=== PATIENT | male | born 1925 | race Caucasian/White ===

== ENCOUNTER 2016-12-05 06:45 | Day surgery (SDC) | payer MEDICARE, OTHER, MEDICAID ==
[~2016-12-05 06:45] MED LIST: Lactated Ringers 1,000 ML IV SCH; Sodium Chloride 0.9% 10 ML Syringe FLUSH PRN
[2016-12-05] MEDS ORDERED: Propofol 200 MG/20 ML SDV IV ONE (08:00)
[2016-12-05] MEDS ORDERED: Lidocaine 2% 100 MG/5 ML Syringe IVPUSH ONE (08:00)
--- NOTE | 2016-12-05 08:31 | PCM.SN ---
- Free Text/Narrative Note: prior to procedure pt was examined and chart reviewed. there were no changes noted.
--- NOTE | 2016-12-05 08:31 | PCM.OPNOTE ---
- General Post-Op/Procedure Note Date of Surgery/Procedure: 12/05/16 Operative Procedure(s): egd Findings: duodenal ulcer appears healed. ? narrowing in duodenum Pre Op Diagnosis: duodenal ulcer Post-Op Diagnosis: ? duodenal narrowing Anesthesia Technique: MAC Primary Surgeon: Wolf Gutierrez Anesthesia Provider: Kathie Lopez Pathology: none Complications: None Condition: Good Free Text/Narrative:: see dictation
[2016-12-05 09:06] VITALS: BP 153/97
--- NOTE | 2016-12-05 13:59 | OR ---
DATE OF OPERATION: 12/05/2016 SURGEON: Wolf Gutierrez MD PROCEDURE PERFORMED: Upper endoscopy. PREOPERATIVE DIAGNOSIS: History of duodenal ulcer. POSTOPERATIVE DIAGNOSIS: Questionable duodenal narrowing. INDICATIONS FOR PROCEDURE: This is an 89-year-old white male who presents now for a 3-month followup for a duodenal ulcer. He was offered and accepted the same. DESCRIPTION OF OPERATION: After an excellent IV sedation was administered, the bite block was inserted. The flexible endoscope was passed without difficulty down the patient's esophagus and into the stomach. The stomach was insufflated. The scope was passed through the pylorus to the second portion of the duodenum with some difficulty. There appeared to be a narrowing, but we were able to advance the scope between the first and second portion of the duodenum. The following findings were noted. Duodenal narrowing. There was no evidence of any ulceration that I could tell. Stomach unremarkable. Esophagus unremarkable. We will be following up with an upper GI to ensure that there is no significant pathology going on, but it does appear that the ulcer has been healed. /[id number] /MODL
== END 2016-12-05 09:35 | disposition home or self-care (01) ==
LOC: FB.SDS 06:45
PROVIDERS: ATTEND Surgery
DX: Z87.11 Personal history of peptic ulcer disease (principal); I25.10 Atherosclerotic heart disease of native coronary artery without angina pectoris; N40.1 Benign prostatic hyperplasia with lower urinary tract symptoms; Z79.899 Other long term (current) drug therapy; I10 Essential (primary) hypertension; K21.9 Gastro-esophageal reflux disease without esophagitis; E78.5 Hyperlipidemia, unspecified; Z87.891 Personal history of nicotine dependence
CPT/HCPCS: 00902; 43235; J7120; J2704

== ENCOUNTER 2017-02-10 07:45 | Day surgery (SDC) | payer MEDICARE, OTHER ==
[2017-02-10] MEDS ORDERED: Lactated Ringers 1,000 ML IV SCH (08:00)
[2017-02-10] MEDS ORDERED: Lidocaine 2% 100 MG/5 ML Syringe IVPUSH ONE (09:00)
[2017-02-10] MEDS ORDERED: Midazolam 1 MG/ML 2 ML SDV IV ONE (09:00)
[2017-02-10] MEDS ORDERED: fentaNYL 100 MCG/2 ML SDV IV ONE (09:00)
[2017-02-10] MEDS ORDERED: Propofol 200 MG/20 ML SDV IV ONE (09:00)
--- NOTE | 2017-02-10 09:30 | PCM.OPNOTE ---
- General Post-Op/Procedure Note Date of Surgery/Procedure: 02/10/17 Operative Procedure(s): egd with bx Findings: retained food open pylorus Pre Op Diagnosis: distended stomach. hx of duodenitis Post-Op Diagnosis: gatritis. open pylorus Anesthesia Technique: LUCIA Primary Surgeon: Wolf Gutierrez Anesthesia Provider: Kathie Lopez Pathology: stomach Complications: None Condition: Good Free Text/Narrative:: see dictation
[2017-02-10 10:05] VITALS: BP 133/76
--- NOTE | 2017-02-10 11:12 | OR ---
DATE OF OPERATION: 02/10/2017 SURGEON: Wolf Gutierrez MD PROCEDURE PERFORMED: Esophagogastroduodenoscopy with cold forceps biopsy. PREOPERATIVE DIAGNOSIS: Possible gastric outlet obstruction versus gastroparesis. POSTOPERATIVE DIAGNOSIS: Gastroparesis and gastritis. INDICATIONS FOR PROCEDURE: Mr. Lu is an 89-year-old white male, whom we have been following closely for the past year. He originally started out with duodenal ulcer disease. This was successfully treated. He has had some issues with epigastric abdominal pain and recently has noted an increase in reflux and abdominal pain. CT scan was obtained which general and an enlarged stomach with possible gastric outlet obstruction versus gastroparesis. He also has a known history of a duodenal diverticula and recent upper GI. DESCRIPTION OF OPERATION: After an excellent IV sedation was administered, the bite block was inserted. The flexible endoscope was passed without difficulty down the patient's esophagus into the stomach. The stomach was inflated. Scope was easily passed through the pylorus to the second portion of the duodenum and slowly withdrawn. The following findings were noted. Duodenum, previously known duodenum, diverticulum, and 1st portion of duodenum was unremarkable. Stomach, some diffuse gastritis and retained food. Of note, the pylorus was wide open and does not show any evidence of stricture. Esophagus was actually unremarkable, biopsy was taken of the stomach due to the gastritis. The stomach was deflated, scope was removed. The patient tolerated the procedure well, and was taken to recovery in good condition. /[id number] /MODL
== END 2017-02-10 10:36 | disposition home or self-care (01) ==
LOC: FB.SDS 07:45
PROVIDERS: ATTEND Surgery
DX: K29.50 Unspecified chronic gastritis without bleeding (principal); E78.5 Hyperlipidemia, unspecified; I10 Essential (primary) hypertension; K21.9 Gastro-esophageal reflux disease without esophagitis; I25.10 Atherosclerotic heart disease of native coronary artery without angina pectoris; Z79.899 Other long term (current) drug therapy
CPT/HCPCS: 00740; 43239; 88305; 88342; J2250; J2704; J3010; J7120

== ENCOUNTER 2017-02-13 16:52 | Inpatient (IN) | payer MEDICARE, OTHER ==
--- NOTE | 2017-02-13 17:26 | PCM.HP ---
H&P History of Present Illness - General Date of Service: 02/13/17 Admit Problem/Dx: gastroparesis Source of Information: Patient History Limitations: Reports: No Limitations - History of Present Illness Initial Comments - Free Text/Narative: 89 yo wm with a long standing hx of duodenal ulcer, gastritis and abd pain. Has been having some issue recently with abd distention, nausea and burping. GRAMAJO demonstrated what appeared to be a gastric outlet obstruction vx gastroparesis. EGD done [facility] this week demonstrated his outlet open, however it appeared that he had delayed gastric emptying. he was started on reglan and reported doing well the first day, but on the past two days had worsening pain and distention. He has forced himself to vomit twice. He continues to have wt loss, and is feeling weak. He is admitted for bowel rest and hydration. - Related Data Allergies/Adverse Reactions: Allergies Allergy/AdvReac Type Severity Reaction Status Date / Time No Known Allergies Allergy Verified 02/10/17 08:59 Home Medications: Home Meds Metoprolol Succinate [Toprol XL] 50 mg PO DAILY 08/06/14 [History] Richardson-3 Fatty Acids [Richardson-3] 1,000 mg PO BID 08/06/14 [History] Simvastatin [Zocor] 10 mg PO BEDTIME 08/06/14 [History] Sucralfate [Carafate] 1 gm PO QIDACANDBED #60 tablet 08/29/16 [Rx] Pantoprazole Sodium [Protonix] 40 mg PO DAILY 02/09/17 [History] Metoclopramide HCl [Reglan] 5 mg PO WITHMEALSANDBED #84 tablet 02/10/17 [Rx] Past Medical History HEENT History: Reports: Glaucoma, Impaired Vision, Other (See Below) Other HEENT History: ACOUSTIC NEUROMA Cardiovascular History: Reports: CAD, High Cholesterol, Hypertension Respiratory History: Reports: None Gastrointestinal History: Reports: Diverticulosis, GERD Other Gastrointestinal History: dx last week Genitourinary History: Reports: None [employer]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 Musculoskeletal History: Reports: None Neurological History: Reports: None Other Neuro History: 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 Psychiatric History: Reports: None Endocrine/Metabolic History: Reports: None Hematologic History: Reports: Transfusion Reaction Immunologic History: Reports: None Oncologic (Cancer) History: Reports: None Dermatologic History: Reports: None - Infectious Disease History Infectious Disease History: Reports: Chicken Pox, Measles, Mumps, Shingles - Past Surgical History Head Surgeries/Procedures: Reports: None HEENT Surgical History: Reports: Oral Surgery, Tonsillectomy Cardiovascular Surgical History: Reports: Carotid Stents, Coronary Artery Bypass , Valve Replacement Respiratory Surgical History: Reports: None GI Surgical History: Reports: Colonoscopy, EGD, Hernia, Inguinal Male Surgical History: Reports: None Endocrine Surgical History: Reports: None Neurological Surgical History: Reports: None Musculoskeletal Surgical History: Reports: None Oncologic Surgical History: Reports: None Social & Family History - Family History Family Medical History: Noncontributory Oncologic: Reports: Breast - Tobacco Use Smoking Status *Q: Former Smoker Years of Tobacco use: Month Tobacco Last Used: May Second Hand Smoke Exposure: No - Caffeine Use Caffeine Use: Reports: Coffee Caffeine Use Comment: 3-4 CUPS COFFEE - Alcohol Use Days Per Week of Alcohol Use: 1 Number of Drinks Per Day: 1 Total Drinks Per Week: 1 - Recreational Drug Use Recreational Drug Use: No Drug Use in Last 12 Months: No H&P Review of Systems - Review of Systems: Review Of Systems: See Below General: Reports: Weakness HEENT: Reports: No Symptoms Pulmonary: Reports: No Symptoms Cardiovascular: Reports: No Symptoms Gastrointestinal: Reports: Abdominal Pain, Diarrhea, Decreased Appetite, Distension Musculoskeletal: Reports: No Symptoms Skin: Reports: No Symptoms Neurological: Reports: No Symptoms Hematologic/Lymphatic: Reports: No Symptoms Immunologic: Reports: No Symptoms Exam - Exam Exam: See Below - Vital Signs Weight: 76.793 kg - Exam General: Alert, Oriented, Cooperative HEENT: PERRLA, Conjunctiva Clear, Mucosa Moist & West Brow, Nares Patent, Posterior Pharynx Clear, Pupils Equal, Pupils Reactive Neck: Supple, Trachea Midline Lungs: Clear to Auscultation, Normal Respiratory Effort Cardiovascular: Regular Rate, Regular Rhythm GI/Abdominal Exam: Normal Bowel Sounds, Soft, Non-Tender, No Organomegaly Rectal (Males) Exam: Deferred Back Exam: Normal Inspection Extremities: Normal Inspection Skin: Warm, Dry, Intact *Q Meaningful Use (ADM) - VTE *Q VTE Criteria *Q: - Stroke *Q Stroke Criteria *Q: - AMI *Q AMI Criteria *Q: - Problem List (1) Gastroparesis SNOMED Code(s): 281021143 ICD Code: K31.84 - GASTROPARESIS Status: Acute Current Visit: No Problem List Initiated/Reviewed/Updated: Yes Assessment/Plan Comment:: Admit for bowel rest iv hydration will hold off on NGT for now.
[2017-02-13] MEDS: Sodium Chloride 0.9% 1,000 ML IV SCH (18:03)
[2017-02-13] MEDS: Pantoprazole 40 MG Vial IVPUSH SCH (18:11)
[2017-02-13] MEDS: Ondansetron 4 MG/2 ML SDV IVPUSH PRN (18:11)
[2017-02-13] MEDS: Sucralfate 1 GM Tab PO SCH (20:51)
[2017-02-14] MEDS: Sodium Chloride 0.9% 1,000 ML IV SCH ×4 (02:00→20:06)
[2017-02-14] MEDS: Sucralfate 1 GM Tab PO SCH ×4 (09:10→21:13)
[2017-02-14] MEDS: Pantoprazole 40 MG Vial IVPUSH SCH (09:11)
[2017-02-14] MEDS: Metoprolol Succinate 50 MG Tab.ER PO SCH (09:11)
[2017-02-14] MEDS ORDERED: Potassium Chloride 20 MEQ in Premix Bag 1 BAG IV ONE (09:52)
--- NOTE | 2017-02-14 10:05 | PCM.SURGPN ---
- General Info Date of Service: 02/14/17 Functional Status: Reports: Ambulating, Urinating (decreased urine ) - Review of Systems General: Reports: No Symptoms Genitourinary: Reports: Other (distention is down and says he feels better. ) - Patient Data Vitals - most recent: Last Vital Signs Temp 36.4 C 02/14/17 07:36 Pulse 73 02/14/17 09:11 Resp 18 02/14/17 07:36 BP 139/79 02/14/17 09:11 Pulse Ox 96 02/14/17 07:36 Weight - most recent: 76.793 kg I&O - last 24 hours: Intake & Output 02/13/17 02/14/17 02/14/17 22:59 06:59 14:59 Intake Total 473 1025 Output Total 35 0 120 Balance 438 1025 -120 Lab Results last 24 hrs: Laboratory Results - last 24 hr 02/13/17 02/13/17 Range/Units 18:00 18:00 WBC 7.9 (4.5-12.0) X10-3/uL RBC 5.22 (4.30-5.75) x10(6)uL Hgb 15.7 H (11.5-15.5) g/dL Hct 48.1 D (30.0-51.3) % MCV 92.0 (80-96) fL MCH 30.1 (27.7-33.6) pg MCHC 32.7 (32.2-35.4) g/dL RDW 14.6 (11.5-15.5) % Plt Count 253 (125-369) X10(3)uL MPV 7.9 (7.4-10.4) fL Add Manual Diff Yes Neutrophils % (Manual) 64 (46-82) % Band Neutrophils % 9 H (0-6) % Lymphocytes % (Manual) 17 (13-37) % Monocytes % (Manual) 9 (4-12) % Eosinophils % (Manual) 1 (0-5) % Sodium 137 (135-145) mmol/L Potassium 3.0 L D (3.5-5.3) mmol/L Chloride 94 L D (100-110) mmol/L Carbon Dioxide 22 L (23-29) mmol/L BUN 13 (8-23) mg/dL Creatinine 1.6 H (0.6-1.3) mg/dL Est Cr Clr Drug Dosing 28.24 mL/min Estimated GFR (MDRD) 41 L (>60) BUN/Creatinine Ratio 8.1 L (9-20) Glucose 89 (80-116) mg/dL Calcium 9.9 (8.6-10.2) mg/dL Total Bilirubin 1.0 (0.1-1.3) mg/dL AST 39 H D (5-27) IU/L ALT 38 H D (14-26) IU/L Alkaline Phosphatase 80 (56-112) IU/L Total Protein 7.8 (6.0-8.0) g/dL Albumin 4.3 (2.9-4.5) g/dL Globulin 3.5 g/dL Albumin/Globulin Ratio 1.2 Med Orders - Current: Current Medications Potassium Chloride/Dextrose/Sod Cl (D5 1/2 Ns W/ 20 Meq/L Kcl) 1,000 mls @ 150 mls/hr IV ASDIRECTED [facility] Erythromycin Lactobionate 250 (mg/ Sodium Chloride) 100 mls @ 100 mls/hr IV Q6H [facility] Potassium Chloride 20 meq/ (Premix) 100 mls @ 50 mls/hr IV ONETIME ONE Stop: 02/14/17 11:51 Metoprolol Succinate (Toprol Xl) 50 mg PO DAILY [facility] Last Admin: 02/14/17 09:11 Dose: 50 mg Ondansetron HCl (Zofran) 4 mg IVPUSH Q6H PRN PRN Reason: Nausea/Vomiting Last Admin: 02/13/17 18:11 Dose: 4 mg Pantoprazole Sodium (Protonix Iv) 40 mg IVPUSH DAILY [facility] Last Admin: 02/14/17 09:11 Dose: 40 mg Sucralfate (Carafate) 1 gm PO QIDACANDBED [facility] Last Admin: 02/14/17 09:10 Dose: 1 gm Travoprost (Travatan Z 0.004% Oph Soln) 1 ml EYEBOTH BEDTIME [facility] Discontinued Medications Sodium Chloride (Normal Saline) 1,000 mls @ 125 mls/hr IV ASDIRECTED [facility] Last Admin: 02/14/17 09:14 Dose: 125 mls/hr - Exam General: alert, oriented, cooperative, no acute distress Lungs: Clear to Auscultation, Normal Respiratory Effort Cardiovascular: Regular Rate, Regular Rhythm GI/Abdominal Exam: Normal Bowel Sounds, No Distention. No: Guarding, Rigid, Rebound - Problem List & Annotations (1) Gastroparesis SNOMED Code(s): 780845272 Code(s): K31.84 - GASTROPARESIS Status: Acute Current Visit: No - Problem List Review Problem List Initiated/Reviewed/Updated: Yes - My Orders Last 24 Hours: Active Orders 24 hr Category Date Time Status Patient Status [ADT] Routine ADT 02/13/17 17:28 Active Intake and Output [RC] 06,14,22 Care 02/13/17 17:30 Active Notify Provider Vital Signs [RC] ASDIRECTED Care 02/13/17 17:29 Active Oxygen Therapy [RC] PRN Care 02/13/17 17:28 Active Up ad Deirdre [RC] ASDIRECTED Care 02/13/17 17:28 Active Vital Signs [RC] Q4H Care 02/13/17 17:28 Active Nothing per Oral Now Diet [DIET] Diet 02/13/17 Dinner Active Dextrose 5%-1/2 Normal Saline with KCl 20 mEq @ 150 mL/ Med 02/14/17 10:00 Ordered Hr (1000 mL) D5 1/2 NS w/ 20 mEq/L KCl 1,000 ml IV ASDIRECTED Erythromycin Lactobionate 250 mg Med 02/14/17 10:00 Ordered Sodium Chloride 0.9% [Normal Saline] 100 ml IV Q6H Metoprolol Succinate [Toprol XL] Med 02/14/17 09:00 Active 50 mg PO DAILY Ondansetron [Zofran] Med 02/13/17 17:40 Active 4 mg IVPUSH Q6H PRN Pantoprazole [ProTONIX IV] Med 02/13/17 17:45 Active 40 mg IVPUSH DAILY Potassium Chloride [KCL 20 MEQ in Water 100 ML] 20 meq Med 02/14/17 09:52 Ordered Premix Bag 1 bag IV ONETIME Sucralfate [Carafate] Med 02/13/17 21:00 Active 1 gm PO QIDACANDBED Travoprost [Travatan Z 0.004% Ophth Soln] Med 02/14/17 21:00 Active 1 ml EYEBOTH BEDTIME Sequential Compression Device [OM.PC] Per Unit Routine Oth 02/13/17 17:31 Ordered VTE Pharmacological Contraindications [AST] Per Unit Oth 02/13/17 17:28 Ordered Routine Resuscitation Status Routine Resus Stat 02/13/17 17:28 Ordered Medication Orders Potassium Chloride/Dextrose/Sod Cl (D5 1/2 Ns W/ 20 Meq/L Kcl) 1,000 mls @ 150 mls/hr IV ASDIRECTED [facility] Erythromycin Lactobionate 250 (mg/ Sodium Chloride) 100 mls @ 100 mls/hr IV Q6H [facility] Potassium Chloride 20 meq/ (Premix) 100 mls @ 50 mls/hr IV ONETIME ONE Stop: 02/14/17 11:51 Metoprolol Succinate (Toprol Xl) 50 mg PO DAILY [facility] Last Admin: 02/14/17 09:11 Dose: 50 mg Ondansetron HCl (Zofran) 4 mg IVPUSH Q6H PRN PRN Reason: Nausea/Vomiting Last Admin: 02/13/17 18:11 Dose: 4 mg Pantoprazole Sodium (Protonix Iv) 40 mg IVPUSH DAILY [facility] Last Admin: 02/14/17 09:11 Dose: 40 mg Admin: 02/13/17 18:11 Dose: 40 mg Sucralfate (Carafate) 1 gm PO QIDACANDBED [facility] Last Admin: 02/14/17 09:10 Dose: 1 gm Admin: 02/13/17 20:51 Dose: 1 gm Travoprost (Travatan Z 0.004% Ophth Soln) 1 ml EYEBOTH BEDTIME [facility] - Assessment Assessment (Free Text/Narrative):: clinically better this am. Low K which will be replaced. will advance IVF rate rather than bolus. will start E mycin as well.
[2017-02-14] MEDS: D5 1/2 NS w/ 20 mEq/L KCl 1,000 ML IV SCH ×2 (10:48→22:37)
[2017-02-14] MEDS ORDERED: Lidocaine 1% PF 2 ML SDV ONE (11:30)
[2017-02-14] MEDS ORDERED: Non-Formulary Medication 1 Each (Travoprost [Travatan Z 0.004% Ophth Soln] 1 DROP) EYEBOTH SCH (21:00)
[2017-02-14] MEDS ORDERED: hydrOXYzine HCl 25 MG Tab PO PRN (21:27)
[2017-02-15] MEDS: D5 1/2 NS w/ 20 mEq/L KCl 1,000 ML IV SCH ×2 (06:12→14:29)
[2017-02-15] MEDS: Pantoprazole 40 MG Vial IVPUSH SCH (08:26)
[2017-02-15] MEDS: Sucralfate 1 GM Tab PO SCH ×4 (08:26→20:26)
[2017-02-15] MEDS: Metoprolol Succinate 50 MG Tab.ER PO SCH (08:26)
--- NOTE | 2017-02-15 08:50 | PCM.SURGPN ---
- General Info Date of Service: 02/15/17 Functional Status: Reports: Ambulating, Urinating - Review of Systems Pulmonary: Reports: No Symptoms Cardiovascular: Reports: No Symptoms Gastrointestinal: Reports: Abdominal Pain, Flatus - Patient Data Vitals - most recent: Last Vital Signs Temp 36.7 C 02/15/17 07:08 Pulse 64 02/15/17 08:26 Resp 18 02/15/17 07:08 BP 129/68 02/15/17 08:26 Pulse Ox 97 02/15/17 07:08 Weight - most recent: 74.571 kg I&O - last 24 hours: Intake & Output 02/14/17 02/15/17 02/15/17 22:59 06:59 14:59 Intake Total 1745 1106 Output Total 325 1100 Balance 1420 6 Lab Results last 24 hrs: Laboratory Results - last 24 hr 02/15/17 Range/Units 06:50 Sodium 139 (135-145) mmol/L Potassium 3.3 L (3.5-5.3) mmol/L Chloride 107 D (100-110) mmol/L Carbon Dioxide 24 (23-29) mmol/L BUN 11 (8-23) mg/dL Creatinine 0.8 (0.6-1.3) mg/dL Est Cr Clr Drug Dosing 58.53 mL/min Estimated GFR (MDRD) > 60 (>60) BUN/Creatinine Ratio 13.8 (9-20) Glucose 103 (80-116) mg/dL Calcium 8.1 L (8.6-10.2) mg/dL Med Orders - Current: Current Medications Hydroxyzine HCl (Atarax) 25 mg PO BEDTIME PRN PRN Reason: Sleep Last Admin: 02/14/17 22:03 Dose: 25 mg Potassium Chloride/Dextrose/Sod Cl (D5 1/2 Ns W/ 20 Meq/L Kcl) 1,000 mls @ 150 mls/hr IV Q7H [facility] Last Admin: 02/15/17 06:12 Dose: 150 mls/hr Erythromycin Lactobionate 250 (mg/ Sodium Chloride) 100 mls @ 100 mls/hr IV Q6H [facility] Last Admin: 02/15/17 05:16 Dose: 100 mls/hr Metoprolol Succinate (Toprol Xl) 50 mg PO DAILY [facility] Last Admin: 02/15/17 08:26 Dose: 50 mg Ondansetron HCl (Zofran) 4 mg IVPUSH Q6H PRN PRN Reason: Nausea/Vomiting Last Admin: 02/13/17 18:11 Dose: 4 mg Pantoprazole Sodium (Protonix Iv) 40 mg IVPUSH DAILY [facility] Last Admin: 02/15/17 08:26 Dose: 40 mg Sucralfate (Carafate) 1 gm PO QIDACANDBED [facility] Last Admin: 02/15/17 08:26 Dose: 1 gm Travoprost (Travatan Z 0.004% Ophth Soln) 1 ml EYEBOTH BEDTIME [facility] Last Admin: 02/14/17 21:13 Dose: 1 drop Discontinued Medications Sodium Chloride (Normal Saline) 1,000 mls @ 125 mls/hr IV ASDIRECTED [facility] Last Admin: 02/14/17 09:14 Dose: 125 mls/hr Potassium Chloride 20 meq/ (Premix) 100 mls @ 50 mls/hr IV ONETIME ONE Stop: 02/14/17 11:51 Last Admin: 02/14/17 13:32 Dose: 50 mls/hr Sodium Chloride (Normal Saline) 1,000 mls @ 500 mls/hr IV ASDIRECTED [facility] Stop: 02/14/17 20:15 Last Admin: 02/14/17 20:06 Dose: 500 mls/hr Lidocaine HCl (Xylocaine-Mpf 1%) 2 ml .XX ONETIME ONE Stop: 02/14/17 11:31 Last Admin: 02/14/17 13:32 Dose: 2 ml - Exam General: alert, oriented, cooperative, no acute distress Lungs: Clear to Auscultation, Normal Respiratory Effort Cardiovascular: Regular Rate, Regular Rhythm GI/Abdominal Exam: Normal Bowel Sounds, Soft - Problem List & Annotations (1) Gastroparesis SNOMED Code(s): 449217651 Code(s): K31.84 - GASTROPARESIS Status: Acute Current Visit: No - Problem List Review Problem List Initiated/Reviewed/Updated: Yes - My Orders Last 24 Hours: Active Orders 24 hr Category Date Time Status Granado Catheter Insertion [Insert Urinary Catheter] [OM. Care 02/14/17 18:15 Ordered PC] Q24H Urinary Catheter Assessment [RC] QSHIFT Care 02/14/17 18:13 Active D5 1/2 NS w/ 20 mEq/L KCl 1,000 ml Med 02/14/17 10:00 Active IV Q7H Erythromycin Lactobionate 250 mg Med 02/14/17 10:30 Active Sodium Chloride 0.9% [Normal Saline] 100 ml IV Q6H Metoprolol Succinate [Toprol XL] Med 02/14/17 09:00 Active 50 mg PO DAILY Travoprost [Travatan Z 0.004% Ophth Soln] Med 02/14/17 21:00 Active 1 ml EYEBOTH BEDTIME hydrOXYzine HCl [Atarax] Med 02/14/17 21:27 Active 25 mg PO BEDTIME PRN Medication Orders Hydroxyzine HCl (Atarax) 25 mg PO BEDTIME PRN PRN Reason: Sleep Last Admin: 02/14/17 22:03 Dose: 25 mg Potassium Chloride/Dextrose/Sod Cl (D5 1/2 Ns W/ 20 Meq/L Kcl) 1,000 mls @ 150 mls/hr IV Q7H [facility] Last Admin: 02/15/17 06:12 Dose: 150 mls/hr Infusion: 02/15/17 05:18 Dose: 150 mls/hr Admin: 02/14/17 22:37 Dose: 150 mls/hr Infusion: 02/14/17 17:29 Dose: 150 mls/hr Admin: 02/14/17 10:48 Dose: 150 mls/hr Erythromycin Lactobionate 250 (mg/ Sodium Chloride) 100 mls @ 100 mls/hr IV Q6H [facility] Last Admin: 02/15/17 05:16 Dose: 100 mls/hr Admin: 02/14/17 22:37 Dose: 100 mls/hr Admin: 02/14/17 16:59 Dose: 100 mls/hr Admin: 02/14/17 10:48 Dose: 100 mls/hr Metoprolol Succinate (Toprol Xl) 50 mg PO DAILY [facility] Last Admin: 02/15/17 08:26 Dose: 50 mg Admin: 02/14/17 09:11 Dose: 50 mg Ondansetron HCl (Zofran) 4 mg IVPUSH Q6H PRN PRN Reason: Nausea/Vomiting Last Admin: 02/13/17 18:11 Dose: 4 mg Pantoprazole Sodium (Protonix Iv) 40 mg IVPUSH DAILY [facility] Last Admin: 02/15/17 08:26 Dose: 40 mg Admin: 02/14/17 09:11 Dose: 40 mg Admin: 02/13/17 18:11 Dose: 40 mg Sucralfate (Carafate) 1 gm PO QIDACANDBED [facility] Last Admin: 02/15/17 08:26 Dose: 1 gm Admin: 02/14/17 21:13 Dose: 1 gm Admin: 02/14/17 17:00 Dose: 1 gm Admin: 02/14/17 13:32 Dose: 1 gm Admin: 02/14/17 09:10 Dose: 1 gm Admin: 02/13/17 20:51 Dose: 1 gm Travoprost (Travatan Z 0.004% Ophth Soln) 1 ml EYEBOTH BEDTIME [facility] Last Admin: 02/14/17 21:13 Dose: 1 drop - Assessment Assessment (Free Text/Narrative):: slow improvement low K - Plan Plan (Free Text/Narrative):: d/c granado today Popsicles today decrease IVF rate. PO K
[2017-02-15] MEDS ORDERED: Potassium Chloride 20 MEQ Tab.ER PO ONE (08:53)
[2017-02-15] MEDS: Ondansetron 4 MG/2 ML SDV IVPUSH PRN (15:47)
[2017-02-16] MEDS: D5 1/2 NS w/ 20 mEq/L KCl 1,000 ML IV SCH (01:33)
[2017-02-16] MEDS: Sucralfate 1 GM Tab PO SCH ×4 (06:57→21:10)
[2017-02-16] MEDS: Pantoprazole 40 MG Vial IVPUSH SCH (08:16)
[2017-02-16] MEDS: Metoprolol Succinate 50 MG Tab.ER PO SCH (08:17)
--- NOTE | 2017-02-16 08:37 | PCM.SURGPN ---
- General Info Date of Service: 02/16/17 Functional Status: Reports: Pain Controlled, Ambulating, Urinating. Denies: New Symptoms - Review of Systems Gastrointestinal: Reports: Flatus. Denies: Abdominal Pain - Patient Data Vitals - most recent: Last Vital Signs Temp 36.6 C 02/16/17 04:43 Pulse 65 02/16/17 08:17 Resp 20 02/16/17 04:43 BP 112/71 02/16/17 08:17 Pulse Ox 95 02/16/17 04:43 Weight - most recent: 74.571 kg I&O - last 24 hours: Intake & Output 02/15/17 02/16/17 02/16/17 22:59 06:59 14:59 Intake Total 1040 985 Output Total 200 1325 Balance 840 -340 Lab Results last 24 hrs: Laboratory Results - last 24 hr 02/16/17 Range/Units 07:19 Sodium 141 (135-145) mmol/L Potassium 3.1 L (3.5-5.3) mmol/L Chloride 109 (100-110) mmol/L Carbon Dioxide 24 (23-29) mmol/L BUN 5 L (8-23) mg/dL Creatinine 0.8 (0.6-1.3) mg/dL Est Cr Clr Drug Dosing 58.53 mL/min Estimated GFR (MDRD) > 60 (>60) BUN/Creatinine Ratio 6.3 L (9-20) Glucose 112 (80-116) mg/dL Calcium 8.0 L (8.6-10.2) mg/dL Med Orders - Current: Current Medications Hydroxyzine HCl (Atarax) 25 mg PO BEDTIME PRN PRN Reason: Sleep Last Admin: 02/14/17 22:03 Dose: 25 mg Potassium Chloride/Dextrose/Sod Cl (D5 1/2 Ns W/ 20 Meq/L Kcl) 1,000 mls @ 50 mls/hr IV Q7H [facility] Last Admin: 02/16/17 01:33 Dose: 150 mls/hr Erythromycin Lactobionate 250 (mg/ Sodium Chloride) 100 mls @ 100 mls/hr IV Q6H [facility] Last Admin: 02/16/17 03:54 Dose: 100 mls/hr Metoprolol Succinate (Toprol Xl) 50 mg PO DAILY [facility] Last Admin: 02/16/17 08:17 Dose: 50 mg Ondansetron HCl (Zofran) 4 mg IVPUSH Q6H PRN PRN Reason: Nausea/Vomiting Last Admin: 02/15/17 15:47 Dose: 4 mg Pantoprazole Sodium (Protonix Iv) 40 mg IVPUSH DAILY [facility] Last Admin: 02/16/17 08:16 Dose: 40 mg Sucralfate (Carafate) 1 gm PO QIDACANDBED [facility] Last Admin: 02/16/17 06:57 Dose: 1 gm Travoprost (Travatan Z 0.004% Ophth Soln) 1 ml EYEBOTH BEDTIME [facility] Last Admin: 02/15/17 20:28 Dose: 1 drop Discontinued Medications Sodium Chloride (Normal Saline) 1,000 mls @ 125 mls/hr IV ASDIRECTED [facility] Last Admin: 02/14/17 09:14 Dose: 125 mls/hr Potassium Chloride 20 meq/ (Premix) 100 mls @ 50 mls/hr IV ONETIME ONE Stop: 02/14/17 11:51 Last Admin: 02/14/17 13:32 Dose: 50 mls/hr Sodium Chloride (Normal Saline) 1,000 mls @ 500 mls/hr IV ASDIRECTED [facility] Stop: 02/14/17 20:15 Last Admin: 02/14/17 20:06 Dose: 500 mls/hr Lidocaine HCl (Xylocaine-Mpf 1%) 2 ml .XX ONETIME ONE Stop: 02/14/17 11:31 Last Admin: 02/14/17 13:32 Dose: 2 ml Potassium Chloride (Klor-Con M20) 20 meq PO ONETIME ONE Stop: 02/15/17 08:54 Last Admin: 02/15/17 10:15 Dose: 20 meq - Exam General: alert, oriented Lungs: Clear to Auscultation, Normal Respiratory Effort Cardiovascular: Regular Rate, Regular Rhythm GI/Abdominal Exam: Normal Bowel Sounds, Soft, Non-Tender, No Distention - Problem List & Annotations (1) Gastroparesis SNOMED Code(s): 891851514 Code(s): K31.84 - GASTROPARESIS Status: Acute Current Visit: No - Problem List Review Problem List Initiated/Reviewed/Updated: Yes - My Orders Last 24 Hours: Active Orders 24 hr Category Date Time Status Communication Order [RC] ROUTINE Care 02/15/17 08:54 Active Clear Liquid Diet [DIET] Diet 02/16/17 Lunch Ordered BASIC METABOLIC PANEL,BMP [CHEM] AM Lab 02/17/17 05:11 Ordered Potassium Chloride [Klor-Con M20] Med 02/16/17 09:00 Ordered 20 meq PO BID Medication Orders Hydroxyzine HCl (Atarax) 25 mg PO BEDTIME PRN PRN Reason: Sleep Last Admin: 02/14/17 22:03 Dose: 25 mg Potassium Chloride/Dextrose/Sod Cl (D5 1/2 Ns W/ 20 Meq/L Kcl) 1,000 mls @ 50 mls/hr IV Q7H [facility] Last Admin: 02/16/17 01:33 Dose: 150 mls/hr Infusion: 02/15/17 21:10 Dose: 150 mls/hr Admin: 02/15/17 14:29 Dose: 150 mls/hr Infusion: 02/15/17 12:53 Dose: 150 mls/hr Admin: 02/15/17 06:12 Dose: 150 mls/hr Infusion: 02/15/17 05:18 Dose: 150 mls/hr Admin: 02/14/17 22:37 Dose: 150 mls/hr Infusion: 02/14/17 17:29 Dose: 150 mls/hr Admin: 02/14/17 10:48 Dose: 150 mls/hr Erythromycin Lactobionate 250 (mg/ Sodium Chloride) 100 mls @ 100 mls/hr IV Q6H [facility] Last Admin: 02/16/17 03:54 Dose: 100 mls/hr Admin: 02/15/17 22:28 Dose: 100 mls/hr Admin: 02/15/17 15:46 Dose: 100 mls/hr Admin: 02/15/17 10:15 Dose: 100 mls/hr Admin: 02/15/17 05:16 Dose: 100 mls/hr Admin: 02/14/17 22:37 Dose: 100 mls/hr Admin: 02/14/17 16:59 Dose: 100 mls/hr Admin: 02/14/17 10:48 Dose: 100 mls/hr Metoprolol Succinate (Toprol Xl) 50 mg PO DAILY [facility] Last Admin: 02/16/17 08:17 Dose: 50 mg Admin: 02/15/17 08:26 Dose: 50 mg Admin: 02/14/17 09:11 Dose: 50 mg Ondansetron HCl (Zofran) 4 mg IVPUSH Q6H PRN PRN Reason: Nausea/Vomiting Last Admin: 02/15/17 15:47 Dose: 4 mg Admin: 02/13/17 18:11 Dose: 4 mg Pantoprazole Sodium (Protonix Iv) 40 mg IVPUSH DAILY [facility] Last Admin: 02/16/17 08:16 Dose: 40 mg Admin: 02/15/17 08:26 Dose: 40 mg Admin: 02/14/17 09:11 Dose: 40 mg Admin: 02/13/17 18:11 Dose: 40 mg Sucralfate (Carafate) 1 gm PO QIDACANDBED [facility] Last Admin: 02/16/17 06:57 Dose: 1 gm Admin: 02/15/17 20:26 Dose: 1 gm Admin: 02/15/17 17:32 Dose: 1 gm Admin: 02/15/17 13:07 Dose: 1 gm Admin: 02/15/17 08:26 Dose: 1 gm Admin: 02/14/17 21:13 Dose: 1 gm Admin: 02/14/17 17:00 Dose: 1 gm Admin: 02/14/17 13:32 Dose: 1 gm Admin: 02/14/17 09:10 Dose: 1 gm Admin: 02/13/17 20:51 Dose: 1 gm Travoprost (Travatan Z 0.004% Ophth Soln) 1 ml EYEBOTH BEDTIME [facility] Last Admin: 02/15/17 20:28 Dose: 1 drop Admin: 02/14/17 21:13 Dose: 1 drop - Assessment Assessment (Free Text/Narrative):: will advance diet KCl bid
[2017-02-16] MEDS: Potassium Chloride 20 MEQ Tab.ER PO SCH ×2 (09:35→21:30)
[2017-02-16] MEDS ORDERED: D5 1/2 NS w/ 20 mEq/L KCl 1,000 ML IV SCH (13:30)
[2017-02-17] MEDS: Sucralfate 1 GM Tab PO SCH ×2 (07:45→11:23)
--- NOTE | 2017-02-17 08:59 | PCM.SURGPN ---
- General Info Date of Service: 02/17/17 Functional Status: Reports: Pain Controlled, Tolerating Diet, Ambulating, Urinating - Review of Systems Pulmonary: Reports: No Symptoms Cardiovascular: Reports: No Symptoms Gastrointestinal: Reports: No Symptoms - Patient Data Vitals - Most Recent: Last Vital Signs Temp 36.7 C 02/17/17 07:00 Pulse 82 02/17/17 07:00 Resp 16 02/17/17 07:00 BP 135/83 02/17/17 07:00 Pulse Ox 96 02/17/17 07:00 Weight - Most Recent: 72.802 kg I&O - Last 24 Hours: Intake & Output 02/16/17 02/17/17 02/17/17 22:59 06:59 14:59 Intake Total 750 30 Output Total 200 1125 Balance 550 -1095 Lab Results Last 24 Hrs: Laboratory Results - last 24 hr 02/17/17 Range/Units 06:30 Sodium 142 (135-145) mmol/L Potassium 3.2 L (3.5-5.3) mmol/L Chloride 109 (100-110) mmol/L Carbon Dioxide 26 (23-29) mmol/L BUN 5 L (8-23) mg/dL Creatinine 0.8 (0.6-1.3) mg/dL Est Cr Clr Drug Dosing 58.53 mL/min Estimated GFR (MDRD) > 60 (>60) BUN/Creatinine Ratio 6.3 L (9-20) Glucose 95 (80-116) mg/dL Calcium 8.3 L (8.6-10.2) mg/dL Med Orders - Current: Current Medications Erythromycin (Sharad-Tab) 250 mg PO QID [facility] Hydroxyzine HCl (Atarax) 25 mg PO BEDTIME PRN PRN Reason: Sleep Last Admin: 02/14/17 22:03 Dose: 25 mg Metoprolol Succinate (Toprol Xl) 50 mg PO DAILY [facility] Last Admin: 02/16/17 08:17 Dose: 50 mg Ondansetron HCl (Zofran) 4 mg IVPUSH Q6H PRN PRN Reason: Nausea/Vomiting Last Admin: 02/15/17 15:47 Dose: 4 mg Pantoprazole Sodium (Protonix) 40 mg PO 0600 [facility] Potassium Chloride (Klor-Con M20) 20 meq PO BID [facility] Last Admin: 02/16/17 21:30 Dose: 20 meq Sucralfate (Carafate) 1 gm PO QIDACANDBED [facility] Last Admin: 02/17/17 07:45 Dose: 1 gm Travoprost (Travatan Z 0.004% Ophth Soln) 1 ml EYEBOTH BEDTIME [facility] [place] Last Admin: 02/16/17 21:16 Dose: 1 drop Discontinued Medications Sodium Chloride (Normal Saline) 1,000 mls @ 125 mls/hr IV ASDIRECTED [facility] Last Admin: 02/14/17 09:14 Dose: 125 mls/hr Potassium Chloride/Dextrose/Sod Cl (D5 1/2 Ns W/ 20 Meq/L Kcl) 1,000 mls @ 50 mls/hr IV Q7H [facility] [place] Last Admin: 02/16/17 01:33 Dose: 150 mls/hr Erythromycin Lactobionate 250 (mg/ Sodium Chloride) 100 mls @ 100 mls/hr IV Q6H [facility] [place] Last Admin: 02/16/17 16:27 Dose: 100 mls/hr Potassium Chloride 20 meq/ (Premix) 100 mls @ 50 mls/hr IV ONETIME ONE Stop: 02/14/17 11:51 Last Admin: 02/14/17 13:32 Dose: 50 mls/hr Sodium Chloride (Normal Saline) 1,000 mls @ 500 mls/hr IV ASDIRECTED [facility] Stop: 02/14/17 20:15 Last Admin: 02/14/17 20:06 Dose: 500 mls/hr Potassium Chloride/Dextrose/Sod Cl (D5 1/2 Ns W/ 20 Meq/L Kcl) 1,000 mls @ 50 mls/hr IV Q20H [facility] [place] Last Admin: 02/16/17 13:32 Dose: 50 mls/hr Lidocaine HCl (Xylocaine-Mpf 1%) 2 ml .XX ONETIME ONE Stop: 02/14/17 11:31 Last Admin: 02/14/17 13:32 Dose: 2 ml Pantoprazole Sodium (Protonix Iv) 40 mg IVPUSH DAILY [facility] [place] Last Admin: 02/16/17 08:16 Dose: 40 mg Potassium Chloride (Klor-Con M20) 20 meq PO ONETIME ONE Stop: 02/15/17 08:54 Last Admin: 02/15/17 10:15 Dose: 20 meq - Exam General: Alert, Oriented, Cooperative, No Acute Distress Lungs: Clear to Auscultation, Normal Respiratory Effort Cardiovascular: Regular Rate, Regular Rhythm GI/Abdominal Exam: Normal Bowel Sounds, Soft, Non-Tender, No Organomegaly, No Distention - Problem List & Annotations (1) Gastroparesis SNOMED Code(s): 331455715 Code(s): K31.84 - GASTROPARESIS Status: Acute Current Visit: No - Problem List Review Problem List Initiated/Reviewed/Updated: Yes - My Orders Last 24 Hours: Active Orders 24 hr Category Date Time Status Full Liquid Diet [DIET] Diet 02/17/17 Lunch Ordered Erythromycin Base [Sharad-Tab] Med 02/17/17 09:00 Active 250 mg PO QID Pantoprazole [ProTONIX] Med 02/18/17 06:00 Ordered 40 mg PO 0600 Potassium Chloride [Klor-Con M20] Med 02/16/17 09:00 Active 20 meq PO BID Discontinue Saline Lock [Peripheral IV Discontinue] [OM Oth 02/16/17 19:33 Ordered .PC] Routine Medication Orders Erythromycin (Sharad-Tab) 250 mg PO QID [facility] Hydroxyzine HCl (Atarax) 25 mg PO BEDTIME PRN PRN Reason: Sleep Last Admin: 02/14/17 22:03 Dose: 25 mg Metoprolol Succinate (Toprol Xl) 50 mg PO DAILY [facility] Last Admin: 02/16/17 08:17 Dose: 50 mg Admin: 02/15/17 08:26 Dose: 50 mg Admin: 02/14/17 09:11 Dose: 50 mg Ondansetron HCl (Zofran) 4 mg IVPUSH Q6H PRN PRN Reason: Nausea/Vomiting Last Admin: 02/15/17 15:47 Dose: 4 mg Admin: 02/13/17 18:11 Dose: 4 mg Pantoprazole Sodium (Protonix) 40 mg PO 0600 [facility] Potassium Chloride (Klor-Con M20) 20 meq PO BID [facility] Last Admin: 02/16/17 21:30 Dose: 20 meq Admin: 02/16/17 09:35 Dose: 20 meq Sucralfate (Carafate) 1 gm PO QIDACANDBED [facility] Last Admin: 02/17/17 07:45 Dose: 1 gm Admin: 02/16/17 21:10 Dose: 1 gm Admin: 02/16/17 17:59 Dose: 1 gm Admin: 02/16/17 13:00 Dose: 1 gm Admin: 02/16/17 06:57 Dose: 1 gm Admin: 02/15/17 20:26 Dose: 1 gm Admin: 02/15/17 17:32 Dose: 1 gm Admin: 02/15/17 13:07 Dose: 1 gm Admin: 02/15/17 08:26 Dose: 1 gm Admin: 02/14/17 21:13 Dose: 1 gm Admin: 02/14/17 17:00 Dose: 1 gm Admin: 02/14/17 13:32 Dose: 1 gm Admin: 02/14/17 09:10 Dose: 1 gm Admin: 02/13/17 20:51 Dose: 1 gm Travoprost (Travatan Z 0.004% Ophth Soln) 1 ml EYEBOTH BEDTIME [facility] Last Admin: 02/16/17 21:16 Dose: 1 drop Admin: 02/15/17 20:28 Dose: 1 drop Admin: 02/14/17 21:13 Dose: 1 drop - Assessment Assessment (Free Text/Narrative):: clinically issues have appeared to resolve. - Plan Plan (Free Text/Narrative):: full liquid diet if tolerates will allow to go home.
[2017-02-17] MEDS ORDERED: Pantoprazole 40 MG Tab.CR PO SCH (09:00)
[2017-02-17] MEDS: Potassium Chloride 20 MEQ Tab.ER PO SCH (09:38)
[2017-02-17] MEDS: Metoprolol Succinate 50 MG Tab.ER PO SCH (09:38)
[2017-02-17 09:41] VITALS: BP 138/83
--- NOTE | 2017-02-17 18:06 | PCM.DCSUM1 ---
Discharge Summary - Hospital Course Free Text/Narrative:: pt admitted and placed on bowel rest. was started E mycin as well as K replacement as he was noted to have hypoK as well. He started passing a significant of flatus and noted an improvement in his abd pain and distention. He was also noted to have a decreased urine output and granado catheter was inserted on day 2 to aid with his hydration. This stopped the following morning. The day prior to discharge he was started on a clear liquid diet and was able to tolerate this so his diet was advanced. He was discharged on a full liquid diet. - Discharge Data Discharge Date: 02/17/17 Discharge Disposition: Home, Self-Care 01 Condition: Good - Discharge Diagnosis/Problem(s) (1) Gastroparesis SNOMED Code(s): 821260382 ICD Code: K31.84 - GASTROPARESIS Status: Acute (2) Hypokalemia SNOMED Code(s): 68734748 ICD Code: E87.6 - HYPOKALEMIA Status: Acute - Patient Instructions Diet: Full Liquid Diet Activity: No Strenuous Activities, Rest and Relax Today Driving: Do Not Drive Showering/Bathing: May Shower Notify Provider of: Fever, Increased Pain, Nausea and/or Vomiting - Discharge Plan Prescriptions/Med Rec: Erythromycin Base [Sharad-Tab] 250 mg PO QID #60 tablet Potassium Chloride [Klor-Con M20] 20 meq PO BID #60 tab.er Home Medications: Home Meds Metoprolol Succinate [Toprol XL] 50 mg PO DAILY 08/06/14 [History] Newton-3 Fatty Acids [Newton-3] 1,000 mg PO BID 08/06/14 [History] Simvastatin [Zocor] 10 mg PO BEDTIME 08/06/14 [History] Sucralfate [Carafate] 1 gm PO QIDACANDBED #60 tablet 08/29/16 [Rx] Pantoprazole Sodium [Protonix] 40 mg PO DAILY 02/09/17 [History] Travoprost [Travatan Z 0.004% Ophth Soln] 1 drop EYEBOTH BEDTIME 02/13/17 [ History] Erythromycin Base [Sharad-Tab] 250 mg PO QID #60 tablet 02/17/17 [Rx] Potassium Chloride [Klor-Con M20] 20 meq PO BID #60 tab.er 02/17/17 [Rx] Referrals: Wolf Gutierrez MD [Physician] - (next week thursday or thursday. ) - Discharge Summary/Plan Comment DC Time >30 min.: No Discharge Summary/Plan Comment: see above. - General Info Date of Service: 02/17/17 - Patient Data Vitals - Most Recent: Last Vital Signs Temp 36.7 C 02/17/17 07:00 Pulse 82 02/17/17 09:38 Resp 16 02/17/17 07:00 BP 138/83 02/17/17 09:38 Pulse Ox 96 02/17/17 07:00 Weight - Most Recent: 72.802 kg I&O - Last 24 hours: Intake & Output 02/17/17 02/17/17 02/17/17 06:59 14:59 22:59 Intake Total 30 Output Total 1125 Balance -1095 Lab Results - Last 24 hrs: Laboratory Results - last 24 hr 02/17/17 Range/Units 06:30 Sodium 142 (135-145) mmol/L Potassium 3.2 L (3.5-5.3) mmol/L Chloride 109 (100-110) mmol/L Carbon Dioxide 26 (23-29) mmol/L BUN 5 L (8-23) mg/dL Creatinine 0.8 (0.6-1.3) mg/dL Est Cr Clr Drug Dosing 58.53 mL/min Estimated GFR (MDRD) > 60 (>60) BUN/Creatinine Ratio 6.3 L (9-20) Glucose 95 (80-116) mg/dL Calcium 8.3 L (8.6-10.2) mg/dL Med Orders - Current: Current Medications Discontinued Medications Erythromycin (Sharad-Tab) 250 mg PO QID [facility] Last Admin: 02/17/17 14:20 Dose: 250 mg Hydroxyzine HCl (Atarax) 25 mg PO BEDTIME PRN PRN Reason: Sleep Last Admin: 02/14/17 22:03 Dose: 25 mg Sodium Chloride (Normal Saline) 1,000 mls @ 125 mls/hr IV ASDIRECTED [facility] Last Admin: 02/14/17 09:14 Dose: 125 mls/hr Potassium Chloride/Dextrose/Sod Cl (D5 1/2 Ns W/ 20 Meq/L Kcl) 1,000 mls @ 50 mls/hr IV Q7H [facility] Last Admin: 02/16/17 01:33 Dose: 150 mls/hr Erythromycin Lactobionate 250 (mg/ Sodium Chloride) 100 mls @ 100 mls/hr IV Q6H [facility] Last Admin: 02/16/17 16:27 Dose: 100 mls/hr Potassium Chloride 20 meq/ (Premix) 100 mls @ 50 mls/hr IV ONETIME ONE Stop: 02/14/17 11:51 Last Admin: 02/14/17 13:32 Dose: 50 mls/hr Sodium Chloride (Normal Saline) 1,000 mls @ 500 mls/hr IV ASDIRECTED [facility] Stop: 02/14/17 20:15 Last Admin: 02/14/17 20:06 Dose: 500 mls/hr Potassium Chloride/Dextrose/Sod Cl (D5 1/2 Ns W/ 20 Meq/L Kcl) 1,000 mls @ 50 mls/hr IV Q20H [facility] Last Admin: 02/16/17 13:32 Dose: 50 mls/hr Lidocaine HCl (Xylocaine-Mpf 1%) 2 ml .XX ONETIME ONE Stop: 02/14/17 11:31 Last Admin: 02/14/17 13:32 Dose: 2 ml Metoprolol Succinate (Toprol Xl) 50 mg PO DAILY [facility] Last Admin: 02/17/17 09:38 Dose: 50 mg Ondansetron HCl (Zofran) 4 mg IVPUSH Q6H PRN PRN Reason: Nausea/Vomiting Last Admin: 02/15/17 15:47 Dose: 4 mg Pantoprazole Sodium (Protonix Iv) 40 mg IVPUSH DAILY [facility] Last Admin: 02/16/17 08:16 Dose: 40 mg Pantoprazole Sodium (Protonix) 40 mg PO 0900 [facility] Last Admin: 02/17/17 09:40 Dose: 40 mg Potassium Chloride (Klor-Con M20) 20 meq PO ONETIME ONE Stop: 02/15/17 08:54 Last Admin: 02/15/17 10:15 Dose: 20 meq Potassium Chloride (Klor-Con M20) 20 meq PO BID [facility] Last Admin: 02/17/17 09:38 Dose: 20 meq Sucralfate (Carafate) 1 gm PO QIDACANDBED [facility] Last Admin: 02/17/17 11:23 Dose: 1 gm Travoprost (Travatan Z 0.004% Ophth Soln) 1 ml EYEBOTH BEDTIME [facility] Last Admin: 02/16/17 21:16 Dose: 1 drop *Q Meaningful Use (DIS) - VTE *Q VTE Criteria *Q: VTE Pharmacological Contraindications *Q: Risk of Bleeding - Stroke *Q Stroke Criteria *Q: - AMI *Q AMI Criteria *Q:
== END 2017-02-17 14:35 | disposition home or self-care (01) | DRG 392 ==
LOC: FB.MS 17:03
PROVIDERS: ADMIT Surgery; ATTEND Surgery
PROC: 0T2BX0Z Change Drainage Device in Bladder, External Approach (ICD-10-PCS; principal; 2017-02-15)
DX: K31.84 Gastroparesis (principal); E87.6 Hypokalemia; I25.10 Atherosclerotic heart disease of native coronary artery without angina pectoris; E78.00 Pure hypercholesterolemia, unspecified; I10 Essential (primary) hypertension; K21.9 Gastro-esophageal reflux disease without esophagitis; D33.3 Benign neoplasm of cranial nerves; Z87.891 Personal history of nicotine dependence; Z79.899 Other long term (current) drug therapy; Z95.5 Presence of coronary angioplasty implant and graft; Z95.1 Presence of aortocoronary bypass graft
CPT/HCPCS: 36415; 80048; 80053; 85025; A9270-GY; C9113; J1364; J2405; J3480; J7030; J7040

== ENCOUNTER 2017-03-03 13:30 | Emergency (ER) | payer MEDICARE, OTHER ==
[2017-03-03] MEDS ORDERED: Lactated Ringers 1,000 ML IV ONE (14:02)
[2017-03-03] MEDS ORDERED: Metoclopramide 10 MG/2 ML SDV IVPUSH ONE (14:03)
--- NOTE | 2017-03-03 14:11 | EDM.PDOC ---
ED HPI GENERAL MEDICAL PROBLEM - General Chief Complaint: Abdominal Pain Stated Complaint: STOMACH PAIN Time Seen by Provider: 03/03/17 14:00 Source of Information: Reports: Patient, Family, Old Records History Limitations: Reports: No Limitations - History of Present Illness INITIAL COMMENTS - FREE TEXT/NARRATIVE: 89 yo male with a pHx of duodenal ulcers and gastroparesis presents with nausea , and vomiting. No hematemesis or melena. No fever. Sx's since last Thursday. Did not contact his provider today. Also, has a hx of CSF rhinorrhea and now is experiencing watery drainage from his nose again and is concerned this has recurred. 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: Other (see below) (on liquid diet) Abdomen Pain Score (Numeric/FACES): 5 - Related Data Allergies Allergy/AdvReac Type Severity Reaction Status Date / Time No Known Allergies Allergy Verified 03/03/17 14:33 Home Meds: Home Meds Metoprolol Succinate [Toprol XL] 50 mg PO DAILY 08/06/14 [History] Osmond-3 Fatty Acids [Osmond-3] 1,000 mg PO BID 08/06/14 [History] Simvastatin [Zocor] 10 mg PO BEDTIME 08/06/14 [History] Pantoprazole Sodium [Protonix] 40 mg PO DAILY 02/09/17 [History] Travoprost [Travatan Z 0.004% Ophth Soln] 1 drop EYEBOTH BEDTIME 02/13/17 [ History] Erythromycin Base [Sharad-Tab] 500 mg PO BID 03/03/17 [History] Potassium Chloride [Klor-Con M20] 40 meq PO BID 03/03/17 [History] Past Medical History HEENT History: Reports: Glaucoma, Impaired Vision, Other (See Below) Other HEENT History: ACOUSTIC NEUROMA Cardiovascular History: Reports: CAD, High Cholesterol, Hypertension Respiratory History: Reports: None Gastrointestinal History: Reports: Diverticulosis, GERD Other Gastrointestinal History: dx last week Genitourinary History: Reports: None 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: None Musculoskeletal History: Reports: None Neurological History: Reports: None Other Neuro History: 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 Psychiatric History: Reports: None Endocrine/Metabolic History: Reports: None Hematologic History: Reports: Transfusion Reaction Immunologic History: Reports: None Oncologic (Cancer) History: Reports: None Dermatologic History: Reports: None - Infectious Disease History Infectious Disease History: Reports: Chicken Pox, Measles, Mumps, Shingles - Past Surgical History Head Surgeries/Procedures: Reports: None HEENT Surgical History: Reports: Oral Surgery, Tonsillectomy Cardiovascular Surgical History: Reports: Carotid Stents, Coronary Artery Bypass , Valve Replacement Respiratory Surgical History: Reports: None GI Surgical History: Reports: Colonoscopy, EGD, Hernia, Inguinal Male Surgical History: Reports: None Endocrine Surgical History: Reports: None Neurological Surgical History: Reports: None Musculoskeletal Surgical History: Reports: None Oncologic Surgical History: Reports: None Social & Family History - Family History Family Medical History: Noncontributory Oncologic: Reports: Breast - Tobacco Use Smoking Status *Q: Former Smoker Years of Tobacco use: Used Tobacco, but Quit: Yes Month Tobacco Last Used: 1994 Second Hand Smoke Exposure: No - Caffeine Use Caffeine Use: Reports: Coffee, Tea Caffeine Use Comment: 3-4 CUPS COFFEE - Alcohol Use Days Per Week of Alcohol Use: 1 Number of Drinks Per Day: 1 Total Drinks Per Week: 1 - Recreational Drug Use Recreational Drug Use: No Drug Use in Last 12 Months: No ED ROS GENERAL - Review of Systems Review Of Systems: See Below Constitutional: Reports: No Symptoms HEENT: Reports: Rhinitis Respiratory: Reports: No Symptoms Cardiovascular: Reports: No Symptoms Endocrine: Reports: No Symptoms GI/Abdominal: Reports: Abdominal Pain, Anorexia, Decreased Appetite, Distension , Nausea, Vomiting. Denies: Black Stool, Bloody Stool, Constipation, Diarrhea, Flatus, Hematemesis, Hematochezia, Melena, Stool Incontinence : Reports: No Symptoms Musculoskeletal: Reports: No Symptoms Skin: Reports: No Symptoms Neurological: Reports: No Symptoms ED EXAM, GI/ABD - Physical Exam Exam: See Below Exam Limited By: No Limitations General Appearance: Alert, WD/WN, No Apparent Distress Eyes: Bilateral: Normal Appearance Ears: Normal External Exam, Normal Canal, Hearing Grossly Normal Nose: Normal Inspection, Normal Mucosa, No Blood, Nasal Drainage (clear, has Kleenix up his nostrils) Throat/Mouth: Normal Inspection, Normal Lips, Normal Oropharynx, Normal Voice, No Airway Compromise Head: Atraumatic, Normocephalic Neck: Normal Inspection, Supple Respiratory/Chest: No Respiratory Distress, Lungs Clear, Normal Breath Sounds, No Accessory Muscle Use Cardiovascular: Regular Rate, Rhythm, No Edema GI/Abdominal Exam: Distended, Tender, Abnormal Bowel Sounds (decreased). No: Guarding, Rigid, Rebound Back Exam: Normal Inspection. No: CVA Tenderness (R), CVA Tenderness (L) Extremities: Normal Inspection, Normal Range of Motion, Non-Tender, No Pedal Edema Neurological: Alert, Oriented, CN II-XII Intact, Normal Cognition, No Motor/ Sensory Deficits Psychiatric: Normal Affect, Normal Mood Skin Exam: Warm, Dry, Intact, Normal Color, No Rash Lymphatic: No Adenopathy Course - Vital Signs Text/Narrative:: LR 1000 ml IV, Reglan 10 mg IV Flat/upright abdominal [id number], no obstruction Last Recorded V/S: Last Vital Signs Temp 36.4 C 03/03/17 13:45 Pulse 94 03/03/17 16:17 Resp 20 03/03/17 16:17 BP 123/63 03/03/17 16:17 Pulse Ox 99 03/03/17 16:17 - Orders/Labs/Meds Orders: Active Orders 24 hr Category Date Time Status Sodium Chloride 0.9% [Saline Flush] Med 03/03/17 15:00 Active 10 ml FLUSH ASDIRECTED PRN Medication Orders Sodium Chloride (Saline Flush) 10 ml FLUSH ASDIRECTED PRN PRN Reason: Keep Vein Open Last Admin: 03/03/17 15:03 Dose: 10 ml Labs: Laboratory Tests 03/03/17 03/03/17 Range/Units 14:35 14:35 WBC 7.6 (4.5-12.0) X10-3/uL RBC 5.44 (4.30-5.75) x10(6)uL Hgb 16.8 H (11.5-15.5) g/dL Hct 50.2 (30.0-51.3) % MCV 92.4 (80-96) fL MCH 30.9 (27.7-33.6) pg MCHC 33.4 (32.2-35.4) g/dL RDW 14.8 (11.5-15.5) % Plt Count 201 (125-369) X10(3)uL Sodium 142 (135-145) mmol/L Potassium 4.4 D (3.5-5.3) mmol/L Chloride 93 L D (100-110) mmol/L Carbon Dioxide 34 H (23-29) mmol/L BUN 19 D (8-23) mg/dL Creatinine 2.3 H* (0.6-1.3) mg/dL Est Cr Clr Drug Dosing 20.36 mL/min Estimated GFR (MDRD) 27 L (>60) BUN/Creatinine Ratio 8.3 L (9-20) Glucose 134 H (80-116) mg/dL Calcium 10.4 H D (8.6-10.2) mg/dL Total Bilirubin 2.0 H (0.1-1.3) mg/dL AST 36 H (5-27) IU/L ALT 30 H D (14-26) IU/L Alkaline Phosphatase 80 (56-112) IU/L Total Protein 8.4 H (6.0-8.0) g/dL Albumin 4.8 H (2.9-4.5) g/dL Globulin 3.6 g/dL Albumin/Globulin Ratio 1.3 Meds: Medications Generic Name Dose Route Start Last Admin Trade Name Freq PRN Reason Stop Dose Admin Sodium Chloride 10 ml 03/03/17 15:00 03/03/17 15:03 Saline Flush FLUSH 10 ml ASDIRECTED PRN Administration Keep Vein Open Discontinued Medications Generic Name Dose Route Start Last Admin Trade Name Freq PRN Reason Stop Dose Admin Lactated Ringer's 1,000 mls @ 1,000 mls/hr 03/03/17 14:02 03/03/17 14:45 Ringers, Lactated IV 03/03/17 15:01 100 mls/hr BOLUS ONE Administration Metoclopramide HCl 10 mg 03/03/17 14:03 03/03/17 14:50 Reglan IVPUSH 03/03/17 14:04 10 mg ONETIME ONE Administration Departure - Departure Time of Disposition: 17:00 Disposition: Home, Self-Care 01 Condition: Fair Clinical Impression: Gastroparesis Nausea & vomiting Qualifiers: Vomiting type: unspecified Vomiting Intractability: non-intractable Qualified Code(s): R11.2 - Nausea with vomiting, unspecified - Discharge Information Forms: ED Department Discharge - My Orders Last 24 Hours: My Active Orders 03/03/17 15:00 Sodium Chloride 0.9% [Saline Flush] 10 ml FLUSH ASDIRECTED PRN - Assessment/Plan Last 24 Hours: My Active Orders 03/03/17 15:00 Sodium Chloride 0.9% [Saline Flush] 10 ml FLUSH ASDIRECTED PRN
[2017-03-03] MEDS ORDERED: Sodium Chloride 0.9% 10 ML Syringe FLUSH PRN (15:00)
--- NOTE | 2017-03-03 16:08 | CR ---
INDICATION: Vomiting with distention. ABDOMEN: Four images of the abdomen were obtained in supine and upright projections and were compared with a CT from 02/05/2017. The pattern of gas and feces is nonspecific without evidence of free air or definite obstructive process. No significant bowel distention was identified. Evidence of herniorrhaphy at the left inguinal area is noted. A mild dextroconcave rotoscoliosis of the upper lumbar spine is noted. Degenerative changes are noted at the right sacroiliac joint and at the hip joints with slight loss of cranial lateral joint space at the right hip. Clips compatible with cholecystectomy are noted. What appears to be some retained barium and diverticula are seen in the left pelvis. Stool is noted with air in the colon, especially the rectosigmoid area and rectum. No definite organomegaly or mass lesions were seen. There appears to be some calcification in the abdominal aorta. IMPRESSION: Nonacute abdomen. MTDD
[2017-03-03 17:15] VITALS: BP 123/67
== END 2017-03-03 17:14 | disposition home or self-care (01) ==
LOC: FB.ED 13:30
DX: K31.84 Gastroparesis (principal); I25.10 Atherosclerotic heart disease of native coronary artery without angina pectoris; E78.00 Pure hypercholesterolemia, unspecified; I10 Essential (primary) hypertension; K21.9 Gastro-esophageal reflux disease without esophagitis; Z90.89 Acquired absence of other organs; Z95.1 Presence of aortocoronary bypass graft; Z79.899 Other long term (current) drug therapy; Z87.891 Personal history of nicotine dependence
CPT/HCPCS: 36415; 74020; 80053; 85027; 96361; 96374; 99284; J2765; J7050; J7120

== ENCOUNTER 2017-03-09 16:36 | Inpatient (IN) | payer MEDICARE, OTHER ==
[2017-03-09] MEDS ORDERED: Dextrose 5%-0.9% NaCl with KCl 1,000 ML IV SCH (17:30)
[2017-03-09] MEDS: Sodium Chloride 0.9% 10 ML Syringe FLUSH PRN ×2 (18:00→18:21)
[2017-03-09] MEDS: Ondansetron 4 MG/2 ML SDV IV PRN (18:19)
[2017-03-09] MEDS: Dextrose 5%-0.45% NaCl 1,000 ML IV SCH (19:14)
[2017-03-09] MEDS ORDERED: Potassium Chloride 20 MEQ Tab.ER PO SCH (21:00)
[2017-03-09] MEDS ORDERED: Zolpidem 5 MG Tab PO ONE (22:50)
[2017-03-10] MEDS: Ondansetron 4 MG/2 ML SDV IV PRN (03:16)
[2017-03-10] MEDS: Dextrose 5%-0.45% NaCl 1,000 ML IV SCH ×3 (03:19→20:18)
[2017-03-10] MEDS ORDERED: Metoprolol Succinate 50 MG Tab.ER PO SCH (09:00)
--- NOTE | 2017-03-10 10:27 | PCM.SURGPN ---
- General Info Date of Service: 03/10/17 Functional Status: Reports: Tolerating Diet (tolerating ice chips did vomit this am ), Urinating (decreased ) - Review of Systems Cardiovascular: Reports: No Symptoms Gastrointestinal: Reports: Abdominal Pain, Decreased Appetite, Vomiting - Patient Data Vitals - Most Recent: Last Vital Signs Temp 36.3 C 03/10/17 07:34 Pulse 89 03/10/17 08:48 Resp 18 03/10/17 07:34 BP 110/71 03/10/17 08:48 Pulse Ox 96 03/10/17 07:34 Weight - Most Recent: 66.86 kg I&O - Last 24 Hours: Intake & Output 03/09/17 03/10/17 03/10/17 22:59 06:59 14:59 Intake Total 435 956 Output Total 800 Balance 435 156 Lab Results Last 24 Hrs: Laboratory Results - last 24 hr 03/09/17 03/09/17 Range/Units 17:45 17:45 WBC 6.5 (4.5-12.0) X10-3/uL RBC 5.05 (4.30-5.75) x10(6)uL Hgb 15.5 (11.5-15.5) g/dL Hct 46.9 (30.0-51.3) % MCV 92.9 (80-96) fL MCH 30.6 (27.7-33.6) pg MCHC 33.0 (32.2-35.4) g/dL RDW 14.2 (11.5-15.5) % Plt Count 172 (125-369) X10(3)uL MPV 8.1 (7.4-10.4) fL Add Manual Diff Yes Neutrophils % (Manual) 65 (46-82) % Lymphocytes % (Manual) 29 (13-37) % Monocytes % (Manual) 6 (4-12) % Sodium 143 (135-145) mmol/L Potassium 5.3 (3.5-5.3) mmol/L Chloride 100 D (100-110) mmol/L Carbon Dioxide 28 (23-29) mmol/L BUN 24 H (8-23) mg/dL Creatinine 1.4 H (0.6-1.3) mg/dL Est Cr Clr Drug Dosing 33.44 mL/min Estimated GFR (MDRD) 48 L (>60) BUN/Creatinine Ratio 17.1 (9-20) Glucose 87 (80-116) mg/dL Calcium 9.9 (8.6-10.2) mg/dL Total Bilirubin 1.9 H (0.1-1.3) mg/dL AST 66 H D (5-27) IU/L ALT 71 H D (14-26) IU/L Alkaline Phosphatase 84 (56-112) IU/L Total Protein 8.1 H (6.0-8.0) g/dL Albumin 4.5 (2.9-4.5) g/dL Globulin 3.6 g/dL Albumin/Globulin Ratio 1.3 Med Orders - Current: Current Medications Dextrose/Sodium Chloride (Dextrose 5%-1/2 Ns) 1,000 mls @ 150 mls/hr IV ASDIRECTED [facility] Last Admin: 03/10/17 03:19 Dose: 125 mls/hr Latanoprost (Xalatan 0.005% Ophth Soln) 0 ml EYEBOTH BEDTIME [facility] Metoprolol Succinate (Toprol Xl) 50 mg PO DAILY [facility] Last Admin: 03/10/17 08:48 Dose: 50 mg Ondansetron HCl (Zofran) 4 mg IV Q6H PRN PRN Reason: Nausea/Vomiting Last Admin: 03/10/17 03:16 Dose: 4 mg Sodium Chloride (Saline Flush) 10 ml FLUSH ASDIRECTED PRN PRN Reason: Keep Vein Open Last Admin: 03/09/17 18:21 Dose: 10 ml Discontinued Medications Potassium Chloride/Dextrose/Sod Cl (D5 Ns With 20 Meq Kcl) 1,000 mls @ 125 mls/ hr IV ASDIRECTED [facility] Last Admin: 03/09/17 18:04 Dose: 125 mls/hr Potassium Chloride (Klor-Con M20) 40 meq PO BID [facility] Travoprost (Travatan Z 0.004% Ophth Soln) 0 ml EYEBOTH BEDTIME [facility] Last Admin: 03/09/17 20:52 Dose: 1 drop Zolpidem Tartrate (Ambien) 5 mg PO ONETIME ONE Stop: 03/09/17 22:51 Last Admin: 03/09/17 23:07 Dose: 5 mg - Exam General: Alert, Oriented Lungs: Clear to Auscultation, Normal Respiratory Effort Cardiovascular: Regular Rate, Regular Rhythm GI/Abdominal Exam: Normal Bowel Sounds, Soft, Non-Tender - Problem List & Annotations (1) Gastroparesis SNOMED Code(s): 635253186 Code(s): K31.84 - GASTROPARESIS Status: Acute Current Visit: No - Problem List Review Problem List Initiated/Reviewed/Updated: Yes - My Orders Last 24 Hours: Active Orders 24 hr Category Date Time Status Patient Status [ADT] Routine ADT 03/09/17 17:16 Active Ambulate [RC] ASDIRECTED Care 03/09/17 17:16 Active Height and Weight [RC] DAILY Care 03/09/17 17:16 Active Intake and Output [RC] 06,14,22 Care 03/09/17 17:18 Active Notify Provider Vital Signs [RC] ASDIRECTED Care 03/09/17 17:18 Active Oxygen Therapy [RC] PRN Care 03/09/17 17:16 Active VTE/DVT Education [RC] Per Unit Routine Care 03/09/17 17:16 Active Vital Signs [RC] 08,12,16,20,00,04 Care 03/09/17 17:16 Active Consult to PICC Team [CONS] Routine Cons 03/10/17 10:25 Ordered Nothing per Oral Now Diet [DIET] Diet 03/09/17 Dinner Active Abdomen 1V Flat [CR] AM Exams 03/10/17 05:11 Taken Chest 2V [CR] AM Exams 03/10/17 05:11 Taken KUB [Abdomen 1V Flat] [CR] Routine Exams 03/10/17 09:51 Ordered Dextrose 5%-0.45% NaCl [Dextrose 5%-1/2 NS] 1,000 ml Med 03/09/17 19:15 Active IV ASDIRECTED Latanoprost [Xalatan 0.005% Ophth Soln] Med 03/10/17 21:00 Active 0 ml EYEBOTH BEDTIME Metoprolol Succinate [Toprol XL] Med 03/10/17 09:00 Active 50 mg PO DAILY Ondansetron [Zofran] Med 03/09/17 17:16 Active 4 mg IV Q6H PRN Sodium Chloride 0.9% [Saline Flush] Med 03/09/17 17:16 Active 10 ml FLUSH ASDIRECTED PRN Antiembolic Hose [OM.PC] Per Unit Routine Oth 03/09/17 17:19 Ordered Peripheral IV Insertion Adult [OM.PC] Routine Oth 03/09/17 17:16 Ordered Resuscitation Status Routine Resus Stat 03/09/17 17:16 Ordered Medication Orders Dextrose/Sodium Chloride (Dextrose 5%-1/2 Ns) 1,000 mls @ 150 mls/hr IV ASDIRECTED [facility] Last Admin: 03/10/17 03:19 Dose: 125 mls/hr Infusion: 03/10/17 03:14 Dose: 125 mls/hr Admin: 03/09/17 19:14 Dose: 125 mls/hr Latanoprost (Xalatan 0.005% Ophth Soln) 0 ml EYEBOTH BEDTIME [facility] Metoprolol Succinate (Toprol Xl) 50 mg PO DAILY [facility] Last Admin: 03/10/17 08:48 Dose: 50 mg Ondansetron HCl (Zofran) 4 mg IV Q6H PRN PRN Reason: Nausea/Vomiting Last Admin: 03/10/17 03:16 Dose: 4 mg Admin: 03/09/17 18:19 Dose: 4 mg Sodium Chloride (Saline Flush) 10 ml FLUSH ASDIRECTED PRN PRN Reason: Keep Vein Open Last Admin: 03/09/17 18:21 Dose: 10 ml Admin: 03/09/17 18:00 Dose: 10 ml - Assessment Assessment (Free Text/Narrative):: decreased uo - Plan Plan (Free Text/Narrative):: kub this am with gastrograffin emptying increase ivf rate
--- NOTE | 2017-03-10 11:31 | CR ---
INDICATION: Gastroparesis. CHEST: PA and lateral views of the chest were obtained 03/10/2017. No comparisons were available. Evidence of aortic valve replacement is noted. The aorta is tortuous with calcification in the arch. Bridging hyperostotic changes are noted in the lower middle thoracic spine. Mild demineralization may be present, suggesting the possibility of osteoporosis or osteomalacia and should be correlated clinically. Minimally flattened diaphragm leaves and slighlty prominent AP diameter suggests the possibility of COPD. An active infiltrate or effusion was not identified. No free air is noted under the hemidiaphragm leaves. IMPRESSION: No acute process - findings as noted above. MTDD
--- NOTE | 2017-03-10 11:40 | CR ---
INDICATION: Gastroparesis. ABDOMEN: Two supine views of the abdomen were obtained 03/10/2017 and were compared with 03/03/2017, again revealing evidence of previous inguinal herniorrhaphy on the left, barium in diverticula in the sigmoid colon from previous examinations, evidence of surgery in both upper quadrants with clips, compatible with cholecystectomy, and additional gastric area surgery. The stomach did not appear grossly distended at this time. The pattern of gas and feces was essentially nonspecific. There is gas and stool in the rectum. Degenerative changes are noted at the sacroiliac joints, right much greater than left - only minimal degenerative change is seen on the left. A mild dextroconcave scoliosis of the upper lumbar spine is noted with a right- sided compression at L2 vertebral body. The compression is mild and appears to have been present on the previous study. IMPRESSION: Nonacute abdomen. MTDD
--- NOTE | 2017-03-10 11:58 | CR ---
INDICATION: Question gastric outlet obstruction versus gastroparesis. ABDOMEN: Three images of the abdomen were obtained after water-diluted Isovue 370 was administered. Immediate and 60-minute images are noted. The stomach is distended moderately on the initial image and remains distended on the 60- minute delay image. However, there is flow into the mid small bowel loops at 60 minutes. Message was left on Dr. Carpio cell phone at approximately 1125 hours, 2016. ADELAD
[2017-03-10] MEDS ORDERED: Sodium Chloride 0.9% 1,000 ML IV SCH (18:00)
--- NOTE | 2017-03-10 18:03 | PCM.SN ---
- Free Text/Narrative Note: Events for the day. 1. stomach does empty on follow up KUB with gastrograffin. NGT was placed and he has had over 1 liter out. He is feeling better. 2. UO has been marginal. Will give bolus of NS tonight over two hours. 3. PICC line placement was not successful. Even with US were not able to locate an adequate vein. As a result he will need IV access through a central line. I have discussed the placement of an A port. This would allow IV access, blood draws on a prolonged basis. This was discussed in detail with the pt as well as his daughter in law. The risks were discussed as well to include bleeding, infection, injury to the great vessels as well the lung. He expressed understanding and asks us to proceed. I will schedule him to follow tomorrows cases in the am.
[2017-03-10] MEDS: Pantoprazole 40 MG Vial IVPUSH SCH (19:00)
[2017-03-10] MEDS ORDERED: LORazepam 2 MG/ML MDV IVPUSH PRN (20:07)
[2017-03-10] MEDS: Latanoprost 0.005% Ophth Soln 2.5 ML Bottle EYEBOTH SCH (21:40)
[2017-03-11] MEDS: Dextrose 5%-0.45% NaCl 1,000 ML IV SCH ×4 (03:05→20:59)
[2017-03-11] MEDS: Metoprolol Tartrate 5 MG/5 ML SDV IV SCH ×3 (05:58→18:24)
[2017-03-11] MEDS: Pantoprazole 40 MG Vial IVPUSH SCH (09:07)
[2017-03-11] MEDS ORDERED: ceFAZolin 1 GM in Sodium Chloride 0.9% 50 ML IV ONE (10:00)
[2017-03-11] MEDS ORDERED: Phenylephrine 1% 10 MG/ML SDV IV ONE (11:30)
[2017-03-11] MEDS ORDERED: Propofol 200 MG/20 ML SDV IV ONE (11:30)
[2017-03-11] MEDS ORDERED: Lactated Ringers 1,000 ML IV ONE (11:30)
[2017-03-11] MEDS ORDERED: Lidocaine 1% with EPINEPHrine 1:100,000 20 ML MDV INJECT ONE (11:42)
[2017-03-11] MEDS ORDERED: Bupivacaine 0.5% 30 ML SDV INJECT ONE (11:42)
--- NOTE | 2017-03-11 12:52 | PCM.OPNOTE ---
- General Post-Op/Procedure Note Date of Surgery/Procedure: 03/11/17 Operative Procedure(s): A port placement. left external jugular Findings: line placed without difficulty good position on cxr Pre Op Diagnosis: gastroparesis with need for iv access Post-Op Diagnosis: Same Anesthesia Technique: Local (13 ml 1 % lido with epi/0.5% buvipicaine), MAC Primary Surgeon: Wolf Gutierrez Anesthesia Provider: Vic Ham Pathology: none Complications: None Condition: Good Free Text/Narrative:: Intake & Output 03/10/17 03/11/17 03/11/17 22:59 06:59 14:59 Intake Total 1903 1210 610 Output Total 200 1200 150 Balance 1703 10 460 see dictation
--- NOTE | 2017-03-11 13:37 | US ---
INDICATION: Ultrasound for guidance to vein access for PICC line placement. ULTRASOUND GUIDED VASCULAR ACCESS: Despite ultrasonic guidance, PICC line access could not be obtained in the left humerus area. MTDD
--- NOTE | 2017-03-11 15:09 | CR ---
INDICATION: Insertion of venous access device. CHEST: An AP upright view of the chest 03/11/2017, was compared with 2016 and now reveals a central line with access through the left subclavian. The tip of the central line is directly in the midline at the level of the aortic arch, most likely within the SVC. The heart and lungs were unchanged from the previous study. The aorta is again noted to be tortuous with calcification. Mitral valve replacement and normal heart size is noted. IMPRESSION: Central line noted with its tip in the midline at the level of the aortic arch, compatible with placement in the SVC. MTDD
--- NOTE | 2017-03-11 15:47 | CR ---
INDICATION: A-Port placement. C-ARM FLUOROSCOPY IN O.R. FOR CENTRAL CATHETER PLACEMENT: 1.6 minutes C-Arm fluoroscopy time was utilized in O.R. for guidance for placement of an A-Port from the left subclavian area. The tip appears to be in the area of the arch of the aorta, slightly across the midline or in the midline at the level of the superior vena cava. MTDD
--- NOTE | 2017-03-11 16:16 | PCM.SN ---
- Free Text/Narrative Note: Post op check no complaints doing well. feeling much better than yesterday.
[2017-03-11] MEDS: Sodium Chloride 0.9% 10 ML Syringe FLUSH PRN (18:25)
--- NOTE | 2017-03-11 20:24 | OR ---
DATE OF OPERATION: 03/11/2017 SURGEON: Wolf Gutierrez MD PROCEDURE PERFORMED: Left external jugular port placement. PREOPERATIVE DIAGNOSIS: Gastroparesis with need for prolonged IV access. POSTOPERATIVE DIAGNOSIS: Gastroparesis with need for prolonged IV access. INDICATIONS FOR PROCEDURE: Mr. Lu is an 89-year-old white male, who has been in and out of the hospital recently with issues related to peptic ulcer disease, including a bleeding duodenal ulcer, and the subsequent development of some gastroparesis secondary to gastric distention. The patient has become a hard IV stick. He is currently experiencing some delayed gastric emptying which has improved over the past several weeks, but will need prolonged nasogastric decompression and IV fluid, and it was felt that a port at this point would aid in blood draws and hydration as this is a chronic and ongoing problem. INTRAOPERATIVE FINDINGS: A total of 13 mL of 1:1 mixture of 1% lidocaine with epinephrine and 0.5% bupivacaine was used, and a titanium implantable port reference #[id number], lot #[id number] with an expiration date of 07/26/2018 was used. This was a 22-Sinhala catheter with a low-profile. DESCRIPTION OF OPERATION: After an excellent IV sedation was administered, the patient was prepped and draped in usual sterile manner. We shot a preliminary fluoroscopic view to ensure that we got a good view. The area below the left lateral one-third of the clavicular area was infiltrated with a 1:1 mixture of 1% lidocaine with epinephrine and 0.5% bupivacaine. With the patient in Trendelenburg position, the venous access was obtained. We did pass a wire without difficulty and a preliminary fluoroscopic review was obtained. This appeared to be in the left subclavian vein into the innominate. However, when I hit the area of the superior vena cava, it circled back on itself and coiled. Attempts to replace this and reposition this were not successful under fluoroscopic exam. Not happy with the position of the wire, I did remove the wire and attempts to re-access the subclavian vein again were not successful and resulted in an arterial stick. At this point, I elected to proceed with a placement of the catheter in the external jugular vein on the left side. This was very visible, more local was used to infiltrate the area, and sharp dissection was carried out exposing the external jugular. A tie was placed proximally and one distally, with the proximal tie being tied and this was of 3- 0 silk. An incision was then made over the area where our planned port was going to be placed. This had been infiltrated with local at the start of the case. A pocket was created, and after test fitting, we ensured that the port was fit. The catheter was then tunneled from this incision to the subclavian area where a small stab incision had been made and then up into the area of the external jugular. A nato was made in the external jugular vein, and using the vein pick, a catheter was passed down the external jugular vein and positioned under direct fluoroscopic evaluation into the innominate vein as well. The catheter was noted to flush and aspirate freely, and then, the proximal tie was tied around the catheter and an additional tie was placed proximally behind the vein encompassing the vein and the intravenous catheter and tied. The catheter was then cut to length and attached to the port which was then placed in the patient's subclavian chest wall pocket. This was then tested again in order to aspirate and flush freely. The subcu tissue was approximated with 3-0 Vicryl, and subcu 4-0 Vicryl was used to close the skin in all three incision sites. Steri-Strips were applied. A dressing was applied over that after accessing the port and flushing finally with some heparin. Postoperative chest x-ray demonstrates catheter to be in good position with no evidence of a pneumothorax. He was taken back to his room in stable condition. /[id number] MIKAYLA/ALIX
[2017-03-11] MEDS: Latanoprost 0.005% Ophth Soln 2.5 ML Bottle EYEBOTH SCH (21:25)
[2017-03-12] MEDS: Metoprolol Tartrate 5 MG/5 ML SDV IV SCH ×5 (01:05→23:56)
[2017-03-12] MEDS: Dextrose 5%-0.45% NaCl 1,000 ML IV SCH ×3 (05:02→21:26)
[2017-03-12] MEDS: Pantoprazole 40 MG Vial IVPUSH SCH (08:47)
--- NOTE | 2017-03-12 12:35 | PCM.SURGPN ---
- General Info Date of Service: 03/12/17 POD#: 1 Functional Status: Reports: Pain Controlled, Ambulating, Urinating, Incentive Spirometry. Denies: New Symptoms - Review of Systems Pulmonary: Reports: No Symptoms Cardiovascular: Reports: Orthopnea Gastrointestinal: Reports: No Symptoms - Patient Data Vitals - Most Recent: Last Vital Signs Temp 36.8 C 03/12/17 07:11 Pulse 65 03/12/17 07:11 Resp 16 03/12/17 07:11 BP 124/81 03/12/17 07:11 Pulse Ox 95 03/12/17 07:11 Weight - Most Recent: 68.22 kg I&O - Last 24 Hours: Intake & Output 03/11/17 03/12/17 03/12/17 22:59 06:59 14:59 Intake Total 1050 1125 Output Total 1525 1250 100 Balance -475 -125 -100 Med Orders - Current: Current Medications Dextrose/Sodium Chloride (Dextrose 5%-1/2 Ns) 1,000 mls @ 125 mls/hr IV ASDIRECTED [facility] Last Admin: 03/12/17 05:02 Dose: 125 mls/hr Sodium Chloride (Normal Saline) 1,000 mls @ 500 mls/hr IV ASDIRECTED [facility] Last Admin: 03/10/17 18:16 Dose: 500 mls/hr Latanoprost (Xalatan 0.005% Ophth Soln) 0 ml EYEBOTH BEDTIME [facility] Last Admin: 03/11/17 21:25 Dose: 1 drop Lorazepam (Ativan) 1 mg IVPUSH BEDTIME PRN PRN Reason: Insomnia Metoprolol Tartrate (Lopressor) 5 mg IV Q6H [facility] Last Admin: 03/12/17 06:29 Dose: 5 mg Ondansetron HCl (Zofran) 4 mg IV Q6H PRN PRN Reason: Nausea/Vomiting Last Admin: 03/10/17 03:16 Dose: 4 mg Pantoprazole Sodium (Protonix Iv) 40 mg IVPUSH DAILY [facility] Last Admin: 03/12/17 08:47 Dose: 40 mg Sodium Chloride (Saline Flush) 10 ml FLUSH ASDIRECTED PRN PRN Reason: Keep Vein Open Last Admin: 03/11/17 18:25 Dose: 10 ml Discontinued Medications Bupivacaine HCl (Marcaine 0.5%) 8 ml INJECT .STK-MED ONE Stop: 03/11/17 11:43 Last Admin: 03/11/17 11:42 Dose: 8 ml Heparin Sodium (Porcine) (Heparin Lock Flush 100 Units/Ml) 1,000 units .XX .STK -MED ONE Stop: 03/11/17 12:07 Last Admin: 03/11/17 12:06 Dose: 1,000 units Potassium Chloride/Dextrose/Sod Cl (D5 Ns With 20 Meq Kcl) 1,000 mls @ 125 mls/ hr IV ASDIRECTED [facility] Last Admin: 03/09/17 18:04 Dose: 125 mls/hr Cefazolin Sodium 1 gm/ Sodium (Chloride) 50 mls @ 200 mls/hr IV ONETIME ONE Stop: 03/11/17 10:14 Last Admin: 03/11/17 10:02 Dose: 200 mls/hr Lidocaine/Epinephrine (Xylocaine 1% With Epinephrine 1:100,000) 8 ml INJECT .STK-MED ONE Stop: 03/11/17 11:43 Last Admin: 03/11/17 11:42 Dose: 8 ml Metoprolol Succinate (Toprol Xl) 50 mg PO DAILY [facility] Last Admin: 03/10/17 08:48 Dose: 50 mg Potassium Chloride (Klor-Con M20) 40 meq PO BID [facility] Travoprost (Travatan Z 0.004% Oph Soln) 0 ml EYEBOTH BEDTIME [facility] Last Admin: 03/09/17 20:52 Dose: 1 drop Zolpidem Tartrate (Ambien) 5 mg PO ONETIME ONE Stop: 03/09/17 22:51 Last Admin: 03/09/17 23:07 Dose: 5 mg - Exam Wound/Incisions: Dressing Dry and Intact General: Alert, Oriented, Cooperative, No Acute Distress Lungs: Clear to Auscultation, Normal Respiratory Effort Cardiovascular: Regular Rate, Regular Rhythm GI/Abdominal Exam: Normal Bowel Sounds, Soft, Non-Tender - Problem List & Annotations (1) Gastroparesis SNOMED Code(s): 562616477 Code(s): K31.84 - GASTROPARESIS Status: Acute Current Visit: No - Problem List Review Problem List Initiated/Reviewed/Updated: Yes - My Orders Last 24 Hours: Active Orders 24 hr Category Date Time Status Consult to Tape Calender [CONS] Routine Cons 03/12/17 12:33 Ordered Medication Orders Dextrose/Sodium Chloride (Dextrose 5%-1/2 Ns) 1,000 mls @ 125 mls/hr IV ASDIRECTED [facility] Last Admin: 03/12/17 05:02 Dose: 125 mls/hr Infusion: 03/12/17 04:59 Dose: 125 mls/hr Infusion: 03/11/17 21:01 Dose: 125 mls/hr Admin: 03/11/17 20:59 Dose: 150 mls/hr Infusion: 03/11/17 19:30 Dose: 150 mls/hr Admin: 03/11/17 12:49 Dose: 150 mls/hr Infusion: 03/11/17 12:49 Dose: 150 mls/hr Admin: 03/11/17 09:46 Dose: 150 mls/hr Infusion: 03/11/17 09:46 Dose: 150 mls/hr Admin: 03/11/17 03:05 Dose: 150 mls/hr Infusion: 03/11/17 02:59 Dose: 150 mls/hr Admin: 03/10/17 20:18 Dose: 150 mls/hr Infusion: 03/10/17 18:06 Dose: 150 mls/hr Admin: 03/10/17 11:25 Dose: 150 mls/hr Infusion: 03/10/17 11:19 Dose: 125 mls/hr Admin: 03/10/17 03:19 Dose: 125 mls/hr Infusion: 03/10/17 03:14 Dose: 125 mls/hr Admin: 03/09/17 19:14 Dose: 125 mls/hr Sodium Chloride (Normal Saline) 1,000 mls @ 500 mls/hr IV ASDIRECTED [facility] Last Admin: 03/10/17 18:16 Dose: 500 mls/hr Latanoprost (Xalatan 0.005% Ophth Soln) 0 ml EYEBOTH BEDTIME [facility] Last Admin: 03/11/17 21:25 Dose: 1 drop Admin: 03/10/17 21:40 Dose: 1 drop Lorazepam (Ativan) 1 mg IVPUSH BEDTIME PRN PRN Reason: Insomnia Metoprolol Tartrate (Lopressor) 5 mg IV Q6H [facility] Last Admin: 03/12/17 06:29 Dose: 5 mg Admin: 03/12/17 01:05 Dose: 5 mg Admin: 03/11/17 18:24 Dose: 5 mg Admin: 03/11/17 13:17 Dose: 5 mg Admin: 03/11/17 05:58 Dose: 5 mg Ondansetron HCl (Zofran) 4 mg IV Q6H PRN PRN Reason: Nausea/Vomiting Last Admin: 03/10/17 03:16 Dose: 4 mg Admin: 03/09/17 18:19 Dose: 4 mg Pantoprazole Sodium (Protonix Iv) 40 mg IVPUSH DAILY [facility] Last Admin: 03/12/17 08:47 Dose: 40 mg Admin: 03/11/17 09:07 Dose: 40 mg Admin: 03/10/17 19:00 Dose: 40 mg Sodium Chloride (Saline Flush) 10 ml FLUSH ASDIRECTED PRN PRN Reason: Keep Vein Open Last Admin: 03/11/17 18:25 Dose: 10 ml Admin: 03/09/17 18:21 Dose: 10 ml Admin: 03/09/17 18:00 Dose: 10 ml - Assessment Assessment (Free Text/Narrative):: stable exam port is working well - Plan Plan (Free Text/Narrative):: as will need 5-7 days of bowel rest will start tpn to support him during this time. consult to dietary
[2017-03-12] MEDS: Latanoprost 0.005% Ophth Soln 2.5 ML Bottle EYEBOTH SCH (20:30)
[2017-03-13] MEDS: Dextrose 5%-0.45% NaCl 1,000 ML IV SCH ×2 (05:30→13:51)
[2017-03-13] MEDS: Metoprolol Tartrate 5 MG/5 ML SDV IV SCH ×4 (06:21→23:54)
[2017-03-13] MEDS: Pantoprazole 40 MG Vial IVPUSH SCH (09:38)
[2017-03-13] MEDS: Potassium Chloride 20 MEQ in Premix Bag 1 BAG IV ONE (09:49)
--- NOTE | 2017-03-13 11:52 | PCM.SURGPN ---
- General Info Date of Service: 03/13/17 Functional Status: Reports: Ambulating, Incentive Spirometry. Denies: New Symptoms - Review of Systems Pulmonary: Reports: No Symptoms Cardiovascular: Reports: No Symptoms Gastrointestinal: Reports: No Symptoms - Patient Data Vitals - Most Recent: Last Vital Signs Temp 36.8 C 03/13/17 07:00 Pulse 64 03/13/17 07:00 Resp 16 03/13/17 07:00 BP 156/88 H 03/13/17 06:21 Pulse Ox 98 03/13/17 07:00 Weight - Most Recent: 68.266 kg I&O - Last 24 Hours: Intake & Output 03/12/17 03/13/17 03/13/17 22:59 06:59 14:59 Intake Total 970 1115 Output Total 650 1525 250 Balance 320 -410 -250 Lab Results Last 24 Hrs: Laboratory Results - last 24 hr 03/13/17 03/13/17 03/13/17 Range/Units 07:15 07:15 07:15 WBC 5.1 (4.5-12.0) X10-3/uL RBC 4.20 L (4.30-5.75) x10(6)uL Hgb 13.5 (11.5-15.5) g/dL Hct 38.3 (30.0-51.3) % MCV 91.2 (80-96) fL MCH 32.2 (27.7-33.6) pg MCHC 35.3 (32.2-35.4) g/dL RDW 14.4 (11.5-15.5) % Plt Count 143 (125-369) X10(3)uL MPV 8.3 (7.4-10.4) fL Neut % (Auto) 62.9 (46-82) % Lymph % (Auto) 21.9 (13-37) % Morrison % (Auto) 10.0 (4-12) % Eos % (Auto) 4 (1.0-5.0) % Baso % (Auto) 1 (0-2) % Neut # (Auto) 3.3 (1.6-8.3) # Lymph # (Auto) 1.1 (0.6-5.0) # Morrison # (Auto) 0.5 (0.0-1.3) # Eos # (Auto) 0.2 (0.0-0.8) # Baso # (Auto) 0.0 (0.0-0.2) # PT 11.6 H (8.7-11.1) INR 1.15 H (0.89-1.13) Sodium 137 (135-145) mmol/L Potassium 2.5 L* D (3.5-5.3) mmol/L Chloride 103 (100-110) mmol/L Carbon Dioxide 29 (23-29) mmol/L BUN < 5 L D (8-23) mg/dL Creatinine 0.8 (0.6-1.3) mg/dL Est Cr Clr Drug Dosing 56.49 mL/min Estimated GFR (MDRD) > 60 (>60) BUN/Creatinine Ratio 6.3 L (9-20) Glucose 123 H (80-116) mg/dL Calcium 8.2 L (8.6-10.2) mg/dL Total Bilirubin 1.2 (0.1-1.3) mg/dL AST 23 D (5-27) IU/L ALT 29 H D (14-26) IU/L Alkaline Phosphatase 64 (56-112) IU/L Total Protein 5.8 L (6.0-8.0) g/dL Albumin 3.0 (2.9-4.5) g/dL Globulin 2.8 g/dL Albumin/Globulin Ratio 1.1 Med Orders - Current: Current Medications Dextrose/Sodium Chloride (Dextrose 5%-1/2 Ns) 1,000 mls @ 125 mls/hr IV ASDIRECTED [facility] Last Admin: 03/13/17 05:30 Dose: 125 mls/hr Sodium Chloride (Normal Saline) 1,000 mls @ 500 mls/hr IV ASDIRECTED [facility] Last Admin: 03/10/17 18:16 Dose: 500 mls/hr Latanoprost (Xalatan 0.005% Ophth Soln) 0 ml EYEBOTH BEDTIME [facility] Last Admin: 03/12/17 20:30 Dose: 1 drop Lorazepam (Ativan) 1 mg IVPUSH BEDTIME PRN PRN Reason: Insomnia Metoprolol Tartrate (Lopressor) 5 mg IV Q6H [facility] Last Admin: 03/13/17 06:21 Dose: 5 mg Ondansetron HCl (Zofran) 4 mg IV Q6H PRN PRN Reason: Nausea/Vomiting Last Admin: 03/10/17 03:16 Dose: 4 mg Pantoprazole Sodium (Protonix Iv) 40 mg IVPUSH DAILY [facility] Last Admin: 03/13/17 09:38 Dose: 40 mg Sodium Chloride (Saline Flush) 10 ml FLUSH ASDIRECTED PRN PRN Reason: Keep Vein Open Last Admin: 03/11/17 18:25 Dose: 10 ml Discontinued Medications Bupivacaine HCl (Marcaine 0.5%) 8 ml INJECT .STK-MED ONE Stop: 03/11/17 11:43 Last Admin: 03/11/17 11:42 Dose: 8 ml Heparin Sodium (Porcine) (Heparin Lock Flush 100 Units/Ml) 1,000 units .XX .STK -MED ONE Stop: 03/11/17 12:07 Last Admin: 03/11/17 12:06 Dose: 1,000 units Potassium Chloride/Dextrose/Sod Cl (D5 Ns With 20 Meq Kcl) 1,000 mls @ 125 mls/ hr IV ASDIRECTED [facility] Last Admin: 03/09/17 18:04 Dose: 125 mls/hr Cefazolin Sodium 1 gm/ Sodium (Chloride) 50 mls @ 200 mls/hr IV ONETIME ONE Stop: 03/11/17 10:14 Last Admin: 03/11/17 10:02 Dose: 200 mls/hr Lactated Ringer's (Ringers, Lactated) 1,000 mls @ as directed IV .STK-MED ONE Stop: 03/11/17 11:31 Potassium Chloride 20 meq/ (Premix) 100 mls @ 50 mls/hr IV ONETIME ONE Stop: 03/13/17 10:51 Last Admin: 03/13/17 09:49 Dose: 50 mls/hr Lidocaine/Epinephrine (Xylocaine 1% With Epinephrine 1:100,000) 8 ml INJECT .STK-MED ONE Stop: 03/11/17 11:43 Last Admin: 03/11/17 11:42 Dose: 8 ml Metoprolol Succinate (Toprol Xl) 50 mg PO DAILY [facility] Last Admin: 03/10/17 08:48 Dose: 50 mg Phenylephrine HCl (Deni-Synephrine) 0.1 mg IV .STK-MED ONE Stop: 03/11/17 11:31 Potassium Chloride (Klor-Con M20) 40 meq PO BID [facility] Propofol (Diprivan 20 Ml) 425 mg IV .STK-MED ONE Stop: 03/11/17 11:31 Travoprost (Travatan Z 0.004% Ophth Soln) 0 ml EYEBOTH BEDTIME [facility] Last Admin: 03/09/17 20:52 Dose: 1 drop Zolpidem Tartrate (Ambien) 5 mg PO ONETIME ONE Stop: 03/09/17 22:51 Last Admin: 03/09/17 23:07 Dose: 5 mg - Exam General: Alert, Oriented Lungs: Clear to Auscultation, Normal Respiratory Effort Cardiovascular: Regular Rate, Regular Rhythm GI/Abdominal Exam: Normal Bowel Sounds, Soft, Non-Tender - Problem List & Annotations (1) Gastroparesis SNOMED Code(s): 331235445 Code(s): K31.84 - GASTROPARESIS Status: Acute Current Visit: No - Problem List Review Problem List Initiated/Reviewed/Updated: Yes - My Orders Last 24 Hours: Active Orders 24 hr Category Date Time Status Vital Signs [RC] Q8H Care 03/12/17 17:43 Active Consult to College Athletic Director [CONS] Routine Cons 03/12/17 12:33 Active Medication Orders Dextrose/Sodium Chloride (Dextrose 5%-1/2 Ns) 1,000 mls @ 125 mls/hr IV ASDIRECTED [facility] Last Admin: 03/13/17 05:30 Dose: 125 mls/hr Infusion: 03/13/17 05:26 Dose: 125 mls/hr Admin: 03/12/17 21:26 Dose: 125 mls/hr Infusion: 03/12/17 21:24 Dose: 125 mls/hr Admin: 03/12/17 13:24 Dose: 125 mls/hr Infusion: 03/12/17 13:02 Dose: 125 mls/hr Admin: 03/12/17 05:02 Dose: 125 mls/hr Infusion: 03/12/17 04:59 Dose: 125 mls/hr Infusion: 03/11/17 21:01 Dose: 125 mls/hr Admin: 03/11/17 20:59 Dose: 150 mls/hr Infusion: 03/11/17 19:30 Dose: 150 mls/hr Admin: 03/11/17 12:49 Dose: 150 mls/hr Infusion: 03/11/17 12:49 Dose: 150 mls/hr Admin: 03/11/17 09:46 Dose: 150 mls/hr Infusion: 03/11/17 09:46 Dose: 150 mls/hr Admin: 03/11/17 03:05 Dose: 150 mls/hr Infusion: 03/11/17 02:59 Dose: 150 mls/hr Admin: 03/10/17 20:18 Dose: 150 mls/hr Infusion: 03/10/17 18:06 Dose: 150 mls/hr Admin: 03/10/17 11:25 Dose: 150 mls/hr Infusion: 03/10/17 11:19 Dose: 125 mls/hr Admin: 03/10/17 03:19 Dose: 125 mls/hr Infusion: 03/10/17 03:14 Dose: 125 mls/hr Admin: 03/09/17 19:14 Dose: 125 mls/hr Sodium Chloride (Normal Saline) 1,000 mls @ 500 mls/hr IV ASDIRECTED [facility] Last Admin: 03/10/17 18:16 Dose: 500 mls/hr Latanoprost (Xalatan 0.005% Ophth Soln) 0 ml EYEBOTH BEDTIME [facility] Last Admin: 03/12/17 20:30 Dose: 1 drop Admin: 03/11/17 21:25 Dose: 1 drop Admin: 03/10/17 21:40 Dose: 1 drop Lorazepam (Ativan) 1 mg IVPUSH BEDTIME PRN PRN Reason: Insomnia Metoprolol Tartrate (Lopressor) 5 mg IV Q6H [facility] Last Admin: 03/13/17 06:21 Dose: 5 mg Admin: 03/12/17 23:56 Dose: 5 mg Admin: 03/12/17 17:44 Dose: 5 mg Admin: 03/12/17 13:41 Dose: 5 mg Admin: 03/12/17 06:29 Dose: 5 mg Admin: 03/12/17 01:05 Dose: 5 mg Admin: 03/11/17 18:24 Dose: 5 mg Admin: 03/11/17 13:17 Dose: 5 mg Admin: 03/11/17 05:58 Dose: 5 mg Ondansetron HCl (Zofran) 4 mg IV Q6H PRN PRN Reason: Nausea/Vomiting Last Admin: 03/10/17 03:16 Dose: 4 mg Admin: 03/09/17 18:19 Dose: 4 mg Pantoprazole Sodium (Protonix Iv) 40 mg IVPUSH DAILY [facility] Last Admin: 03/13/17 09:38 Dose: 40 mg Admin: 03/12/17 08:47 Dose: 40 mg Admin: 03/11/17 09:07 Dose: 40 mg Admin: 03/10/17 19:00 Dose: 40 mg Sodium Chloride (Saline Flush) 10 ml FLUSH ASDIRECTED PRN PRN Reason: Keep Vein Open Last Admin: 03/11/17 18:25 Dose: 10 ml Admin: 03/09/17 18:21 Dose: 10 ml Admin: 03/09/17 18:00 Dose: 10 ml - Assessment Assessment (Free Text/Narrative):: doing well - Plan Plan (Free Text/Narrative):: continue bowel rest start tpn today.
[2017-03-13] MEDS ORDERED: VITAMIN K IV SCH ×3 (12:15)
[2017-03-13] MEDS ORDERED: SODIUM CHLORIDE IV SCH ×3 (12:15)
[2017-03-13] MEDS ORDERED: MVI IV SCH ×3 (12:15)
[2017-03-13] MEDS ORDERED: [UNRECOGNIZED DRUG - OTHER] IV SCH ×3 (12:15)
[2017-03-13] MEDS: Fat Emulsion 250 ML IV SCH (13:53)
[2017-03-13] MEDS: Latanoprost 0.005% Ophth Soln 2.5 ML Bottle EYEBOTH SCH (20:02)
[2017-03-14] MEDS: Dextrose 5%-0.45% NaCl 1,000 ML IV SCH (02:55)
[2017-03-14] MEDS: Metoprolol Tartrate 5 MG/5 ML SDV IV SCH ×3 (06:00→17:19)
[2017-03-14] MEDS: Pantoprazole 40 MG Vial IVPUSH SCH (08:50)
[2017-03-14] MEDS ORDERED: Potassium Chloride 20 MEQ in Premix Bag 1 BAG IV ONE ×2 (09:32→12:00)
--- NOTE | 2017-03-14 09:37 | PCM.SURGPN ---
- General Info Date of Service: 03/14/17 - Review of Systems Systems Review Comment:: pt is reporting no pain. He was started on TPN yesterday and appears to be tolerating. His K is low. Continues with flatus. NG aspirate continues to be clear. - Patient Data Vitals - Most Recent: Last Vital Signs Temp 36.5 C 03/14/17 00:00 Pulse 77 03/14/17 06:00 Resp 18 03/14/17 00:00 BP 151/98 H 03/14/17 06:00 Pulse Ox 96 03/14/17 00:00 Weight - Most Recent: 68.311 kg I&O - Last 24 Hours: Intake & Output 03/13/17 03/14/17 03/14/17 22:59 06:59 14:59 Intake Total 1286 947 Output Total 670 1500 Balance 616 -553 Lab Results Last 24 Hrs: Laboratory Results - last 24 hr 03/14/17 Range/Units 06:38 Sodium 141 (135-145) mmol/L Potassium 2.7 L* (3.5-5.3) mmol/L Chloride 105 (100-110) mmol/L Carbon Dioxide 29 (23-29) mmol/L BUN 6 L (8-23) mg/dL Creatinine 0.8 (0.6-1.3) mg/dL Est Cr Clr Drug Dosing 56.49 mL/min Estimated GFR (MDRD) > 60 (>60) BUN/Creatinine Ratio 7.5 L (9-20) Glucose 107 (80-116) mg/dL Calcium 8.4 L (8.6-10.2) mg/dL Med Orders - Current: Current Medications Sodium Chloride 119 meq/Multivitamins/Minerals 10 ml/Amino Ac/Electrol/Dextrose/ Calcium 1,039.75 mls @ 42 mls/hr IV Q24H [facility] [place] Last Admin: 03/13/17 13:54 Dose: 42 mls/hr Fat Emulsion Intravenous (Intralipid 20%) 250 mls @ 20 mls/hr IV Q24H [facility] [place] Last Admin: 03/13/17 13:53 Dose: 20 mls/hr Sodium Chloride 119 meq/Multivitamins/Minerals 10 ml/Amino Ac/Electrol/Dextrose/ Calcium 1,039.75 mls @ 84 mls/hr IV .BY DURATION [facility] [place] Sodium Chloride 119 meq/ Amino (Ac/Electrol/Dextrose/Calcium) 1,029.75 mls @ 84 mls/hr IV .BY DURATION [facility] Potassium Chloride 20 meq/ (Premix) 100 mls @ 50 mls/hr IV ONETIME ONE Stop: 03/14/17 11:31 Potassium Chloride 20 meq/ (Premix) 100 mls @ 50 mls/hr IV ONETIME ONE Stop: 03/14/17 11:32 Latanoprost (Xalatan 0.005% Ophth Soln) 0 ml EYEBOTH BEDTIME [facility] Last Admin: 03/13/17 20:02 Dose: 1 drop Lorazepam (Ativan) 1 mg IVPUSH BEDTIME PRN PRN Reason: Insomnia Metoprolol Tartrate (Lopressor) 5 mg IV Q6H [facility] Last Admin: 03/14/17 06:00 Dose: 5 mg Ondansetron HCl (Zofran) 4 mg IV Q6H PRN PRN Reason: Nausea/Vomiting Last Admin: 03/10/17 03:16 Dose: 4 mg Pantoprazole Sodium (Protonix Iv) 40 mg IVPUSH DAILY [facility] [place] Last Admin: 03/14/17 08:50 Dose: 40 mg Phytonadione (Aquamephyton) 10 mg IM Mo [facility] Discontinued Medications Bupivacaine HCl (Marcaine 0.5%) 8 ml INJECT .STK-MED ONE Stop: 03/11/17 11:43 Last Admin: 03/11/17 11:42 Dose: 8 ml Heparin Sodium (Porcine) (Heparin Lock Flush 100 Units/Ml) 1,000 units .XX .STK -MED ONE Stop: 03/11/17 12:07 Last Admin: 03/11/17 12:06 Dose: 1,000 units Potassium Chloride/Dextrose/Sod Cl (D5 Ns With 20 Meq Kcl) 1,000 mls @ 125 mls/ hr IV ASDIRECTED [facility] Last Admin: 03/09/17 18:04 Dose: 125 mls/hr Dextrose/Sodium Chloride (Dextrose 5%-1/2 Ns) 1,000 mls @ 60 mls/hr IV ASDIRECTED [facility] Last Admin: 03/14/17 02:55 Dose: 125 mls/hr Sodium Chloride (Normal Saline) 1,000 mls @ 500 mls/hr IV ASDIRECTED [facility] Last Admin: 03/10/17 18:16 Dose: 500 mls/hr Cefazolin Sodium 1 gm/ Sodium (Chloride) 50 mls @ 200 mls/hr IV ONETIME ONE Stop: 03/11/17 10:14 Last Admin: 03/11/17 10:02 Dose: 200 mls/hr Lactated Ringer's (Ringers, Lactated) 1,000 mls @ as directed IV .STK-MED ONE Stop: 03/11/17 11:31 Potassium Chloride 20 meq/ (Premix) 100 mls @ 50 mls/hr IV ONETIME ONE Stop: 03/13/17 10:51 Last Admin: 03/13/17 09:49 Dose: 50 mls/hr Lidocaine/Epinephrine (Xylocaine 1% With Epinephrine 1:100,000) 8 ml INJECT .STK-MED ONE Stop: 03/11/17 11:43 Last Admin: 03/11/17 11:42 Dose: 8 ml Metoprolol Succinate (Toprol Xl) 50 mg PO DAILY [facility] [place] Last Admin: 03/10/17 08:48 Dose: 50 mg Phenylephrine HCl (Deni-Synephrine) 0.1 mg IV .STK-MED ONE Stop: 03/11/17 11:31 Potassium Chloride (Klor-Con M20) 40 meq PO BID [facility] Propofol (Diprivan 20 Ml) 425 mg IV .STK-MED ONE Stop: 03/11/17 11:31 Sodium Chloride (Saline Flush) 10 ml FLUSH ASDIRECTED PRN PRN Reason: Keep Vein Open Last Admin: 03/11/17 18:25 Dose: 10 ml Travoprost (Travatan Z 0.004% Ophth Soln) 0 ml EYEBOTH BEDTIME [facility] [place] Last Admin: 03/09/17 20:52 Dose: 1 drop Zolpidem Tartrate (Ambien) 5 mg PO ONETIME ONE Stop: 03/09/17 22:51 Last Admin: 03/09/17 23:07 Dose: 5 mg - Exam General: Alert, Oriented, Cooperative, No Acute Distress Lungs: Clear to Auscultation, Normal Respiratory Effort Cardiovascular: Regular Rate, Regular Rhythm GI/Abdominal Exam: Normal Bowel Sounds, Soft, Non-Tender, No Organomegaly Extremities: Normal Inspection - Problem List & Annotations (1) Gastroparesis SNOMED Code(s): 599694125 Code(s): K31.84 - GASTROPARESIS Status: Acute Current Visit: No - Problem List Review Problem List Initiated/Reviewed/Updated: Yes - My Orders Last 24 Hours: Active Orders 24 hr Category Date Time Status ALT Order Med 03/14/17 12:30 Active Fat Emulsion [Intralipid 20%] 250 ml Med 03/13/17 12:15 Active IV Q24H Phytonadione [AquaMephyton] Med 03/16/17 08:00 Active 10 mg IM Mo Potassium Chloride [KCL 20 MEQ in Water 100 ML] 20 meq Med 03/14/17 09:32 Ordered Premix Bag 1 bag IV ONETIME Potassium Chloride [KCL 20 MEQ in Water 100 ML] 20 meq Med 03/14/17 09:33 Ordered Premix Bag 1 bag IV ONETIME Sodium Chloride 23.4% 119 meq Med 03/13/17 12:15 Active MVI, Adult with Vitamin K [Infuvite Adult] 10 ml AA 5%/Calcium/D15W/Lytes [Clinimix E 5/15] 1,000 ml IV Q24H Medication Orders Sodium Chloride 119 meq/Multivitamins/Minerals 10 ml/Amino Ac/Electrol/Dextrose/ Calcium 1,039.75 mls @ 42 mls/hr IV Q24H [facility] [place] Last Admin: 03/13/17 13:54 Dose: 42 mls/hr Fat Emulsion Intravenous (Intralipid 20%) 250 mls @ 20 mls/hr IV Q24H [facility] [place] Last Admin: 03/13/17 13:53 Dose: 20 mls/hr Sodium Chloride 119 meq/Multivitamins/Minerals 10 ml/Amino Ac/Electrol/Dextrose/ Calcium 1,039.75 mls @ 84 mls/hr IV .BY DURATION [facility] [place] Sodium Chloride 119 meq/ Amino (Ac/Electrol/Dextrose/Calcium) 1,029.75 mls @ 84 mls/hr IV .BY DURATION [facility] [place] Potassium Chloride 20 meq/ (Premix) 100 mls @ 50 mls/hr IV ONETIME ONE Stop: 03/14/17 11:31 Potassium Chloride 20 meq/ (Premix) 100 mls @ 50 mls/hr IV ONETIME ONE Stop: 03/14/17 11:32 Latanoprost (Xalatan 0.005% Ophth Soln) 0 ml EYEBOTH BEDTIME [facility] [place] Last Admin: 03/13/17 20:02 Dose: 1 drop Admin: 03/12/17 20:30 Dose: 1 drop Admin: 03/11/17 21:25 Dose: 1 drop Admin: 03/10/17 21:40 Dose: 1 drop Lorazepam (Ativan) 1 mg IVPUSH BEDTIME PRN PRN Reason: Insomnia Metoprolol Tartrate (Lopressor) 5 mg IV Q6H [facility] [place] Last Admin: 03/14/17 06:00 Dose: 5 mg Admin: 03/13/17 23:54 Dose: 5 mg Admin: 03/13/17 18:01 Dose: 5 mg Admin: 03/13/17 12:08 Dose: 5 mg Admin: 03/13/17 06:21 Dose: 5 mg Admin: 03/12/17 23:56 Dose: 5 mg Admin: 03/12/17 17:44 Dose: 5 mg Admin: 03/12/17 13:41 Dose: 5 mg Admin: 03/12/17 06:29 Dose: 5 mg Admin: 03/12/17 01:05 Dose: 5 mg Admin: 03/11/17 18:24 Dose: 5 mg Admin: 03/11/17 13:17 Dose: 5 mg Admin: 03/11/17 05:58 Dose: 5 mg Ondansetron HCl (Zofran) 4 mg IV Q6H PRN PRN Reason: Nausea/Vomiting Last Admin: 03/10/17 03:16 Dose: 4 mg Admin: 03/09/17 18:19 Dose: 4 mg Pantoprazole Sodium (Protonix Iv) 40 mg IVPUSH DAILY [facility] Last Admin: 03/14/17 08:50 Dose: 40 mg Admin: 03/13/17 09:38 Dose: 40 mg Admin: 03/12/17 08:47 Dose: 40 mg Admin: 03/11/17 09:07 Dose: 40 mg Admin: 03/10/17 19:00 Dose: 40 mg Phytonadione (Aquamephyton) 10 mg IM Mo AMARIS - Assessment Assessment (Free Text/Narrative):: stable exam low K most likely due to diuresis - Plan Plan (Free Text/Narrative):: continue current rx. will give two runs of k today. recheck k level in am.
[2017-03-14] MEDS: Potassium Chloride 20 MEQ in Premix Bag 1 BAG IV ONE (10:10)
[2017-03-14] MEDS: Fat Emulsion 250 ML IV SCH (12:01)
[2017-03-14] MEDS ORDERED: SODIUM CHLORIDE IV ONE ×4 (12:15)
[2017-03-14] MEDS ORDERED: [UNRECOGNIZED DRUG - OTHER] IV ONE ×4 (12:15)
[2017-03-14] MEDS ORDERED: VITAMIN K IV ONE ×4 (12:15)
[2017-03-14] MEDS ORDERED: MVI IV ONE ×4 (12:15)
[2017-03-14] MEDS ORDERED: SODIUM CHLORIDE IV SCH ×3 (12:30)
[2017-03-14] MEDS ORDERED: [UNRECOGNIZED DRUG - OTHER] IV SCH ×3 (12:30)
[2017-03-14] MEDS ORDERED: LYTES IV SCH ×3 (12:30)
[2017-03-14] MEDS ORDERED: CALCIUM IV SCH ×3 (12:30)
[2017-03-14] MEDS ORDERED: MVI IV SCH ×3 (12:30)
[2017-03-14] MEDS ORDERED: MVI, Adult with Vitamin K 10 ML in AA 5%/Calcium/D15W/Lytes 1,000 ML IV ONE ×2 (12:45)
[2017-03-14] MEDS: Latanoprost 0.005% Ophth Soln 2.5 ML Bottle EYEBOTH SCH (20:37)
[2017-03-15] MEDS: Metoprolol Tartrate 5 MG/5 ML SDV IV SCH ×5 (00:11→23:50)
[2017-03-15] MEDS ORDERED: [UNRECOGNIZED DRUG - OTHER] IV SCH ×2 (01:00)
[2017-03-15] MEDS ORDERED: CALCIUM IV SCH ×2 (01:00)
[2017-03-15] MEDS ORDERED: CALC IV SCH ×2 (01:00)
[2017-03-15] MEDS ORDERED: LYTES IV SCH ×2 (01:00)
[2017-03-15] MEDS ORDERED: MVI IV SCH ×2 (01:00)
[2017-03-15] MEDS: Pantoprazole 40 MG Vial IVPUSH SCH (09:00)
--- NOTE | 2017-03-15 09:48 | PCM.SURGPN ---
- General Info Date of Service: 03/15/17 Functional Status: Reports: Ambulating, Urinating. Denies: New Symptoms - Review of Systems Pulmonary: Reports: No Symptoms Cardiovascular: Reports: No Symptoms Gastrointestinal: Reports: No Symptoms - Patient Data Vitals - Most Recent: Last Vital Signs Temp 36.8 C 03/15/17 00:00 Pulse 85 03/15/17 06:02 Resp 17 03/15/17 00:00 BP 141/85 H 03/15/17 06:02 Pulse Ox 96 03/15/17 00:00 Weight - Most Recent: 69.354 kg I&O - Last 24 Hours: Intake & Output 03/14/17 03/15/17 03/15/17 22:59 06:59 14:59 Intake Total 1256 761 Output Total 375 800 Balance 881 -39 Lab Results Last 24 Hrs: Laboratory Results - last 24 hr 03/15/17 03/15/17 Range/Units 06:35 06:35 Sodium 136 (135-145) mmol/L Potassium Cancelled 3.1 L Chloride 103 (100-110) mmol/L Carbon Dioxide 25 (23-29) mmol/L BUN 16 D (8-23) mg/dL Creatinine 0.7 (0.6-1.3) mg/dL Est Cr Clr Drug Dosing 64.56 mL/min Estimated GFR (MDRD) > 60 (>60) BUN/Creatinine Ratio 22.9 H (9-20) Glucose 104 (80-116) mg/dL Calcium 8.4 L (8.6-10.2) mg/dL Med Orders - Current: Current Medications Heparin Sodium (Porcine) (Heparin Lock Flush 100 Units/Ml) 500 units FLUSH ASDIRECTED PRN PRN Reason: Keep Vein Open Last Admin: 03/14/17 17:19 Dose: 500 units Fat Emulsion Intravenous (Intralipid 20%) 250 mls @ 20 mls/hr IV Q24H [facility] Last Admin: 03/14/17 12:01 Dose: 20 mls/hr Multivitamins/Minerals 10 ml/Amino Ac/Electrol/Dextrose/Calcium 1,010 mls @ 84 mls/hr IV .BY DURATION [facility] Stop: 03/15/17 12:30 Amino Ac/Electrol/Dextrose/Calcium (Clinimix E 12/08) 1,000 mls @ 84 mls/hr IV .BY DURATION [facility] Stop: 03/15/17 12:30 Last Admin: 03/15/17 01:46 Dose: 84 mls/hr Sodium Chloride 119 meq/Multivitamins/Minerals 10 ml/Potassium Acetate 40 meq/ Amino Ac/Electrol/Dextrose/Calcium 1,059.75 mls @ 84 mls/hr IV ONETIME ONE Stop: 03/16/17 01:36 Multivitamins/Minerals 10 ml/Amino Ac/Electrol/Dextrose/Calcium 1,010 mls @ 84 mls/hr IV .BY DURATION [facility] Amino Ac/Electrol/Dextrose/Calcium (Clinimix E 15) 1,000 mls @ 84 mls/hr IV .BY DURATION [facility] Latanoprost (Xalatan 0.005% Ophth Soln) 0 ml EYEBOTH BEDTIME [facility] Last Admin: 03/14/17 20:37 Dose: 1 drop Lorazepam (Ativan) 1 mg IVPUSH BEDTIME PRN PRN Reason: Insomnia Metoprolol Tartrate (Lopressor) 5 mg IV Q6H [facility] Last Admin: 03/15/17 06:02 Dose: 5 mg Ondansetron HCl (Zofran) 4 mg IV Q6H PRN PRN Reason: Nausea/Vomiting Last Admin: 03/10/17 03:16 Dose: 4 mg Pantoprazole Sodium (Protonix Iv) 40 mg IVPUSH DAILY [facility] Last Admin: 03/14/17 08:50 Dose: 40 mg Phytonadione (Aquamephyton) 10 mg IM Mo [facility] Discontinued Medications Bupivacaine HCl (Marcaine 0.5%) 8 ml INJECT .STK-MED ONE Stop: 03/11/17 11:43 Last Admin: 03/11/17 11:42 Dose: 8 ml Heparin Sodium (Porcine) (Heparin Lock Flush 100 Units/Ml) 1,000 units .XX .STK -MED ONE Stop: 03/11/17 12:07 Last Admin: 03/11/17 12:06 Dose: 1,000 units Potassium Chloride/Dextrose/Sod Cl (D5 Ns With 20 Meq Kcl) 1,000 mls @ 125 mls/ hr IV ASDIRECTED [facility] Last Admin: 03/09/17 18:04 Dose: 125 mls/hr Dextrose/Sodium Chloride (Dextrose 5%-1/2 Ns) 1,000 mls @ 60 mls/hr IV ASDIRECTED [facility] Last Admin: 03/14/17 02:55 Dose: 125 mls/hr Sodium Chloride (Normal Saline) 1,000 mls @ 500 mls/hr IV ASDIRECTED [facility] Last Admin: 03/10/17 18:16 Dose: 500 mls/hr Cefazolin Sodium 1 gm/ Sodium (Chloride) 50 mls @ 200 mls/hr IV ONETIME ONE Stop: 03/11/17 10:14 Last Admin: 03/11/17 10:02 Dose: 200 mls/hr Lactated Ringer's (Ringers, Lactated) 1,000 mls @ as directed IV .STK-MED ONE Stop: 03/11/17 11:31 Potassium Chloride 20 meq/ (Premix) 100 mls @ 50 mls/hr IV ONETIME ONE Stop: 03/13/17 10:51 Last Admin: 03/14/17 10:10 Dose: 50 mls/hr Sodium Chloride 119 meq/Multivitamins/Minerals 10 ml/Amino Ac/Electrol/Dextrose/ Calcium 1,039.75 mls @ 42 mls/hr IV Q24H [facility] Last Admin: 03/13/17 13:54 Dose: 42 mls/hr Potassium Chloride 20 meq/ (Premix) 100 mls @ 50 mls/hr IV ONETIME ONE Stop: 03/14/17 11:31 Last Admin: 03/14/17 13:21 Dose: Not Given Potassium Chloride 20 meq/ (Premix) 100 mls @ 50 mls/hr IV ONETIME ONE Stop: 03/14/17 13:59 Last Admin: 03/14/17 13:21 Dose: 50 mls/hr Multivitamins/Minerals 10 ml/Amino Ac/Electrol/Dextrose/Calcium 1,010 mls @ 84 mls/hr IV ONETIME ONE Stop: 03/15/17 00:46 Last Admin: 03/14/17 13:00 Dose: 84 mls/hr Lidocaine/Epinephrine (Xylocaine 1% With Epinephrine 1:100,000) 8 ml INJECT .STK-MED ONE Stop: 03/11/17 11:43 Last Admin: 03/11/17 11:42 Dose: 8 ml Metoprolol Succinate (Toprol Xl) 50 mg PO DAILY [facility] Last Admin: 03/10/17 08:48 Dose: 50 mg Phenylephrine HCl (Deni-Synephrine) 0.1 mg IV .STK-MED ONE Stop: 03/11/17 11:31 Potassium Chloride (Klor-Con M20) 40 meq PO BID [facility] Propofol (Diprivan 20 Ml) 425 mg IV .STK-MED ONE Stop: 03/11/17 11:31 Sodium Chloride (Saline Flush) 10 ml FLUSH ASDIRECTED PRN PRN Reason: Keep Vein Open Last Admin: 03/11/17 18:25 Dose: 10 ml Travoprost (Travatan Z 0.004% Ophth Soln) 0 ml EYEBOTH BEDTIME [facility] Last Admin: 03/09/17 20:52 Dose: 1 drop Zolpidem Tartrate (Ambien) 5 mg PO ONETIME ONE Stop: 03/09/17 22:51 Last Admin: 03/09/17 23:07 Dose: 5 mg - Exam General: Alert, Oriented Lungs: Clear to Auscultation, Normal Respiratory Effort Cardiovascular: Regular Rate, Regular Rhythm GI/Abdominal Exam: Normal Bowel Sounds, Non-Tender, No Distention (NGT output has been minimal ) Skin: Warm, Dry, Intact - Problem List & Annotations (1) Gastroparesis SNOMED Code(s): 496079319 Code(s): K31.84 - GASTROPARESIS Status: Acute Current Visit: No - Problem List Review Problem List Initiated/Reviewed/Updated: Yes - My Orders Last 24 Hours: Active Orders 24 hr Category Date Time Status ALT Order Med 03/15/17 01:00 Active ALT Order Med 03/16/17 01:00 Active Heparin Sodium [Heparin Lock Flush 100 Units/ML] Med 03/14/17 15:31 Active 500 units FLUSH ASDIRECTED PRN Phytonadione [AquaMephyton] Med 03/16/17 08:00 Active 10 mg IM Mo Sodium Chloride 23.4% 119 meq Med 03/15/17 13:00 Active MVI, Adult with Vitamin K [Infuvite Adult] 10 ml Potassium Acetate 40 meq AA 5%/Calcium/D15W/Lytes [Clinimix E 15] 1,000 ml IV ONETIME Medication Orders Heparin Sodium (Porcine) (Heparin Lock Flush 100 Units/Ml) 500 units FLUSH ASDIRECTED PRN PRN Reason: Keep Vein Open Last Admin: 03/14/17 17:19 Dose: 500 units Fat Emulsion Intravenous (Intralipid 20%) 250 mls @ 20 mls/hr IV Q24H [facility] Last Admin: 03/14/17 12:01 Dose: 20 mls/hr Infusion: 03/14/17 02:23 Dose: 20 mls/hr Admin: 03/13/17 13:53 Dose: 20 mls/hr Multivitamins/Minerals 10 ml/Amino Ac/Electrol/Dextrose/Calcium 1,010 mls @ 84 mls/hr IV .BY DURATION [facility] Stop: 03/15/17 12:30 Amino Ac/Electrol/Dextrose/Calcium (Clinimix E 5/15) 1,000 mls @ 84 mls/hr IV .BY DURATION [facility] Stop: 03/15/17 12:30 Last Admin: 03/15/17 01:46 Dose: 84 mls/hr Sodium Chloride 119 meq/Multivitamins/Minerals 10 ml/Potassium Acetate 40 meq/ Amino Ac/Electrol/Dextrose/Calcium 1,059.75 mls @ 84 mls/hr IV ONETIME ONE Stop: 03/16/17 01:36 Multivitamins/Minerals 10 ml/Amino Ac/Electrol/Dextrose/Calcium 1,010 mls @ 84 mls/hr IV .BY DURATION [facility] Amino Ac/Electrol/Dextrose/Calcium (Clinimix E 5/15) 1,000 mls @ 84 mls/hr IV .BY DURATION [facility] Latanoprost (Xalatan 0.005% Ophth Soln) 0 ml EYEBOTH BEDTIME [facility] Last Admin: 03/14/17 20:37 Dose: 1 drop Admin: 03/13/17 20:02 Dose: 1 drop Admin: 03/12/17 20:30 Dose: 1 drop Admin: 03/11/17 21:25 Dose: 1 drop Admin: 03/10/17 21:40 Dose: 1 drop Lorazepam (Ativan) 1 mg IVPUSH BEDTIME PRN PRN Reason: Insomnia Metoprolol Tartrate (Lopressor) 5 mg IV Q6H [facility] Last Admin: 03/15/17 06:02 Dose: 5 mg Admin: 03/15/17 00:11 Dose: 5 mg Admin: 03/14/17 17:19 Dose: 5 mg Admin: 03/14/17 12:01 Dose: 5 mg Admin: 03/14/17 06:00 Dose: 5 mg Admin: 03/13/17 23:54 Dose: 5 mg Admin: 03/13/17 18:01 Dose: 5 mg Admin: 03/13/17 12:08 Dose: 5 mg Admin: 03/13/17 06:21 Dose: 5 mg Admin: 03/12/17 23:56 Dose: 5 mg Admin: 03/12/17 17:44 Dose: 5 mg Admin: 03/12/17 13:41 Dose: 5 mg Admin: 03/12/17 06:29 Dose: 5 mg Admin: 03/12/17 01:05 Dose: 5 mg Admin: 03/11/17 18:24 Dose: 5 mg Admin: 03/11/17 13:17 Dose: 5 mg Admin: 03/11/17 05:58 Dose: 5 mg Ondansetron HCl (Zofran) 4 mg IV Q6H PRN PRN Reason: Nausea/Vomiting Last Admin: 03/10/17 03:16 Dose: 4 mg Admin: 03/09/17 18:19 Dose: 4 mg Pantoprazole Sodium (Protonix Iv) 40 mg IVPUSH DAILY [facility] Last Admin: 03/14/17 08:50 Dose: 40 mg Admin: 03/13/17 09:38 Dose: 40 mg Admin: 03/12/17 08:47 Dose: 40 mg Admin: 03/11/17 09:07 Dose: 40 mg Admin: 03/10/17 19:00 Dose: 40 mg Phytonadione (Aquamephyton) 10 mg IM Mo [facility] - Assessment Assessment (Free Text/Narrative):: Will need continued NPO/bowel rest for 7 days, to resolve the gastroparesis. He will continue to need TPN until we can get his po intake to normal levels, hence the continued admission status. - Plan Plan (Free Text/Narrative):: continue tpn, NGT. will start clamping NGT in am if continues to look as good.
[2017-03-15] MEDS: Fat Emulsion 250 ML IV SCH (12:15)
[2017-03-15] MEDS ORDERED: SODIUM CHLORIDE IV ONE ×4 (13:00)
[2017-03-15] MEDS ORDERED: MVI IV ONE ×4 (13:00)
[2017-03-15] MEDS ORDERED: [UNRECOGNIZED DRUG - OTHER] IV ONE ×4 (13:00)
[2017-03-15] MEDS ORDERED: VITAMIN K IV ONE ×4 (13:00)
[2017-03-15] MEDS: Latanoprost 0.005% Ophth Soln 2.5 ML Bottle EYEBOTH SCH (20:48)
[2017-03-16] MEDS: CALCIUM IV SCH ×4 (01:03→13:06)
[2017-03-16] MEDS: LYTES IV SCH ×4 (01:03→13:06)
[2017-03-16] MEDS: MVI IV SCH ×4 (01:03→13:06)
[2017-03-16] MEDS: CALC IV SCH ×4 (01:03→13:06)
[2017-03-16] MEDS: [UNRECOGNIZED DRUG - OTHER] IV SCH ×4 (01:03→13:06)
[2017-03-16] MEDS: Metoprolol Tartrate 5 MG/5 ML SDV IV SCH ×3 (06:02→18:04)
--- NOTE | 2017-03-16 07:58 | PCM.SURGPN ---
- General Info Date of Service: 03/16/17 Functional Status: Reports: Pain Controlled, Ambulating, Urinating. Denies: New Symptoms - Review of Systems Pulmonary: Reports: No Symptoms Cardiovascular: Reports: No Symptoms Gastrointestinal: Reports: No Symptoms - Patient Data Vitals - Most Recent: Last Vital Signs Temp 37.0 C 03/16/17 00:00 Pulse 79 03/16/17 06:02 Resp 18 03/16/17 00:00 BP 157/82 H 03/16/17 06:02 Pulse Ox 98 03/16/17 00:00 Weight - Most Recent: 69.899 kg I&O - Last 24 Hours: Intake & Output 03/15/17 03/16/17 03/16/17 22:59 06:59 14:59 Intake Total 518 704 Output Total 725 1100 Balance -207 -396 Lab Results Last 24 Hrs: Laboratory Results - last 24 hr 03/15/17 03/15/17 Range/Units 06:35 06:35 Sodium 136 (135-145) mmol/L Potassium Cancelled 3.1 L Chloride 103 (100-110) mmol/L Carbon Dioxide 25 (23-29) mmol/L BUN 16 D (8-23) mg/dL Creatinine 0.7 (0.6-1.3) mg/dL Est Cr Clr Drug Dosing 64.56 mL/min Estimated GFR (MDRD) > 60 (>60) BUN/Creatinine Ratio 22.9 H (9-20) Glucose 104 (80-116) mg/dL Calcium 8.4 L (8.6-10.2) mg/dL Med Orders - Current: Current Medications Heparin Sodium (Porcine) (Heparin Lock Flush 100 Units/Ml) 500 units FLUSH ASDIRECTED PRN PRN Reason: Keep Vein Open Last Admin: 03/15/17 17:23 Dose: 500 units Fat Emulsion Intravenous (Intralipid 20%) 250 mls @ 20 mls/hr IV Q24H [facility] Last Admin: 03/15/17 12:15 Dose: 20 mls/hr Multivitamins/Minerals 10 ml/Amino Ac/Electrol/Dextrose/Calcium 1,010 mls @ 84 mls/hr IV .BY DURATION [facility] Amino Ac/Electrol/Dextrose/Calcium (Clinimix E 12/08) 1,000 mls @ 84 mls/hr IV .BY DURATION [facility] Last Admin: 03/16/17 01:03 Dose: 84 mls/hr Latanoprost (Xalatan 0.005% Ophth Soln) 0 ml EYEBOTH BEDTIME [facility] Last Admin: 03/15/17 20:48 Dose: 1 drop Lorazepam (Ativan) 1 mg IVPUSH BEDTIME PRN PRN Reason: Insomnia Metoprolol Tartrate (Lopressor) 5 mg IV Q6H [facility] Last Admin: 03/16/17 06:02 Dose: 5 mg Ondansetron HCl (Zofran) 4 mg IV Q6H PRN PRN Reason: Nausea/Vomiting Last Admin: 03/10/17 03:16 Dose: 4 mg Pantoprazole Sodium (Protonix Iv) 40 mg IVPUSH DAILY [facility] Last Admin: 03/15/17 09:00 Dose: 40 mg Phytonadione (Aquamephyton) 10 mg IM Mo [facility] Discontinued Medications Bupivacaine HCl (Marcaine 0.5%) 8 ml INJECT .STK-MED ONE Stop: 03/11/17 11:43 Last Admin: 03/11/17 11:42 Dose: 8 ml Heparin Sodium (Porcine) (Heparin Lock Flush 100 Units/Ml) 1,000 units .XX .STK -MED ONE Stop: 03/11/17 12:07 Last Admin: 03/11/17 12:06 Dose: 1,000 units Potassium Chloride/Dextrose/Sod Cl (D5 Ns With 20 Meq Kcl) 1,000 mls @ 125 mls/ hr IV ASDIRECTED [facility] Last Admin: 03/09/17 18:04 Dose: 125 mls/hr Dextrose/Sodium Chloride (Dextrose 5%-1/2 Ns) 1,000 mls @ 60 mls/hr IV ASDIRECTED [facility] Last Admin: 03/14/17 02:55 Dose: 125 mls/hr Sodium Chloride (Normal Saline) 1,000 mls @ 500 mls/hr IV ASDIRECTED [facility] Last Admin: 03/10/17 18:16 Dose: 500 mls/hr Cefazolin Sodium 1 gm/ Sodium (Chloride) 50 mls @ 200 mls/hr IV ONETIME ONE Stop: 03/11/17 10:14 Last Admin: 03/11/17 10:02 Dose: 200 mls/hr Lactated Ringer's (Ringers, Lactated) 1,000 mls @ as directed IV .STK-MED ONE Stop: 03/11/17 11:31 Potassium Chloride 20 meq/ (Premix) 100 mls @ 50 mls/hr IV ONETIME ONE Stop: 03/13/17 10:51 Last Admin: 03/14/17 10:10 Dose: 50 mls/hr Sodium Chloride 119 meq/Multivitamins/Minerals 10 ml/Amino Ac/Electrol/Dextrose/ Calcium 1,039.75 mls @ 42 mls/hr IV Q24H [facility] Last Admin: 03/13/17 13:54 Dose: 42 mls/hr Potassium Chloride 20 meq/ (Premix) 100 mls @ 50 mls/hr IV ONETIME ONE Stop: 03/14/17 11:31 Last Admin: 03/14/17 13:21 Dose: Not Given Potassium Chloride 20 meq/ (Premix) 100 mls @ 50 mls/hr IV ONETIME ONE Stop: 03/14/17 13:59 Last Admin: 03/14/17 13:21 Dose: 50 mls/hr Multivitamins/Minerals 10 ml/Amino Ac/Electrol/Dextrose/Calcium 1,010 mls @ 84 mls/hr IV .BY DURATION [facility] Stop: 03/15/17 12:30 Amino Ac/Electrol/Dextrose/Calcium (Clinimix E 12/08) 1,000 mls @ 84 mls/hr IV .BY DURATION [facility] Stop: 03/15/17 12:30 Last Admin: 03/15/17 01:46 Dose: 84 mls/hr Multivitamins/Minerals 10 ml/Amino Ac/Electrol/Dextrose/Calcium 1,010 mls @ 84 mls/hr IV ONETIME ONE Stop: 03/15/17 00:46 Last Admin: 03/14/17 13:00 Dose: 84 mls/hr Sodium Chloride 119 meq/Multivitamins/Minerals 10 ml/Potassium Acetate 40 meq/ Amino Ac/Electrol/Dextrose/Calcium 1,059.75 mls @ 84 mls/hr IV ONETIME ONE Stop: 03/16/17 01:36 Last Admin: 03/15/17 12:16 Dose: 84 mls/hr Lidocaine/Epinephrine (Xylocaine 1% With Epinephrine 1:100,000) 8 ml INJECT .STK-MED ONE Stop: 03/11/17 11:43 Last Admin: 03/11/17 11:42 Dose: 8 ml Metoprolol Succinate (Toprol Xl) 50 mg PO DAILY [facility] Last Admin: 03/10/17 08:48 Dose: 50 mg Phenylephrine HCl (Deni-Synephrine) 0.1 mg IV .STK-MED ONE Stop: 03/11/17 11:31 Potassium Chloride (Klor-Con M20) 40 meq PO BID [facility] Propofol (Diprivan 20 Ml) 425 mg IV .STK-MED ONE Stop: 03/11/17 11:31 Sodium Chloride (Saline Flush) 10 ml FLUSH ASDIRECTED PRN PRN Reason: Keep Vein Open Last Admin: 03/11/17 18:25 Dose: 10 ml Travoprost (Travatan Z 0.004% Ophth Soln) 0 ml EYEBOTH BEDTIME [facility] Last Admin: 03/09/17 20:52 Dose: 1 drop Zolpidem Tartrate (Ambien) 5 mg PO ONETIME ONE Stop: 03/09/17 22:51 Last Admin: 03/09/17 23:07 Dose: 5 mg - Exam Wound/Incisions: Healing Well, Dressing Dry and Intact General: Alert, Oriented Lungs: Clear to Auscultation, Normal Respiratory Effort Cardiovascular: Regular Rate, Regular Rhythm GI/Abdominal Exam: Normal Bowel Sounds, Soft, Non-Tender Skin: Warm, Dry, Intact Psy/Mental Status: Alert - Problem List & Annotations (1) Gastroparesis SNOMED Code(s): 690084256 Code(s): K31.84 - GASTROPARESIS Status: Acute Current Visit: No - Problem List Review Problem List Initiated/Reviewed/Updated: Yes - My Orders Last 24 Hours: Active Orders 24 hr Category Date Time Status ALT Order Med 03/16/17 01:00 Active Phytonadione [AquaMephyton] Med 03/16/17 08:00 Active 10 mg IM Mo Medication Orders Heparin Sodium (Porcine) (Heparin Lock Flush 100 Units/Ml) 500 units FLUSH ASDIRECTED PRN PRN Reason: Keep Vein Open Last Admin: 03/15/17 17:23 Dose: 500 units Admin: 03/15/17 12:19 Dose: 500 units Admin: 03/14/17 17:19 Dose: 500 units Fat Emulsion Intravenous (Intralipid 20%) 250 mls @ 20 mls/hr IV Q24H [facility] Last Admin: 03/15/17 12:15 Dose: 20 mls/hr Infusion: 03/15/17 00:31 Dose: 20 mls/hr Admin: 03/14/17 12:01 Dose: 20 mls/hr Infusion: 03/14/17 02:23 Dose: 20 mls/hr Admin: 03/13/17 13:53 Dose: 20 mls/hr Multivitamins/Minerals 10 ml/Amino Ac/Electrol/Dextrose/Calcium 1,010 mls @ 84 mls/hr IV .BY DURATION [facility] Amino Ac/Electrol/Dextrose/Calcium (Clinimix E 12/08) 1,000 mls @ 84 mls/hr IV .BY DURATION [facility] Last Admin: 03/16/17 01:03 Dose: 84 mls/hr Latanoprost (Xalatan 0.005% Ophth Soln) 0 ml EYEBOTH BEDTIME [facility] Last Admin: 03/15/17 20:48 Dose: 1 drop Admin: 03/14/17 20:37 Dose: 1 drop Admin: 03/13/17 20:02 Dose: 1 drop Admin: 03/12/17 20:30 Dose: 1 drop Admin: 03/11/17 21:25 Dose: 1 drop Admin: 03/10/17 21:40 Dose: 1 drop Lorazepam (Ativan) 1 mg IVPUSH BEDTIME PRN PRN Reason: Insomnia Metoprolol Tartrate (Lopressor) 5 mg IV Q6H [facility] Last Admin: 03/16/17 06:02 Dose: 5 mg Admin: 03/15/17 23:50 Dose: 5 mg Admin: 03/15/17 17:20 Dose: 5 mg Admin: 03/15/17 12:17 Dose: 5 mg Admin: 03/15/17 06:02 Dose: 5 mg Admin: 03/15/17 00:11 Dose: 5 mg Admin: 03/14/17 17:19 Dose: 5 mg Admin: 03/14/17 12:01 Dose: 5 mg Admin: 03/14/17 06:00 Dose: 5 mg Admin: 03/13/17 23:54 Dose: 5 mg Admin: 03/13/17 18:01 Dose: 5 mg Admin: 03/13/17 12:08 Dose: 5 mg Admin: 03/13/17 06:21 Dose: 5 mg Admin: 03/12/17 23:56 Dose: 5 mg Admin: 03/12/17 17:44 Dose: 5 mg Admin: 03/12/17 13:41 Dose: 5 mg Admin: 03/12/17 06:29 Dose: 5 mg Admin: 03/12/17 01:05 Dose: 5 mg Admin: 03/11/17 18:24 Dose: 5 mg Admin: 03/11/17 13:17 Dose: 5 mg Admin: 03/11/17 05:58 Dose: 5 mg Ondansetron HCl (Zofran) 4 mg IV Q6H PRN PRN Reason: Nausea/Vomiting Last Admin: 03/10/17 03:16 Dose: 4 mg Admin: 03/09/17 18:19 Dose: 4 mg Pantoprazole Sodium (Protonix Iv) 40 mg IVPUSH DAILY [facility] Last Admin: 03/15/17 09:00 Dose: 40 mg Admin: 03/14/17 08:50 Dose: 40 mg Admin: 03/13/17 09:38 Dose: 40 mg Admin: 03/12/17 08:47 Dose: 40 mg Admin: 03/11/17 09:07 Dose: 40 mg Admin: 03/10/17 19:00 Dose: 40 mg Phytonadione (Aquamephyton) 10 mg IM Mo [facility] - Assessment Assessment (Free Text/Narrative):: continues to have minimal out with ngt. - Plan Plan (Free Text/Narrative):: will start intermitent clamping.
[2017-03-16] MEDS: Pantoprazole 40 MG Vial IVPUSH SCH (09:11)
[2017-03-16] MEDS: Fat Emulsion 250 ML IV SCH (12:48)
[2017-03-16] MEDS: Latanoprost 0.005% Ophth Soln 2.5 ML Bottle EYEBOTH SCH (20:24)
[2017-03-17] MEDS: Metoprolol Tartrate 5 MG/5 ML SDV IV SCH ×4 (00:35→18:15)
[2017-03-17] MEDS: CALCIUM IV SCH ×4 (01:10→13:16)
[2017-03-17] MEDS: LYTES IV SCH ×4 (01:10→13:16)
[2017-03-17] MEDS: CALC IV SCH ×4 (01:10→13:16)
[2017-03-17] MEDS: [UNRECOGNIZED DRUG - OTHER] IV SCH ×4 (01:10→13:16)
[2017-03-17] MEDS: MVI IV SCH ×4 (01:10→13:16)
[2017-03-17] MEDS: Sodium Chloride 0.9% 10 ML Syringe FLUSH PRN ×3 (08:58→18:20)
[2017-03-17] MEDS: Pantoprazole 40 MG Vial IVPUSH SCH (08:58)
--- NOTE | 2017-03-17 10:46 | PCM.SURGPN ---
- General Info Date of Service: 03/17/17 Functional Status: Reports: Pain Controlled, Ambulating, Urinating - Review of Systems Pulmonary: Reports: No Symptoms Cardiovascular: Reports: No Symptoms Gastrointestinal: Reports: No Symptoms, Other (gastrograffin KUB demonstrates normal sized stomach. no flow into duodenum noted on immediate film. follow film in a hour. ) - Patient Data Vitals - Most Recent: Last Vital Signs Temp 36.8 C 03/17/17 07:50 Pulse 82 03/17/17 07:50 Resp 24 H 03/17/17 07:50 BP 132/96 H 03/17/17 07:50 Pulse Ox 97 03/17/17 07:50 Weight - Most Recent: 69.944 kg I&O - Last 24 Hours: Intake & Output 03/16/17 03/17/17 03/17/17 22:59 06:59 14:59 Intake Total 1477 84 Output Total 675 875 Balance 802 -791 Med Orders - Current: Current Medications Heparin Sodium (Porcine) (Heparin Lock Flush 100 Units/Ml) 500 units FLUSH ASDIRECTED PRN PRN Reason: Keep Vein Open Last Admin: 03/15/17 17:23 Dose: 500 units Fat Emulsion Intravenous (Intralipid 20%) 250 mls @ 20 mls/hr IV Q24H [facility] Last Admin: 03/16/17 12:48 Dose: 20 mls/hr Multivitamins/Minerals 10 ml/Amino Ac/Electrol/Dextrose/Calcium 1,010 mls @ 84 mls/hr IV .BY DURATION [facility] Last Admin: 03/16/17 13:06 Dose: 84 mls/hr Amino Ac/Electrol/Dextrose/Calcium (Clinimix E 5/15) 1,000 mls @ 84 mls/hr IV .BY DURATION [facility] Last Admin: 03/17/17 01:10 Dose: 84 mls/hr Latanoprost (Xalatan 0.005% Ophth Soln) 0 ml EYEBOTH BEDTIME [facility] Last Admin: 03/16/17 20:24 Dose: 1 drop Lorazepam (Ativan) 1 mg IVPUSH BEDTIME PRN PRN Reason: Insomnia Metoprolol Tartrate (Lopressor) 5 mg IV Q6H [facility] Last Admin: 03/17/17 05:02 Dose: 5 mg Ondansetron HCl (Zofran) 4 mg IV Q6H PRN PRN Reason: Nausea/Vomiting Last Admin: 03/10/17 03:16 Dose: 4 mg Pantoprazole Sodium (Protonix Iv) 40 mg IVPUSH DAILY [facility] Last Admin: 03/17/17 08:58 Dose: 40 mg Phytonadione (Aquamephyton) 10 mg IM Mo [facility] Last Admin: 03/16/17 08:51 Dose: 10 mg Sodium Chloride (Saline Flush) 10 ml FLUSH ASDIRECTED PRN PRN Reason: flush med Last Admin: 03/17/17 08:58 Dose: 10 ml Discontinued Medications Bupivacaine HCl (Marcaine 0.5%) 8 ml INJECT .STK-MED ONE Stop: 03/11/17 11:43 Last Admin: 03/11/17 11:42 Dose: 8 ml Heparin Sodium (Porcine) (Heparin Lock Flush 100 Units/Ml) 1,000 units .XX .STK -MED ONE Stop: 03/11/17 12:07 Last Admin: 03/11/17 12:06 Dose: 1,000 units Potassium Chloride/Dextrose/Sod Cl (D5 Ns With 20 Meq Kcl) 1,000 mls @ 125 mls/ hr IV ASDIRECTED [facility] Last Admin: 03/09/17 18:04 Dose: 125 mls/hr Dextrose/Sodium Chloride (Dextrose 5%-1/2 Ns) 1,000 mls @ 60 mls/hr IV ASDIRECTED [facility] Last Admin: 03/14/17 02:55 Dose: 125 mls/hr Sodium Chloride (Normal Saline) 1,000 mls @ 500 mls/hr IV ASDIRECTED [facility] Last Admin: 03/10/17 18:16 Dose: 500 mls/hr Cefazolin Sodium 1 gm/ Sodium (Chloride) 50 mls @ 200 mls/hr IV ONETIME ONE Stop: 03/11/17 10:14 Last Admin: 03/11/17 10:02 Dose: 200 mls/hr Lactated Ringer's (Ringers, Lactated) 1,000 mls @ as directed IV .STK-MED ONE Stop: 03/11/17 11:31 Potassium Chloride 20 meq/ (Premix) 100 mls @ 50 mls/hr IV ONETIME ONE Stop: 03/13/17 10:51 Last Admin: 03/14/17 10:10 Dose: 50 mls/hr Sodium Chloride 119 meq/Multivitamins/Minerals 10 ml/Amino Ac/Electrol/Dextrose/ Calcium 1,039.75 mls @ 42 mls/hr IV Q24H [facility] Last Admin: 03/13/17 13:54 Dose: 42 mls/hr Potassium Chloride 20 meq/ (Premix) 100 mls @ 50 mls/hr IV ONETIME ONE Stop: 03/14/17 11:31 Last Admin: 03/14/17 13:21 Dose: Not Given Potassium Chloride 20 meq/ (Premix) 100 mls @ 50 mls/hr IV ONETIME ONE Stop: 03/14/17 13:59 Last Admin: 03/14/17 13:21 Dose: 50 mls/hr Multivitamins/Minerals 10 ml/Amino Ac/Electrol/Dextrose/Calcium 1,010 mls @ 84 mls/hr IV .BY DURATION [facility] Stop: 03/15/17 12:30 Amino Ac/Electrol/Dextrose/Calcium (Clinimix E 12/08) 1,000 mls @ 84 mls/hr IV .BY DURATION [facility] Stop: 03/15/17 12:30 Last Admin: 03/15/17 01:46 Dose: 84 mls/hr Multivitamins/Minerals 10 ml/Amino Ac/Electrol/Dextrose/Calcium 1,010 mls @ 84 mls/hr IV ONETIME ONE Stop: 03/15/17 00:46 Last Admin: 03/14/17 13:00 Dose: 84 mls/hr Sodium Chloride 119 meq/Multivitamins/Minerals 10 ml/Potassium Acetate 40 meq/ Amino Ac/Electrol/Dextrose/Calcium 1,059.75 mls @ 84 mls/hr IV ONETIME ONE Stop: 03/16/17 01:36 Last Admin: 03/15/17 12:16 Dose: 84 mls/hr Lidocaine/Epinephrine (Xylocaine 1% With Epinephrine 1:100,000) 8 ml INJECT .STK-MED ONE Stop: 03/11/17 11:43 Last Admin: 03/11/17 11:42 Dose: 8 ml Metoprolol Succinate (Toprol Xl) 50 mg PO DAILY [facility] Last Admin: 03/10/17 08:48 Dose: 50 mg Phenylephrine HCl (Deni-Synephrine) 0.1 mg IV .STK-MED ONE Stop: 03/11/17 11:31 Potassium Chloride (Klor-Con M20) 40 meq PO BID [facility] Propofol (Diprivan 20 Ml) 425 mg IV .STK-MED ONE Stop: 03/11/17 11:31 Sodium Chloride (Saline Flush) 10 ml FLUSH ASDIRECTED PRN PRN Reason: Keep Vein Open Last Admin: 03/11/17 18:25 Dose: 10 ml Travoprost (Travatan Z 0.004% Ophth Soln) 0 ml EYEBOTH BEDTIME [facility] Last Admin: 03/09/17 20:52 Dose: 1 drop Zolpidem Tartrate (Ambien) 5 mg PO ONETIME ONE Stop: 03/09/17 22:51 Last Admin: 03/09/17 23:07 Dose: 5 mg - Exam General: Alert, Oriented Lungs: Clear to Auscultation, Normal Respiratory Effort Cardiovascular: Regular Rate, Regular Rhythm GI/Abdominal Exam: Normal Bowel Sounds, Soft, Non-Tender, No Distention - Problem List & Annotations (1) Gastroparesis SNOMED Code(s): 070535306 Code(s): K31.84 - GASTROPARESIS Status: Acute Current Visit: No - Problem List Review Problem List Initiated/Reviewed/Updated: Yes - My Orders Last 24 Hours: Active Orders 24 hr Category Date Time Status Communication Order [RC] ROUTINE Care 03/17/17 10:43 Ordered Abdomen 2V AP Flat Upright [CR] Routine Exams 03/17/17 10:16 Taken Sodium Chloride 0.9% [Saline Flush] Med 03/17/17 08:58 Active 10 ml FLUSH ASDIRECTED PRN Medication Orders Heparin Sodium (Porcine) (Heparin Lock Flush 100 Units/Ml) 500 units FLUSH ASDIRECTED PRN PRN Reason: Keep Vein Open Last Admin: 03/15/17 17:23 Dose: 500 units Admin: 03/15/17 12:19 Dose: 500 units Admin: 03/14/17 17:19 Dose: 500 units Fat Emulsion Intravenous (Intralipid 20%) 250 mls @ 20 mls/hr IV Q24H [facility] Last Admin: 03/16/17 12:48 Dose: 20 mls/hr Infusion: 03/16/17 00:45 Dose: 20 mls/hr Admin: 03/15/17 12:15 Dose: 20 mls/hr Infusion: 03/15/17 00:31 Dose: 20 mls/hr Admin: 03/14/17 12:01 Dose: 20 mls/hr Infusion: 03/14/17 02:23 Dose: 20 mls/hr Admin: 03/13/17 13:53 Dose: 20 mls/hr Multivitamins/Minerals 10 ml/Amino Ac/Electrol/Dextrose/Calcium 1,010 mls @ 84 mls/hr IV .BY DURATION [facility] Last Admin: 03/16/17 13:06 Dose: 84 mls/hr Amino Ac/Electrol/Dextrose/Calcium (Clinimix E 12/08) 1,000 mls @ 84 mls/hr IV .BY DURATION [facility] Last Admin: 03/17/17 01:10 Dose: 84 mls/hr Infusion: 03/16/17 12:58 Dose: 84 mls/hr Admin: 03/16/17 01:03 Dose: 84 mls/hr Latanoprost (Xalatan 0.005% Oph Soln) 0 ml EYEBOTH BEDTIME [facility] Last Admin: 03/16/17 20:24 Dose: 1 drop Admin: 03/15/17 20:48 Dose: 1 drop Admin: 03/14/17 20:37 Dose: 1 drop Admin: 03/13/17 20:02 Dose: 1 drop Admin: 03/12/17 20:30 Dose: 1 drop Admin: 03/11/17 21:25 Dose: 1 drop Admin: 03/10/17 21:40 Dose: 1 drop Lorazepam (Ativan) 1 mg IVPUSH BEDTIME PRN PRN Reason: Insomnia Metoprolol Tartrate (Lopressor) 5 mg IV Q6H [facility] Last Admin: 03/17/17 05:02 Dose: 5 mg Admin: 03/17/17 00:35 Dose: 5 mg Admin: 03/16/17 18:04 Dose: 5 mg Admin: 03/16/17 12:30 Dose: 5 mg Admin: 03/16/17 06:02 Dose: 5 mg Admin: 03/15/17 23:50 Dose: 5 mg Admin: 03/15/17 17:20 Dose: 5 mg Admin: 03/15/17 12:17 Dose: 5 mg Admin: 03/15/17 06:02 Dose: 5 mg Admin: 03/15/17 00:11 Dose: 5 mg Admin: 03/14/17 17:19 Dose: 5 mg Admin: 03/14/17 12:01 Dose: 5 mg Admin: 03/14/17 06:00 Dose: 5 mg Admin: 03/13/17 23:54 Dose: 5 mg Admin: 03/13/17 18:01 Dose: 5 mg Admin: 03/13/17 12:08 Dose: 5 mg Admin: 03/13/17 06:21 Dose: 5 mg Admin: 03/12/17 23:56 Dose: 5 mg Admin: 03/12/17 17:44 Dose: 5 mg Admin: 03/12/17 13:41 Dose: 5 mg Admin: 03/12/17 06:29 Dose: 5 mg Admin: 03/12/17 01:05 Dose: 5 mg Admin: 03/11/17 18:24 Dose: 5 mg Admin: 03/11/17 13:17 Dose: 5 mg Admin: 03/11/17 05:58 Dose: 5 mg Ondansetron HCl (Zofran) 4 mg IV Q6H PRN PRN Reason: Nausea/Vomiting Last Admin: 03/10/17 03:16 Dose: 4 mg Admin: 03/09/17 18:19 Dose: 4 mg Pantoprazole Sodium (Protonix Iv) 40 mg IVPUSH DAILY [facility] Last Admin: 03/17/17 08:58 Dose: 40 mg Admin: 03/16/17 09:11 Dose: 40 mg Admin: 03/15/17 09:00 Dose: 40 mg Admin: 03/14/17 08:50 Dose: 40 mg Admin: 03/13/17 09:38 Dose: 40 mg Admin: 03/12/17 08:47 Dose: 40 mg Admin: 03/11/17 09:07 Dose: 40 mg Admin: 03/10/17 19:00 Dose: 40 mg Phytonadione (Aquamephyton) 10 mg IM Mo [facility] Last Admin: 03/16/17 08:51 Dose: 10 mg Sodium Chloride (Saline Flush) 10 ml FLUSH ASDIRECTED PRN PRN Reason: flush med Last Admin: 03/17/17 08:58 Dose: 10 ml - Assessment Assessment (Free Text/Narrative):: appears to be making good progress. - Plan Plan (Free Text/Narrative):: will d/c ngt if demonstrates flow in to the duodenum.
[2017-03-17] MEDS: Fat Emulsion 250 ML IV SCH (12:09)
--- NOTE | 2017-03-17 12:47 | CR ---
INDICATION: History of gastric paresis, question stomach size and gastric emptying. ABDOMEN, SUPINE AND UPRIGHT WITH 90 MINUTE DELAY AFTER CONTRAST: Two sets of two images each were obtained. The first set was supine and upright in projection. The second was two supine images. Good gastric emptying is noted with the stomach appearing fairly normal in size. On the 90 minute delayed images, contrast has progressed to the area of the distal ileum. IMPRESSION: No gastric obstruction is seen at this time - gastric paresis is not suggested at this time. [facility]
[2017-03-17] MEDS: Latanoprost 0.005% Ophth Soln 2.5 ML Bottle EYEBOTH SCH (22:07)
[2017-03-18] MEDS: CALCIUM IV SCH ×4 (01:26→14:32)
[2017-03-18] MEDS: MVI IV SCH ×4 (01:26→14:32)
[2017-03-18] MEDS: [UNRECOGNIZED DRUG - OTHER] IV SCH ×4 (01:26→14:32)
[2017-03-18] MEDS: LYTES IV SCH ×4 (01:26→14:32)
[2017-03-18] MEDS: CALC IV SCH ×4 (01:26→14:32)
[2017-03-18] MEDS: Metoprolol Tartrate 5 MG/5 ML SDV IV SCH ×3 (06:01→13:20)
--- NOTE | 2017-03-18 07:19 | PCM.SURGPN ---
- General Info Date of Service: 03/18/17 Functional Status: Reports: Pain Controlled, Ambulating, Urinating. Denies: New Symptoms - Review of Systems General: Denies: No Symptoms Pulmonary: Reports: No Symptoms Cardiovascular: Reports: No Symptoms Gastrointestinal: Reports: No Symptoms - Patient Data Vitals - Most Recent: Last Vital Signs Temp 36.7 C 03/18/17 00:00 Pulse 84 03/18/17 06:01 Resp 17 03/18/17 00:00 BP 108/65 03/18/17 06:01 Pulse Ox 98 03/18/17 00:00 Weight - Most Recent: 70.851 kg I&O - Last 24 Hours: Intake & Output 03/17/17 03/18/17 03/18/17 22:59 06:59 14:59 Intake Total 983 462 Output Total 600 750 Balance 383 -288 Med Orders - Current: Current Medications Heparin Sodium (Porcine) (Heparin Lock Flush 100 Units/Ml) 500 units FLUSH ASDIRECTED PRN PRN Reason: Keep Vein Open Last Admin: 03/15/17 17:23 Dose: 500 units Fat Emulsion Intravenous (Intralipid 20%) 250 mls @ 20 mls/hr IV Q24H [facility] Last Admin: 03/17/17 12:09 Dose: 20 mls/hr Multivitamins/Minerals 10 ml/Amino Ac/Electrol/Dextrose/Calcium 1,010 mls @ 84 mls/hr IV .BY DURATION [facility] Last Admin: 03/17/17 13:16 Dose: 84 mls/hr Amino Ac/Electrol/Dextrose/Calcium (Clinimix E 5/15) 1,000 mls @ 84 mls/hr IV .BY DURATION [facility] Last Admin: 03/18/17 01:26 Dose: 84 mls/hr Latanoprost (Xalatan 0.005% Ophth Soln) 0 ml EYEBOTH BEDTIME [facility] Last Admin: 03/17/17 22:07 Dose: 1 drop Lorazepam (Ativan) 1 mg IVPUSH BEDTIME PRN PRN Reason: Insomnia Metoprolol Tartrate (Lopressor) 5 mg IV Q6H [facility] Last Admin: 03/18/17 06:01 Dose: 5 mg Ondansetron HCl (Zofran) 4 mg IV Q6H PRN PRN Reason: Nausea/Vomiting Last Admin: 03/10/17 03:16 Dose: 4 mg Pantoprazole Sodium (Protonix Iv) 40 mg IVPUSH DAILY [facility] Last Admin: 03/17/17 08:58 Dose: 40 mg Phytonadione (Aquamephyton) 10 mg IM Mo [facility] Last Admin: 03/16/17 08:51 Dose: 10 mg Sodium Chloride (Saline Flush) 10 ml FLUSH ASDIRECTED PRN PRN Reason: flush med Last Admin: 03/17/17 18:20 Dose: 10 ml Discontinued Medications Bupivacaine HCl (Marcaine 0.5%) 8 ml INJECT .STK-MED ONE Stop: 03/11/17 11:43 Last Admin: 03/11/17 11:42 Dose: 8 ml Heparin Sodium (Porcine) (Heparin Lock Flush 100 Units/Ml) 1,000 units .XX .STK -MED ONE Stop: 03/11/17 12:07 Last Admin: 03/11/17 12:06 Dose: 1,000 units Potassium Chloride/Dextrose/Sod Cl (D5 Ns With 20 Meq Kcl) 1,000 mls @ 125 mls/ hr IV ASDIRECTED [facility] Last Admin: 03/09/17 18:04 Dose: 125 mls/hr Dextrose/Sodium Chloride (Dextrose 5%-1/2 Ns) 1,000 mls @ 60 mls/hr IV ASDIRECTED [facility] Last Admin: 03/14/17 02:55 Dose: 125 mls/hr Sodium Chloride (Normal Saline) 1,000 mls @ 500 mls/hr IV ASDIRECTED [facility] Last Admin: 03/10/17 18:16 Dose: 500 mls/hr Cefazolin Sodium 1 gm/ Sodium (Chloride) 50 mls @ 200 mls/hr IV ONETIME ONE Stop: 03/11/17 10:14 Last Admin: 03/11/17 10:02 Dose: 200 mls/hr Lactated Ringer's (Ringers, Lactated) 1,000 mls @ as directed IV .STK-MED ONE Stop: 03/11/17 11:31 Potassium Chloride 20 meq/ (Premix) 100 mls @ 50 mls/hr IV ONETIME ONE Stop: 03/13/17 10:51 Last Admin: 03/14/17 10:10 Dose: 50 mls/hr Sodium Chloride 119 meq/Multivitamins/Minerals 10 ml/Amino Ac/Electrol/Dextrose/ Calcium 1,039.75 mls @ 42 mls/hr IV Q24H [facility] Last Admin: 03/13/17 13:54 Dose: 42 mls/hr Potassium Chloride 20 meq/ (Premix) 100 mls @ 50 mls/hr IV ONETIME ONE Stop: 03/14/17 11:31 Last Admin: 03/14/17 13:21 Dose: Not Given Potassium Chloride 20 meq/ (Premix) 100 mls @ 50 mls/hr IV ONETIME ONE Stop: 03/14/17 13:59 Last Admin: 03/14/17 13:21 Dose: 50 mls/hr Multivitamins/Minerals 10 ml/Amino Ac/Electrol/Dextrose/Calcium 1,010 mls @ 84 mls/hr IV .BY DURATION [facility] Stop: 03/15/17 12:30 Amino Ac/Electrol/Dextrose/Calcium (Clinimix E 5/15) 1,000 mls @ 84 mls/hr IV .BY DURATION [facility] Stop: 03/15/17 12:30 Last Admin: 03/15/17 01:46 Dose: 84 mls/hr Multivitamins/Minerals 10 ml/Amino Ac/Electrol/Dextrose/Calcium 1,010 mls @ 84 mls/hr IV ONETIME ONE Stop: 03/15/17 00:46 Last Admin: 03/14/17 13:00 Dose: 84 mls/hr Sodium Chloride 119 meq/Multivitamins/Minerals 10 ml/Potassium Acetate 40 meq/ Amino Ac/Electrol/Dextrose/Calcium 1,059.75 mls @ 84 mls/hr IV ONETIME ONE Stop: 03/16/17 01:36 Last Admin: 03/15/17 12:16 Dose: 84 mls/hr Lidocaine/Epinephrine (Xylocaine 1% With Epinephrine 1:100,000) 8 ml INJECT .STK-MED ONE Stop: 03/11/17 11:43 Last Admin: 03/11/17 11:42 Dose: 8 ml Metoprolol Succinate (Toprol Xl) 50 mg PO DAILY [facility] Last Admin: 03/10/17 08:48 Dose: 50 mg Phenylephrine HCl (Deni-Synephrine) 0.1 mg IV .STK-MED ONE Stop: 03/11/17 11:31 Potassium Chloride (Klor-Con M20) 40 meq PO BID [facility] Propofol (Diprivan 20 Ml) 425 mg IV .STK-MED ONE Stop: 03/11/17 11:31 Sodium Chloride (Saline Flush) 10 ml FLUSH ASDIRECTED PRN PRN Reason: Keep Vein Open Last Admin: 03/11/17 18:25 Dose: 10 ml Travoprost (Travatan Z 0.004% Ophth Soln) 0 ml EYEBOTH BEDTIME [facility] Last Admin: 03/09/17 20:52 Dose: 1 drop Zolpidem Tartrate (Ambien) 5 mg PO ONETIME ONE Stop: 03/09/17 22:51 Last Admin: 03/09/17 23:07 Dose: 5 mg - Exam Wound/Incisions: Dressing Dry and Intact General: Alert, Oriented Lungs: Clear to Auscultation, Normal Respiratory Effort Cardiovascular: Regular Rate, Regular Rhythm GI/Abdominal Exam: Normal Bowel Sounds, Soft, Non-Tender, No Distention Extremities: Normal Inspection - Problem List & Annotations (1) Gastroparesis SNOMED Code(s): 088378053 Code(s): K31.84 - GASTROPARESIS Status: Acute Current Visit: No - Problem List Review Problem List Initiated/Reviewed/Updated: Yes - My Orders Last 24 Hours: Active Orders 24 hr Category Date Time Status PT Evaluation and Treatment [CONS] Routine Cons 03/17/17 18:53 Active COMPREHENSIVE METABOLIC PN,CMP [CHEM] Routine Lab 03/19/17 06:00 Ordered Sodium Chloride 0.9% [Saline Flush] Med 03/17/17 08:58 Active 10 ml FLUSH ASDIRECTED PRN Medication Orders Heparin Sodium (Porcine) (Heparin Lock Flush 100 Units/Ml) 500 units FLUSH ASDIRECTED PRN PRN Reason: Keep Vein Open Last Admin: 03/15/17 17:23 Dose: 500 units Admin: 03/15/17 12:19 Dose: 500 units Admin: 03/14/17 17:19 Dose: 500 units Fat Emulsion Intravenous (Intralipid 20%) 250 mls @ 20 mls/hr IV Q24H [facility] Last Admin: 03/17/17 12:09 Dose: 20 mls/hr Infusion: 03/17/17 01:18 Dose: 20 mls/hr Admin: 03/16/17 12:48 Dose: 20 mls/hr Infusion: 03/16/17 00:45 Dose: 20 mls/hr Admin: 03/15/17 12:15 Dose: 20 mls/hr Infusion: 03/15/17 00:31 Dose: 20 mls/hr Admin: 03/14/17 12:01 Dose: 20 mls/hr Infusion: 03/14/17 02:23 Dose: 20 mls/hr Admin: 03/13/17 13:53 Dose: 20 mls/hr Multivitamins/Minerals 10 ml/Amino Ac/Electrol/Dextrose/Calcium 1,010 mls @ 84 mls/hr IV .BY DURATION [facility] Last Admin: 03/17/17 13:16 Dose: 84 mls/hr Infusion: 03/17/17 01:08 Dose: 84 mls/hr Admin: 03/16/17 13:06 Dose: 84 mls/hr Amino Ac/Electrol/Dextrose/Calcium (Clinimix E 12/08) 1,000 mls @ 84 mls/hr IV .BY DURATION [facility] Last Admin: 03/18/17 01:26 Dose: 84 mls/hr Infusion: 03/17/17 13:05 Dose: 84 mls/hr Admin: 03/17/17 01:10 Dose: 84 mls/hr Infusion: 03/16/17 12:58 Dose: 84 mls/hr Admin: 03/16/17 01:03 Dose: 84 mls/hr Latanoprost (Xalatan 0.005% Ophth Soln) 0 ml EYEBOTH BEDTIME [facility] Last Admin: 03/17/17 22:07 Dose: 1 drop Admin: 03/16/17 20:24 Dose: 1 drop Admin: 03/15/17 20:48 Dose: 1 drop Admin: 03/14/17 20:37 Dose: 1 drop Admin: 03/13/17 20:02 Dose: 1 drop Admin: 03/12/17 20:30 Dose: 1 drop Admin: 03/11/17 21:25 Dose: 1 drop Admin: 03/10/17 21:40 Dose: 1 drop Lorazepam (Ativan) 1 mg IVPUSH BEDTIME PRN PRN Reason: Insomnia Metoprolol Tartrate (Lopressor) 5 mg IV Q6H [facility] Last Admin: 03/18/17 06:01 Dose: 5 mg Admin: 03/18/17 00:00 Dose: 5 mg Admin: 03/17/17 18:15 Dose: 5 mg Admin: 03/17/17 12:12 Dose: 5 mg Admin: 03/17/17 05:02 Dose: 5 mg Admin: 03/17/17 00:35 Dose: 5 mg Admin: 03/16/17 18:04 Dose: 5 mg Admin: 03/16/17 12:30 Dose: 5 mg Admin: 03/16/17 06:02 Dose: 5 mg Admin: 03/15/17 23:50 Dose: 5 mg Admin: 03/15/17 17:20 Dose: 5 mg Admin: 03/15/17 12:17 Dose: 5 mg Admin: 03/15/17 06:02 Dose: 5 mg Admin: 03/15/17 00:11 Dose: 5 mg Admin: 03/14/17 17:19 Dose: 5 mg Admin: 03/14/17 12:01 Dose: 5 mg Admin: 03/14/17 06:00 Dose: 5 mg Admin: 03/13/17 23:54 Dose: 5 mg Admin: 03/13/17 18:01 Dose: 5 mg Admin: 03/13/17 12:08 Dose: 5 mg Admin: 03/13/17 06:21 Dose: 5 mg Admin: 03/12/17 23:56 Dose: 5 mg Admin: 03/12/17 17:44 Dose: 5 mg Admin: 03/12/17 13:41 Dose: 5 mg Admin: 03/12/17 06:29 Dose: 5 mg Admin: 03/12/17 01:05 Dose: 5 mg Admin: 03/11/17 18:24 Dose: 5 mg Admin: 03/11/17 13:17 Dose: 5 mg Admin: 03/11/17 05:58 Dose: 5 mg Ondansetron HCl (Zofran) 4 mg IV Q6H PRN PRN Reason: Nausea/Vomiting Last Admin: 03/10/17 03:16 Dose: 4 mg Admin: 03/09/17 18:19 Dose: 4 mg Pantoprazole Sodium (Protonix Iv) 40 mg IVPUSH DAILY [facility] Last Admin: 03/17/17 08:58 Dose: 40 mg Admin: 03/16/17 09:11 Dose: 40 mg Admin: 03/15/17 09:00 Dose: 40 mg Admin: 03/14/17 08:50 Dose: 40 mg Admin: 03/13/17 09:38 Dose: 40 mg Admin: 03/12/17 08:47 Dose: 40 mg Admin: 03/11/17 09:07 Dose: 40 mg Admin: 03/10/17 19:00 Dose: 40 mg Phytonadione (Aquamephyton) 10 mg IM Mo [facility] Last Admin: 03/16/17 08:51 Dose: 10 mg Sodium Chloride (Saline Flush) 10 ml FLUSH ASDIRECTED PRN PRN Reason: flush med Last Admin: 03/17/17 18:20 Dose: 10 ml Admin: 03/17/17 12:12 Dose: 10 ml Admin: 03/17/17 08:58 Dose: 10 ml - Assessment Assessment (Free Text/Narrative):: gastric function appears to have normalized. - Plan Plan (Free Text/Narrative):: clear liquid diet with 6 small meals.
[2017-03-18] MEDS: Pantoprazole 40 MG Vial IVPUSH SCH (09:50)
[2017-03-18] MEDS: Fat Emulsion 250 ML IV SCH (13:12)
--- NOTE | 2017-03-18 16:20 | PCM.SN ---
- Free Text/Narrative Note: Pt had a fall this pm while walking. witness by three people. apparently shoe got caught on floor while turning. c/o some hip pain. this has gotten better. bump on head as well. neuo check by nurse is normal. I had ordered a hip xray but cancelled when he reported no pain and was noted to ambulate without difficulty.
[2017-03-18] MEDS: Latanoprost 0.005% Ophth Soln 2.5 ML Bottle EYEBOTH SCH (20:39)
[2017-03-19] MEDS: CALCIUM IV SCH ×4 (02:51→13:54)
[2017-03-19] MEDS: [UNRECOGNIZED DRUG - OTHER] IV SCH ×4 (02:51→13:54)
[2017-03-19] MEDS: LYTES IV SCH ×4 (02:51→13:54)
[2017-03-19] MEDS: MVI IV SCH ×4 (02:51→13:54)
[2017-03-19] MEDS: CALC IV SCH ×4 (02:51→13:54)
[2017-03-19] MEDS ORDERED: Potassium Chloride 20 MEQ in Premix Bag 1 BAG IV ONE ×2 (10:18→12:30)
--- NOTE | 2017-03-19 10:25 | PCM.SURGPN ---
- General Info Date of Service: 03/19/17 Functional Status: Reports: Tolerating Diet, Ambulating, Urinating - Review of Systems Gastrointestinal: Reports: Abdominal Pain (feels like he could have a bowel movement) - Patient Data Vitals - Most Recent: Last Vital Signs Temp 36.8 C 03/19/17 08:00 Pulse 94 03/19/17 08:00 Resp 18 03/19/17 08:00 BP 122/73 03/19/17 08:00 Pulse Ox 99 03/19/17 08:00 Weight - Most Recent: 70.851 kg I&O - Last 24 Hours: Intake & Output 03/18/17 03/19/17 03/19/17 22:59 06:59 14:59 Intake Total 1780 Output Total 425 Balance 1355 Lab Results Last 24 Hrs: Laboratory Results - last 24 hr 03/19/17 Range/Units 06:08 Sodium 136 (135-145) mmol/L Potassium 3.2 L (3.5-5.3) mmol/L Chloride 101 (100-110) mmol/L Carbon Dioxide 28 (23-29) mmol/L BUN 22 (8-23) mg/dL Creatinine 0.7 (0.6-1.3) mg/dL Est Cr Clr Drug Dosing 64.56 mL/min Estimated GFR (MDRD) > 60 (>60) BUN/Creatinine Ratio 31.4 H (9-20) Glucose 133 H (80-116) mg/dL Calcium 8.2 L (8.6-10.2) mg/dL Total Bilirubin 1.2 (0.1-1.3) mg/dL AST 35 H (5-27) IU/L ALT 36 H D (14-26) IU/L Alkaline Phosphatase 92 (56-112) IU/L Total Protein 5.7 L (6.0-8.0) g/dL Albumin 2.7 L (2.9-4.5) g/dL Globulin 3.0 g/dL Albumin/Globulin Ratio 0.9 Med Orders - Current: Current Medications Heparin Sodium (Porcine) (Heparin Lock Flush 100 Units/Ml) 500 units FLUSH ASDIRECTED PRN PRN Reason: Keep Vein Open Last Admin: 03/15/17 17:23 Dose: 500 units Fat Emulsion Intravenous (Intralipid 20%) 250 mls @ 20 mls/hr IV Q24H [facility] Last Admin: 03/18/17 13:12 Dose: 20 mls/hr Multivitamins/Minerals 10 ml/Amino Ac/Electrol/Dextrose/Calcium 1,010 mls @ 84 mls/hr IV .BY DURATION [facility] Last Admin: 03/18/17 14:32 Dose: 84 mls/hr Amino Ac/Electrol/Dextrose/Calcium (Clinimix E 5/15) 1,000 mls @ 84 mls/hr IV .BY DURATION [facility] Last Admin: 03/19/17 02:51 Dose: 84 mls/hr Potassium Chloride 20 meq/ (Premix) 100 mls @ 50 mls/hr IV ONETIME ONE Stop: 03/19/17 12:17 Potassium Chloride 20 meq/ (Premix) 100 mls @ 50 mls/hr IV ONETIME ONE Stop: 03/19/17 12:17 Latanoprost (Xalatan 0.005% Ophth Soln) 0 ml EYEBOTH BEDTIME [facility] Last Admin: 03/18/17 20:39 Dose: 1 drop Lorazepam (Ativan) 1 mg IVPUSH BEDTIME PRN PRN Reason: Insomnia Metoprolol Succinate (Toprol Xl) 50 mg PO DAILY [facility] Ondansetron HCl (Zofran) 4 mg IV Q6H PRN PRN Reason: Nausea/Vomiting Last Admin: 03/10/17 03:16 Dose: 4 mg Pantoprazole Sodium (Protonix Iv) 40 mg IVPUSH DAILY [facility] Last Admin: 03/18/17 09:50 Dose: 40 mg Phytonadione (Aquamephyton) 10 mg IM Mo [facility] Last Admin: 03/16/17 08:51 Dose: 10 mg Sodium Chloride (Saline Flush) 10 ml FLUSH ASDIRECTED PRN PRN Reason: flush med Last Admin: 03/17/17 18:20 Dose: 10 ml Discontinued Medications Bupivacaine HCl (Marcaine 0.5%) 8 ml INJECT .STK-MED ONE Stop: 03/11/17 11:43 Last Admin: 03/11/17 11:42 Dose: 8 ml Heparin Sodium (Porcine) (Heparin Lock Flush 100 Units/Ml) 1,000 units .XX .STK -MED ONE Stop: 03/11/17 12:07 Last Admin: 03/11/17 12:06 Dose: 1,000 units Potassium Chloride/Dextrose/Sod Cl (D5 Ns With 20 Meq Kcl) 1,000 mls @ 125 mls/ hr IV ASDIRECTED [facility] Last Admin: 03/09/17 18:04 Dose: 125 mls/hr Dextrose/Sodium Chloride (Dextrose 5%-1/2 Ns) 1,000 mls @ 60 mls/hr IV ASDIRECTED [facility] Last Admin: 03/14/17 02:55 Dose: 125 mls/hr Sodium Chloride (Normal Saline) 1,000 mls @ 500 mls/hr IV ASDIRECTED [facility] Last Admin: 03/10/17 18:16 Dose: 500 mls/hr Cefazolin Sodium 1 gm/ Sodium (Chloride) 50 mls @ 200 mls/hr IV ONETIME ONE Stop: 03/11/17 10:14 Last Admin: 03/11/17 10:02 Dose: 200 mls/hr Lactated Ringer's (Ringers, Lactated) 1,000 mls @ as directed IV .STK-MED ONE Stop: 03/11/17 11:31 Potassium Chloride 20 meq/ (Premix) 100 mls @ 50 mls/hr IV ONETIME ONE Stop: 03/13/17 10:51 Last Admin: 03/14/17 10:10 Dose: 50 mls/hr Sodium Chloride 119 meq/Multivitamins/Minerals 10 ml/Amino Ac/Electrol/Dextrose/ Calcium 1,039.75 mls @ 42 mls/hr IV Q24H [facility] Last Admin: 03/13/17 13:54 Dose: 42 mls/hr Potassium Chloride 20 meq/ (Premix) 100 mls @ 50 mls/hr IV ONETIME ONE Stop: 03/14/17 11:31 Last Admin: 03/14/17 13:21 Dose: Not Given Potassium Chloride 20 meq/ (Premix) 100 mls @ 50 mls/hr IV ONETIME ONE Stop: 03/14/17 13:59 Last Admin: 03/14/17 13:21 Dose: 50 mls/hr Multivitamins/Minerals 10 ml/Amino Ac/Electrol/Dextrose/Calcium 1,010 mls @ 84 mls/hr IV .BY DURATION [facility] Stop: 03/15/17 12:30 Amino Ac/Electrol/Dextrose/Calcium (Clinimix E 5/15) 1,000 mls @ 84 mls/hr IV .BY DURATION [facility] Stop: 03/15/17 12:30 Last Admin: 03/15/17 01:46 Dose: 84 mls/hr Multivitamins/Minerals 10 ml/Amino Ac/Electrol/Dextrose/Calcium 1,010 mls @ 84 mls/hr IV ONETIME ONE Stop: 03/15/17 00:46 Last Admin: 03/14/17 13:00 Dose: 84 mls/hr Sodium Chloride 119 meq/Multivitamins/Minerals 10 ml/Potassium Acetate 40 meq/ Amino Ac/Electrol/Dextrose/Calcium 1,059.75 mls @ 84 mls/hr IV ONETIME ONE Stop: 03/16/17 01:36 Last Admin: 03/15/17 12:16 Dose: 84 mls/hr Lidocaine/Epinephrine (Xylocaine 1% With Epinephrine 1:100,000) 8 ml INJECT .STK-MED ONE Stop: 03/11/17 11:43 Last Admin: 03/11/17 11:42 Dose: 8 ml Metoprolol Succinate (Toprol Xl) 50 mg PO DAILY [facility] Last Admin: 03/10/17 08:48 Dose: 50 mg Metoprolol Tartrate (Lopressor) 5 mg IV Q6H [facility] Last Admin: 03/18/17 13:20 Dose: Not Given Phenylephrine HCl (Deni-Synephrine) 0.1 mg IV .STK-MED ONE Stop: 03/11/17 11:31 Potassium Chloride (Klor-Con M20) 40 meq PO BID [facility] Propofol (Diprivan 20 Ml) 425 mg IV .STK-MED ONE Stop: 03/11/17 11:31 Sodium Chloride (Saline Flush) 10 ml FLUSH ASDIRECTED PRN PRN Reason: Keep Vein Open Last Admin: 03/11/17 18:25 Dose: 10 ml Travoprost (Travatan Z 0.004% Ophth Soln) 0 ml EYEBOTH BEDTIME [facility] Last Admin: 03/09/17 20:52 Dose: 1 drop Zolpidem Tartrate (Ambien) 5 mg PO ONETIME ONE Stop: 03/09/17 22:51 Last Admin: 03/09/17 23:07 Dose: 5 mg - Exam Wound/Incisions: Dressing Dry and Intact General: Alert, Oriented, Cooperative, No Acute Distress Lungs: Clear to Auscultation, Normal Respiratory Effort Cardiovascular: Regular Rate, Regular Rhythm GI/Abdominal Exam: Normal Bowel Sounds, Soft, Non-Tender, No Organomegaly - Problem List & Annotations (1) Gastroparesis SNOMED Code(s): 764257142 Code(s): K31.84 - GASTROPARESIS Status: Acute Current Visit: No - Problem List Review Problem List Initiated/Reviewed/Updated: Yes - My Orders Last 24 Hours: Active Orders 24 hr Category Date Time Status Full Liquid Diet [DIET] Diet 03/19/17 Lunch Ordered BASIC METABOLIC PANEL,BMP [CHEM] AM Lab 03/20/17 05:11 Ordered Metoprolol Succinate [Toprol XL] Med 03/19/17 09:00 Active 50 mg PO DAILY Potassium Chloride [KCL 20 MEQ in Water 100 ML] 20 meq Med 03/19/17 10:18 Ordered Premix Bag 1 bag IV ONETIME Potassium Chloride [KCL 20 MEQ in Water 100 ML] 20 meq Med 03/19/17 10:18 Ordered Premix Bag 1 bag IV ONETIME Medication Orders Heparin Sodium (Porcine) (Heparin Lock Flush 100 Units/Ml) 500 units FLUSH ASDIRECTED PRN PRN Reason: Keep Vein Open Last Admin: 03/15/17 17:23 Dose: 500 units Admin: 03/15/17 12:19 Dose: 500 units Admin: 03/14/17 17:19 Dose: 500 units Fat Emulsion Intravenous (Intralipid 20%) 250 mls @ 20 mls/hr IV Q24H [facility] Last Admin: 03/18/17 13:12 Dose: 20 mls/hr Infusion: 03/18/17 00:39 Dose: 20 mls/hr Admin: 03/17/17 12:09 Dose: 20 mls/hr Infusion: 03/17/17 01:18 Dose: 20 mls/hr Admin: 03/16/17 12:48 Dose: 20 mls/hr Infusion: 03/16/17 00:45 Dose: 20 mls/hr Admin: 03/15/17 12:15 Dose: 20 mls/hr Infusion: 03/15/17 00:31 Dose: 20 mls/hr Admin: 03/14/17 12:01 Dose: 20 mls/hr Infusion: 03/14/17 02:23 Dose: 20 mls/hr Admin: 03/13/17 13:53 Dose: 20 mls/hr Multivitamins/Minerals 10 ml/Amino Ac/Electrol/Dextrose/Calcium 1,010 mls @ 84 mls/hr IV .BY DURATION [facility] Last Admin: 03/18/17 14:32 Dose: 84 mls/hr Infusion: 03/18/17 01:18 Dose: 84 mls/hr Admin: 03/17/17 13:16 Dose: 84 mls/hr Infusion: 03/17/17 01:08 Dose: 84 mls/hr Admin: 03/16/17 13:06 Dose: 84 mls/hr Amino Ac/Electrol/Dextrose/Calcium (Clinimix E 12/08) 1,000 mls @ 84 mls/hr IV .BY DURATION [facility] Last Admin: 03/19/17 02:51 Dose: 84 mls/hr Infusion: 03/18/17 13:21 Dose: 84 mls/hr Admin: 03/18/17 01:26 Dose: 84 mls/hr Infusion: 03/17/17 13:05 Dose: 84 mls/hr Admin: 03/17/17 01:10 Dose: 84 mls/hr Infusion: 03/16/17 12:58 Dose: 84 mls/hr Admin: 03/16/17 01:03 Dose: 84 mls/hr Potassium Chloride 20 meq/ (Premix) 100 mls @ 50 mls/hr IV ONETIME ONE Stop: 03/19/17 12:17 Potassium Chloride 20 meq/ (Premix) 100 mls @ 50 mls/hr IV ONETIME ONE Stop: 03/19/17 12:17 Latanoprost (Xalatan 0.005% Ophth Soln) 0 ml EYEBOTH BEDTIME [facility] Last Admin: 03/18/17 20:39 Dose: 1 drop Admin: 03/17/17 22:07 Dose: 1 drop Admin: 03/16/17 20:24 Dose: 1 drop Admin: 03/15/17 20:48 Dose: 1 drop Admin: 03/14/17 20:37 Dose: 1 drop Admin: 03/13/17 20:02 Dose: 1 drop Admin: 03/12/17 20:30 Dose: 1 drop Admin: 03/11/17 21:25 Dose: 1 drop Admin: 03/10/17 21:40 Dose: 1 drop Lorazepam (Ativan) 1 mg IVPUSH BEDTIME PRN PRN Reason: Insomnia Metoprolol Succinate (Toprol Xl) 50 mg PO DAILY [facility] Ondansetron HCl (Zofran) 4 mg IV Q6H PRN PRN Reason: Nausea/Vomiting Last Admin: 03/10/17 03:16 Dose: 4 mg Admin: 03/09/17 18:19 Dose: 4 mg Pantoprazole Sodium (Protonix Iv) 40 mg IVPUSH DAILY [facility] Last Admin: 03/18/17 09:50 Dose: 40 mg Admin: 03/17/17 08:58 Dose: 40 mg Admin: 03/16/17 09:11 Dose: 40 mg Admin: 03/15/17 09:00 Dose: 40 mg Admin: 03/14/17 08:50 Dose: 40 mg Admin: 03/13/17 09:38 Dose: 40 mg Admin: 03/12/17 08:47 Dose: 40 mg Admin: 03/11/17 09:07 Dose: 40 mg Admin: 03/10/17 19:00 Dose: 40 mg Phytonadione (Aquamephyton) 10 mg IM Mo [facility] Last Admin: 03/16/17 08:51 Dose: 10 mg Sodium Chloride (Saline Flush) 10 ml FLUSH ASDIRECTED PRN PRN Reason: flush med Last Admin: 03/17/17 18:20 Dose: 10 ml Admin: 03/17/17 12:12 Dose: 10 ml Admin: 03/17/17 08:58 Dose: 10 ml - Assessment Assessment (Free Text/Narrative):: K a little low will advance diet to full liquid
[2017-03-19] MEDS: Fat Emulsion 250 ML IV SCH (13:27)
[2017-03-19] MEDS: Latanoprost 0.005% Ophth Soln 2.5 ML Bottle EYEBOTH SCH (21:15)
[2017-03-20] MEDS: Sodium Chloride 0.9% 10 ML Syringe FLUSH PRN ×4 (01:55→21:22)
[2017-03-20] MEDS: CALCIUM IV SCH ×4 (02:20→13:54)
[2017-03-20] MEDS: CALC IV SCH ×4 (02:20→13:54)
[2017-03-20] MEDS: [UNRECOGNIZED DRUG - OTHER] IV SCH ×4 (02:20→13:54)
[2017-03-20] MEDS: MVI IV SCH ×4 (02:20→13:54)
[2017-03-20] MEDS: LYTES IV SCH ×4 (02:20→13:54)
[2017-03-20] MEDS: Pantoprazole 40 MG Vial IVPUSH SCH (08:15)
[2017-03-20] MEDS: Metoprolol Succinate 50 MG Tab.ER PO SCH (08:15)
--- NOTE | 2017-03-20 11:09 | PCM.SURGPN ---
- General Info Date of Service: 03/20/17 Functional Status: Reports: Tolerating Diet, Ambulating, Urinating - Review of Systems Pulmonary: Reports: No Symptoms Cardiovascular: Reports: No Symptoms Gastrointestinal: Reports: Other (appetite is off a little today ) Musculoskeletal: Reports: Joint Pain (hip left side ) - Patient Data Vitals - Most Recent: Last Vital Signs Temp 36.8 C 03/20/17 08:00 Pulse 91 03/20/17 08:15 Resp 18 03/20/17 08:00 BP 153/82 H 03/20/17 08:15 Pulse Ox 96 03/20/17 08:00 Weight - Most Recent: 71.804 kg I&O - Last 24 Hours: Intake & Output 03/19/17 03/20/17 03/20/17 22:59 06:59 14:59 Intake Total 1622 797 Output Total 425 275 Balance 1197 522 Lab Results Last 24 Hrs: Laboratory Results - last 24 hr 03/20/17 Range/Units 06:55 Sodium 135 (135-145) mmol/L Potassium 4.1 (3.5-5.3) mmol/L Chloride 101 (100-110) mmol/L Carbon Dioxide 25 (23-29) mmol/L BUN 22 (8-23) mg/dL Creatinine 0.7 (0.6-1.3) mg/dL Est Cr Clr Drug Dosing 64.56 mL/min Estimated GFR (MDRD) > 60 (>60) BUN/Creatinine Ratio 31.4 H (9-20) Glucose 318 H D (80-116) mg/dL Calcium 8.2 L (8.6-10.2) mg/dL Med Orders - Current: Current Medications Heparin Sodium (Porcine) (Heparin Lock Flush 100 Units/Ml) 500 units FLUSH ASDIRECTED PRN PRN Reason: Keep Vein Open Last Admin: 03/15/17 17:23 Dose: 500 units Fat Emulsion Intravenous (Intralipid 20%) 250 mls @ 20 mls/hr IV Q24H [facility] Last Admin: 03/19/17 13:27 Dose: 20 mls/hr Multivitamins/Minerals 10 ml/Amino Ac/Electrol/Dextrose/Calcium 1,010 mls @ 84 mls/hr IV .BY DURATION [facility] Last Admin: 03/19/17 13:54 Dose: 84 mls/hr Amino Ac/Electrol/Dextrose/Calcium (Clinimix E 12/08) 1,000 mls @ 84 mls/hr IV .BY DURATION [facility] Last Admin: 03/20/17 02:20 Dose: 84 mls/hr Latanoprost (Xalatan 0.005% Ophth Soln) 0 ml EYEBOTH BEDTIME [facility] Last Admin: 03/19/17 21:15 Dose: 1 drop Lorazepam (Ativan) 1 mg IVPUSH BEDTIME PRN PRN Reason: Insomnia Metoprolol Succinate (Toprol Xl) 50 mg PO DAILY [facility] Last Admin: 03/20/17 08:15 Dose: 50 mg Ondansetron HCl (Zofran) 4 mg IV Q6H PRN PRN Reason: Nausea/Vomiting Last Admin: 03/10/17 03:16 Dose: 4 mg Pantoprazole Sodium (Protonix Iv) 40 mg IVPUSH DAILY [facility] Last Admin: 03/20/17 08:15 Dose: 40 mg Phytonadione (Aquamephyton) 10 mg IM Mo [facility] Last Admin: 03/16/17 08:51 Dose: 10 mg Sodium Chloride (Saline Flush) 10 ml FLUSH ASDIRECTED PRN PRN Reason: flush med Last Admin: 03/17/17 18:20 Dose: 10 ml Discontinued Medications Bupivacaine HCl (Marcaine 0.5%) 8 ml INJECT .STK-MED ONE Stop: 03/11/17 11:43 Last Admin: 03/11/17 11:42 Dose: 8 ml Heparin Sodium (Porcine) (Heparin Lock Flush 100 Units/Ml) 1,000 units .XX .STK -MED ONE Stop: 03/11/17 12:07 Last Admin: 03/11/17 12:06 Dose: 1,000 units Potassium Chloride/Dextrose/Sod Cl (D5 Ns With 20 Meq Kcl) 1,000 mls @ 125 mls/ hr IV ASDIRECTED [facility] Last Admin: 03/09/17 18:04 Dose: 125 mls/hr Dextrose/Sodium Chloride (Dextrose 5%-1/2 Ns) 1,000 mls @ 60 mls/hr IV ASDIRECTED [facility] Last Admin: 03/14/17 02:55 Dose: 125 mls/hr Sodium Chloride (Normal Saline) 1,000 mls @ 500 mls/hr IV ASDIRECTED [facility] Last Admin: 03/10/17 18:16 Dose: 500 mls/hr Cefazolin Sodium 1 gm/ Sodium (Chloride) 50 mls @ 200 mls/hr IV ONETIME ONE Stop: 03/11/17 10:14 Last Admin: 03/11/17 10:02 Dose: 200 mls/hr Lactated Ringer's (Ringers, Lactated) 1,000 mls @ as directed IV .STK-MED ONE Stop: 03/11/17 11:31 Potassium Chloride 20 meq/ (Premix) 100 mls @ 50 mls/hr IV ONETIME ONE Stop: 03/13/17 10:51 Last Admin: 03/14/17 10:10 Dose: 50 mls/hr Sodium Chloride 119 meq/Multivitamins/Minerals 10 ml/Amino Ac/Electrol/Dextrose/ Calcium 1,039.75 mls @ 42 mls/hr IV Q24H [facility] Last Admin: 03/13/17 13:54 Dose: 42 mls/hr Potassium Chloride 20 meq/ (Premix) 100 mls @ 50 mls/hr IV ONETIME ONE Stop: 03/14/17 11:31 Last Admin: 03/14/17 13:21 Dose: Not Given Potassium Chloride 20 meq/ (Premix) 100 mls @ 50 mls/hr IV ONETIME ONE Stop: 03/14/17 13:59 Last Admin: 03/14/17 13:21 Dose: 50 mls/hr Multivitamins/Minerals 10 ml/Amino Ac/Electrol/Dextrose/Calcium 1,010 mls @ 84 mls/hr IV .BY DURATION [facility] Stop: 03/15/17 12:30 Amino Ac/Electrol/Dextrose/Calcium (Clinimix E 12/08) 1,000 mls @ 84 mls/hr IV .BY DURATION [facility] Stop: 03/15/17 12:30 Last Admin: 03/15/17 01:46 Dose: 84 mls/hr Multivitamins/Minerals 10 ml/Amino Ac/Electrol/Dextrose/Calcium 1,010 mls @ 84 mls/hr IV ONETIME ONE Stop: 03/15/17 00:46 Last Admin: 03/14/17 13:00 Dose: 84 mls/hr Sodium Chloride 119 meq/Multivitamins/Minerals 10 ml/Potassium Acetate 40 meq/ Amino Ac/Electrol/Dextrose/Calcium 1,059.75 mls @ 84 mls/hr IV ONETIME ONE Stop: 03/16/17 01:36 Last Admin: 03/15/17 12:16 Dose: 84 mls/hr Potassium Chloride 20 meq/ (Premix) 100 mls @ 50 mls/hr IV ONETIME ONE Stop: 03/19/17 12:17 Last Admin: 03/19/17 11:39 Dose: 50 mls/hr Potassium Chloride 20 meq/ (Premix) 100 mls @ 50 mls/hr IV ONETIME ONE Stop: 03/19/17 14:29 Last Admin: 03/19/17 13:53 Dose: 50 mls/hr Lidocaine/Epinephrine (Xylocaine 1% With Epinephrine 1:100,000) 8 ml INJECT .STK-MED ONE Stop: 03/11/17 11:43 Last Admin: 03/11/17 11:42 Dose: 8 ml Metoprolol Succinate (Toprol Xl) 50 mg PO DAILY [facility] Last Admin: 03/10/17 08:48 Dose: 50 mg Metoprolol Tartrate (Lopressor) 5 mg IV Q6H [facility] Last Admin: 03/18/17 13:20 Dose: Not Given Phenylephrine HCl (Deni-Synephrine) 0.1 mg IV .STK-MED ONE Stop: 03/11/17 11:31 Potassium Chloride (Klor-Con M20) 40 meq PO BID [facility] Propofol (Diprivan 20 Ml) 425 mg IV .STK-MED ONE Stop: 03/11/17 11:31 Sodium Chloride (Saline Flush) 10 ml FLUSH ASDIRECTED PRN PRN Reason: Keep Vein Open Last Admin: 03/11/17 18:25 Dose: 10 ml Travoprost (Travatan Z 0.004% Ophth Soln) 0 ml EYEBOTH BEDTIME [facility] Last Admin: 03/09/17 20:52 Dose: 1 drop Zolpidem Tartrate (Ambien) 5 mg PO ONETIME ONE Stop: 03/09/17 22:51 Last Admin: 03/09/17 23:07 Dose: 5 mg - Exam Wound/Incisions: Healing Well General: Alert, Oriented, No Acute Distress Lungs: Clear to Auscultation, Normal Respiratory Effort Cardiovascular: Regular Rate, Regular Rhythm GI/Abdominal Exam: Normal Bowel Sounds, Soft, Non-Tender Extremities: Other (bruising left hip some tenderness ) Skin: Warm, Dry, Intact - Problem List & Annotations (1) Gastroparesis SNOMED Code(s): 778936559 Code(s): K31.84 - GASTROPARESIS Status: Acute Current Visit: No - Problem List Review Problem List Initiated/Reviewed/Updated: Yes - My Orders Last 24 Hours: Active Orders 24 hr Category Date Time Status Full Liquid Diet [DIET] Diet 03/19/17 Lunch Active Medication Orders Heparin Sodium (Porcine) (Heparin Lock Flush 100 Units/Ml) 500 units FLUSH ASDIRECTED PRN PRN Reason: Keep Vein Open Last Admin: 03/15/17 17:23 Dose: 500 units Admin: 03/15/17 12:19 Dose: 500 units Admin: 03/14/17 17:19 Dose: 500 units Fat Emulsion Intravenous (Intralipid 20%) 250 mls @ 20 mls/hr IV Q24H [facility] Last Admin: 03/19/17 13:27 Dose: 20 mls/hr Infusion: 03/19/17 01:42 Dose: 20 mls/hr Admin: 03/18/17 13:12 Dose: 20 mls/hr Infusion: 03/18/17 00:39 Dose: 20 mls/hr Admin: 03/17/17 12:09 Dose: 20 mls/hr Infusion: 03/17/17 01:18 Dose: 20 mls/hr Admin: 03/16/17 12:48 Dose: 20 mls/hr Infusion: 03/16/17 00:45 Dose: 20 mls/hr Admin: 03/15/17 12:15 Dose: 20 mls/hr Infusion: 03/15/17 00:31 Dose: 20 mls/hr Admin: 03/14/17 12:01 Dose: 20 mls/hr Infusion: 03/14/17 02:23 Dose: 20 mls/hr Admin: 03/13/17 13:53 Dose: 20 mls/hr Multivitamins/Minerals 10 ml/Amino Ac/Electrol/Dextrose/Calcium 1,010 mls @ 84 mls/hr IV .BY DURATION [facility] Last Admin: 03/19/17 13:54 Dose: 84 mls/hr Infusion: 03/19/17 02:34 Dose: 84 mls/hr Admin: 03/18/17 14:32 Dose: 84 mls/hr Infusion: 03/18/17 01:18 Dose: 84 mls/hr Admin: 03/17/17 13:16 Dose: 84 mls/hr Infusion: 03/17/17 01:08 Dose: 84 mls/hr Admin: 03/16/17 13:06 Dose: 84 mls/hr Amino Ac/Electrol/Dextrose/Calcium (Clinimix E 5/15) 1,000 mls @ 84 mls/hr IV .BY DURATION [facility] Last Admin: 03/20/17 02:20 Dose: 84 mls/hr Infusion: 03/19/17 14:46 Dose: 84 mls/hr Admin: 03/19/17 02:51 Dose: 84 mls/hr Infusion: 03/18/17 13:21 Dose: 84 mls/hr Admin: 03/18/17 01:26 Dose: 84 mls/hr Infusion: 03/17/17 13:05 Dose: 84 mls/hr Admin: 03/17/17 01:10 Dose: 84 mls/hr Infusion: 03/16/17 12:58 Dose: 84 mls/hr Admin: 03/16/17 01:03 Dose: 84 mls/hr Latanoprost (Xalatan 0.005% Ophth Soln) 0 ml EYEBOTH BEDTIME [facility] Last Admin: 03/19/17 21:15 Dose: 1 drop Admin: 03/18/17 20:39 Dose: 1 drop Admin: 03/17/17 22:07 Dose: 1 drop Admin: 03/16/17 20:24 Dose: 1 drop Admin: 03/15/17 20:48 Dose: 1 drop Admin: 03/14/17 20:37 Dose: 1 drop Admin: 03/13/17 20:02 Dose: 1 drop Admin: 03/12/17 20:30 Dose: 1 drop Admin: 03/11/17 21:25 Dose: 1 drop Admin: 03/10/17 21:40 Dose: 1 drop Lorazepam (Ativan) 1 mg IVPUSH BEDTIME PRN PRN Reason: Insomnia Metoprolol Succinate (Toprol Xl) 50 mg PO DAILY [facility] Last Admin: 03/20/17 08:15 Dose: 50 mg Ondansetron HCl (Zofran) 4 mg IV Q6H PRN PRN Reason: Nausea/Vomiting Last Admin: 03/10/17 03:16 Dose: 4 mg Admin: 03/09/17 18:19 Dose: 4 mg Pantoprazole Sodium (Protonix Iv) 40 mg IVPUSH DAILY [facility] Last Admin: 03/20/17 08:15 Dose: 40 mg Admin: 03/18/17 09:50 Dose: 40 mg Admin: 03/17/17 08:58 Dose: 40 mg Admin: 03/16/17 09:11 Dose: 40 mg Admin: 03/15/17 09:00 Dose: 40 mg Admin: 03/14/17 08:50 Dose: 40 mg Admin: 03/13/17 09:38 Dose: 40 mg Admin: 03/12/17 08:47 Dose: 40 mg Admin: 03/11/17 09:07 Dose: 40 mg Admin: 03/10/17 19:00 Dose: 40 mg Phytonadione (Aquamephyton) 10 mg IM Mo [facility] Last Admin: 03/16/17 08:51 Dose: 10 mg Sodium Chloride (Saline Flush) 10 ml FLUSH ASDIRECTED PRN PRN Reason: flush med Last Admin: 03/17/17 18:20 Dose: 10 ml Admin: 03/17/17 12:12 Dose: 10 ml Admin: 03/17/17 08:58 Dose: 10 ml - Assessment Assessment (Free Text/Narrative):: stable exam - Plan Plan (Free Text/Narrative):: toradol continue diet swing bed
[2017-03-20] MEDS: Ketorolac 15 MG/ML SDV IVPUSH PRN ×2 (12:03→21:18)
[2017-03-20] MEDS: Fat Emulsion 250 ML IV SCH (13:22)
[2017-03-20] MEDS ORDERED: Acetaminophen 325 MG Tab PO PRN (16:24)
[2017-03-20] MEDS ORDERED: Albuterol/Ipratropium 3.0-0.5 MG/3 ML Neb Soln NEB PRN (16:25)
[2017-03-20] MEDS ORDERED: Morphine 2 MG/ML Syringe IVPUSH PRN (16:26)
[2017-03-20] MEDS ORDERED: Insulin Aspart 100 Units/ML 3 ML Pen SUBCUT SCH (21:00)
[2017-03-20] MEDS: Latanoprost 0.005% Ophth Soln 2.5 ML Bottle EYEBOTH SCH (21:12)
[2017-03-21] MEDS: MVI IV SCH ×2 (02:36)
[2017-03-21] MEDS: CALC IV SCH ×2 (02:36)
[2017-03-21] MEDS: LYTES IV SCH ×2 (02:36)
[2017-03-21] MEDS: [UNRECOGNIZED DRUG - OTHER] IV SCH ×2 (02:36)
[2017-03-21] MEDS: CALCIUM IV SCH ×2 (02:36)
[2017-03-21] MEDS: Ketorolac 15 MG/ML SDV IVPUSH PRN (06:22)
[2017-03-21] MEDS: Sodium Chloride 0.9% 10 ML Syringe FLUSH PRN ×3 (06:23→08:27)
[2017-03-21] MEDS: Pantoprazole 40 MG Vial IVPUSH SCH ×2 (07:37→08:22)
[2017-03-21] MEDS: Metoprolol Succinate 50 MG Tab.ER PO SCH ×2 (07:39→08:23)
[2017-03-21 07:45] VITALS: BP 117/69
[2017-03-21] MEDS ORDERED: Insulin Aspart 100 Units/ML 3 ML Pen SUBCUT SCH (08:00)
--- NOTE | 2017-03-21 09:24 | PCM.SURGPN ---
- General Info Date of Service: 03/21/17 Functional Status: Reports: Tolerating Diet, Ambulating, Urinating, Incentive Spirometry - Review of Systems Pulmonary: Reports: No Symptoms Cardiovascular: Reports: No Symptoms Gastrointestinal: Reports: No Symptoms, Other (ate well this am. can feel food in stomach but is having no issues. ) - Patient Data Vitals - Most Recent: Last Vital Signs Temp 36.5 C 03/21/17 07:44 Pulse 82 03/21/17 08:23 Resp 15 03/21/17 07:44 BP 117/69 03/21/17 08:23 Pulse Ox 94 L 03/21/17 07:44 Weight - Most Recent: 72.484 kg I&O - Last 24 Hours: Intake & Output 03/20/17 03/21/17 03/21/17 22:59 06:59 14:59 Intake Total 1546 725 Output Total 100 805 Balance 1446 -80 Lab Results Last 24 Hrs: Laboratory Results - last 24 hr 03/20/17 03/21/17 Range/Units 21:15 06:29 POC Glucose 121 H 124 H (80-116) mg/dL Med Orders - Current: Current Medications Acetaminophen (Tylenol) 650 mg PO Q4H PRN PRN Reason: Pain Last Admin: 03/20/17 16:33 Dose: 650 mg Albuterol/Ipratropium (Duoneb 3.0-0.5 Mg/3 Ml) 3 ml NEB Q4H PRN PRN Reason: Cough Heparin Sodium (Porcine) (Heparin Lock Flush 100 Units/Ml) 500 units FLUSH ASDIRECTED PRN PRN Reason: Keep Vein Open Last Admin: 03/15/17 17:23 Dose: 500 units Fat Emulsion Intravenous (Intralipid 20%) 250 mls @ 20 mls/hr IV Q24H [facility] Last Admin: 03/20/17 13:22 Dose: 20 mls/hr Multivitamins/Minerals 10 ml/Amino Ac/Electrol/Dextrose/Calcium 1,010 mls @ 84 mls/hr IV .BY DURATION [facility] Last Admin: 03/20/17 13:54 Dose: 84 mls/hr Amino Ac/Electrol/Dextrose/Calcium (Clinimix E 5/15) 1,000 mls @ 84 mls/hr IV .BY DURATION [facility] Last Admin: 03/21/17 02:36 Dose: 84 mls/hr Insulin Aspart (Novolog) 0 unit SUBCUT WITHMEALSANDBED [facility] PRN Reason: Protocol Last Admin: 03/21/17 07:54 Dose: Not Given Ketorolac Tromethamine (Toradol) 15 mg IVPUSH Q6H PRN PRN Reason: PAIN Stop: 03/25/17 11:09 Last Admin: 03/21/17 06:22 Dose: 15 mg Latanoprost (Xalatan 0.005% Ophth Soln) 0 ml EYEBOTH BEDTIME [facility] Last Admin: 03/20/17 21:12 Dose: 1 drop Lorazepam (Ativan) 1 mg IVPUSH BEDTIME PRN PRN Reason: Insomnia Metoprolol Succinate (Toprol Xl) 50 mg PO DAILY [facility] Last Admin: 03/21/17 08:23 Dose: 50 mg Morphine Sulfate (Morphine) 1 mg IVPUSH Q4H PRN PRN Reason: Pain Ondansetron HCl (Zofran) 4 mg IV Q6H PRN PRN Reason: Nausea/Vomiting Last Admin: 03/10/17 03:16 Dose: 4 mg Pantoprazole Sodium (Protonix Iv) 40 mg IVPUSH DAILY [facility] Last Admin: 03/21/17 08:22 Dose: 40 mg Phytonadione (Aquamephyton) 10 mg IM Mo [facility] Last Admin: 03/16/17 08:51 Dose: 10 mg Sodium Chloride (Saline Flush) 10 ml FLUSH ASDIRECTED PRN PRN Reason: flush med Last Admin: 03/21/17 08:27 Dose: 10 ml Discontinued Medications Bupivacaine HCl (Marcaine 0.5%) 8 ml INJECT .STK-MED ONE Stop: 03/11/17 11:43 Last Admin: 03/11/17 11:42 Dose: 8 ml Heparin Sodium (Porcine) (Heparin Lock Flush 100 Units/Ml) 1,000 units .XX .STK -MED ONE Stop: 03/11/17 12:07 Last Admin: 03/11/17 12:06 Dose: 1,000 units Potassium Chloride/Dextrose/Sod Cl (D5 Ns With 20 Meq Kcl) 1,000 mls @ 125 mls/ hr IV ASDIRECTED [facility] Last Admin: 03/09/17 18:04 Dose: 125 mls/hr Dextrose/Sodium Chloride (Dextrose 5%-1/2 Ns) 1,000 mls @ 60 mls/hr IV ASDIRECTED [facility] Last Admin: 03/14/17 02:55 Dose: 125 mls/hr Sodium Chloride (Normal Saline) 1,000 mls @ 500 mls/hr IV ASDIRECTED [facility] Last Admin: 03/10/17 18:16 Dose: 500 mls/hr Cefazolin Sodium 1 gm/ Sodium (Chloride) 50 mls @ 200 mls/hr IV ONETIME ONE Stop: 03/11/17 10:14 Last Admin: 03/11/17 10:02 Dose: 200 mls/hr Lactated Ringer's (Ringers, Lactated) 1,000 mls @ as directed IV .STK-MED ONE Stop: 03/11/17 11:31 Potassium Chloride 20 meq/ (Premix) 100 mls @ 50 mls/hr IV ONETIME ONE Stop: 03/13/17 10:51 Last Admin: 03/14/17 10:10 Dose: 50 mls/hr Sodium Chloride 119 meq/Multivitamins/Minerals 10 ml/Amino Ac/Electrol/Dextrose/ Calcium 1,039.75 mls @ 42 mls/hr IV Q24H [facility] Last Admin: 03/13/17 13:54 Dose: 42 mls/hr Potassium Chloride 20 meq/ (Premix) 100 mls @ 50 mls/hr IV ONETIME ONE Stop: 03/14/17 11:31 Last Admin: 03/14/17 13:21 Dose: Not Given Potassium Chloride 20 meq/ (Premix) 100 mls @ 50 mls/hr IV ONETIME ONE Stop: 03/14/17 13:59 Last Admin: 03/14/17 13:21 Dose: 50 mls/hr Multivitamins/Minerals 10 ml/Amino Ac/Electrol/Dextrose/Calcium 1,010 mls @ 84 mls/hr IV .BY DURATION [facility] Stop: 03/15/17 12:30 Amino Ac/Electrol/Dextrose/Calcium (Clinimix E 12/08) 1,000 mls @ 84 mls/hr IV .BY DURATION [facility] Stop: 03/15/17 12:30 Last Admin: 03/15/17 01:46 Dose: 84 mls/hr Multivitamins/Minerals 10 ml/Amino Ac/Electrol/Dextrose/Calcium 1,010 mls @ 84 mls/hr IV ONETIME ONE Stop: 03/15/17 00:46 Last Admin: 03/14/17 13:00 Dose: 84 mls/hr Sodium Chloride 119 meq/Multivitamins/Minerals 10 ml/Potassium Acetate 40 meq/ Amino Ac/Electrol/Dextrose/Calcium 1,059.75 mls @ 84 mls/hr IV ONETIME ONE Stop: 03/16/17 01:36 Last Admin: 03/15/17 12:16 Dose: 84 mls/hr Potassium Chloride 20 meq/ (Premix) 100 mls @ 50 mls/hr IV ONETIME ONE Stop: 03/19/17 12:17 Last Admin: 03/19/17 11:39 Dose: 50 mls/hr Potassium Chloride 20 meq/ (Premix) 100 mls @ 50 mls/hr IV ONETIME ONE Stop: 03/19/17 14:29 Last Admin: 03/19/17 13:53 Dose: 50 mls/hr Insulin Aspart (Novolog) 0 unit SUBCUT QID [facility] PRN Reason: Protocol Last Admin: 03/20/17 21:55 Dose: Not Given Lidocaine/Epinephrine (Xylocaine 1% With Epinephrine 1:100,000) 8 ml INJECT .STK-MED ONE Stop: 03/11/17 11:43 Last Admin: 03/11/17 11:42 Dose: 8 ml Metoprolol Succinate (Toprol Xl) 50 mg PO DAILY [facility] Last Admin: 03/10/17 08:48 Dose: 50 mg Metoprolol Tartrate (Lopressor) 5 mg IV Q6H [facility] Last Admin: 03/18/17 13:20 Dose: Not Given Phenylephrine HCl (Deni-Synephrine) 0.1 mg IV .STK-MED ONE Stop: 03/11/17 11:31 Potassium Chloride (Klor-Con M20) 40 meq PO BID [facility] Propofol (Diprivan 20 Ml) 425 mg IV .STK-MED ONE Stop: 03/11/17 11:31 Sodium Chloride (Saline Flush) 10 ml FLUSH ASDIRECTED PRN PRN Reason: Keep Vein Open Last Admin: 03/11/17 18:25 Dose: 10 ml Travoprost (Travatan Z 0.004% Ophth Soln) 0 ml EYEBOTH BEDTIME [facility] Last Admin: 03/09/17 20:52 Dose: 1 drop Zolpidem Tartrate (Ambien) 5 mg PO ONETIME ONE Stop: 03/09/17 22:51 Last Admin: 03/09/17 23:07 Dose: 5 mg - Exam General: Alert, Oriented, Cooperative, No Acute Distress Lungs: Clear to Auscultation, Normal Respiratory Effort Cardiovascular: Regular Rate, Regular Rhythm GI/Abdominal Exam: Normal Bowel Sounds, Soft, Non-Tender, No Distention Skin: Warm, Dry, Intact - Problem List & Annotations (1) Gastroparesis SNOMED Code(s): 713050194 Code(s): K31.84 - GASTROPARESIS Status: Resolved Current Visit: No - Problem List Review Problem List Initiated/Reviewed/Updated: Yes - My Orders Last 24 Hours: Active Orders 24 hr Category Date Time Status Communication Order [RC] ROUTINE Care 03/20/17 11:09 Active IS (RT) [RT Incentive Spirometry] [RC] QID Care 03/20/17 16:26 Active RT Aerosol Therapy [RC] ASDIRECTED Care 03/20/17 16:25 Active Soft Diet [DIET] Diet 03/21/17 Breakfast Active Acetaminophen [Tylenol] Med 03/20/17 16:24 Active 650 mg PO Q4H PRN Albuterol/Ipratropium [DuoNeb 3.0-0.5 MG/3 ML] Med 03/20/17 16:25 Active 3 ml NEB Q4H PRN Insulin Aspart [NovoLOG] Med 03/21/17 08:00 Active 0 unit SUBCUT WITHMEALSANDBED Ketorolac [Toradol] Med 03/20/17 11:08 Active 15 mg IVPUSH Q6H PRN Morphine Med 03/20/17 16:26 Active 1 mg IVPUSH Q4H PRN Medication Orders Acetaminophen (Tylenol) 650 mg PO Q4H PRN PRN Reason: Pain Last Admin: 03/20/17 16:33 Dose: 650 mg Albuterol/Ipratropium (Duoneb 3.0-0.5 Mg/3 Ml) 3 ml NEB Q4H PRN PRN Reason: Cough Heparin Sodium (Porcine) (Heparin Lock Flush 100 Units/Ml) 500 units FLUSH ASDIRECTED PRN PRN Reason: Keep Vein Open Last Admin: 03/15/17 17:23 Dose: 500 units Admin: 03/15/17 12:19 Dose: 500 units Admin: 03/14/17 17:19 Dose: 500 units Fat Emulsion Intravenous (Intralipid 20%) 250 mls @ 20 mls/hr IV Q24H [facility] Last Admin: 03/20/17 13:22 Dose: 20 mls/hr Infusion: 03/20/17 01:57 Dose: 20 mls/hr Admin: 03/19/17 13:27 Dose: 20 mls/hr Infusion: 03/19/17 01:42 Dose: 20 mls/hr Admin: 03/18/17 13:12 Dose: 20 mls/hr Infusion: 03/18/17 00:39 Dose: 20 mls/hr Admin: 03/17/17 12:09 Dose: 20 mls/hr Infusion: 03/17/17 01:18 Dose: 20 mls/hr Admin: 03/16/17 12:48 Dose: 20 mls/hr Infusion: 03/16/17 00:45 Dose: 20 mls/hr Admin: 03/15/17 12:15 Dose: 20 mls/hr Infusion: 03/15/17 00:31 Dose: 20 mls/hr Admin: 03/14/17 12:01 Dose: 20 mls/hr Infusion: 03/14/17 02:23 Dose: 20 mls/hr Admin: 03/13/17 13:53 Dose: 20 mls/hr Multivitamins/Minerals 10 ml/Amino Ac/Electrol/Dextrose/Calcium 1,010 mls @ 84 mls/hr IV .BY DURATION [facility] Last Admin: 03/20/17 13:54 Dose: 84 mls/hr Infusion: 03/20/17 01:56 Dose: 84 mls/hr Admin: 03/19/17 13:54 Dose: 84 mls/hr Infusion: 03/19/17 02:34 Dose: 84 mls/hr Admin: 03/18/17 14:32 Dose: 84 mls/hr Infusion: 03/18/17 01:18 Dose: 84 mls/hr Admin: 03/17/17 13:16 Dose: 84 mls/hr Infusion: 03/17/17 01:08 Dose: 84 mls/hr Admin: 03/16/17 13:06 Dose: 84 mls/hr Amino Ac/Electrol/Dextrose/Calcium (Clinimix E 12/08) 1,000 mls @ 84 mls/hr IV .BY DURATION [facility] Last Admin: 03/21/17 02:36 Dose: 84 mls/hr Infusion: 03/20/17 14:15 Dose: 84 mls/hr Admin: 03/20/17 02:20 Dose: 84 mls/hr Infusion: 03/19/17 14:46 Dose: 84 mls/hr Admin: 03/19/17 02:51 Dose: 84 mls/hr Infusion: 03/18/17 13:21 Dose: 84 mls/hr Admin: 03/18/17 01:26 Dose: 84 mls/hr Infusion: 03/17/17 13:05 Dose: 84 mls/hr Admin: 03/17/17 01:10 Dose: 84 mls/hr Infusion: 03/16/17 12:58 Dose: 84 mls/hr Admin: 03/16/17 01:03 Dose: 84 mls/hr Insulin Aspart (Novolog) 0 unit SUBCUT WITHMEALSANDBED [facility] PRN Reason: Protocol Last Admin: 03/21/17 07:54 Dose: Not Given Ketorolac Tromethamine (Toradol) 15 mg IVPUSH Q6H PRN PRN Reason: PAIN Stop: 03/25/17 11:09 Last Admin: 03/21/17 06:22 Dose: 15 mg Admin: 03/20/17 21:18 Dose: 15 mg Admin: 03/20/17 12:03 Dose: 15 mg Latanoprost (Xalatan 0.005% Oph Soln) 0 ml EYEBOTH BEDTIME [facility] Last Admin: 03/20/17 21:12 Dose: 1 drop Admin: 03/19/17 21:15 Dose: 1 drop Admin: 03/18/17 20:39 Dose: 1 drop Admin: 03/17/17 22:07 Dose: 1 drop Admin: 03/16/17 20:24 Dose: 1 drop Admin: 03/15/17 20:48 Dose: 1 drop Admin: 03/14/17 20:37 Dose: 1 drop Admin: 03/13/17 20:02 Dose: 1 drop Admin: 03/12/17 20:30 Dose: 1 drop Admin: 03/11/17 21:25 Dose: 1 drop Admin: 03/10/17 21:40 Dose: 1 drop Lorazepam (Ativan) 1 mg IVPUSH BEDTIME PRN PRN Reason: Insomnia Metoprolol Succinate (Toprol Xl) 50 mg PO DAILY [facility] Last Admin: 03/21/17 08:23 Dose: 50 mg Admin: 03/21/17 07:39 Dose: Admin: 03/20/17 08:15 Dose: 50 mg Morphine Sulfate (Morphine) 1 mg IVPUSH Q4H PRN PRN Reason: Pain Ondansetron HCl (Zofran) 4 mg IV Q6H PRN PRN Reason: Nausea/Vomiting Last Admin: 03/10/17 03:16 Dose: 4 mg Admin: 03/09/17 18:19 Dose: 4 mg Pantoprazole Sodium (Protonix Iv) 40 mg IVPUSH DAILY [facility] Last Admin: 03/21/17 08:22 Dose: 40 mg Admin: 03/21/17 07:37 Dose: Not Given Admin: 03/20/17 08:15 Dose: 40 mg Admin: 03/18/17 09:50 Dose: 40 mg Admin: 03/17/17 08:58 Dose: 40 mg Admin: 03/16/17 09:11 Dose: 40 mg Admin: 03/15/17 09:00 Dose: 40 mg Admin: 03/14/17 08:50 Dose: 40 mg Admin: 03/13/17 09:38 Dose: 40 mg Admin: 03/12/17 08:47 Dose: 40 mg Admin: 03/11/17 09:07 Dose: 40 mg Admin: 03/10/17 19:00 Dose: 40 mg Phytonadione (Aquamephyton) 10 mg IM Mo [facility] Last Admin: 03/16/17 08:51 Dose: 10 mg Sodium Chloride (Saline Flush) 10 ml FLUSH ASDIRECTED PRN PRN Reason: flush med Last Admin: 03/21/17 08:27 Dose: 10 ml Admin: 03/21/17 06:26 Dose: 10 ml Admin: 03/21/17 06:23 Dose: 10 ml Admin: 03/20/17 21:22 Dose: 10 ml Admin: 03/20/17 21:17 Dose: 10 ml Admin: 03/20/17 06:30 Dose: 10 ml Admin: 03/20/17 01:55 Dose: 10 ml Admin: 03/17/17 18:20 Dose: 10 ml Admin: 03/17/17 12:12 Dose: 10 ml Admin: 03/17/17 08:58 Dose: 10 ml - Assessment Assessment (Free Text/Narrative):: appears to be making slow but steady progress. - Plan Plan (Free Text/Narrative):: tpn rate to be cut in half with the next bag. to swing bed today
--- NOTE | 2017-03-21 09:42 | PCM.DCSUM1 ---
Discharge Summary - Hospital Course Free Text/Narrative:: Pt was admitted with nausea and vomiting secondary to gastroparesis. he was placed on bowel rest. The next day a KUB with gastrografin demonstrated a slightly enlarged stomach but transition of dye into the small intestine. NGT was placed. PICC line was requested and attempted. This was not successful. He then had port placed for nutritional support. With TPN running he underwent 7 days of bowel rest. Diet was slowly advanced from clear liquids, to full and now soft diet. This is in small frequent post gastrectomy scheduled meals. TPN is decreased. He will be transfered to swing [facility] for continued TPN and optimization of his diet. - Discharge Data Discharge Date: 03/21/17 Discharge Disposition: DC/Tfer W/I Hosp To [place] [id number] Condition: Good - Discharge Diagnosis/Problem(s) (1) Gastroparesis SNOMED Code(s): 424925014 ICD Code: K31.84 - GASTROPARESIS Status: Resolved Current Visit: No - Patient Summary/Data Operative Procedure(s) Performed: A port placement. left external jugular Consults: Consultations 03/12/17 12:33 Consult to Pediatric Social Worker [CONS] Routine Comment: Physician Instructions: Quantity: Reason for Consult: tpn recommendations 03/17/17 18:53 PT Evaluation and Treatment [CONS] Routine Please Evaluate and Treat. PT Reason for Consult: Ambulation This query below is only for informational purposes and is not editable. Admission Diagnosis/Problem: Gastroparesis - Discharge Plan Home Medications: Home Meds Metoprolol Succinate [Toprol XL] 50 mg PO DAILY 08/06/14 [History] Lakeside-3 Fatty Acids [Lakeside-3] 1,000 mg PO BID 08/06/14 [History] Simvastatin [Zocor] 10 mg PO BEDTIME 08/06/14 [History] Pantoprazole Sodium [Protonix] 40 mg PO DAILY 02/09/17 [History] Travoprost [Travatan Z 0.004% Ophth Soln] 1 drop EYEBOTH BEDTIME 02/13/17 [ History] Erythromycin Base [Sharad-Tab] 500 mg PO BID 03/03/17 [History] Potassium Chloride [Klor-Con M20] 20 meq PO BID 03/03/17 [History] Patient Handouts: Tunneled Catheter Insertion, Care After - Discharge Summary/Plan Comment DC Time >30 min.: Yes Discharge Summary/Plan Comment: swing bed orders - Patient Data Vitals - Most Recent: Last Vital Signs Temp 36.5 C 03/21/17 07:44 Pulse 82 03/21/17 08:23 Resp 15 03/21/17 07:44 BP 117/69 03/21/17 08:23 Pulse Ox 94 L 03/21/17 07:44 Weight - Most Recent: 72.484 kg I&O - Last 24 hours: Intake & Output 03/20/17 03/21/17 03/21/17 22:59 06:59 14:59 Intake Total 1546 725 Output Total 100 805 Balance 1446 -80 Lab Results - Last 24 hrs: Laboratory Results - last 24 hr 03/20/17 03/21/17 Range/Units 21:15 06:29 POC Glucose 121 H 124 H (80-116) mg/dL Med Orders - Current: Current Medications Acetaminophen (Tylenol) 650 mg PO Q4H PRN PRN Reason: Pain Last Admin: 03/20/17 16:33 Dose: 650 mg Albuterol/Ipratropium (Duoneb 3.0-0.5 Mg/3 Ml) 3 ml NEB Q4H PRN PRN Reason: Cough Heparin Sodium (Porcine) (Heparin Lock Flush 100 Units/Ml) 500 units FLUSH ASDIRECTED PRN PRN Reason: Keep Vein Open Last Admin: 03/15/17 17:23 Dose: 500 units Fat Emulsion Intravenous (Intralipid 20%) 250 mls @ 20 mls/hr IV Q24H [facility] Last Admin: 03/20/17 13:22 Dose: 20 mls/hr Multivitamins/Minerals 10 ml/Amino Ac/Electrol/Dextrose/Calcium 1,010 mls @ 84 mls/hr IV .BY DURATION [facility] Last Admin: 03/20/17 13:54 Dose: 84 mls/hr Amino Ac/Electrol/Dextrose/Calcium (Clinimix E 5/15) 1,000 mls @ 84 mls/hr IV .BY DURATION [facility] Last Admin: 03/21/17 02:36 Dose: 84 mls/hr Multivitamins/Minerals 10 ml/Amino Ac/Electrol/Dextrose/Calcium 1,010 mls @ 42 mls/hr IV Q24H [facility] Insulin Aspart (Novolog) 0 unit SUBCUT WITHMEALSANDBED [facility] PRN Reason: Protocol Last Admin: 03/21/17 07:54 Dose: Not Given Ketorolac Tromethamine (Toradol) 15 mg IVPUSH Q6H PRN PRN Reason: PAIN Stop: 03/25/17 11:09 Last Admin: 03/21/17 06:22 Dose: 15 mg Latanoprost (Xalatan 0.005% Ophth Soln) 0 ml EYEBOTH BEDTIME [facility] Last Admin: 03/20/17 21:12 Dose: 1 drop Lorazepam (Ativan) 1 mg IVPUSH BEDTIME PRN PRN Reason: Insomnia Metoprolol Succinate (Toprol Xl) 50 mg PO DAILY [facility] Last Admin: 03/21/17 08:23 Dose: 50 mg Morphine Sulfate (Morphine) 1 mg IVPUSH Q4H PRN PRN Reason: Pain Ondansetron HCl (Zofran) 4 mg IV Q6H PRN PRN Reason: Nausea/Vomiting Last Admin: 03/10/17 03:16 Dose: 4 mg Pantoprazole Sodium (Protonix Iv) 40 mg IVPUSH DAILY [facility] Last Admin: 03/21/17 08:22 Dose: 40 mg Phytonadione (Aquamephyton) 10 mg IM Mo [facility] Last Admin: 03/16/17 08:51 Dose: 10 mg Sodium Chloride (Saline Flush) 10 ml FLUSH ASDIRECTED PRN PRN Reason: flush med Last Admin: 03/21/17 08:27 Dose: 10 ml Discontinued Medications Bupivacaine HCl (Marcaine 0.5%) 8 ml INJECT .STK-MED ONE Stop: 03/11/17 11:43 Last Admin: 03/11/17 11:42 Dose: 8 ml Heparin Sodium (Porcine) (Heparin Lock Flush 100 Units/Ml) 1,000 units .XX .STK -MED ONE Stop: 03/11/17 12:07 Last Admin: 03/11/17 12:06 Dose: 1,000 units Potassium Chloride/Dextrose/Sod Cl (D5 Ns With 20 Meq Kcl) 1,000 mls @ 125 mls/ hr IV ASDIRECTED [facility] Last Admin: 03/09/17 18:04 Dose: 125 mls/hr Dextrose/Sodium Chloride (Dextrose 5%-1/2 Ns) 1,000 mls @ 60 mls/hr IV ASDIRECTED [facility] Last Admin: 03/14/17 02:55 Dose: 125 mls/hr Sodium Chloride (Normal Saline) 1,000 mls @ 500 mls/hr IV ASDIRECTED [facility] Last Admin: 03/10/17 18:16 Dose: 500 mls/hr Cefazolin Sodium 1 gm/ Sodium (Chloride) 50 mls @ 200 mls/hr IV ONETIME ONE Stop: 03/11/17 10:14 Last Admin: 03/11/17 10:02 Dose: 200 mls/hr Lactated Ringer's (Ringers, Lactated) 1,000 mls @ as directed IV .STK-MED ONE Stop: 03/11/17 11:31 Potassium Chloride 20 meq/ (Premix) 100 mls @ 50 mls/hr IV ONETIME ONE Stop: 03/13/17 10:51 Last Admin: 03/14/17 10:10 Dose: 50 mls/hr Sodium Chloride 119 meq/Multivitamins/Minerals 10 ml/Amino Ac/Electrol/Dextrose/ Calcium 1,039.75 mls @ 42 mls/hr IV Q24H [facility] Last Admin: 03/13/17 13:54 Dose: 42 mls/hr Potassium Chloride 20 meq/ (Premix) 100 mls @ 50 mls/hr IV ONETIME ONE Stop: 03/14/17 11:31 Last Admin: 03/14/17 13:21 Dose: Not Given Potassium Chloride 20 meq/ (Premix) 100 mls @ 50 mls/hr IV ONETIME ONE Stop: 03/14/17 13:59 Last Admin: 03/14/17 13:21 Dose: 50 mls/hr Multivitamins/Minerals 10 ml/Amino Ac/Electrol/Dextrose/Calcium 1,010 mls @ 84 mls/hr IV .BY DURATION [facility] Stop: 03/15/17 12:30 Amino Ac/Electrol/Dextrose/Calcium (Clinimix E 12/08) 1,000 mls @ 84 mls/hr IV .BY DURATION [facility] Stop: 03/15/17 12:30 Last Admin: 03/15/17 01:46 Dose: 84 mls/hr Multivitamins/Minerals 10 ml/Amino Ac/Electrol/Dextrose/Calcium 1,010 mls @ 84 mls/hr IV ONETIME ONE Stop: 03/15/17 00:46 Last Admin: 03/14/17 13:00 Dose: 84 mls/hr Sodium Chloride 119 meq/Multivitamins/Minerals 10 ml/Potassium Acetate 40 meq/ Amino Ac/Electrol/Dextrose/Calcium 1,059.75 mls @ 84 mls/hr IV ONETIME ONE Stop: 03/16/17 01:36 Last Admin: 03/15/17 12:16 Dose: 84 mls/hr Potassium Chloride 20 meq/ (Premix) 100 mls @ 50 mls/hr IV ONETIME ONE Stop: 03/19/17 12:17 Last Admin: 03/19/17 11:39 Dose: 50 mls/hr Potassium Chloride 20 meq/ (Premix) 100 mls @ 50 mls/hr IV ONETIME ONE Stop: 03/19/17 14:29 Last Admin: 03/19/17 13:53 Dose: 50 mls/hr Insulin Aspart (Novolog) 0 unit SUBCUT QID [facility] PRN Reason: Protocol Last Admin: 03/20/17 21:55 Dose: Not Given Lidocaine/Epinephrine (Xylocaine 1% With Epinephrine 1:100,000) 8 ml INJECT .STK-MED ONE Stop: 03/11/17 11:43 Last Admin: 03/11/17 11:42 Dose: 8 ml Metoprolol Succinate (Toprol Xl) 50 mg PO DAILY [facility] Last Admin: 03/10/17 08:48 Dose: 50 mg Metoprolol Tartrate (Lopressor) 5 mg IV Q6H [facility] Last Admin: 03/18/17 13:20 Dose: Not Given Phenylephrine HCl (Deni-Synephrine) 0.1 mg IV .STK-MED ONE Stop: 03/11/17 11:31 Potassium Chloride (Klor-Con M20) 40 meq PO BID [facility] Propofol (Diprivan 20 Ml) 425 mg IV .STK-MED ONE Stop: 03/11/17 11:31 Sodium Chloride (Saline Flush) 10 ml FLUSH ASDIRECTED PRN PRN Reason: Keep Vein Open Last Admin: 03/11/17 18:25 Dose: 10 ml Travoprost (Travatan Z 0.004% Ophth Soln) 0 ml EYEBOTH BEDTIME [facility] Last Admin: 03/09/17 20:52 Dose: 1 drop Zolpidem Tartrate (Ambien) 5 mg PO ONETIME ONE Stop: 03/09/17 22:51 Last Admin: 03/09/17 23:07 Dose: 5 mg *Q Meaningful Use (DIS) - VTE *Q VTE Criteria *Q: - Stroke *Q Stroke Criteria *Q: - AMI *Q AMI Criteria *Q:
[2017-03-21] MEDS ORDERED: MVI, Adult with Vitamin K 10 ML in AA 5%/Calcium/D15W/Lytes 1,000 ML IV SCH ×2 (14:30)
== END 2017-03-21 09:35 | disposition swing bed (61) | DRG 392 ==
LOC: FB.MS 16:46
PROVIDERS: ADMIT Surgery; ATTEND Surgery
PROC: 02HV33Z Insertion of Infusion Device into Superior Vena Cava, Percutaneous Approach (ICD-10-PCS; principal; 2017-03-10)
PROC: B518ZZA Fluoroscopy of Superior Vena Cava, Guidance (ICD-10-PCS; 2017-03-10)
PROC: 05JY3ZZ Inspection of Upper Vein, Percutaneous Approach (ICD-10-PCS; 2017-03-10)
DX: K31.84 Gastroparesis (principal); R63.4 Abnormal weight loss; I10 Essential (primary) hypertension; K21.9 Gastro-esophageal reflux disease without esophagitis; H40.9 Unspecified glaucoma; E78.00 Pure hypercholesterolemia, unspecified; Z87.891 Personal history of nicotine dependence; Z87.11 Personal history of peptic ulcer disease; E87.6 Hypokalemia; W18.39XA Other fall on same level, initial encounter; Y92.239 Unspecified place in hospital as the place of occurrence of the external cause; N40.0 Benign prostatic hyperplasia without lower urinary tract symptoms
CPT/HCPCS: 36415; 71020; 74000; 74020; 76937; 77001; 80048; 80053; 82962; 85025; 85610; 94150; 97161-GP; A9270-GY; C9113; J0690; J1642; J1885; J2370; J2405; J2704; J3430; J3480; J3490; J7040; J7050; J7120

== ENCOUNTER 2017-03-21 09:36 | Inpatient (IN) | payer MEDICARE, OTHER ==
[2017-03-21] MEDS ORDERED: Acetaminophen 325 MG Tab PO PRN (09:55)
[2017-03-21] MEDS ORDERED: Albuterol/Ipratropium 3.0-0.5 MG/3 ML Neb Soln NEB PRN (10:15)
[2017-03-21] MEDS: Insulin Aspart 100 Units/ML 3 ML Pen SUBCUT SCH ×3 (11:48→22:02)
[2017-03-21] MEDS: Fat Emulsion 250 ML IV SCH (12:53)
[2017-03-21] MEDS: MVI, Adult with Vitamin K 10 ML in AA 5%/Calcium/D15W/Lytes 1,000 ML IV SCH ×2 (14:22)
[2017-03-21] MEDS: Latanoprost 0.005% Ophth Soln 2.5 ML Bottle EYEBOTH SCH (21:05)
[2017-03-21] MEDS: Ondansetron 4 MG/2 ML SDV IV PRN (21:09)
[2017-03-21] MEDS: Sodium Chloride 0.9% 10 ML Syringe FLUSH PRN (21:09)
[2017-03-22] MEDS: Ketorolac 15 MG/ML SDV IVPUSH PRN ×3 (03:12→22:04)
[2017-03-22] MEDS: Sodium Chloride 0.9% 10 ML Syringe FLUSH PRN ×8 (03:12→22:11)
[2017-03-22] MEDS: Ondansetron 4 MG/2 ML SDV IV PRN ×4 (03:16→22:04)
[2017-03-22] MEDS: Insulin Aspart 100 Units/ML 3 ML Pen SUBCUT SCH ×4 (07:30→22:04)
[2017-03-22] MEDS ORDERED: Bisacodyl 10 MG Supp RECTAL ONE (08:58)
[2017-03-22] MEDS ORDERED: Metoprolol Succinate 50 MG Tab.ER PO SCH (09:00)
--- NOTE | 2017-03-22 09:02 | PCM.SURGPN ---
- General Info Date of Service: 03/22/17 POD#: 0 Functional Status: Reports: Tolerating Diet, Ambulating, Other (some llq abd pain ) - Review of Systems Pulmonary: Reports: No Symptoms Cardiovascular: Reports: No Symptoms Gastrointestinal: Reports: Abdominal Pain - Patient Data Vitals - Most Recent: Last Vital Signs Temp 36.7 C 03/22/17 07:53 Pulse 77 03/22/17 03:39 Resp 18 03/22/17 07:53 BP 141/87 H 03/22/17 07:53 Pulse Ox 95 03/22/17 07:53 Weight - Most Recent: 72.121 kg I&O - Last 24 Hours: Intake & Output 03/21/17 03/22/17 03/22/17 22:59 06:59 14:59 Intake Total 825 Output Total 325 350 Balance -325 475 Lab Results Last 24 Hrs: Laboratory Results - last 24 hr 03/21/17 03/21/17 03/21/17 Range/Units 11:46 18:47 21:04 POC Glucose 118 H 113 112 (80-116) mg/dL 03/22/17 Range/Units 06:37 POC Glucose 121 H (80-116) mg/dL Med Orders - Current: Current Medications Acetaminophen (Tylenol) 650 mg PO Q4H PRN PRN Reason: Pain (Mild 1-3)/fever Albuterol/Ipratropium (Duoneb 3.0-0.5 Mg/3 Ml) 3 ml NEB Q4H PRN PRN Reason: Wheezing Bisacodyl (Dulcolax) 10 mg RECTAL ONETIME ONE Stop: 03/22/17 08:59 Heparin Sodium (Porcine) (Heparin Lock Flush 100 Units/Ml) 500 units FLUSH ASDIRECTED PRN PRN Reason: Keep Vein Open Fat Emulsion Intravenous (Intralipid 20%) 250 mls @ 20 mls/hr IV Q24H [facility] Last Admin: 03/21/17 12:53 Dose: 20 mls/hr Multivitamins/Minerals 10 ml/Amino Ac/Electrol/Dextrose/Calcium 1,010 mls @ 42 mls/hr IV Q24H [facility] Last Admin: 03/21/17 14:22 Dose: 42 mls/hr Insulin Aspart (Novolog) 0 unit SUBCUT WITHMEALSANDBED [facility] PRN Reason: Protocol Last Admin: 03/22/17 07:30 Dose: Not Given Ketorolac Tromethamine (Toradol) 15 mg IVPUSH Q6H PRN PRN Reason: Pain (moderate 4-6) Last Admin: 03/22/17 03:12 Dose: 15 mg Latanoprost (Xalatan 0.005% Ophth Soln) 0 ml EYEBOTH BEDTIME [facility] Last Admin: 03/21/17 21:05 Dose: 1 drop Metoprolol Succinate (Toprol Xl) 25 mg PO DAILY [facility] Morphine Sulfate (Morphine) 2 mg IVPUSH Q2H PRN PRN Reason: Pain (severe 7-10) Ondansetron HCl (Zofran) 4 mg IV Q6H PRN PRN Reason: Nausea/Vomiting Last Admin: 03/22/17 03:16 Dose: 4 mg Pantoprazole Sodium (Protonix Iv) 40 mg IVPUSH DAILY [facility] Phytonadione (Aquamephyton) 10 mg IM Mo [facility] Sodium Chloride (Saline Flush) 10 ml FLUSH ASDIRECTED PRN PRN Reason: Keep Vein Open Last Admin: 03/22/17 03:24 Dose: 10 ml Discontinued Medications Metoprolol Succinate (Toprol Xl) 50 mg PO DAILY [facility] - Exam General: Alert, Oriented Lungs: Clear to Auscultation, Normal Respiratory Effort Cardiovascular: Regular Rate, Regular Rhythm GI/Abdominal Exam: Normal Bowel Sounds, Soft, Non-Tender - Problem List & Annotations (1) Gastroparesis SNOMED Code(s): 354296041 Code(s): K31.84 - GASTROPARESIS Status: Acute Current Visit: No - Problem List Review Problem List Initiated/Reviewed/Updated: Yes - My Orders Last 24 Hours: Active Orders 24 hr Category Date Time Status Patient Status [ADT] Routine ADT 03/21/17 09:55 Active Accu Check [Blood Glucose Check, Bedside] [RC] Care 03/21/17 11:30 Active QIDACANDBED Ambulate [RC] Q4HWA Care 03/21/17 09:55 Active Height and Weight [RC] PER UNIT ROUTINE Care 03/21/17 09:56 Active IS (RT) [RT Incentive Spirometry] [RC] ASDIRECTED Care 03/21/17 10:16 Active Oxygen Therapy [RC] PRN Care 03/21/17 09:55 Active RT Aerosol Therapy [RC] ASDIRECTED Care 03/21/17 10:16 Active Up ad Deirdre [RC] ASDIRECTED Care 03/21/17 09:55 Active Vital Signs [RC] DAILY Care 03/21/17 09:55 Active Mechanical Soft Diet [DIET] Diet 03/21/17 Lunch Active CBC WITH AUTO DIFF [HEME] AM Lab 03/23/17 05:11 Ordered COMPREHENSIVE METABOLIC PN,CMP [CHEM] AM Lab 03/23/17 05:11 Ordered Acetaminophen [Tylenol] Med 03/21/17 09:55 Active 650 mg PO Q4H PRN Albuterol/Ipratropium [DuoNeb 3.0-0.5 MG/3 ML] Med 03/21/17 10:15 Active 3 ml NEB Q4H PRN Bisacodyl [Dulcolax] Med 03/22/17 08:58 Once 10 mg RECTAL ONETIME ONE Fat Emulsion [Intralipid 20%] 250 ml Med 03/21/17 12:30 Active IV Q24H Heparin Sodium [Heparin Lock Flush 100 Units/ML] Med 03/21/17 10:26 Active 500 units FLUSH ASDIRECTED PRN Insulin Aspart [NovoLOG] Med 03/21/17 12:00 Active 0 unit SUBCUT WITHMEALSANDBED Ketorolac [Toradol] Med 03/21/17 09:55 Active 15 mg IVPUSH Q6H PRN Latanoprost [Xalatan 0.005% Ophth Soln] Med 03/21/17 21:00 Active 0 ml EYEBOTH BEDTIME [facility], Adult with Vitamin K [Infuvite Adult] 10 ml Med 03/21/17 14:30 Active AA 5%/Calcium/D15W/Lytes [Clinimix E 5/15] 1,000 ml IV Q24H Metoprolol Succinate [Toprol XL] Med 03/22/17 09:00 Active 25 mg PO DAILY Morphine Med 03/21/17 09:55 Active 2 mg IVPUSH Q2H PRN Ondansetron [Zofran] Med 03/21/17 10:23 Active 4 mg IV Q6H PRN Pantoprazole [ProTONIX IV] Med 03/22/17 09:00 Active 40 mg IVPUSH DAILY Phytonadione [AquaMephyton] Med 03/23/17 08:00 Active 10 mg IM Mo Sodium Chloride 0.9% [Saline Flush] Med 03/21/17 10:26 Active 10 ml FLUSH ASDIRECTED PRN Antiembolic Hose [OM.PC] Per Unit Routine Oth 03/21/17 09:57 Ordered Resuscitation Status Routine Resus Stat 03/21/17 09:55 Ordered Medication Orders Acetaminophen (Tylenol) 650 mg PO Q4H PRN PRN Reason: Pain (Mild 1-3)/fever Albuterol/Ipratropium (Duoneb 3.0-0.5 Mg/3 Ml) 3 ml NEB Q4H PRN PRN Reason: Wheezing Bisacodyl (Dulcolax) 10 mg RECTAL ONETIME ONE Stop: 03/22/17 08:59 Heparin Sodium (Porcine) (Heparin Lock Flush 100 Units/Ml) 500 units FLUSH ASDIRECTED PRN PRN Reason: Keep Vein Open Fat Emulsion Intravenous (Intralipid 20%) 250 mls @ 20 mls/hr IV Q24H [facility] Last Admin: 03/21/17 12:53 Dose: 20 mls/hr Multivitamins/Minerals 10 ml/Amino Ac/Electrol/Dextrose/Calcium 1,010 mls @ 42 mls/hr IV Q24H [facility] Last Admin: 03/21/17 14:22 Dose: 42 mls/hr Insulin Aspart (Novolog) 0 unit SUBCUT WITHMEALSANDBED [facility] PRN Reason: Protocol Last Admin: 03/22/17 07:30 Dose: Not Given Admin: 03/21/17 22:02 Dose: Admin: 03/21/17 19:11 Dose: Admin: 03/21/17 11:48 Dose: Not Given Ketorolac Tromethamine (Toradol) 15 mg IVPUSH Q6H PRN PRN Reason: Pain (moderate 4-6) Last Admin: 03/22/17 03:12 Dose: 15 mg Latanoprost (Xalatan 0.005% Ophth Soln) 0 ml EYEBOTH BEDTIME [facility] Last Admin: 03/21/17 21:05 Dose: 1 drop Metoprolol Succinate (Toprol Xl) 25 mg PO DAILY [facility] Morphine Sulfate (Morphine) 2 mg IVPUSH Q2H PRN PRN Reason: Pain (severe 7-10) Ondansetron HCl (Zofran) 4 mg IV Q6H PRN PRN Reason: Nausea/Vomiting Last Admin: 03/22/17 03:16 Dose: 4 mg Admin: 03/21/17 21:09 Dose: 4 mg Pantoprazole Sodium (Protonix Iv) 40 mg IVPUSH DAILY [facility] Phytonadione (Aquamephyton) 10 mg IM Mo [facility] Sodium Chloride (Saline Flush) 10 ml FLUSH ASDIRECTED PRN PRN Reason: Keep Vein Open Last Admin: 03/22/17 03:24 Dose: 10 ml Admin: 03/22/17 03:12 Dose: 10 ml Admin: 03/21/17 21:09 Dose: 10 ml - Assessment Assessment (Free Text/Narrative):: stable exam - Plan Plan (Free Text/Narrative):: dulcolax suppository continue current diet
[2017-03-22] MEDS: Metoprolol Succinate 25 MG Tab.ER PO SCH (09:59)
[2017-03-22] MEDS: Pantoprazole 40 MG Vial IVPUSH SCH (10:00)
[2017-03-22] MEDS: Fat Emulsion 250 ML IV SCH (13:08)
[2017-03-22] MEDS: MVI, Adult with Vitamin K 10 ML in AA 5%/Calcium/D15W/Lytes 1,000 ML IV SCH ×2 (14:17)
[2017-03-22] MEDS: Sucralfate Suspension 1 GM/10 ML Cup PO SCH (20:01)
[2017-03-22] MEDS: Metoclopramide 10 MG/2 ML SDV IV SCH (20:01)
[2017-03-22] MEDS: Latanoprost 0.005% Ophth Soln 2.5 ML Bottle EYEBOTH SCH (20:37)
[2017-03-23] MEDS: Metoclopramide 10 MG/2 ML SDV IV SCH ×2 (01:45→08:24)
[2017-03-23] MEDS: Sucralfate Suspension 1 GM/10 ML Cup PO SCH ×4 (01:46→22:00)
[2017-03-23] MEDS: Sodium Chloride 0.9% 10 ML Syringe FLUSH PRN ×2 (01:48→04:55)
[2017-03-23] MEDS: Ondansetron 4 MG/2 ML SDV IV PRN ×2 (04:48→11:39)
[2017-03-23] MEDS: Ketorolac 15 MG/ML SDV IVPUSH PRN (04:48)
[2017-03-23] MEDS: Insulin Aspart 100 Units/ML 3 ML Pen SUBCUT SCH ×4 (08:15→22:24)
[2017-03-23] MEDS: Pantoprazole 40 MG Vial IVPUSH SCH (08:19)
[2017-03-23] MEDS: Metoprolol Succinate 25 MG Tab.ER PO SCH (08:21)
--- NOTE | 2017-03-23 11:52 | PCM.SURGPN ---
- General Info Date of Service: 03/23/17 - Review of Systems Systems Review Comment:: Had some chills this am then vomited, about 500 ml per nursing. Feels better. CXR and UA is pending CBC is wnl CMP low Na and Cl transaminases up slightly. - Patient Data Vitals - Most Recent: Last Vital Signs Temp 36.8 C 03/23/17 08:00 Pulse 77 03/23/17 08:21 Resp 18 03/23/17 08:00 BP 121/75 03/23/17 08:21 Pulse Ox 100 03/23/17 10:00 Weight - Most Recent: 72.121 kg I&O - Last 24 Hours: Intake & Output 03/22/17 03/23/17 03/23/17 22:59 06:59 14:59 Intake Total 489 390 Output Total 400 Balance 489 -10 Lab Results Last 24 Hrs: Laboratory Results - last 24 hr 03/23/17 03/23/17 03/23/17 Range/Units 06:50 06:50 08:13 WBC 6.2 (4.5-12.0) X10-3/uL RBC 3.85 L (4.30-5.75) x10(6)uL Hgb 12.2 (11.5-15.5) g/dL Hct 35.3 (30.0-51.3) % MCV 91.7 (80-96) fL MCH 31.6 (27.7-33.6) pg MCHC 34.4 (32.2-35.4) g/dL RDW 14.0 (11.5-15.5) % Plt Count 176 (125-369) X10(3)uL MPV 8.5 (7.4-10.4) fL Add Manual Diff Yes Neutrophils % (Manual) 73 (46-82) % Lymphocytes % (Manual) 18 (13-37) % Monocytes % (Manual) 6 (4-12) % Eosinophils % (Manual) 3 (0-5) % Sodium 134 L (135-145) mmol/L Potassium 3.8 (3.5-5.3) mmol/L Chloride 98 L (100-110) mmol/L Carbon Dioxide 28 (23-29) mmol/L BUN 26 H (8-23) mg/dL Creatinine 0.9 (0.6-1.3) mg/dL Est Cr Clr Drug Dosing 50.21 mL/min Estimated GFR (MDRD) > 60 (>60) BUN/Creatinine Ratio 28.9 H (9-20) Glucose 138 H D (80-116) mg/dL POC Glucose 146 H (80-116) mg/dL Calcium 8.6 (8.6-10.2) mg/dL Total Bilirubin 0.9 (0.1-1.3) mg/dL AST 32 H (5-27) IU/L ALT 32 H D (14-26) IU/L Alkaline Phosphatase 103 (56-112) IU/L Total Protein 6.2 (6.0-8.0) g/dL Albumin 3.0 (2.9-4.5) g/dL Globulin 3.2 g/dL Albumin/Globulin Ratio 0.9 Med Orders - Current: Current Medications Acetaminophen (Tylenol) 650 mg PO Q4H PRN PRN Reason: Pain (Mild 1-3)/fever Last Admin: 03/22/17 11:25 Dose: 650 mg Albuterol/Ipratropium (Duoneb 3.0-0.5 Mg/3 Ml) 3 ml NEB Q4H PRN PRN Reason: Wheezing Heparin Sodium (Porcine) (Heparin Lock Flush 100 Units/Ml) 500 units FLUSH ASDIRECTED PRN PRN Reason: Keep Vein Open Last Admin: 03/22/17 10:11 Dose: 500 units Fat Emulsion Intravenous (Intralipid 20%) 250 mls @ 20 mls/hr IV Q24H [facility] Last Admin: 03/22/17 13:08 Dose: 20 mls/hr Multivitamins/Minerals 10 ml/Amino Ac/Electrol/Dextrose/Calcium 1,010 mls @ 42 mls/hr IV Q24H [facility] Last Admin: 03/22/17 14:17 Dose: 42 mls/hr Insulin Aspart (Novolog) 0 unit SUBCUT WITHMEALSANDBED [facility] PRN Reason: Protocol Last Admin: 03/23/17 08:15 Dose: Not Given Ketorolac Tromethamine (Toradol) 15 mg IVPUSH Q6H PRN PRN Reason: Pain (moderate 4-6) Last Admin: 03/23/17 04:48 Dose: 15 mg Latanoprost (Xalatan 0.005% Oph Soln) 0 ml EYEBOTH BEDTIME [facility] Last Admin: 03/22/17 20:37 Dose: 1 drop Metoclopramide HCl (Reglan) 5 mg IV Q6H [facility] Last Admin: 03/23/17 08:24 Dose: 5 mg Metoprolol Succinate (Toprol Xl) 25 mg PO DAILY [facility] Last Admin: 03/23/17 08:21 Dose: 25 mg Morphine Sulfate (Morphine) 2 mg IVPUSH Q2H PRN PRN Reason: Pain (severe 7-10) Ondansetron HCl (Zofran) 4 mg IV Q6H PRN PRN Reason: Nausea/Vomiting Last Admin: 03/23/17 11:39 Dose: 4 mg Pantoprazole Sodium (Protonix Iv) 40 mg IVPUSH DAILY [facility] Last Admin: 03/23/17 08:19 Dose: 40 mg Phytonadione (Aquamephyton) 10 mg IM Mo [facility] Last Admin: 03/23/17 08:18 Dose: 10 mg Sodium Chloride (Saline Flush) 10 ml FLUSH ASDIRECTED PRN PRN Reason: Keep Vein Open Last Admin: 03/23/17 04:55 Dose: 10 ml Sucralfate (Carafate) 1 gm PO Q6H [facility] Last Admin: 03/23/17 08:24 Dose: 1 gm Discontinued Medications Bisacodyl (Dulcolax) 10 mg RECTAL ONETIME ONE Stop: 03/22/17 08:59 Last Admin: 03/22/17 11:16 Dose: 10 mg Metoprolol Succinate (Toprol Xl) 50 mg PO DAILY [facility] - Exam General: Alert, Oriented, Cooperative, No Acute Distress Lungs: Clear to Auscultation, Normal Respiratory Effort Cardiovascular: Regular Rate, Regular Rhythm GI/Abdominal Exam: Normal Bowel Sounds, Soft, Non-Tender - Problem List & Annotations (1) Gastroparesis SNOMED Code(s): 938570269 Code(s): K31.84 - GASTROPARESIS Status: Acute Current Visit: No - Problem List Review Problem List Initiated/Reviewed/Updated: Yes - My Orders Last 24 Hours: Active Orders 24 hr Category Date Time Status Accu Check [Blood Glucose Check, Bedside] [RC] DAILY Care 03/23/17 07:00 Active PT Evaluation and Treatment [CONS] Routine Cons 03/22/17 19:11 Active Full Liquid Diet [DIET] Diet 03/23/17 Breakfast Active NPO Now [Nothing per Oral Now Diet] [DIET] Diet 03/23/17 Dinner Ordered Chest 2V [CR] Routine Exams 03/23/17 10:12 Ordered UA W/MICROSCOPIC [URIN] Routine Lab 03/23/17 10:12 Uncollected Metoclopramide [Reglan] Med 03/22/17 20:00 Active 5 mg IV Q6H Phytonadione [AquaMephyton] Med 03/23/17 08:00 Active 10 mg IM Mo Sodium Chloride 0.9% @ 50 MLS/HR(1000ml) Med 03/23/17 12:00 Ordered Sodium Chloride 0.9% [Normal Saline] 1,000 ml IV ASDIRECTED Sucralfate [Carafate] Med 03/22/17 20:00 Active 1 gm PO Q6H Medication Orders Acetaminophen (Tylenol) 650 mg PO Q4H PRN PRN Reason: Pain (Mild 1-3)/fever Last Admin: 03/22/17 11:25 Dose: 650 mg Albuterol/Ipratropium (Duoneb 3.0-0.5 Mg/3 Ml) 3 ml NEB Q4H PRN PRN Reason: Wheezing Heparin Sodium (Porcine) (Heparin Lock Flush 100 Units/Ml) 500 units FLUSH ASDIRECTED PRN PRN Reason: Keep Vein Open Last Admin: 03/22/17 10:11 Dose: 500 units Fat Emulsion Intravenous (Intralipid 20%) 250 mls @ 20 mls/hr IV Q24H [facility] Last Admin: 03/22/17 13:08 Dose: 20 mls/hr Infusion: 03/22/17 01:23 Dose: 20 mls/hr Admin: 03/21/17 12:53 Dose: 20 mls/hr Multivitamins/Minerals 10 ml/Amino Ac/Electrol/Dextrose/Calcium 1,010 mls @ 42 mls/hr IV Q24H [facility] Last Admin: 03/22/17 14:17 Dose: 42 mls/hr Infusion: 03/22/17 14:17 Dose: 42 mls/hr Admin: 03/21/17 14:22 Dose: 42 mls/hr Insulin Aspart (Novolog) 0 unit SUBCUT WITHMEALSANDBED [facility] PRN Reason: Protocol Last Admin: 03/23/17 08:15 Dose: Admin: 03/22/17 22:04 Dose: Admin: 03/22/17 19:29 Dose: Not Given Admin: 03/22/17 14:18 Dose: Not Given Admin: 03/22/17 07:30 Dose: Not Given Admin: 03/21/17 22:02 Dose: Admin: 03/21/17 19:11 Dose: Admin: 03/21/17 11:48 Dose: Not Given Ketorolac Tromethamine (Toradol) 15 mg IVPUSH Q6H PRN PRN Reason: Pain (moderate 4-6) Last Admin: 03/23/17 04:48 Dose: 15 mg Admin: 03/22/17 22:04 Dose: 15 mg Admin: 03/22/17 15:43 Dose: 15 mg Admin: 03/22/17 03:12 Dose: 15 mg Latanoprost (Xalatan 0.005% Ophth Soln) 0 ml EYEBOTH BEDTIME [facility] Last Admin: 03/22/17 20:37 Dose: 1 drop Admin: 03/21/17 21:05 Dose: 1 drop Metoclopramide HCl (Reglan) 5 mg IV Q6H [facility] Last Admin: 03/23/17 08:24 Dose: 5 mg Admin: 03/23/17 01:45 Dose: 5 mg Admin: 03/22/17 20:01 Dose: 5 mg Metoprolol Succinate (Toprol Xl) 25 mg PO DAILY [facility] Last Admin: 03/23/17 08:21 Dose: 25 mg Admin: 03/22/17 09:59 Dose: 25 mg Morphine Sulfate (Morphine) 2 mg IVPUSH Q2H PRN PRN Reason: Pain (severe 7-10) Ondansetron HCl (Zofran) 4 mg IV Q6H PRN PRN Reason: Nausea/Vomiting Last Admin: 03/23/17 11:39 Dose: 4 mg Admin: 03/23/17 04:48 Dose: 4 mg Admin: 03/22/17 22:04 Dose: 4 mg Admin: 03/22/17 15:46 Dose: 4 mg Admin: 03/22/17 10:05 Dose: 4 mg Admin: 03/22/17 03:16 Dose: 4 mg Admin: 03/21/17 21:09 Dose: 4 mg Pantoprazole Sodium (Protonix Iv) 40 mg IVPUSH DAILY [facility] Last Admin: 03/23/17 08:19 Dose: 40 mg Admin: 03/22/17 10:00 Dose: 40 mg Phytonadione (Aquamephyton) 10 mg IM Mo [facility] Last Admin: 03/23/17 08:18 Dose: 10 mg Sodium Chloride (Saline Flush) 10 ml FLUSH ASDIRECTED PRN PRN Reason: Keep Vein Open Last Admin: 03/23/17 04:55 Dose: 10 ml Admin: 03/23/17 01:48 Dose: 10 ml Admin: 03/22/17 22:11 Dose: 10 ml Admin: 03/22/17 22:10 Dose: 10 ml Admin: 03/22/17 20:06 Dose: 10 ml Admin: 03/22/17 15:43 Dose: 10 ml Admin: 03/22/17 10:10 Dose: 10 ml Admin: 03/22/17 10:04 Dose: 10 ml Admin: 03/22/17 03:24 Dose: 10 ml Admin: 03/22/17 03:12 Dose: 10 ml Admin: 03/21/17 21:09 Dose: 10 ml Sucralfate (Carafate) 1 gm PO Q6H [facility] Last Admin: 03/23/17 08:24 Dose: 1 gm Admin: 03/23/17 01:46 Dose: 1 gm Admin: 03/22/17 20:01 Dose: 1 gm - Assessment Assessment (Free Text/Narrative):: slight set back. - Plan Plan (Free Text/Narrative):: NPO increase tpn. TENS unit.
[2017-03-23] MEDS: Fat Emulsion 250 ML IV SCH (12:45)
[2017-03-23] MEDS: CALC IV SCH ×2 (13:26)
[2017-03-23] MEDS: CALCIUM IV SCH ×2 (13:26)
[2017-03-23] MEDS: LYTES IV SCH ×2 (13:26)
[2017-03-23] MEDS: MVI IV SCH ×2 (13:26)
[2017-03-23] MEDS: [UNRECOGNIZED DRUG - OTHER] IV SCH ×2 (13:26)
--- NOTE | 2017-03-23 15:18 | CR ---
INDICATION: Shaking chills. 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 The central line in place on the previous study is unchanged in position with its tip at the level of the aortopulmonary window to the right of midline, likely in the superior vena cava. There appears to be some infiltration that is patchy and relatively minimal in the right lower lobe, suggesting pneumonia. No definite pleural effusion is seen, however. IMPRESSION: 1. Findings are suspicious for minimal patchy pneumonia in the right lower lobe. 2. COPD. 3. 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 5. Central line unchanged in appearance. MTDD
[2017-03-23] MEDS: Latanoprost 0.005% Ophth Soln 2.5 ML Bottle EYEBOTH SCH (22:01)
[2017-03-24] MEDS: CALC IV SCH ×4 (01:19→13:29)
[2017-03-24] MEDS: MVI IV SCH ×4 (01:19→13:29)
[2017-03-24] MEDS: LYTES IV SCH ×4 (01:19→13:29)
[2017-03-24] MEDS: Sucralfate Suspension 1 GM/10 ML Cup PO SCH ×4 (01:19→20:03)
[2017-03-24] MEDS: CALCIUM IV SCH ×4 (01:19→13:29)
[2017-03-24] MEDS: [UNRECOGNIZED DRUG - OTHER] IV SCH ×4 (01:19→13:29)
[2017-03-24] MEDS: Insulin Aspart 100 Units/ML 3 ML Pen SUBCUT SCH ×4 (07:16→20:02)
[2017-03-24] MEDS: Sodium Chloride 0.9% 1,000 ML IV SCH (08:11)
[2017-03-24] MEDS ORDERED: Potassium Chloride 20 MEQ in Premix Bag 1 BAG IV ONE ×2 (08:11→10:15)
[2017-03-24] MEDS: Metoprolol Succinate 25 MG Tab.ER PO SCH (08:30)
[2017-03-24] MEDS: Pantoprazole 40 MG Vial IVPUSH SCH (08:30)
--- NOTE | 2017-03-24 08:41 | PCM.SURGPN ---
- General Info Date of Service: 03/24/17 - Review of Systems General: Reports: No Symptoms Gastrointestinal: Denies: Abdominal Pain, Vomiting - Patient Data Vitals - Most Recent: Last Vital Signs Temp 36.8 C 03/23/17 08:00 Pulse 80 03/24/17 08:30 Resp 18 03/23/17 08:00 BP 128/74 03/24/17 08:30 Pulse Ox 96 03/23/17 14:07 Weight - Most Recent: 72.711 kg I&O - Last 24 Hours: Intake & Output 03/23/17 03/24/17 03/24/17 22:59 06:59 14:59 Intake Total 613 993 Output Total 275 250 Balance 338 743 Lab Results Last 24 Hrs: Laboratory Results - last 24 hr 03/23/17 03/23/17 03/23/17 Range/Units 06:50 13:10 21:01 Neutrophils % (Manual) 73 (46-82) % Lymphocytes % (Manual) 18 (13-37) % Monocytes % (Manual) 6 (4-12) % Eosinophils % (Manual) 3 (0-5) % Sodium (135-145) mmol/L Potassium (3.5-5.3) mmol/L Chloride (100-110) mmol/L Carbon Dioxide (23-29) mmol/L BUN (8-23) mg/dL Creatinine (0.6-1.3) mg/dL Est Cr Clr Drug Dosing mL/min Estimated GFR (MDRD) (>60) BUN/Creatinine Ratio (9-20) Glucose (80-116) mg/dL POC Glucose 150 H (80-116) mg/dL Calcium (8.6-10.2) mg/dL Urine Color Yellow (YELLOW) Urine Appearance Slightly cloudy (CLEAR) Urine pH 6.5 (5.0-6.5) Ur Specific [place] 1.015 (1.010-1.025) Urine Protein Negative (NEGATIVE) mg/dL Urine Glucose (UA) Normal (NEGATIVE) mg/dL Urine Ketones Negative (NEGATIVE) mg/dL Urine Occult Blood Negative (NEGATIVE) Urine Nitrite Negative (NEGATIVE) Urine Bilirubin Small H (NEGATIVE) Urine Urobilinogen 8 H (NEGATIVE) mg/dL Ur Leukocyte Esterase Negative (NEGATIVE) Urine WBC 0-5 (0) Ur Squamous Epith Cells Few H (NS,R,O) Urine Bacteria Few H (NS) 03/23/17 03/24/17 Range/Units 21:58 06:15 Neutrophils % (Manual) (46-82) % Lymphocytes % (Manual) (13-37) % Monocytes % (Manual) (4-12) % Eosinophils % (Manual) (0-5) % Sodium 138 (135-145) mmol/L Potassium 2.7 L* D (3.5-5.3) mmol/L Chloride 111 H D (100-110) mmol/L Carbon Dioxide 22 L (23-29) mmol/L BUN 23 (8-23) mg/dL Creatinine 0.6 (0.6-1.3) mg/dL Est Cr Clr Drug Dosing 75.32 mL/min Estimated GFR (MDRD) > 60 (>60) BUN/Creatinine Ratio 38.3 H (9-20) Glucose 104 (80-116) mg/dL POC Glucose 146 H (80-116) mg/dL Calcium 6.4 L* D (8.6-10.2) mg/dL Urine Color (YELLOW) Urine Appearance (CLEAR) Urine pH (5.0-6.5) Ur Specific [place] (1.010-1.025) Urine Protein (NEGATIVE) mg/dL Urine Glucose (UA) (NEGATIVE) mg/dL Urine Ketones (NEGATIVE) mg/dL Urine Occult Blood (NEGATIVE) Urine Nitrite (NEGATIVE) Urine Bilirubin (NEGATIVE) Urine Urobilinogen (NEGATIVE) mg/dL Ur Leukocyte Esterase (NEGATIVE) Urine WBC (0) Ur Squamous Epith Cells (NS,R,O) Urine Bacteria (NS) Med Orders - Current: Current Medications Acetaminophen (Tylenol) 650 mg PO Q4H PRN PRN Reason: Pain (Mild 1-3)/fever Last Admin: 03/22/17 11:25 Dose: 650 mg Albuterol/Ipratropium (Duoneb 3.0-0.5 Mg/3 Ml) 3 ml NEB Q4H PRN PRN Reason: Wheezing Heparin Sodium (Porcine) (Heparin Lock Flush 100 Units/Ml) 500 units FLUSH ASDIRECTED PRN PRN Reason: Keep Vein Open Last Admin: 03/22/17 10:11 Dose: 500 units Fat Emulsion Intravenous (Intralipid 20%) 250 mls @ 20 mls/hr IV Q24H [facility] Last Admin: 03/23/17 12:45 Dose: 20 mls/hr Multivitamins/Minerals 10 ml/Amino Ac/Electrol/Dextrose/Calcium 1,010 mls @ 84 mls/hr IV .BY DURATION [facility] Last Admin: 03/23/17 13:26 Dose: 84 mls/hr Amino Ac/Electrol/Dextrose/Calcium (Clinimix E 5/15) 1,000 mls @ 84 mls/hr IV .BY DURATION [facility] Last Admin: 03/24/17 01:19 Dose: 84 mls/hr Sodium Chloride (Normal Saline) 1,000 mls @ 50 mls/hr IV ASDIRECTED [facility] Last Admin: 03/24/17 08:11 Dose: 50 mls/hr Potassium Chloride 20 meq/ (Premix) 100 mls @ 50 mls/hr IV ONETIME ONE Stop: 03/24/17 10:10 Potassium Chloride 20 meq/ (Premix) 100 mls @ 50 mls/hr IV ONETIME ONE Stop: 03/24/17 12:14 Insulin Aspart (Novolog) 0 unit SUBCUT WITHMEALSANDBED [facility] PRN Reason: Protocol Last Admin: 03/24/17 07:16 Dose: Not Given Ketorolac Tromethamine (Toradol) 15 mg IVPUSH Q6H PRN PRN Reason: Pain (moderate 4-6) Last Admin: 03/23/17 04:48 Dose: 15 mg Latanoprost (Xalatan 0.005% Ophth Soln) 0 ml EYEBOTH BEDTIME [facility] Last Admin: 03/23/17 22:01 Dose: 1 drop Metoprolol Succinate (Toprol Xl) 25 mg PO DAILY [facility] Last Admin: 03/24/17 08:30 Dose: 25 mg Morphine Sulfate (Morphine) 2 mg IVPUSH Q2H PRN PRN Reason: Pain (severe 7-10) Ondansetron HCl (Zofran) 4 mg IV Q6H PRN PRN Reason: Nausea/Vomiting Last Admin: 03/23/17 11:39 Dose: 4 mg Pantoprazole Sodium (Protonix Iv) 40 mg IVPUSH DAILY [facility] Last Admin: 03/24/17 08:30 Dose: 40 mg Phytonadione (Aquamephyton) 10 mg IM Mo [facility] Last Admin: 03/23/17 08:18 Dose: 10 mg Sodium Chloride (Saline Flush) 10 ml FLUSH ASDIRECTED PRN PRN Reason: Keep Vein Open Last Admin: 03/23/17 04:55 Dose: 10 ml Sucralfate (Carafate) 1 gm PO Q6H [facility] Last Admin: 03/24/17 08:30 Dose: 1 gm Discontinued Medications Bisacodyl (Dulcolax) 10 mg RECTAL ONETIME ONE Stop: 03/22/17 08:59 Last Admin: 03/22/17 11:16 Dose: 10 mg Multivitamins/Minerals 10 ml/Amino Ac/Electrol/Dextrose/Calcium 1,010 mls @ 84 mls/hr IV Q24H [facility] Stop: 03/23/17 13:30 Last Admin: 03/22/17 14:17 Dose: 42 mls/hr Metoclopramide HCl (Reglan) 5 mg IV Q6H [facility] Last Admin: 03/23/17 08:24 Dose: 5 mg Metoprolol Succinate (Toprol Xl) 50 mg PO DAILY [facility] - Exam General: Alert, Oriented, Cooperative, No Acute Distress Lungs: Clear to Auscultation, Normal Respiratory Effort Cardiovascular: Regular Rate, Regular Rhythm GI/Abdominal Exam: Normal Bowel Sounds, Soft, Non-Tender - Problem List & Annotations (1) Gastroparesis SNOMED Code(s): 916526854 Code(s): K31.84 - GASTROPARESIS Status: Acute Current Visit: No - Problem List Review Problem List Initiated/Reviewed/Updated: Yes - My Orders Last 24 Hours: Active Orders 24 hr Category Date Time Status NPO Now [Nothing per Oral Now Diet] [DIET] Diet 03/23/17 Dinner Active ALBUMIN [CHEM] Routine Lab 03/24/17 06:15 Received ALT Order Med 03/23/17 13:30 Active Phytonadione [AquaMephyton] Med 03/23/17 08:00 Active 10 mg IM Mo Potassium Chloride [KCL 20 MEQ in Water 100 ML] 20 meq Med 03/24/17 08:11 Active Premix Bag 1 bag IV ONETIME Potassium Chloride [KCL 20 MEQ in Water 100 ML] 20 meq Med 03/24/17 10:15 Active Premix Bag 1 bag IV ONETIME Sodium Chloride 0.9% [Normal Saline] 1,000 ml Med 03/23/17 12:00 Active IV ASDIRECTED Medication Orders Acetaminophen (Tylenol) 650 mg PO Q4H PRN PRN Reason: Pain (Mild 1-3)/fever Last Admin: 03/22/17 11:25 Dose: 650 mg Albuterol/Ipratropium (Duoneb 3.0-0.5 Mg/3 Ml) 3 ml NEB Q4H PRN PRN Reason: Wheezing Heparin Sodium (Porcine) (Heparin Lock Flush 100 Units/Ml) 500 units FLUSH ASDIRECTED PRN PRN Reason: Keep Vein Open Last Admin: 03/22/17 10:11 Dose: 500 units Fat Emulsion Intravenous (Intralipid 20%) 250 mls @ 20 mls/hr IV Q24H [facility] Last Admin: 03/23/17 12:45 Dose: 20 mls/hr Infusion: 03/23/17 01:38 Dose: 20 mls/hr Admin: 03/22/17 13:08 Dose: 20 mls/hr Infusion: 03/22/17 01:23 Dose: 20 mls/hr Admin: 03/21/17 12:53 Dose: 20 mls/hr Multivitamins/Minerals 10 ml/Amino Ac/Electrol/Dextrose/Calcium 1,010 mls @ 84 mls/hr IV .BY DURATION [facility] Last Admin: 03/23/17 13:26 Dose: 84 mls/hr Amino Ac/Electrol/Dextrose/Calcium (Clinimix E 5/15) 1,000 mls @ 84 mls/hr IV .BY DURATION [facility] Last Admin: 03/24/17 01:19 Dose: 84 mls/hr Sodium Chloride (Normal Saline) 1,000 mls @ 50 mls/hr IV ASDIRECTED [facility] Last Admin: 03/24/17 08:11 Dose: 50 mls/hr Potassium Chloride 20 meq/ (Premix) 100 mls @ 50 mls/hr IV ONETIME ONE Stop: 03/24/17 10:10 Potassium Chloride 20 meq/ (Premix) 100 mls @ 50 mls/hr IV ONETIME ONE Stop: 03/24/17 12:14 Insulin Aspart (Novolog) 0 unit SUBCUT WITHMEALSANDBED [facility] PRN Reason: Protocol Last Admin: 03/24/17 07:16 Dose: Not Given Admin: 03/23/17 22:24 Dose: Not Given Admin: 03/23/17 17:44 Dose: Admin: 03/23/17 12:00 Dose: Admin: 03/23/17 08:15 Dose: Admin: 03/22/17 22:04 Dose: Admin: 03/22/17 19:29 Dose: Not Given Admin: 03/22/17 14:18 Dose: Not Given Admin: 03/22/17 07:30 Dose: Not Given Admin: 03/21/17 22:02 Dose: Admin: 03/21/17 19:11 Dose: Admin: 03/21/17 11:48 Dose: Not Given Ketorolac Tromethamine (Toradol) 15 mg IVPUSH Q6H PRN PRN Reason: Pain (moderate 4-6) Last Admin: 03/23/17 04:48 Dose: 15 mg Admin: 03/22/17 22:04 Dose: 15 mg Admin: 03/22/17 15:43 Dose: 15 mg Admin: 03/22/17 03:12 Dose: 15 mg Latanoprost (Xalatan 0.005% Ophth Soln) 0 ml EYEBOTH BEDTIME [facility] Last Admin: 03/23/17 22:01 Dose: 1 drop Admin: 03/22/17 20:37 Dose: 1 drop Admin: 03/21/17 21:05 Dose: 1 drop Metoprolol Succinate (Toprol Xl) 25 mg PO DAILY [facility] Last Admin: 03/24/17 08:30 Dose: 25 mg Admin: 03/23/17 08:21 Dose: 25 mg Admin: 03/22/17 09:59 Dose: 25 mg Morphine Sulfate (Morphine) 2 mg IVPUSH Q2H PRN PRN Reason: Pain (severe 7-10) Ondansetron HCl (Zofran) 4 mg IV Q6H PRN PRN Reason: Nausea/Vomiting Last Admin: 03/23/17 11:39 Dose: 4 mg Admin: 03/23/17 04:48 Dose: 4 mg Admin: 03/22/17 22:04 Dose: 4 mg Admin: 03/22/17 15:46 Dose: 4 mg Admin: 03/22/17 10:05 Dose: 4 mg Admin: 03/22/17 03:16 Dose: 4 mg Admin: 03/21/17 21:09 Dose: 4 mg Pantoprazole Sodium (Protonix Iv) 40 mg IVPUSH DAILY [facility] Last Admin: 03/24/17 08:30 Dose: 40 mg Admin: 03/23/17 08:19 Dose: 40 mg Admin: 03/22/17 10:00 Dose: 40 mg Phytonadione (Aquamephyton) 10 mg IM Mo [facility] Last Admin: 03/23/17 08:18 Dose: 10 mg Sodium Chloride (Saline Flush) 10 ml FLUSH ASDIRECTED PRN PRN Reason: Keep Vein Open Last Admin: 03/23/17 04:55 Dose: 10 ml Admin: 03/23/17 01:48 Dose: 10 ml Admin: 03/22/17 22:11 Dose: 10 ml Admin: 03/22/17 22:10 Dose: 10 ml Admin: 03/22/17 20:06 Dose: 10 ml Admin: 03/22/17 15:43 Dose: 10 ml Admin: 03/22/17 10:10 Dose: 10 ml Admin: 03/22/17 10:04 Dose: 10 ml Admin: 03/22/17 03:24 Dose: 10 ml Admin: 03/22/17 03:12 Dose: 10 ml Admin: 03/21/17 21:09 Dose: 10 ml Sucralfate (Carafate) 1 gm PO Q6H [facility] Last Admin: 03/24/17 08:30 Dose: 1 gm Admin: 03/24/17 01:19 Dose: 1 gm Admin: 03/23/17 22:00 Dose: 1 gm Admin: 03/23/17 16:13 Dose: 1 gm Admin: 03/23/17 08:24 Dose: 1 gm Admin: 03/23/17 01:46 Dose: 1 gm Admin: 03/22/17 20:01 Dose: 1 gm - Assessment Assessment (Free Text/Narrative):: low K will bolus check albumin to correct for Ca. - Plan Plan (Free Text/Narrative):: plan on egd tomorrow to check for outlet narrowing. procedure and risks were explained to the pt he expressed understanding and asks us to proceed.
[2017-03-24] MEDS: Fat Emulsion 250 ML IV SCH (12:48)
[2017-03-24] MEDS ORDERED: Magnesium Sulfate/Water 2 GM in Premix Bag 1 BAG IV ONE ×2 (16:45→17:00)
[2017-03-24] MEDS: Latanoprost 0.005% Ophth Soln 2.5 ML Bottle EYEBOTH SCH (20:03)
[2017-03-25] MEDS: CALC IV SCH ×6 (02:17→23:04)
[2017-03-25] MEDS: CALCIUM IV SCH ×6 (02:17→23:04)
[2017-03-25] MEDS: MVI IV SCH ×6 (02:17→23:04)
[2017-03-25] MEDS: [UNRECOGNIZED DRUG - OTHER] IV SCH ×6 (02:17→23:04)
[2017-03-25] MEDS: LYTES IV SCH ×6 (02:17→23:04)
[2017-03-25] MEDS: Sucralfate Suspension 1 GM/10 ML Cup PO SCH ×2 (02:25→11:28)
[2017-03-25] MEDS: Insulin Aspart 100 Units/ML 3 ML Pen SUBCUT SCH ×3 (08:04→18:57)
[2017-03-25] MEDS: Ondansetron 4 MG/2 ML SDV IV PRN (08:40)
[2017-03-25] MEDS: Sodium Chloride 0.9% 10 ML Syringe FLUSH PRN ×2 (08:40→11:33)
[2017-03-25] MEDS ORDERED: Dextrose 10% in Water 1,000 ML IV ONE (10:00)
[2017-03-25] MEDS ORDERED: Lactated Ringers 1,000 ML IV ONE (10:00)
[2017-03-25] MEDS ORDERED: Midazolam 1 MG/ML 2 ML SDV IV ONE (10:00)
[2017-03-25] MEDS ORDERED: Propofol 200 MG/20 ML SDV IV ONE (10:00)
[2017-03-25] MEDS ORDERED: fentaNYL 100 MCG/2 ML SDV IV ONE (10:00)
--- NOTE | 2017-03-25 10:41 | PCM.OPNOTE ---
- General Post-Op/Procedure Note Date of Surgery/Procedure: 03/25/17 Operative Procedure(s): egd with biospy Findings: markedly dilated stomach 2.5 l of fluid removed. marked gastritis. unable to advance scope beyond 2nd portion of duodenum due to size of stomach duodenal bx taken Pre Op Diagnosis: gastroparesis. hx of pud Post-Op Diagnosis: dilated stomach. gastritis Anesthesia Technique: MAC Primary Surgeon: Wolf Gutierrez Anesthesia Provider: Kathie Lopez Pathology: stomach and duodenum Complications: None Condition: Good Free Text/Narrative:: Intake & Output 03/24/17 03/25/17 03/25/17 22:59 06:59 14:59 Intake Total 1218 1239 15 Output Total 1225 550 Balance -7 1239 -815 see dictation
[2017-03-25] MEDS: Pantoprazole 40 MG Vial IVPUSH SCH (11:32)
[2017-03-25] MEDS: Metoprolol Succinate 25 MG Tab.ER PO SCH (11:32)
[2017-03-25] MEDS: Fat Emulsion 250 ML IV SCH (12:18)
[2017-03-25] MEDS: Sodium Chloride 0.9% 1,000 ML IV SCH (12:25)
--- NOTE | 2017-03-25 14:53 | OR ---
DATE OF OPERATION: 03/25/2017 SURGEON: Wolf Gutierrez MD PROCEDURE PERFORMED: Esophagogastroduodenoscopy with cold forceps biopsy and NG tube placement. PREOPERATIVE DIAGNOSIS: History of gastric paresis and peptic ulcer disease. POSTOPERATIVE DIAGNOSIS: Markedly dilated stomach with gastritis. INDICATIONS FOR PROCEDURE: Mr. Lu is an 89-year-old white male, who has a history of peptic ulcer disease. 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 He has trouble with abdominal distention, nausea, and vomiting. He was admitted and placed on bowel rest and TPN, apparently did well, and was restarted on fluids and diet. He has had several studies which demonstrated flow of contrast from his stomach into the duodenum into the small intestine and his dye was started after the KUB with Gastrografin demonstrated normal-sized stomach in flow of dye. Several days later, he had an emesis of 500 mL. He was placed back on bowel rest and an EGD was offered to further evaluate the situation. DESCRIPTION OF PROCEDURE: After an excellent IV sedation was administered, the bite block was inserted. The flexible endoscope was passed without difficulty down the patient's esophagus into the stomach. The stomach was noted to have a fair amount of cloudy fluid. This was aspirated and approximately 2.5 L of fluid were removed. The stomach was noted to be markedly inflamed. We were able to advance the scope into the first portion of duodenum which was dilated. However, efforts to advance beyond this point were not successful due to the fact that the scope was curling in his stomach. We did take some biopsies of the distal most portion. I did not see any evidence of ulceration or tumor, and indeed, there has been no evidence to one of them at this point. On bringing the scope back, biopsies were taken and photos were taken of the stomach as well. After removing the scope, an 18-Swedish nasogastric tube was inserted and advanced and placed to suction. The patient was taken to recovery in good condition. /[id number] /MODL
[2017-03-25] MEDS: Morphine 2 MG/ML Syringe IVPUSH PRN ×3 (15:00→23:14)
[2017-03-25] MEDS: Latanoprost 0.005% Ophth Soln 2.5 ML Bottle EYEBOTH SCH (23:06)
[2017-03-26] MEDS: Sodium Chloride 0.9% 1,000 ML IV SCH (08:20)
[2017-03-26] MEDS: Metoprolol Succinate 25 MG Tab.ER PO SCH (08:43)
[2017-03-26] MEDS: Pantoprazole 40 MG Vial IVPUSH SCH (08:50)
[2017-03-26] MEDS: Sodium Chloride 0.9% 10 ML Syringe FLUSH PRN ×3 (08:57→23:31)
--- NOTE | 2017-03-26 10:30 | PCM.SURGPN ---
- General Info Date of Service: 03/26/17 Functional Status: Reports: Pain Controlled - Review of Systems HEENT: Reports: Other (NGT is irritating ) Pulmonary: Reports: No Symptoms Cardiovascular: Reports: No Symptoms Gastrointestinal: Reports: No Symptoms - Patient Data Vitals - Most Recent: Last Vital Signs Temp 36.5 C 03/26/17 08:00 Pulse 80 03/26/17 08:43 Resp 16 03/26/17 08:00 BP 146/81 H 03/26/17 08:43 Pulse Ox 97 03/26/17 08:00 Weight - Most Recent: 73.301 kg I&O - Last 24 Hours: Intake & Output 03/25/17 03/26/17 03/26/17 22:59 06:59 14:59 Intake Total 1184 1088 Output Total 200 Balance 984 1088 Lab Results Last 24 Hrs: Laboratory Results - last 24 hr 03/25/17 03/26/17 03/26/17 Range/Units 06:35 06:20 06:20 WBC 6.6 (4.5-12.0) X10-3/uL RBC 3.76 L (4.30-5.75) x10(6)uL Hgb 11.8 (11.5-15.5) g/dL Hct 34.4 (30.0-51.3) % MCV 91.5 (80-96) fL MCH 31.4 (27.7-33.6) pg MCHC 34.4 (32.2-35.4) g/dL RDW 13.9 (11.5-15.5) % Plt Count 207 (125-369) X10(3)uL MPV 7.5 (7.4-10.4) fL Neut % (Auto) 71.0 (46-82) % Lymph % (Auto) 16.2 (13-37) % [place] % (Auto) 6.6 (4-12) % Eos % (Auto) 6 H (1.0-5.0) % Baso % (Auto) 0 (0-2) % Neut # (Auto) 4.7 (1.6-8.3) # Lymph # (Auto) 1.1 (0.6-5.0) # [place] # (Auto) 0.4 (0.0-1.3) # Eos # (Auto) 0.4 (0.0-0.8) # Baso # (Auto) 0.0 (0.0-0.2) # PT (8.7-11.1) INR (0.89-1.13) Sodium 134 L (135-145) mmol/L Potassium 3.7 (3.5-5.3) mmol/L Chloride 100 (100-110) mmol/L Carbon Dioxide 27 (23-29) mmol/L BUN 20 (8-23) mg/dL Creatinine 0.7 (0.6-1.3) mg/dL Est Cr Clr Drug Dosing 64.56 mL/min Estimated GFR (MDRD) > 60 (>60) BUN/Creatinine Ratio 28.6 H (9-20) Glucose 135 H (80-116) mg/dL Calcium 8.4 L (8.6-10.2) mg/dL Magnesium 1.9 (1.8-2.5) mg/dL Total Bilirubin 0.8 (0.1-1.3) mg/dL AST 40 H D (5-27) IU/L ALT 45 H D (14-26) IU/L Alkaline Phosphatase 125 H (56-112) IU/L Total Protein 6.4 (6.0-8.0) g/dL Albumin 2.7 L 2.8 L (2.9-4.5) g/dL Globulin 3.6 g/dL Albumin/Globulin Ratio 0.8 /31/17 Range/Units 06:20 WBC (4.5-12.0) X10-3/uL RBC (4.30-5.75) x10(6)uL Hgb (11.5-15.5) g/dL Hct (30.0-51.3) % MCV (80-96) fL MCH (27.7-33.6) pg MCHC (32.2-35.4) g/dL RDW (11.5-15.5) % Plt Count (125-369) X10(3)uL MPV (7.4-10.4) fL Neut % (Auto) (46-82) % Lymph % (Auto) (13-37) % [place] % (Auto) (4-12) % Eos % (Auto) (1.0-5.0) % Baso % (Auto) (0-2) % Neut # (Auto) (1.6-8.3) # Lymph # (Auto) (0.6-5.0) # [place] # (Auto) (0.0-1.3) # Eos # (Auto) (0.0-0.8) # Baso # (Auto) (0.0-0.2) # PT 10.3 (8.7-11.1) INR 1.02 (0.89-1.13) Sodium (135-145) mmol/L Potassium (3.5-5.3) mmol/L Chloride (100-110) mmol/L Carbon Dioxide (23-29) mmol/L BUN (8-23) mg/dL Creatinine (0.6-1.3) mg/dL Est Cr Clr Drug Dosing mL/min Estimated GFR (MDRD) (>60) BUN/Creatinine Ratio (9-20) Glucose (80-116) mg/dL Calcium (8.6-10.2) mg/dL Magnesium (1.8-2.5) mg/dL Total Bilirubin (0.1-1.3) mg/dL AST (5-27) IU/L ALT (14-26) IU/L Alkaline Phosphatase (56-112) IU/L Total Protein (6.0-8.0) g/dL Albumin (2.9-4.5) g/dL Globulin g/dL Albumin/Globulin Ratio Med Orders - Current: Current Medications Acetaminophen (Tylenol) 650 mg PO Q4H PRN PRN Reason: Pain (Mild 1-3)/fever Last Admin: 03/22/17 11:25 Dose: 650 mg Albuterol/Ipratropium (Duoneb 3.0-0.5 Mg/3 Ml) 3 ml NEB Q4H PRN PRN Reason: Wheezing Heparin Sodium (Porcine) (Heparin Lock Flush 100 Units/Ml) 500 units FLUSH ASDIRECTED PRN PRN Reason: Keep Vein Open Last Admin: 03/22/17 10:11 Dose: 500 units Fat Emulsion Intravenous (Intralipid 20%) 250 mls @ 20 mls/hr IV Q24H [facility] Last Admin: 03/25/17 12:18 Dose: 20 mls/hr Sodium Chloride (Normal Saline) 1,000 mls @ 50 mls/hr IV ASDIRECTED [facility] [place] Last Admin: 03/26/17 08:20 Dose: 50 mls/hr Multivitamins/Minerals 10 ml/Amino Ac/Electrol/Dextrose/Calcium 1,010 mls @ 84 mls/hr IV .BY DURATION [facility] [place] Last Admin: 03/25/17 10:46 Dose: 84 mls/hr Amino Ac/Electrol/Dextrose/Calcium (Clinimix E 5/15) 1,000 mls @ 84 mls/hr IV .BY DURATION [facility] [place] Last Admin: 03/25/17 23:04 Dose: 84 mls/hr Ketorolac Tromethamine (Toradol) 15 mg IVPUSH Q6H PRN PRN Reason: Pain (moderate 4-6) Last Admin: 03/23/17 04:48 Dose: 15 mg Latanoprost (Xalatan 0.005% Ophth Soln) 0 ml EYEBOTH BEDTIME [facility] [place] Last Admin: 03/25/17 23:06 Dose: 1 drop Metoprolol Succinate (Toprol Xl) 25 mg PO DAILY [facility] [place] Last Admin: 03/26/17 08:43 Dose: 25 mg Morphine Sulfate (Morphine) 2 mg IVPUSH Q2H PRN PRN Reason: Pain (severe 7-10) Last Admin: 03/25/17 23:14 Dose: 2 mg Ondansetron HCl (Zofran) 4 mg IV Q6H PRN PRN Reason: Nausea/Vomiting Last Admin: 03/25/17 08:40 Dose: 4 mg Pantoprazole Sodium (Protonix Iv) 40 mg IVPUSH DAILY [facility] [place] Last Admin: 03/26/17 08:50 Dose: 40 mg Phytonadione (Aquamephyton) 10 mg IM Mo [facility] [place] Last Admin: 03/23/17 08:18 Dose: 10 mg Sodium Chloride (Saline Flush) 10 ml FLUSH ASDIRECTED PRN PRN Reason: Keep Vein Open Last Admin: 03/26/17 08:57 Dose: 10 ml Discontinued Medications Bisacodyl (Dulcolax) 10 mg RECTAL ONETIME ONE Stop: 03/22/17 08:59 Last Admin: 03/22/17 11:16 Dose: 10 mg Multivitamins/Minerals 10 ml/Amino Ac/Electrol/Dextrose/Calcium 1,010 mls @ 84 mls/hr IV Q24H [facility] [place] Stop: 03/23/17 13:30 Last Admin: 03/22/17 14:17 Dose: 42 mls/hr Multivitamins/Minerals 10 ml/Amino Ac/Electrol/Dextrose/Calcium 1,010 mls @ 84 mls/hr IV .BY DURATION [facility] [place] Last Admin: 03/24/17 13:29 Dose: 84 mls/hr Amino Ac/Electrol/Dextrose/Calcium (Clinimix E 5/15) 1,000 mls @ 84 mls/hr IV .BY DURATION [facility] [place] Last Admin: 03/25/17 02:17 Dose: 84 mls/hr Potassium Chloride 20 meq/ (Premix) 100 mls @ 50 mls/hr IV ONETIME ONE Stop: 03/24/17 10:10 Last Admin: 03/24/17 09:03 Dose: 50 mls/hr Potassium Chloride 20 meq/ (Premix) 100 mls @ 50 mls/hr IV ONETIME ONE Stop: 03/24/17 12:14 Last Admin: 03/24/17 11:06 Dose: 50 mls/hr Magnesium Sulfate 2 gm/ Premix 50 mls @ 8 mls/hr IV ONETIME ONE Stop: 03/24/17 23:14 Last Admin: 03/24/17 17:04 Dose: 8 mls/hr Insulin Aspart (Novolog) 0 unit SUBCUT WITHMEALSANDBED [facility] [place] PRN Reason: Protocol Last Admin: 03/25/17 18:57 Dose: Not Given Metoclopramide HCl (Reglan) 5 mg IV Q6H [facility] [place] Last Admin: 03/23/17 08:24 Dose: 5 mg Metoprolol Succinate (Toprol Xl) 50 mg PO DAILY [facility] [place] Sucralfate (Carafate) 1 gm PO Q6H [facility] [place] Last Admin: 03/25/17 11:28 Dose: Not Given - Exam General: Alert, Oriented Lungs: Clear to Auscultation, Normal Respiratory Effort Cardiovascular: Regular Rate, Regular Rhythm GI/Abdominal Exam: Normal Bowel Sounds (best they have sounded in a while ), Soft, Non-Tender, No Distention - Problem List & Annotations (1) Gastroparesis SNOMED Code(s): 861761738 Code(s): K31.84 - GASTROPARESIS Status: Acute Current Visit: No - Problem List Review Problem List Initiated/Reviewed/Updated: Yes - My Orders Last 24 Hours: Active Orders 24 hr Category Date Time Status NG [Gastrointestinal Tube Mgmt] [RC] QSHIFT Care 03/25/17 11:18 Active CBC WITH AUTO DIFF [HEME] TH Lab 04/02/17 06:00 Ordered CBC WITH AUTO DIFF [HEME] TH Lab 04/09/17 06:00 Ordered CBC WITH AUTO DIFF [HEME] TH Lab 04/16/17 06:00 Ordered CBC WITH AUTO DIFF [HEME] TH Lab 04/23/17 06:00 Ordered CBC WITH AUTO DIFF [HEME] TH Lab 04/30/17 06:00 Ordered COMPREHENSIVE METABOLIC PN,CMP [CHEM] MO Lab 03/30/17 06:00 Ordered COMPREHENSIVE METABOLIC PN,CMP [CHEM] MO Lab 04/06/17 06:00 Ordered COMPREHENSIVE METABOLIC PN,CMP [CHEM] MO Lab 04/13/17 06:00 Ordered COMPREHENSIVE METABOLIC PN,CMP [CHEM] MO Lab 04/20/17 06:00 Ordered COMPREHENSIVE METABOLIC PN,CMP [CHEM] MO Lab 04/27/17 06:00 Ordered COMPREHENSIVE METABOLIC PN,CMP [CHEM] MO Lab 05/04/17 06:00 Ordered COMPREHENSIVE METABOLIC PN,CMP [CHEM] TH Lab 04/02/17 06:00 Ordered COMPREHENSIVE METABOLIC PN,CMP [CHEM] TH Lab 04/09/17 06:00 Ordered COMPREHENSIVE METABOLIC PN,CMP [CHEM] TH Lab 04/16/17 06:00 Ordered COMPREHENSIVE METABOLIC PN,CMP [CHEM] TH Lab 04/23/17 06:00 Ordered COMPREHENSIVE METABOLIC PN,CMP [CHEM] TH Lab 04/30/17 06:00 Ordered INR,PT,PROTHROMBIN TIME [COAG] TH Lab 04/02/17 06:00 Ordered INR,PT,PROTHROMBIN TIME [COAG] TH Lab 04/09/17 06:00 Ordered INR,PT,PROTHROMBIN TIME [COAG] TH Lab 04/16/17 06:00 Ordered INR,PT,PROTHROMBIN TIME [COAG] TH Lab 04/23/17 06:00 Ordered INR,PT,PROTHROMBIN TIME [COAG] TH Lab 04/30/17 06:00 Ordered MAGNESIUM [CHEM] Routine Lab 03/29/17 06:00 Ordered ALT Order Med 03/25/17 10:45 Active Medication Orders Acetaminophen (Tylenol) 650 mg PO Q4H PRN PRN Reason: Pain (Mild 1-3)/fever Last Admin: 03/22/17 11:25 Dose: 650 mg Albuterol/Ipratropium (Duoneb 3.0-0.5 Mg/3 Ml) 3 ml NEB Q4H PRN PRN Reason: Wheezing Heparin Sodium (Porcine) (Heparin Lock Flush 100 Units/Ml) 500 units FLUSH ASDIRECTED PRN PRN Reason: Keep Vein Open Last Admin: 03/22/17 10:11 Dose: 500 units Fat Emulsion Intravenous (Intralipid 20%) 250 mls @ 20 mls/hr IV Q24H [facility] [place] Last Admin: 03/25/17 12:18 Dose: 20 mls/hr Infusion: 03/25/17 01:18 Dose: 20 mls/hr Admin: 03/24/17 12:48 Dose: 20 mls/hr Infusion: 03/24/17 01:15 Dose: 20 mls/hr Admin: 03/23/17 12:45 Dose: 20 mls/hr Infusion: 03/23/17 01:38 Dose: 20 mls/hr Admin: 03/22/17 13:08 Dose: 20 mls/hr Infusion: 03/22/17 01:23 Dose: 20 mls/hr Admin: 03/21/17 12:53 Dose: 20 mls/hr Sodium Chloride (Normal Saline) 1,000 mls @ 50 mls/hr IV ASDIRECTED [facility] [place] Last Admin: 03/26/17 08:20 Dose: 50 mls/hr Infusion: 03/26/17 08:20 Dose: 50 mls/hr Admin: 03/25/17 12:25 Dose: 50 mls/hr Infusion: 03/25/17 04:11 Dose: 50 mls/hr Admin: 03/24/17 08:11 Dose: 50 mls/hr Multivitamins/Minerals 10 ml/Amino Ac/Electrol/Dextrose/Calcium 1,010 mls @ 84 mls/hr IV .BY DURATION [facility] [place] Last Admin: 03/25/17 10:46 Dose: 84 mls/hr Amino Ac/Electrol/Dextrose/Calcium (Clinimix E 5/15) 1,000 mls @ 84 mls/hr IV .BY DURATION [facility] [place] Last Admin: 03/25/17 23:04 Dose: 84 mls/hr Ketorolac Tromethamine (Toradol) 15 mg IVPUSH Q6H PRN PRN Reason: Pain (moderate 4-6) Last Admin: 03/23/17 04:48 Dose: 15 mg Admin: 03/22/17 22:04 Dose: 15 mg Admin: 03/22/17 15:43 Dose: 15 mg Admin: 03/22/17 03:12 Dose: 15 mg Latanoprost (Xalatan 0.005% Ophth Soln) 0 ml EYEBOTH BEDTIME [facility] [place] Last Admin: 03/25/17 23:06 Dose: 1 drop Admin: 03/24/17 20:03 Dose: 1 drop Admin: 03/23/17 22:01 Dose: 1 drop Admin: 03/22/17 20:37 Dose: 1 drop Admin: 03/21/17 21:05 Dose: 1 drop Metoprolol Succinate (Toprol Xl) 25 mg PO DAILY [facility] [place] Last Admin: 03/26/17 08:43 Dose: 25 mg Admin: 03/25/17 11:32 Dose: 25 mg Admin: 03/24/17 08:30 Dose: 25 mg Admin: 03/23/17 08:21 Dose: 25 mg Admin: 03/22/17 09:59 Dose: 25 mg Morphine Sulfate (Morphine) 2 mg IVPUSH Q2H PRN PRN Reason: Pain (severe 7-10) Last Admin: 03/25/17 23:14 Dose: 2 mg Admin: 03/25/17 18:21 Dose: 2 mg Ondansetron HCl (Zofran) 4 mg IV Q6H PRN PRN Reason: Nausea/Vomiting Last Admin: 03/25/17 08:40 Dose: 4 mg Admin: 03/23/17 11:39 Dose: 4 mg Admin: 03/23/17 04:48 Dose: 4 mg Admin: 03/22/17 22:04 Dose: 4 mg Admin: 03/22/17 15:46 Dose: 4 mg Admin: 03/22/17 10:05 Dose: 4 mg Admin: 03/22/17 03:16 Dose: 4 mg Admin: 03/21/17 21:09 Dose: 4 mg Pantoprazole Sodium (Protonix Iv) 40 mg IVPUSH DAILY [facility] [place] Last Admin: 03/26/17 08:50 Dose: 40 mg Admin: 03/25/17 11:32 Dose: 40 mg Admin: 03/24/17 08:30 Dose: 40 mg Admin: 03/23/17 08:19 Dose: 40 mg Admin: 03/22/17 10:00 Dose: 40 mg Phytonadione (Aquamephyton) 10 mg IM Mo [facility] Last Admin: 03/23/17 08:18 Dose: 10 mg Sodium Chloride (Saline Flush) 10 ml FLUSH ASDIRECTED PRN PRN Reason: Keep Vein Open Last Admin: 03/26/17 08:57 Dose: 10 ml Admin: 03/25/17 11:33 Dose: 10 ml Admin: 03/25/17 08:40 Dose: 10 ml Admin: 03/23/17 04:55 Dose: 10 ml Admin: 03/23/17 01:48 Dose: 10 ml Admin: 03/22/17 22:11 Dose: 10 ml Admin: 03/22/17 22:10 Dose: 10 ml Admin: 03/22/17 20:06 Dose: 10 ml Admin: 03/22/17 15:43 Dose: 10 ml Admin: 03/22/17 10:10 Dose: 10 ml Admin: 03/22/17 10:04 Dose: 10 ml Admin: 03/22/17 03:24 Dose: 10 ml Admin: 03/22/17 03:12 Dose: 10 ml Admin: 03/21/17 21:09 Dose: 10 ml - Assessment Assessment (Free Text/Narrative):: stable exam - Plan Plan (Free Text/Narrative):: continue current rx
[2017-03-26] MEDS: MVI IV SCH ×4 (11:12→23:19)
[2017-03-26] MEDS: CALCIUM IV SCH ×4 (11:12→23:19)
[2017-03-26] MEDS: [UNRECOGNIZED DRUG - OTHER] IV SCH ×4 (11:12→23:19)
[2017-03-26] MEDS: LYTES IV SCH ×4 (11:12→23:19)
[2017-03-26] MEDS: CALC IV SCH ×4 (11:12→23:19)
[2017-03-26] MEDS: Fat Emulsion 250 ML IV SCH (11:52)
[2017-03-26] MEDS: Morphine 2 MG/ML Syringe IVPUSH PRN ×3 (14:55→23:30)
[2017-03-26] MEDS: Latanoprost 0.005% Ophth Soln 2.5 ML Bottle EYEBOTH SCH (20:21)
[2017-03-27] MEDS: Sodium Chloride 0.9% 1,000 ML IV SCH ×2 (03:47→23:47)
[2017-03-27] MEDS: Metoprolol Succinate 25 MG Tab.ER PO SCH (08:28)
[2017-03-27] MEDS: Pantoprazole 40 MG Vial IVPUSH SCH (08:28)
[2017-03-27] MEDS: Ondansetron 4 MG/2 ML SDV IV PRN (09:39)
[2017-03-27] MEDS ORDERED: Lidocaine 2% Jelly 5 ML Urojet MUCMEM PRN (10:50)
--- NOTE | 2017-03-27 10:54 | PCM.SURGPN ---
- General Info Date of Service: 03/27/17 Functional Status: Reports: Urinating - Review of Systems HEENT: Reports: Other (nasal pain due to ngt) Cardiovascular: Reports: No Symptoms Gastrointestinal: Reports: No Symptoms - Patient Data Vitals - Most Recent: Last Vital Signs Temp 36.4 C 03/27/17 07:21 Pulse 83 03/27/17 08:28 Resp 16 03/27/17 07:21 BP 135/85 03/27/17 08:28 Pulse Ox 93 L 03/27/17 07:21 Weight - Most Recent: 74.525 kg I&O - Last 24 Hours: Intake & Output 03/26/17 03/27/17 03/27/17 22:59 06:59 14:59 Intake Total 1249 1112 0 Output Total 1075 825 Balance 174 1112 -825 Lab Results Last 24 Hrs: Laboratory Results - last 24 hr 03/27/17 Range/Units 06:25 POC Glucose 121 H (80-116) mg/dL Med Orders - Current: Current Medications Acetaminophen (Tylenol) 650 mg PO Q4H PRN PRN Reason: Pain (Mild 1-3)/fever Last Admin: 03/22/17 11:25 Dose: 650 mg Albuterol/Ipratropium (Duoneb 3.0-0.5 Mg/3 Ml) 3 ml NEB Q4H PRN PRN Reason: Wheezing Heparin Sodium (Porcine) (Heparin Lock Flush 100 Units/Ml) 500 units FLUSH ASDIRECTED PRN PRN Reason: Keep Vein Open Last Admin: 03/22/17 10:11 Dose: 500 units Fat Emulsion Intravenous (Intralipid 20%) 250 mls @ 20 mls/hr IV Q24H [facility] Last Admin: 03/26/17 11:52 Dose: 20 mls/hr Sodium Chloride (Normal Saline) 1,000 mls @ 50 mls/hr IV ASDIRECTED [facility] Last Admin: 03/27/17 03:47 Dose: 50 mls/hr Multivitamins/Minerals 10 ml/Amino Ac/Electrol/Dextrose/Calcium 1,010 mls @ 84 mls/hr IV .BY DURATION [facility] Last Admin: 03/26/17 11:12 Dose: 84 mls/hr Amino Ac/Electrol/Dextrose/Calcium (Clinimix E 12/08) 1,000 mls @ 84 mls/hr IV .BY DURATION [facility] Last Admin: 03/26/17 23:19 Dose: 84 mls/hr Ketorolac Tromethamine (Toradol) 15 mg IVPUSH Q6H PRN PRN Reason: Pain (moderate 4-6) Last Admin: 03/23/17 04:48 Dose: 15 mg Latanoprost (Xalatan 0.005% Ophth Soln) 0 ml EYEBOTH BEDTIME [facility] Last Admin: 03/26/17 20:21 Dose: 1 drop Metoprolol Succinate (Toprol Xl) 25 mg PO DAILY [facility] Last Admin: 03/27/17 08:28 Dose: 25 mg Morphine Sulfate (Morphine) 2 mg IVPUSH Q2H PRN PRN Reason: Pain (severe 7-10) Last Admin: 03/26/17 23:30 Dose: 2 mg Ondansetron HCl (Zofran) 4 mg IV Q6H PRN PRN Reason: Nausea/Vomiting Last Admin: 03/27/17 09:39 Dose: 4 mg Pantoprazole Sodium (Protonix Iv) 40 mg IVPUSH DAILY [facility] Last Admin: 03/27/17 08:28 Dose: 40 mg Phytonadione (Aquamephyton) 10 mg IM Mo [facility] Last Admin: 03/23/17 08:18 Dose: 10 mg Sodium Chloride (Saline Flush) 10 ml FLUSH ASDIRECTED PRN PRN Reason: Keep Vein Open Last Admin: 03/26/17 23:31 Dose: 10 ml Discontinued Medications Bisacodyl (Dulcolax) 10 mg RECTAL ONETIME ONE Stop: 03/22/17 08:59 Last Admin: 03/22/17 11:16 Dose: 10 mg Fentanyl (Sublimaze) 100 mcg IV .STK-MED ONE Stop: 03/25/17 10:01 Multivitamins/Minerals 10 ml/Amino Ac/Electrol/Dextrose/Calcium 1,010 mls @ 84 mls/hr IV Q24H [facility] Stop: 03/23/17 13:30 Last Admin: 03/22/17 14:17 Dose: 42 mls/hr Multivitamins/Minerals 10 ml/Amino Ac/Electrol/Dextrose/Calcium 1,010 mls @ 84 mls/hr IV .BY DURATION [facility] Last Admin: 03/24/17 13:29 Dose: 84 mls/hr Amino Ac/Electrol/Dextrose/Calcium (Clinimix E /15) 1,000 mls @ 84 mls/hr IV .BY DURATION [facility] Last Admin: 03/25/17 02:17 Dose: 84 mls/hr Potassium Chloride 20 meq/ (Premix) 100 mls @ 50 mls/hr IV ONETIME ONE Stop: 03/24/17 10:10 Last Admin: 03/24/17 09:03 Dose: 50 mls/hr Potassium Chloride 20 meq/ (Premix) 100 mls @ 50 mls/hr IV ONETIME ONE Stop: 03/24/17 12:14 Last Admin: 03/24/17 11:06 Dose: 50 mls/hr Magnesium Sulfate 2 gm/ Premix 50 mls @ 8 mls/hr IV ONETIME ONE Stop: 03/24/17 23:14 Last Admin: 03/24/17 17:04 Dose: 8 mls/hr Lactated Ringer's (Ringers, Lactated) 1,000 mls @ as directed IV .STK-MED ONE Stop: 03/25/17 10:01 Dextrose/Water (Dextrose 10% In Water) 1,000 mls @ as directed IV .STK-MED ONE Stop: 03/25/17 10:01 Insulin Aspart (Novolog) 0 unit SUBCUT WITHMEALSANDBED [facility] PRN Reason: Protocol Last Admin: 03/25/17 18:57 Dose: Not Given Metoclopramide HCl (Reglan) 5 mg IV Q6H [facility] Last Admin: 03/23/17 08:24 Dose: 5 mg Metoprolol Succinate (Toprol Xl) 50 mg PO DAILY [facility] Midazolam HCl (Versed 1 Mg/Ml) 1 mg IV .STK-MED ONE Stop: 03/25/17 10:01 Propofol (Diprivan 20 Ml) 100 mg IV .STK-MED ONE Stop: 03/25/17 10:01 Sucralfate (Carafate) 1 gm PO Q6H [facility] Last Admin: 03/25/17 11:28 Dose: Not Given - Exam General: Alert, Oriented, Mild Distress Lungs: Clear to Auscultation, Normal Respiratory Effort Cardiovascular: Regular Rate, Regular Rhythm GI/Abdominal Exam: Normal Bowel Sounds, Soft, Non-Tender - Problem List & Annotations (1) Gastroparesis SNOMED Code(s): 995484219 Code(s): K31.84 - GASTROPARESIS Status: Acute Current Visit: No - Problem List Review Problem List Initiated/Reviewed/Updated: Yes - My Orders Last 24 Hours: Active Orders 24 hr Category Date Time Status CBC WITH AUTO DIFF [HEME] TH Lab 04/02/17 06:00 Ordered CBC WITH AUTO DIFF [HEME] TH Lab 04/09/17 06:00 Ordered CBC WITH AUTO DIFF [HEME] TH Lab 04/16/17 06:00 Ordered CBC WITH AUTO DIFF [HEME] TH Lab 04/23/17 06:00 Ordered CBC WITH AUTO DIFF [HEME] TH Lab 04/30/17 06:00 Ordered COMPREHENSIVE METABOLIC PN,CMP [CHEM] MO Lab 03/30/17 06:00 Ordered COMPREHENSIVE METABOLIC PN,CMP [CHEM] MO Lab 04/06/17 06:00 Ordered COMPREHENSIVE METABOLIC PN,CMP [CHEM] MO Lab 04/13/17 06:00 Ordered COMPREHENSIVE METABOLIC PN,CMP [CHEM] MO Lab 04/20/17 06:00 Ordered COMPREHENSIVE METABOLIC PN,CMP [CHEM] MO Lab 04/27/17 06:00 Ordered COMPREHENSIVE METABOLIC PN,CMP [CHEM] MO Lab 05/04/17 06:00 Ordered COMPREHENSIVE METABOLIC PN,CMP [CHEM] TH Lab 04/02/17 06:00 Ordered COMPREHENSIVE METABOLIC PN,CMP [CHEM] TH Lab 04/09/17 06:00 Ordered COMPREHENSIVE METABOLIC PN,CMP [CHEM] TH Lab 04/16/17 06:00 Ordered COMPREHENSIVE METABOLIC PN,CMP [CHEM] TH Lab 04/23/17 06:00 Ordered COMPREHENSIVE METABOLIC PN,CMP [CHEM] TH Lab 04/30/17 06:00 Ordered INR,PT,PROTHROMBIN TIME [COAG] TH Lab 04/02/17 06:00 Ordered INR,PT,PROTHROMBIN TIME [COAG] TH Lab 04/09/17 06:00 Ordered INR,PT,PROTHROMBIN TIME [COAG] TH Lab 04/16/17 06:00 Ordered INR,PT,PROTHROMBIN TIME [COAG] TH Lab 04/23/17 06:00 Ordered INR,PT,PROTHROMBIN TIME [COAG] TH Lab 04/30/17 06:00 Ordered MAGNESIUM [CHEM] Routine Lab 03/29/17 06:00 Ordered Lidocaine 2% [Xylocaine 2% Jelly] Med 03/27/17 10:50 Ordered 5 ml [facility] Q4H PRN Medication Orders Acetaminophen (Tylenol) 650 mg PO Q4H PRN PRN Reason: Pain (Mild 1-3)/fever Last Admin: 03/22/17 11:25 Dose: 650 mg Albuterol/Ipratropium (Duoneb 3.0-0.5 Mg/3 Ml) 3 ml NEB Q4H PRN PRN Reason: Wheezing Heparin Sodium (Porcine) (Heparin Lock Flush 100 Units/Ml) 500 units FLUSH ASDIRECTED PRN PRN Reason: Keep Vein Open Last Admin: 03/22/17 10:11 Dose: 500 units Fat Emulsion Intravenous (Intralipid 20%) 250 mls @ 20 mls/hr IV Q24H [facility] Last Admin: 03/26/17 11:52 Dose: 20 mls/hr Infusion: 03/26/17 00:48 Dose: 20 mls/hr Admin: 03/25/17 12:18 Dose: 20 mls/hr Infusion: 03/25/17 01:18 Dose: 20 mls/hr Admin: 03/24/17 12:48 Dose: 20 mls/hr Infusion: 03/24/17 01:15 Dose: 20 mls/hr Admin: 03/23/17 12:45 Dose: 20 mls/hr Infusion: 03/23/17 01:38 Dose: 20 mls/hr Admin: 03/22/17 13:08 Dose: 20 mls/hr Infusion: 03/22/17 01:23 Dose: 20 mls/hr Admin: 03/21/17 12:53 Dose: 20 mls/hr Sodium Chloride (Normal Saline) 1,000 mls @ 50 mls/hr IV ASDIRECTED [facility] Last Admin: 03/27/17 03:47 Dose: 50 mls/hr Infusion: 03/27/17 03:47 Dose: 50 mls/hr Admin: 03/26/17 08:20 Dose: 50 mls/hr Infusion: 03/26/17 08:20 Dose: 50 mls/hr Admin: 03/25/17 12:25 Dose: 50 mls/hr Infusion: 03/25/17 04:11 Dose: 50 mls/hr Admin: 03/24/17 08:11 Dose: 50 mls/hr Multivitamins/Minerals 10 ml/Amino Ac/Electrol/Dextrose/Calcium 1,010 mls @ 84 mls/hr IV .BY DURATION [facility] Last Admin: 03/26/17 11:12 Dose: 84 mls/hr Infusion: 03/25/17 22:48 Dose: 84 mls/hr Admin: 03/25/17 10:46 Dose: 84 mls/hr Amino Ac/Electrol/Dextrose/Calcium (Clinimix E 5/15) 1,000 mls @ 84 mls/hr IV .BY DURATION [facility] Last Admin: 03/26/17 23:19 Dose: 84 mls/hr Infusion: 03/26/17 10:59 Dose: 84 mls/hr Admin: 03/25/17 23:04 Dose: 84 mls/hr Ketorolac Tromethamine (Toradol) 15 mg IVPUSH Q6H PRN PRN Reason: Pain (moderate 4-6) Last Admin: 03/23/17 04:48 Dose: 15 mg Admin: 03/22/17 22:04 Dose: 15 mg Admin: 03/22/17 15:43 Dose: 15 mg Admin: 03/22/17 03:12 Dose: 15 mg Latanoprost (Xalatan 0.005% Ophth Soln) 0 ml EYEBOTH BEDTIME [facility] Last Admin: 03/26/17 20:21 Dose: 1 drop Admin: 03/25/17 23:06 Dose: 1 drop Admin: 03/24/17 20:03 Dose: 1 drop Admin: 03/23/17 22:01 Dose: 1 drop Admin: 03/22/17 20:37 Dose: 1 drop Admin: 03/21/17 21:05 Dose: 1 drop Metoprolol Succinate (Toprol Xl) 25 mg PO DAILY [facility] Last Admin: 03/27/17 08:28 Dose: 25 mg Admin: 03/26/17 08:43 Dose: 25 mg Admin: 03/25/17 11:32 Dose: 25 mg Admin: 03/24/17 08:30 Dose: 25 mg Admin: 03/23/17 08:21 Dose: 25 mg Admin: 03/22/17 09:59 Dose: 25 mg Morphine Sulfate (Morphine) 2 mg IVPUSH Q2H PRN PRN Reason: Pain (severe 7-10) Last Admin: 03/26/17 23:30 Dose: 2 mg Admin: 03/26/17 20:25 Dose: 2 mg Admin: 03/26/17 14:55 Dose: 2 mg Admin: 03/25/17 23:14 Dose: 2 mg Admin: 03/25/17 18:21 Dose: 2 mg Admin: 03/25/17 15:00 Dose: 2 mg Ondansetron HCl (Zofran) 4 mg IV Q6H PRN PRN Reason: Nausea/Vomiting Last Admin: 03/27/17 09:39 Dose: 4 mg Admin: 03/25/17 08:40 Dose: 4 mg Admin: 03/23/17 11:39 Dose: 4 mg Admin: 03/23/17 04:48 Dose: 4 mg Admin: 03/22/17 22:04 Dose: 4 mg Admin: 03/22/17 15:46 Dose: 4 mg Admin: 03/22/17 10:05 Dose: 4 mg Admin: 03/22/17 03:16 Dose: 4 mg Admin: 03/21/17 21:09 Dose: 4 mg Pantoprazole Sodium (Protonix Iv) 40 mg IVPUSH DAILY [facility] Last Admin: 03/27/17 08:28 Dose: 40 mg Admin: 03/26/17 08:50 Dose: 40 mg Admin: 03/25/17 11:32 Dose: 40 mg Admin: 03/24/17 08:30 Dose: 40 mg Admin: 03/23/17 08:19 Dose: 40 mg Admin: 03/22/17 10:00 Dose: 40 mg Phytonadione (Aquamephyton) 10 mg IM Mo [facility] Last Admin: 03/23/17 08:18 Dose: 10 mg Sodium Chloride (Saline Flush) 10 ml FLUSH ASDIRECTED PRN PRN Reason: Keep Vein Open Last Admin: 03/26/17 23:31 Dose: 10 ml Admin: 03/26/17 14:56 Dose: 10 ml Admin: 03/26/17 08:57 Dose: 10 ml Admin: 03/25/17 11:33 Dose: 10 ml Admin: 03/25/17 08:40 Dose: 10 ml Admin: 03/23/17 04:55 Dose: 10 ml Admin: 03/23/17 01:48 Dose: 10 ml Admin: 03/22/17 22:11 Dose: 10 ml Admin: 03/22/17 22:10 Dose: 10 ml Admin: 03/22/17 20:06 Dose: 10 ml Admin: 03/22/17 15:43 Dose: 10 ml Admin: 03/22/17 10:10 Dose: 10 ml Admin: 03/22/17 10:04 Dose: 10 ml Admin: 03/22/17 03:24 Dose: 10 ml Admin: 03/22/17 03:12 Dose: 10 ml Admin: 03/21/17 21:09 Dose: 10 ml - Assessment Assessment (Free Text/Narrative):: NGT appears to be the issue - Plan Plan (Free Text/Narrative):: topical lidocaine every 4 hrs as needed. continue current rx.
[2017-03-27] MEDS: CALCIUM IV SCH ×4 (11:30→23:41)
[2017-03-27] MEDS: CALC IV SCH ×4 (11:30→23:41)
[2017-03-27] MEDS: MVI IV SCH ×4 (11:30→23:41)
[2017-03-27] MEDS: LYTES IV SCH ×4 (11:30→23:41)
[2017-03-27] MEDS: [UNRECOGNIZED DRUG - OTHER] IV SCH ×4 (11:30→23:41)
[2017-03-27] MEDS: Fat Emulsion 250 ML IV SCH (13:00)
[2017-03-27] MEDS: Latanoprost 0.005% Ophth Soln 2.5 ML Bottle EYEBOTH SCH (20:48)
[2017-03-27] MEDS: Morphine 2 MG/ML Syringe IVPUSH PRN (21:01)
[2017-03-28] MEDS: Metoprolol Succinate 25 MG Tab.ER PO SCH (08:45)
[2017-03-28] MEDS: Pantoprazole 40 MG Vial IVPUSH SCH (08:45)
--- NOTE | 2017-03-28 09:56 | PCM.SURGPN ---
- General Info Date of Service: 03/28/17 Functional Status: Reports: Pain Controlled, Ambulating, Urinating - Review of Systems Gastrointestinal: Reports: Other (no issue since NGT was d/cd last pm KUB is unremarkable. ) - Patient Data Vitals - Most Recent: Last Vital Signs Temp 36.7 C 03/28/17 08:00 Pulse 86 03/28/17 08:45 Resp 18 03/28/17 08:00 BP 147/82 H 03/28/17 08:45 Pulse Ox 96 03/28/17 08:00 Weight - Most Recent: 73.981 kg I&O - Last 24 Hours: Intake & Output 03/27/17 03/28/17 03/28/17 22:59 06:59 14:59 Intake Total 1056 1259 Output Total 250 825 Balance 806 434 Lab Results Last 24 Hrs: Laboratory Results - last 24 hr 03/28/17 Range/Units 06:00 POC Glucose 116 (80-116) mg/dL Med Orders - Current: Current Medications Acetaminophen (Tylenol) 650 mg PO Q4H PRN PRN Reason: Pain (Mild 1-3)/fever Last Admin: 03/22/17 11:25 Dose: 650 mg Albuterol/Ipratropium (Duoneb 3.0-0.5 Mg/3 Ml) 3 ml NEB Q4H PRN PRN Reason: Wheezing Heparin Sodium (Porcine) (Heparin Lock Flush 100 Units/Ml) 500 units FLUSH ASDIRECTED PRN PRN Reason: Keep Vein Open Last Admin: 03/22/17 10:11 Dose: 500 units Fat Emulsion Intravenous (Intralipid 20%) 250 mls @ 20 mls/hr IV Q24H [facility] Last Admin: 03/27/17 13:00 Dose: 20 mls/hr Sodium Chloride (Normal Saline) 1,000 mls @ 50 mls/hr IV ASDIRECTED [facility] Last Admin: 03/27/17 23:47 Dose: 50 mls/hr Multivitamins/Minerals 10 ml/Amino Ac/Electrol/Dextrose/Calcium 1,010 mls @ 84 mls/hr IV .BY DURATION [facility] Last Admin: 03/27/17 11:30 Dose: 84 mls/hr Amino Ac/Electrol/Dextrose/Calcium (Clinimix E 5/15) 1,000 mls @ 84 mls/hr IV .BY DURATION [facility] Last Admin: 03/27/17 23:41 Dose: 84 mls/hr Ketorolac Tromethamine (Toradol) 15 mg IVPUSH Q6H PRN PRN Reason: Pain (moderate 4-6) Last Admin: 03/23/17 04:48 Dose: 15 mg Latanoprost (Xalatan 0.005% Ophth Soln) 0 ml EYEBOTH BEDTIME [facility] Last Admin: 03/27/17 20:48 Dose: 1 drop Lidocaine HCl (Xylocaine 2% Jelly) 5 ml MUCMEM Q4H PRN PRN Reason: Pain Last Admin: 03/27/17 13:05 Dose: 5 ml Metoprolol Succinate (Toprol Xl) 25 mg PO DAILY [facility] Last Admin: 03/28/17 08:45 Dose: 25 mg Morphine Sulfate (Morphine) 2 mg IVPUSH Q2H PRN PRN Reason: Pain (severe 7-10) Last Admin: 03/27/17 21:01 Dose: 2 mg Ondansetron HCl (Zofran) 4 mg IV Q6H PRN PRN Reason: Nausea/Vomiting Last Admin: 03/27/17 09:39 Dose: 4 mg Pantoprazole Sodium (Protonix Iv) 40 mg IVPUSH DAILY [facility] Last Admin: 03/28/17 08:45 Dose: 40 mg Phytonadione (Aquamephyton) 10 mg IM Mo [facility] Last Admin: 03/23/17 08:18 Dose: 10 mg Sodium Chloride (Saline Flush) 10 ml FLUSH ASDIRECTED PRN PRN Reason: Keep Vein Open Last Admin: 03/26/17 23:31 Dose: 10 ml Discontinued Medications Bisacodyl (Dulcolax) 10 mg RECTAL ONETIME ONE Stop: 03/22/17 08:59 Last Admin: 03/22/17 11:16 Dose: 10 mg Fentanyl (Sublimaze) 100 mcg IV .STK-MED ONE Stop: 03/25/17 10:01 Multivitamins/Minerals 10 ml/Amino Ac/Electrol/Dextrose/Calcium 1,010 mls @ 84 mls/hr IV Q24H [facility] Stop: 03/23/17 13:30 Last Admin: 03/22/17 14:17 Dose: 42 mls/hr Multivitamins/Minerals 10 ml/Amino Ac/Electrol/Dextrose/Calcium 1,010 mls @ 84 mls/hr IV .BY DURATION [facility] Last Admin: 03/24/17 13:29 Dose: 84 mls/hr Amino Ac/Electrol/Dextrose/Calcium (Clinimix E 12/08) 1,000 mls @ 84 mls/hr IV .BY DURATION [facility] Last Admin: 03/25/17 02:17 Dose: 84 mls/hr Potassium Chloride 20 meq/ (Premix) 100 mls @ 50 mls/hr IV ONETIME ONE Stop: 03/24/17 10:10 Last Admin: 03/24/17 09:03 Dose: 50 mls/hr Potassium Chloride 20 meq/ (Premix) 100 mls @ 50 mls/hr IV ONETIME ONE Stop: 03/24/17 12:14 Last Admin: 03/24/17 11:06 Dose: 50 mls/hr Magnesium Sulfate 2 gm/ Premix 50 mls @ 8 mls/hr IV ONETIME ONE Stop: 03/24/17 23:14 Last Admin: 03/24/17 17:04 Dose: 8 mls/hr Lactated Ringer's (Ringers, Lactated) 1,000 mls @ as directed IV .STK-MED ONE Stop: 03/25/17 10:01 Dextrose/Water (Dextrose 10% In Water) 1,000 mls @ as directed IV .STK-MED ONE Stop: 03/25/17 10:01 Insulin Aspart (Novolog) 0 unit SUBCUT WITHMEALSANDBED [facility] PRN Reason: Protocol Last Admin: 03/25/17 18:57 Dose: Not Given Metoclopramide HCl (Reglan) 5 mg IV Q6H [facility] Last Admin: 03/23/17 08:24 Dose: 5 mg Metoprolol Succinate (Toprol Xl) 50 mg PO DAILY [facility] Midazolam HCl (Versed 1 Mg/Ml) 1 mg IV .STK-MED ONE Stop: 03/25/17 10:01 Propofol (Diprivan 20 Ml) 100 mg IV .STK-MED ONE Stop: 03/25/17 10:01 Sucralfate (Carafate) 1 gm PO Q6H [facility] Last Admin: 03/25/17 11:28 Dose: Not Given - Exam General: Alert, Oriented, No Acute Distress Lungs: Clear to Auscultation, Normal Respiratory Effort Cardiovascular: Regular Rate, Regular Rhythm GI/Abdominal Exam: Normal Bowel Sounds, Soft, Non-Tender, No Distention - Problem List & Annotations (1) Gastroparesis SNOMED Code(s): 238606600 Code(s): K31.84 - GASTROPARESIS Status: Acute Current Visit: No - Problem List Review Problem List Initiated/Reviewed/Updated: Yes - My Orders Last 24 Hours: Active Orders 24 hr Category Date Time Status KUB [Abdomen 1V Flat] [CR] Routine Exams 03/28/17 07:00 Taken CBC WITH AUTO DIFF [HEME] TH Lab 04/02/17 06:00 Ordered CBC WITH AUTO DIFF [HEME] TH Lab 04/09/17 06:00 Ordered CBC WITH AUTO DIFF [HEME] TH Lab 04/16/17 06:00 Ordered CBC WITH AUTO DIFF [HEME] TH Lab 04/23/17 06:00 Ordered CBC WITH AUTO DIFF [HEME] TH Lab 04/30/17 06:00 Ordered COMPREHENSIVE METABOLIC PN,CMP [CHEM] MO Lab 03/30/17 06:00 Ordered COMPREHENSIVE METABOLIC PN,CMP [CHEM] MO Lab 04/06/17 06:00 Ordered COMPREHENSIVE METABOLIC PN,CMP [CHEM] MO Lab 04/13/17 06:00 Ordered COMPREHENSIVE METABOLIC PN,CMP [CHEM] MO Lab 04/20/17 06:00 Ordered COMPREHENSIVE METABOLIC PN,CMP [CHEM] MO Lab 04/27/17 06:00 Ordered COMPREHENSIVE METABOLIC PN,CMP [CHEM] MO Lab 05/04/17 06:00 Ordered COMPREHENSIVE METABOLIC PN,CMP [CHEM] TH Lab 04/02/17 06:00 Ordered COMPREHENSIVE METABOLIC PN,CMP [CHEM] TH Lab 04/09/17 06:00 Ordered COMPREHENSIVE METABOLIC PN,CMP [CHEM] TH Lab 04/16/17 06:00 Ordered COMPREHENSIVE METABOLIC PN,CMP [CHEM] TH Lab 04/23/17 06:00 Ordered COMPREHENSIVE METABOLIC PN,CMP [CHEM] TH Lab 04/30/17 06:00 Ordered INR,PT,PROTHROMBIN TIME [COAG] TH Lab 04/02/17 06:00 Ordered INR,PT,PROTHROMBIN TIME [COAG] TH Lab 04/09/17 06:00 Ordered INR,PT,PROTHROMBIN TIME [COAG] TH Lab 04/16/17 06:00 Ordered INR,PT,PROTHROMBIN TIME [COAG] TH Lab 04/23/17 06:00 Ordered INR,PT,PROTHROMBIN TIME [COAG] TH Lab 04/30/17 06:00 Ordered MAGNESIUM [CHEM] Routine Lab 03/29/17 06:00 Ordered Lidocaine 2% [Xylocaine 2% Jelly] Med 03/27/17 10:50 Active 5 ml MUCMEM Q4H PRN NG [Nasogastric Orogastric Tube Removal] [OM.PC] Oth 03/27/17 21:32 Ordered Routine Medication Orders Acetaminophen (Tylenol) 650 mg PO Q4H PRN PRN Reason: Pain (Mild 1-3)/fever Last Admin: 03/22/17 11:25 Dose: 650 mg Albuterol/Ipratropium (Duoneb 3.0-0.5 Mg/3 Ml) 3 ml NEB Q4H PRN PRN Reason: Wheezing Heparin Sodium (Porcine) (Heparin Lock Flush 100 Units/Ml) 500 units FLUSH ASDIRECTED PRN PRN Reason: Keep Vein Open Last Admin: 03/22/17 10:11 Dose: 500 units Fat Emulsion Intravenous (Intralipid 20%) 250 mls @ 20 mls/hr IV Q24H [facility] Last Admin: 03/27/17 13:00 Dose: 20 mls/hr Infusion: 03/27/17 00:22 Dose: 20 mls/hr Admin: 03/26/17 11:52 Dose: 20 mls/hr Infusion: 03/26/17 00:48 Dose: 20 mls/hr Admin: 03/25/17 12:18 Dose: 20 mls/hr Infusion: 03/25/17 01:18 Dose: 20 mls/hr Admin: 03/24/17 12:48 Dose: 20 mls/hr Infusion: 03/24/17 01:15 Dose: 20 mls/hr Admin: 03/23/17 12:45 Dose: 20 mls/hr Infusion: 03/23/17 01:38 Dose: 20 mls/hr Admin: 03/22/17 13:08 Dose: 20 mls/hr Infusion: 03/22/17 01:23 Dose: 20 mls/hr Admin: 03/21/17 12:53 Dose: 20 mls/hr Sodium Chloride (Normal Saline) 1,000 mls @ 50 mls/hr IV ASDIRECTED [facility] Last Admin: 03/27/17 23:47 Dose: 50 mls/hr Infusion: 03/27/17 23:47 Dose: 50 mls/hr Admin: 03/27/17 03:47 Dose: 50 mls/hr Infusion: 03/27/17 03:47 Dose: 50 mls/hr Admin: 03/26/17 08:20 Dose: 50 mls/hr Infusion: 03/26/17 08:20 Dose: 50 mls/hr Admin: 03/25/17 12:25 Dose: 50 mls/hr Infusion: 03/25/17 04:11 Dose: 50 mls/hr Admin: 03/24/17 08:11 Dose: 50 mls/hr Multivitamins/Minerals 10 ml/Amino Ac/Electrol/Dextrose/Calcium 1,010 mls @ 84 mls/hr IV .BY DURATION [facility] Last Admin: 03/27/17 11:30 Dose: 84 mls/hr Infusion: 03/26/17 23:14 Dose: 84 mls/hr Admin: 03/26/17 11:12 Dose: 84 mls/hr Infusion: 03/25/17 22:48 Dose: 84 mls/hr Admin: 03/25/17 10:46 Dose: 84 mls/hr Amino Ac/Electrol/Dextrose/Calcium (Clinimix E 12/08) 1,000 mls @ 84 mls/hr IV .BY DURATION [facility] Last Admin: 03/27/17 23:41 Dose: 84 mls/hr Infusion: 03/27/17 11:14 Dose: 84 mls/hr Admin: 03/26/17 23:19 Dose: 84 mls/hr Infusion: 03/26/17 10:59 Dose: 84 mls/hr Admin: 03/25/17 23:04 Dose: 84 mls/hr Ketorolac Tromethamine (Toradol) 15 mg IVPUSH Q6H PRN PRN Reason: Pain (moderate 4-6) Last Admin: 03/23/17 04:48 Dose: 15 mg Admin: 03/22/17 22:04 Dose: 15 mg Admin: 03/22/17 15:43 Dose: 15 mg Admin: 03/22/17 03:12 Dose: 15 mg Latanoprost (Xalatan 0.005% Ophth Soln) 0 ml EYEBOTH BEDTIME [facility] Last Admin: 03/27/17 20:48 Dose: 1 drop Admin: 03/26/17 20:21 Dose: 1 drop Admin: 03/25/17 23:06 Dose: 1 drop Admin: 03/24/17 20:03 Dose: 1 drop Admin: 03/23/17 22:01 Dose: 1 drop Admin: 03/22/17 20:37 Dose: 1 drop Admin: 03/21/17 21:05 Dose: 1 drop Lidocaine HCl (Xylocaine 2% Jelly) 5 ml MUCMEM Q4H PRN PRN Reason: Pain Last Admin: 03/27/17 13:05 Dose: 5 ml Metoprolol Succinate (Toprol Xl) 25 mg PO DAILY [facility] Last Admin: 03/28/17 08:45 Dose: 25 mg Admin: 03/27/17 08:28 Dose: 25 mg Admin: 03/26/17 08:43 Dose: 25 mg Admin: 03/25/17 11:32 Dose: 25 mg Admin: 03/24/17 08:30 Dose: 25 mg Admin: 03/23/17 08:21 Dose: 25 mg Admin: 03/22/17 09:59 Dose: 25 mg Morphine Sulfate (Morphine) 2 mg IVPUSH Q2H PRN PRN Reason: Pain (severe 7-10) Last Admin: 03/27/17 21:01 Dose: 2 mg Admin: 03/26/17 23:30 Dose: 2 mg Admin: 03/26/17 20:25 Dose: 2 mg Admin: 03/26/17 14:55 Dose: 2 mg Admin: 03/25/17 23:14 Dose: 2 mg Admin: 03/25/17 18:21 Dose: 2 mg Admin: 03/25/17 15:00 Dose: 2 mg Ondansetron HCl (Zofran) 4 mg IV Q6H PRN PRN Reason: Nausea/Vomiting Last Admin: 03/27/17 09:39 Dose: 4 mg Admin: 03/25/17 08:40 Dose: 4 mg Admin: 03/23/17 11:39 Dose: 4 mg Admin: 03/23/17 04:48 Dose: 4 mg Admin: 03/22/17 22:04 Dose: 4 mg Admin: 03/22/17 15:46 Dose: 4 mg Admin: 03/22/17 10:05 Dose: 4 mg Admin: 03/22/17 03:16 Dose: 4 mg Admin: 03/21/17 21:09 Dose: 4 mg Pantoprazole Sodium (Protonix Iv) 40 mg IVPUSH DAILY [facility] Last Admin: 03/28/17 08:45 Dose: 40 mg Admin: 03/27/17 08:28 Dose: 40 mg Admin: 03/26/17 08:50 Dose: 40 mg Admin: 03/25/17 11:32 Dose: 40 mg Admin: 03/24/17 08:30 Dose: 40 mg Admin: 03/23/17 08:19 Dose: 40 mg Admin: 03/22/17 10:00 Dose: 40 mg Phytonadione (Aquamephyton) 10 mg IM Mo [facility] Last Admin: 03/23/17 08:18 Dose: 10 mg Sodium Chloride (Saline Flush) 10 ml FLUSH ASDIRECTED PRN PRN Reason: Keep Vein Open Last Admin: 03/26/17 23:31 Dose: 10 ml Admin: 03/26/17 14:56 Dose: 10 ml Admin: 03/26/17 08:57 Dose: 10 ml Admin: 03/25/17 11:33 Dose: 10 ml Admin: 03/25/17 08:40 Dose: 10 ml Admin: 03/23/17 04:55 Dose: 10 ml Admin: 03/23/17 01:48 Dose: 10 ml Admin: 03/22/17 22:11 Dose: 10 ml Admin: 03/22/17 22:10 Dose: 10 ml Admin: 03/22/17 20:06 Dose: 10 ml Admin: 03/22/17 15:43 Dose: 10 ml Admin: 03/22/17 10:10 Dose: 10 ml Admin: 03/22/17 10:04 Dose: 10 ml Admin: 03/22/17 03:24 Dose: 10 ml Admin: 03/22/17 03:12 Dose: 10 ml Admin: 03/21/17 21:09 Dose: 10 ml - Assessment Assessment (Free Text/Narrative):: stable - Plan Plan (Free Text/Narrative):: extensive discussion held with the pt as well as his daughter. plan a gastric emptying study next week.
[2017-03-28] MEDS: CALCIUM IV SCH ×4 (11:15→23:10)
[2017-03-28] MEDS: [UNRECOGNIZED DRUG - OTHER] IV SCH ×4 (11:15→23:10)
[2017-03-28] MEDS: CALC IV SCH ×4 (11:15→23:10)
[2017-03-28] MEDS: MVI IV SCH ×4 (11:15→23:10)
[2017-03-28] MEDS: LYTES IV SCH ×4 (11:15→23:10)
[2017-03-28] MEDS: Fat Emulsion 250 ML IV SCH (13:02)
[2017-03-28] MEDS: Morphine 2 MG/ML Syringe IVPUSH PRN ×2 (19:10→23:20)
[2017-03-28] MEDS: Sodium Chloride 0.9% 1,000 ML IV SCH (19:42)
[2017-03-28] MEDS: Latanoprost 0.005% Ophth Soln 2.5 ML Bottle EYEBOTH SCH (20:58)
[2017-03-28] MEDS: Sodium Chloride 0.9% 10 ML Syringe FLUSH PRN (23:21)
[2017-03-29] MEDS: Morphine 2 MG/ML Syringe IVPUSH PRN (01:51)
[2017-03-29] MEDS: Sodium Chloride 0.9% 10 ML Syringe FLUSH PRN ×2 (01:52→10:05)
[2017-03-29] MEDS ORDERED: Magnesium Sulfate/Water 2 GM in Premix Bag 1 BAG IV ONE (08:30)
--- NOTE | 2017-03-29 09:17 | PCM.SURGPN ---
- General Info Date of Service: 03/29/17 - Review of Systems Gastrointestinal: Reports: Vomiting (x1 feels better ) - Patient Data Vitals - Most Recent: Last Vital Signs Temp 36.8 C 03/29/17 07:44 Pulse 78 03/29/17 07:44 Resp 18 03/29/17 07:44 BP 130/79 03/29/17 07:44 Pulse Ox 94 L 03/29/17 07:44 Weight - Most Recent: 75.977 kg I&O - Last 24 Hours: Intake & Output 03/28/17 03/29/17 03/29/17 22:59 06:59 14:59 Intake Total 978 1134 Output Total 800 2150 Balance 178 -1016 Lab Results Last 24 Hrs: Laboratory Results - last 24 hr 03/29/17 03/29/17 Range/Units 05:58 06:35 POC Glucose 143 H (80-116) mg/dL Magnesium 1.7 L (1.8-2.5) mg/dL Med Orders - Current: Current Medications Acetaminophen (Tylenol) 650 mg PO Q4H PRN PRN Reason: Pain (Mild 1-3)/fever Last Admin: 03/22/17 11:25 Dose: 650 mg Albuterol/Ipratropium (Duoneb 3.0-0.5 Mg/3 Ml) 3 ml NEB Q4H PRN PRN Reason: Wheezing Heparin Sodium (Porcine) (Heparin Lock Flush 100 Units/Ml) 500 units FLUSH ASDIRECTED PRN PRN Reason: Keep Vein Open Last Admin: 03/22/17 10:11 Dose: 500 units Fat Emulsion Intravenous (Intralipid 20%) 250 mls @ 20 mls/hr IV Q24H [facility] Last Admin: 03/28/17 13:02 Dose: 20 mls/hr Sodium Chloride (Normal Saline) 1,000 mls @ 50 mls/hr IV ASDIRECTED [facility] Last Admin: 03/28/17 19:42 Dose: 50 mls/hr Multivitamins/Minerals 10 ml/Amino Ac/Electrol/Dextrose/Calcium 1,010 mls @ 84 mls/hr IV .BY DURATION [facility] Last Admin: 03/28/17 11:15 Dose: 84 mls/hr Amino Ac/Electrol/Dextrose/Calcium (Clinimix E 12/08) 1,000 mls @ 84 mls/hr IV .BY DURATION [facility] Last Admin: 03/28/17 23:10 Dose: 84 mls/hr Magnesium Sulfate 2 gm/ Premix 50 mls @ 8 mls/hr IV ONETIME ONE Stop: 03/29/17 14:44 Ketorolac Tromethamine (Toradol) 15 mg IVPUSH Q6H PRN PRN Reason: Pain (moderate 4-6) Last Admin: 03/23/17 04:48 Dose: 15 mg Latanoprost (Xalatan 0.005% Ophth Soln) 0 ml EYEBOTH BEDTIME [facility] Last Admin: 03/28/17 20:58 Dose: 1 drop Lidocaine HCl (Xylocaine 2% Jelly) 5 ml MUCMEM Q4H PRN PRN Reason: Pain Last Admin: 03/27/17 13:05 Dose: 5 ml Metoprolol Succinate (Toprol Xl) 25 mg PO DAILY [facility] Last Admin: 03/28/17 08:45 Dose: 25 mg Morphine Sulfate (Morphine) 2 mg IVPUSH Q2H PRN PRN Reason: Pain (severe 7-10) Last Admin: 03/29/17 01:51 Dose: 2 mg Ondansetron HCl (Zofran) 4 mg IV Q6H PRN PRN Reason: Nausea/Vomiting Last Admin: 03/27/17 09:39 Dose: 4 mg Pantoprazole Sodium (Protonix Iv) 40 mg IVPUSH DAILY [facility] Last Admin: 03/28/17 08:45 Dose: 40 mg Phytonadione (Aquamephyton) 10 mg IM Mo [facility] Last Admin: 03/23/17 08:18 Dose: 10 mg Sodium Chloride (Saline Flush) 10 ml FLUSH ASDIRECTED PRN PRN Reason: Keep Vein Open Last Admin: 03/29/17 01:52 Dose: 10 ml Discontinued Medications Bisacodyl (Dulcolax) 10 mg RECTAL ONETIME ONE Stop: 03/22/17 08:59 Last Admin: 03/22/17 11:16 Dose: 10 mg Fentanyl (Sublimaze) 100 mcg IV .STK-MED ONE Stop: 03/25/17 10:01 Multivitamins/Minerals 10 ml/Amino Ac/Electrol/Dextrose/Calcium 1,010 mls @ 84 mls/hr IV Q24H [facility] Stop: 03/23/17 13:30 Last Admin: 03/22/17 14:17 Dose: 42 mls/hr Multivitamins/Minerals 10 ml/Amino Ac/Electrol/Dextrose/Calcium 1,010 mls @ 84 mls/hr IV .BY DURATION [facility] Last Admin: 03/24/17 13:29 Dose: 84 mls/hr Amino Ac/Electrol/Dextrose/Calcium (Clinimix E 5/15) 1,000 mls @ 84 mls/hr IV .BY DURATION [facility] Last Admin: 03/25/17 02:17 Dose: 84 mls/hr Potassium Chloride 20 meq/ (Premix) 100 mls @ 50 mls/hr IV ONETIME ONE Stop: 03/24/17 10:10 Last Admin: 03/24/17 09:03 Dose: 50 mls/hr Potassium Chloride 20 meq/ (Premix) 100 mls @ 50 mls/hr IV ONETIME ONE Stop: 03/24/17 12:14 Last Admin: 03/24/17 11:06 Dose: 50 mls/hr Magnesium Sulfate 2 gm/ Premix 50 mls @ 8 mls/hr IV ONETIME ONE Stop: 03/24/17 23:14 Last Admin: 03/24/17 17:04 Dose: 8 mls/hr Lactated Ringer's (Ringers, Lactated) 1,000 mls @ as directed IV .STK-MED ONE Stop: 03/25/17 10:01 Dextrose/Water (Dextrose 10% In Water) 1,000 mls @ as directed IV .STK-MED ONE Stop: 03/25/17 10:01 Insulin Aspart (Novolog) 0 unit SUBCUT WITHMEALSANDBED [facility] PRN Reason: Protocol Last Admin: 03/25/17 18:57 Dose: Not Given Metoclopramide HCl (Reglan) 5 mg IV Q6H [facility] Last Admin: 03/23/17 08:24 Dose: 5 mg Metoprolol Succinate (Toprol Xl) 50 mg PO DAILY [facility] Midazolam HCl (Versed 1 Mg/Ml) 1 mg IV .STK-MED ONE Stop: 03/25/17 10:01 Propofol (Diprivan 20 Ml) 100 mg IV .STK-MED ONE Stop: 03/25/17 10:01 Sucralfate (Carafate) 1 gm PO Q6H [facility] Last Admin: 03/25/17 11:28 Dose: Not Given - Exam Wound/Incisions: Dressing Dry and Intact Lungs: Clear to Auscultation, Normal Respiratory Effort Cardiovascular: Regular Rate, Regular Rhythm GI/Abdominal Exam: Normal Bowel Sounds, Soft, Non-Tender - Problem List & Annotations (1) Gastroparesis SNOMED Code(s): 303481772 Code(s): K31.84 - GASTROPARESIS Status: Acute Current Visit: No - Problem List Review Problem List Initiated/Reviewed/Updated: Yes - My Orders Last 24 Hours: Active Orders 24 hr Category Date Time Status CBC WITH AUTO DIFF [HEME] [facility] 04/02/17 06:00 Ordered CBC WITH AUTO DIFF [HEME] [facility] 04/09/17 06:00 Ordered CBC WITH AUTO DIFF [HEME] [facility] 04/16/17 06:00 Ordered CBC WITH AUTO DIFF [HEME] [facility] 04/23/17 06:00 Ordered CBC WITH AUTO DIFF [HEME] TH Lab 04/30/17 06:00 Ordered COMPREHENSIVE METABOLIC PN,CMP [CHEM] [facility] 03/30/17 06:00 Ordered COMPREHENSIVE METABOLIC PN,CMP [CHEM] [facility] 04/06/17 06:00 Ordered COMPREHENSIVE METABOLIC PN,CMP [CHEM] [facility] Lab 04/13/17 06:00 Ordered COMPREHENSIVE METABOLIC PN,CMP [CHEM] [facility] Lab 04/20/17 06:00 Ordered COMPREHENSIVE METABOLIC PN,CMP [CHEM] [facility] Lab 04/27/17 06:00 Ordered COMPREHENSIVE METABOLIC PN,CMP [CHEM] MO Lab 05/04/17 06:00 Ordered COMPREHENSIVE METABOLIC PN,CMP [CHEM] TH Lab 04/02/17 06:00 Ordered COMPREHENSIVE METABOLIC PN,CMP [CHEM] TH Lab 04/09/17 06:00 Ordered COMPREHENSIVE METABOLIC PN,CMP [CHEM] TH Lab 04/16/17 06:00 Ordered COMPREHENSIVE METABOLIC PN,CMP [CHEM] TH Lab 04/23/17 06:00 Ordered COMPREHENSIVE METABOLIC PN,CMP [CHEM] TH Lab 04/30/17 06:00 Ordered INR,PT,PROTHROMBIN TIME [COAG] [facility] Lab 04/02/17 06:00 Ordered INR,PT,PROTHROMBIN TIME [COAG] TH Lab 04/09/17 06:00 Ordered INR,PT,PROTHROMBIN TIME [COAG] TH Lab 04/16/17 06:00 Ordered INR,PT,PROTHROMBIN TIME [COAG] TH Lab 04/23/17 06:00 Ordered INR,PT,PROTHROMBIN TIME [COAG] TH Lab 04/30/17 06:00 Ordered Magnesium Sulfate/Water [Magnesium Sulfate 2 GM in Med 03/29/17 08:30 Active Water 50 ML] 2 gm Premix Bag 1 bag IV ONETIME Medication Orders Acetaminophen (Tylenol) 650 mg PO Q4H PRN PRN Reason: Pain (Mild 1-3)/fever Last Admin: 03/22/17 11:25 Dose: 650 mg Albuterol/Ipratropium (Duoneb 3.0-0.5 Mg/3 Ml) 3 ml NEB Q4H PRN PRN Reason: Wheezing Heparin Sodium (Porcine) (Heparin Lock Flush 100 Units/Ml) 500 units FLUSH ASDIRECTED PRN PRN Reason: Keep Vein Open Last Admin: 03/22/17 10:11 Dose: 500 units Fat Emulsion Intravenous (Intralipid 20%) 250 mls @ 20 mls/hr IV Q24H [facility] Last Admin: 03/28/17 13:02 Dose: 20 mls/hr Infusion: 03/28/17 01:30 Dose: 20 mls/hr Admin: 03/27/17 13:00 Dose: 20 mls/hr Infusion: 03/27/17 00:22 Dose: 20 mls/hr Admin: 03/26/17 11:52 Dose: 20 mls/hr Infusion: 03/26/17 00:48 Dose: 20 mls/hr Admin: 03/25/17 12:18 Dose: 20 mls/hr Infusion: 03/25/17 01:18 Dose: 20 mls/hr Admin: 03/24/17 12:48 Dose: 20 mls/hr Infusion: 03/24/17 01:15 Dose: 20 mls/hr Admin: 03/23/17 12:45 Dose: 20 mls/hr Infusion: 03/23/17 01:38 Dose: 20 mls/hr Admin: 03/22/17 13:08 Dose: 20 mls/hr Infusion: 03/22/17 01:23 Dose: 20 mls/hr Admin: 03/21/17 12:53 Dose: 20 mls/hr Sodium Chloride (Normal Saline) 1,000 mls @ 50 mls/hr IV ASDIRECTED [facility] Last Admin: 03/28/17 19:42 Dose: 50 mls/hr Infusion: 03/28/17 19:42 Dose: 50 mls/hr Admin: 03/27/17 23:47 Dose: 50 mls/hr Infusion: 03/27/17 23:47 Dose: 50 mls/hr Admin: 03/27/17 03:47 Dose: 50 mls/hr Infusion: 03/27/17 03:47 Dose: 50 mls/hr Admin: 03/26/17 08:20 Dose: 50 mls/hr Infusion: 03/26/17 08:20 Dose: 50 mls/hr Admin: 03/25/17 12:25 Dose: 50 mls/hr Infusion: 03/25/17 04:11 Dose: 50 mls/hr Admin: 03/24/17 08:11 Dose: 50 mls/hr Multivitamins/Minerals 10 ml/Amino Ac/Electrol/Dextrose/Calcium 1,010 mls @ 84 mls/hr IV .BY DURATION [facility] Last Admin: 03/28/17 11:15 Dose: 84 mls/hr Infusion: 03/27/17 23:32 Dose: 84 mls/hr Admin: 03/27/17 11:30 Dose: 84 mls/hr Infusion: 03/26/17 23:14 Dose: 84 mls/hr Admin: 03/26/17 11:12 Dose: 84 mls/hr Infusion: 03/25/17 22:48 Dose: 84 mls/hr Admin: 03/25/17 10:46 Dose: 84 mls/hr Amino Ac/Electrol/Dextrose/Calcium (Clinimix E 12/08) 1,000 mls @ 84 mls/hr IV .BY DURATION [facility] Last Admin: 03/28/17 23:10 Dose: 84 mls/hr Infusion: 03/28/17 11:36 Dose: 84 mls/hr Admin: 03/27/17 23:41 Dose: 84 mls/hr Infusion: 03/27/17 11:14 Dose: 84 mls/hr Admin: 03/26/17 23:19 Dose: 84 mls/hr Infusion: 03/26/17 10:59 Dose: 84 mls/hr Admin: 03/25/17 23:04 Dose: 84 mls/hr Magnesium Sulfate 2 gm/ Premix 50 mls @ 8 mls/hr IV ONETIME ONE Stop: 03/29/17 14:44 Ketorolac Tromethamine (Toradol) 15 mg IVPUSH Q6H PRN PRN Reason: Pain (moderate 4-6) Last Admin: 03/23/17 04:48 Dose: 15 mg Admin: 03/22/17 22:04 Dose: 15 mg Admin: 03/22/17 15:43 Dose: 15 mg Admin: 03/22/17 03:12 Dose: 15 mg Latanoprost (Xalatan 0.005% Ophth Soln) 0 ml EYEBOTH BEDTIME [facility] Last Admin: 03/28/17 20:58 Dose: 1 drop Admin: 03/27/17 20:48 Dose: 1 drop Admin: 03/26/17 20:21 Dose: 1 drop Admin: 03/25/17 23:06 Dose: 1 drop Admin: 03/24/17 20:03 Dose: 1 drop Admin: 03/23/17 22:01 Dose: 1 drop Admin: 03/22/17 20:37 Dose: 1 drop Admin: 03/21/17 21:05 Dose: 1 drop Lidocaine HCl (Xylocaine 2% Jelly) 5 ml MUCMEM Q4H PRN PRN Reason: Pain Last Admin: 03/27/17 13:05 Dose: 5 ml Metoprolol Succinate (Toprol Xl) 25 mg PO DAILY [facility] Last Admin: 03/28/17 08:45 Dose: 25 mg Admin: 03/27/17 08:28 Dose: 25 mg Admin: 03/26/17 08:43 Dose: 25 mg Admin: 03/25/17 11:32 Dose: 25 mg Admin: 03/24/17 08:30 Dose: 25 mg Admin: 03/23/17 08:21 Dose: 25 mg Admin: 03/22/17 09:59 Dose: 25 mg Morphine Sulfate (Morphine) 2 mg IVPUSH Q2H PRN PRN Reason: Pain (severe 7-10) Last Admin: 03/29/17 01:51 Dose: 2 mg Admin: 03/28/17 23:20 Dose: 2 mg Admin: 03/28/17 19:10 Dose: 2 mg Admin: 03/27/17 21:01 Dose: 2 mg Admin: 03/26/17 23:30 Dose: 2 mg Admin: 03/26/17 20:25 Dose: 2 mg Admin: 03/26/17 14:55 Dose: 2 mg Admin: 03/25/17 23:14 Dose: 2 mg Admin: 03/25/17 18:21 Dose: 2 mg Admin: 03/25/17 15:00 Dose: 2 mg Ondansetron HCl (Zofran) 4 mg IV Q6H PRN PRN Reason: Nausea/Vomiting Last Admin: 03/27/17 09:39 Dose: 4 mg Admin: 03/25/17 08:40 Dose: 4 mg Admin: 03/23/17 11:39 Dose: 4 mg Admin: 03/23/17 04:48 Dose: 4 mg Admin: 03/22/17 22:04 Dose: 4 mg Admin: 03/22/17 15:46 Dose: 4 mg Admin: 03/22/17 10:05 Dose: 4 mg Admin: 03/22/17 03:16 Dose: 4 mg Admin: 03/21/17 21:09 Dose: 4 mg Pantoprazole Sodium (Protonix Iv) 40 mg IVPUSH DAILY [facility] Last Admin: 03/28/17 08:45 Dose: 40 mg Admin: 03/27/17 08:28 Dose: 40 mg Admin: 03/26/17 08:50 Dose: 40 mg Admin: 03/25/17 11:32 Dose: 40 mg Admin: 03/24/17 08:30 Dose: 40 mg Admin: 03/23/17 08:19 Dose: 40 mg Admin: 03/22/17 10:00 Dose: 40 mg Phytonadione (Aquamephyton) 10 mg IM Mo [facility] Last Admin: 03/23/17 08:18 Dose: 10 mg Sodium Chloride (Saline Flush) 10 ml FLUSH ASDIRECTED PRN PRN Reason: Keep Vein Open Last Admin: 03/29/17 01:52 Dose: 10 ml Admin: 03/28/17 23:21 Dose: 10 ml Admin: 03/26/17 23:31 Dose: 10 ml Admin: 03/26/17 14:56 Dose: 10 ml Admin: 03/26/17 08:57 Dose: 10 ml Admin: 03/25/17 11:33 Dose: 10 ml Admin: 03/25/17 08:40 Dose: 10 ml Admin: 03/23/17 04:55 Dose: 10 ml Admin: 03/23/17 01:48 Dose: 10 ml Admin: 03/22/17 22:11 Dose: 10 ml Admin: 03/22/17 22:10 Dose: 10 ml Admin: 03/22/17 20:06 Dose: 10 ml Admin: 03/22/17 15:43 Dose: 10 ml Admin: 03/22/17 10:10 Dose: 10 ml Admin: 03/22/17 10:04 Dose: 10 ml Admin: 03/22/17 03:24 Dose: 10 ml Admin: 03/22/17 03:12 Dose: 10 ml Admin: 03/21/17 21:09 Dose: 10 ml - Assessment Assessment (Free Text/Narrative):: stable - Plan Plan (Free Text/Narrative):: gastric emptying exam to be scheduled next week.
[2017-03-29] MEDS: Pantoprazole 40 MG Vial IVPUSH SCH (10:02)
[2017-03-29] MEDS: Metoprolol Succinate 25 MG Tab.ER PO SCH (10:04)
[2017-03-29] MEDS: MVI IV SCH ×2 (11:30)
[2017-03-29] MEDS: [UNRECOGNIZED DRUG - OTHER] IV SCH ×2 (11:30)
[2017-03-29] MEDS: CALC IV SCH ×2 (11:30)
[2017-03-29] MEDS: CALCIUM IV SCH ×2 (11:30)
[2017-03-29] MEDS: LYTES IV SCH ×2 (11:30)
[2017-03-29] MEDS: Fat Emulsion 250 ML IV SCH (13:04)
[2017-03-29] MEDS: Sodium Chloride 0.9% 1,000 ML IV SCH (16:07)
[2017-03-29] MEDS: Latanoprost 0.005% Ophth Soln 2.5 ML Bottle EYEBOTH SCH (20:34)
[2017-03-30] MEDS: CALCIUM IV SCH ×6 (00:15→23:56)
[2017-03-30] MEDS: [UNRECOGNIZED DRUG - OTHER] IV SCH ×6 (00:15→23:56)
[2017-03-30] MEDS: MVI IV SCH ×6 (00:15→23:56)
[2017-03-30] MEDS: CALC IV SCH ×6 (00:15→23:56)
[2017-03-30] MEDS: LYTES IV SCH ×6 (00:15→23:56)
--- NOTE | 2017-03-30 10:28 | PCM.SURGPN ---
- General Info Date of Service: 03/30/17 - Review of Systems Systems Review Comment:: overall having a good day. no emesis. some abd cramping. - Patient Data Vitals - Most Recent: Last Vital Signs Temp 36.8 C 03/30/17 08:00 Pulse 95 03/30/17 08:00 Resp 18 03/30/17 08:00 BP 150/84 H 03/30/17 08:00 Pulse Ox 96 03/30/17 08:00 Weight - Most Recent: 75.977 kg I&O - Last 24 Hours: Intake & Output 03/29/17 03/30/17 03/30/17 22:59 06:59 14:59 Intake Total 1195 100 Output Total 800 Balance 1195 -700 Lab Results Last 24 Hrs: Laboratory Results - last 24 hr 03/30/17 Range/Units 06:25 Sodium 137 (135-145) mmol/L Potassium 3.6 (3.5-5.3) mmol/L Chloride 104 (100-110) mmol/L Carbon Dioxide 29 (23-29) mmol/L BUN 21 (8-23) mg/dL Creatinine 0.7 (0.6-1.3) mg/dL Est Cr Clr Drug Dosing 64.56 mL/min Estimated GFR (MDRD) > 60 (>60) BUN/Creatinine Ratio 30.0 H (9-20) Glucose 136 H (80-116) mg/dL Calcium 8.2 L (8.6-10.2) mg/dL Total Bilirubin 0.8 (0.1-1.3) mg/dL AST 25 D (5-27) IU/L ALT 35 H D (14-26) IU/L Alkaline Phosphatase 129 H (56-112) IU/L Total Protein 6.1 (6.0-8.0) g/dL Albumin 2.6 L (2.9-4.5) g/dL Globulin 3.5 g/dL Albumin/Globulin Ratio 0.7 Med Orders - Current: Current Medications Acetaminophen (Tylenol) 650 mg PO Q4H PRN PRN Reason: Pain (Mild 1-3)/fever Last Admin: 03/22/17 11:25 Dose: 650 mg Albuterol/Ipratropium (Duoneb 3.0-0.5 Mg/3 Ml) 3 ml NEB Q4H PRN PRN Reason: Wheezing Heparin Sodium (Porcine) (Heparin Lock Flush 100 Units/Ml) 500 units FLUSH ASDIRECTED PRN PRN Reason: Keep Vein Open Last Admin: 03/22/17 10:11 Dose: 500 units Fat Emulsion Intravenous (Intralipid 20%) 250 mls @ 20 mls/hr IV Q24H [facility] Last Admin: 03/29/17 13:04 Dose: 20 mls/hr Sodium Chloride (Normal Saline) 1,000 mls @ 50 mls/hr IV ASDIRECTED [facility] Last Admin: 03/29/17 16:07 Dose: 50 mls/hr Multivitamins/Minerals 10 ml/Amino Ac/Electrol/Dextrose/Calcium 1,010 mls @ 84 mls/hr IV .BY DURATION [facility] Last Admin: 03/29/17 11:30 Dose: 84 mls/hr Amino Ac/Electrol/Dextrose/Calcium (Clinimix E 5/15) 1,000 mls @ 84 mls/hr IV .BY DURATION [facility] Last Admin: 03/30/17 00:15 Dose: 84 mls/hr Ketorolac Tromethamine (Toradol) 15 mg IVPUSH Q6H PRN PRN Reason: Pain (moderate 4-6) Last Admin: 03/23/17 04:48 Dose: 15 mg Latanoprost (Xalatan 0.005% Ophth Soln) 0 ml EYEBOTH BEDTIME [facility] Last Admin: 03/29/17 20:34 Dose: 1 drop Lidocaine HCl (Xylocaine 2% Jelly) 5 ml MUCMEM Q4H PRN PRN Reason: Pain Last Admin: 03/27/17 13:05 Dose: 5 ml Metoprolol Succinate (Toprol Xl) 25 mg PO DAILY [facility] Last Admin: 03/29/17 10:04 Dose: 25 mg Morphine Sulfate (Morphine) 2 mg IVPUSH Q2H PRN PRN Reason: Pain (severe 7-10) Last Admin: 03/29/17 01:51 Dose: 2 mg Ondansetron HCl (Zofran) 4 mg IV Q6H PRN PRN Reason: Nausea/Vomiting Last Admin: 03/27/17 09:39 Dose: 4 mg Pantoprazole Sodium (Protonix Iv) 40 mg IVPUSH DAILY [facility] Last Admin: 03/29/17 10:02 Dose: 40 mg Phytonadione (Aquamephyton) 10 mg IM Mo [facility] Last Admin: 03/23/17 08:18 Dose: 10 mg Sodium Chloride (Saline Flush) 10 ml FLUSH ASDIRECTED PRN PRN Reason: Keep Vein Open Last Admin: 03/29/17 10:05 Dose: 10 ml Discontinued Medications Bisacodyl (Dulcolax) 10 mg RECTAL ONETIME ONE Stop: 03/22/17 08:59 Last Admin: 03/22/17 11:16 Dose: 10 mg Fentanyl (Sublimaze) 100 mcg IV .STK-MED ONE Stop: 03/25/17 10:01 Multivitamins/Minerals 10 ml/Amino Ac/Electrol/Dextrose/Calcium 1,010 mls @ 84 mls/hr IV Q24H [facility] Stop: 03/23/17 13:30 Last Admin: 03/22/17 14:17 Dose: 42 mls/hr Multivitamins/Minerals 10 ml/Amino Ac/Electrol/Dextrose/Calcium 1,010 mls @ 84 mls/hr IV .BY DURATION [facility] Last Admin: 03/24/17 13:29 Dose: 84 mls/hr Amino Ac/Electrol/Dextrose/Calcium (Clinimix E 15) 1,000 mls @ 84 mls/hr IV .BY DURATION [facility] Last Admin: 03/25/17 02:17 Dose: 84 mls/hr Potassium Chloride 20 meq/ (Premix) 100 mls @ 50 mls/hr IV ONETIME ONE Stop: 03/24/17 10:10 Last Admin: 03/24/17 09:03 Dose: 50 mls/hr Potassium Chloride 20 meq/ (Premix) 100 mls @ 50 mls/hr IV ONETIME ONE Stop: 03/24/17 12:14 Last Admin: 03/24/17 11:06 Dose: 50 mls/hr Magnesium Sulfate 2 gm/ Premix 50 mls @ 8 mls/hr IV ONETIME ONE Stop: 03/24/17 23:14 Last Admin: 03/24/17 17:04 Dose: 8 mls/hr Lactated Ringer's (Ringers, Lactated) 1,000 mls @ as directed IV .STK-MED ONE Stop: 03/25/17 10:01 Dextrose/Water (Dextrose 10% In Water) 1,000 mls @ as directed IV .STK-MED ONE Stop: 03/25/17 10:01 Magnesium Sulfate 2 gm/ Premix 50 mls @ 8 mls/hr IV ONETIME ONE Stop: 03/29/17 14:44 Last Admin: 03/29/17 10:00 Dose: 8 mls/hr Insulin Aspart (Novolog) 0 unit SUBCUT WITHMEALSANDBED [facility] PRN Reason: Protocol Last Admin: 03/25/17 18:57 Dose: Not Given Metoclopramide HCl (Reglan) 5 mg IV Q6H [facility] Last Admin: 03/23/17 08:24 Dose: 5 mg Metoprolol Succinate (Toprol Xl) 50 mg PO DAILY [facility] Midazolam HCl (Versed 1 Mg/Ml) 1 mg IV .STK-MED ONE Stop: 03/25/17 10:01 Propofol (Diprivan 20 Ml) 100 mg IV .STK-MED ONE Stop: 03/25/17 10:01 Sucralfate (Carafate) 1 gm PO Q6H [facility] Last Admin: 03/25/17 11:28 Dose: Not Given - Exam General: Alert, Oriented, Cooperative, No Acute Distress Lungs: Clear to Auscultation, Normal Respiratory Effort Cardiovascular: Regular Rate, Regular Rhythm GI/Abdominal Exam: Normal Bowel Sounds, Soft, Non-Tender, No Organomegaly - Problem List & Annotations (1) Gastroparesis SNOMED Code(s): 742090897 Code(s): K31.84 - GASTROPARESIS Status: Acute Current Visit: No - Problem List Review Problem List Initiated/Reviewed/Updated: Yes - My Orders Last 24 Hours: Active Orders 24 hr Category Date Time Status CBC WITH AUTO DIFF [HEME] [facility] 04/02/17 06:00 Ordered CBC WITH AUTO DIFF [HEME] [facility] 04/09/17 06:00 Ordered CBC WITH AUTO DIFF [HEME] [facility] 04/16/17 06:00 Ordered CBC WITH AUTO DIFF [HEME] [facility] 04/23/17 06:00 Ordered CBC WITH AUTO DIFF [HEME] [facility] Lab 04/30/17 06:00 Ordered COMPREHENSIVE METABOLIC PN,CMP [CHEM] [facility] 04/06/17 06:00 Ordered COMPREHENSIVE METABOLIC PN,CMP [CHEM] [facility] 04/13/17 06:00 Ordered COMPREHENSIVE METABOLIC PN,CMP [CHEM] [facility] 04/20/17 06:00 Ordered COMPREHENSIVE METABOLIC PN,CMP [CHEM] [facility] 04/27/17 06:00 Ordered COMPREHENSIVE METABOLIC PN,CMP [CHEM] [facility] 05/04/17 06:00 Ordered COMPREHENSIVE METABOLIC PN,CMP [CHEM] [facility] 04/02/17 06:00 Ordered COMPREHENSIVE METABOLIC PN,CMP [CHEM] [facility] Lab 04/09/17 06:00 Ordered COMPREHENSIVE METABOLIC PN,CMP [CHEM] [facility] Lab 04/16/17 06:00 Ordered COMPREHENSIVE METABOLIC PN,CMP [CHEM] [facility] Lab 04/23/17 06:00 Ordered COMPREHENSIVE METABOLIC PN,CMP [CHEM] [facility] Lab 04/30/17 06:00 Ordered INR,PT,PROTHROMBIN TIME [COAG] [facility] Lab 04/02/17 06:00 Ordered INR,PT,PROTHROMBIN TIME [COAG] TH Lab 04/09/17 06:00 Ordered INR,PT,PROTHROMBIN TIME [COAG] TH Lab 04/16/17 06:00 Ordered INR,PT,PROTHROMBIN TIME [COAG] TH Lab 04/23/17 06:00 Ordered INR,PT,PROTHROMBIN TIME [COAG] TH Lab 04/30/17 06:00 Ordered Medication Orders Acetaminophen (Tylenol) 650 mg PO Q4H PRN PRN Reason: Pain (Mild 1-3)/fever Last Admin: 03/22/17 11:25 Dose: 650 mg Albuterol/Ipratropium (Duoneb 3.0-0.5 Mg/3 Ml) 3 ml NEB Q4H PRN PRN Reason: Wheezing Heparin Sodium (Porcine) (Heparin Lock Flush 100 Units/Ml) 500 units FLUSH ASDIRECTED PRN PRN Reason: Keep Vein Open Last Admin: 03/22/17 10:11 Dose: 500 units Fat Emulsion Intravenous (Intralipid 20%) 250 mls @ 20 mls/hr IV Q24H [facility] Last Admin: 03/29/17 13:04 Dose: 20 mls/hr Infusion: 03/29/17 01:32 Dose: 20 mls/hr Admin: 03/28/17 13:02 Dose: 20 mls/hr Infusion: 03/28/17 01:30 Dose: 20 mls/hr Admin: 03/27/17 13:00 Dose: 20 mls/hr Infusion: 03/27/17 00:22 Dose: 20 mls/hr Admin: 03/26/17 11:52 Dose: 20 mls/hr Infusion: 03/26/17 00:48 Dose: 20 mls/hr Admin: 03/25/17 12:18 Dose: 20 mls/hr Infusion: 03/25/17 01:18 Dose: 20 mls/hr Admin: 03/24/17 12:48 Dose: 20 mls/hr Infusion: 03/24/17 01:15 Dose: 20 mls/hr Admin: 03/23/17 12:45 Dose: 20 mls/hr Infusion: 03/23/17 01:38 Dose: 20 mls/hr Admin: 03/22/17 13:08 Dose: 20 mls/hr Infusion: 03/22/17 01:23 Dose: 20 mls/hr Admin: 03/21/17 12:53 Dose: 20 mls/hr Sodium Chloride (Normal Saline) 1,000 mls @ 50 mls/hr IV ASDIRECTED [facility] Last Admin: 03/29/17 16:07 Dose: 50 mls/hr Infusion: 03/29/17 15:42 Dose: 50 mls/hr Admin: 03/28/17 19:42 Dose: 50 mls/hr Infusion: 03/28/17 19:42 Dose: 50 mls/hr Admin: 03/27/17 23:47 Dose: 50 mls/hr Infusion: 03/27/17 23:47 Dose: 50 mls/hr Admin: 03/27/17 03:47 Dose: 50 mls/hr Infusion: 03/27/17 03:47 Dose: 50 mls/hr Admin: 03/26/17 08:20 Dose: 50 mls/hr Infusion: 03/26/17 08:20 Dose: 50 mls/hr Admin: 03/25/17 12:25 Dose: 50 mls/hr Infusion: 03/25/17 04:11 Dose: 50 mls/hr Admin: 03/24/17 08:11 Dose: 50 mls/hr Multivitamins/Minerals 10 ml/Amino Ac/Electrol/Dextrose/Calcium 1,010 mls @ 84 mls/hr IV .BY DURATION [facility] Last Admin: 03/29/17 11:30 Dose: 84 mls/hr Infusion: 03/28/17 23:17 Dose: 84 mls/hr Admin: 03/28/17 11:15 Dose: 84 mls/hr Infusion: 03/27/17 23:32 Dose: 84 mls/hr Admin: 03/27/17 11:30 Dose: 84 mls/hr Infusion: 03/26/17 23:14 Dose: 84 mls/hr Admin: 03/26/17 11:12 Dose: 84 mls/hr Infusion: 03/25/17 22:48 Dose: 84 mls/hr Admin: 03/25/17 10:46 Dose: 84 mls/hr Amino Ac/Electrol/Dextrose/Calcium (Clinimix E 12/08) 1,000 mls @ 84 mls/hr IV .BY DURATION [facility] Last Admin: 03/30/17 00:15 Dose: 84 mls/hr Infusion: 03/29/17 11:05 Dose: 84 mls/hr Admin: 03/28/17 23:10 Dose: 84 mls/hr Infusion: 03/28/17 11:36 Dose: 84 mls/hr Admin: 03/27/17 23:41 Dose: 84 mls/hr Infusion: 03/27/17 11:14 Dose: 84 mls/hr Admin: 03/26/17 23:19 Dose: 84 mls/hr Infusion: 03/26/17 10:59 Dose: 84 mls/hr Admin: 03/25/17 23:04 Dose: 84 mls/hr Ketorolac Tromethamine (Toradol) 15 mg IVPUSH Q6H PRN PRN Reason: Pain (moderate 4-6) Last Admin: 03/23/17 04:48 Dose: 15 mg Admin: 03/22/17 22:04 Dose: 15 mg Admin: 03/22/17 15:43 Dose: 15 mg Admin: 03/22/17 03:12 Dose: 15 mg Latanoprost (Xalatan 0.005% Ophth Soln) 0 ml EYEBOTH BEDTIME [facility] Last Admin: 03/29/17 20:34 Dose: 1 drop Admin: 03/28/17 20:58 Dose: 1 drop Admin: 03/27/17 20:48 Dose: 1 drop Admin: 03/26/17 20:21 Dose: 1 drop Admin: 03/25/17 23:06 Dose: 1 drop Admin: 03/24/17 20:03 Dose: 1 drop Admin: 03/23/17 22:01 Dose: 1 drop Admin: 03/22/17 20:37 Dose: 1 drop Admin: 03/21/17 21:05 Dose: 1 drop Lidocaine HCl (Xylocaine 2% Jelly) 5 ml MUCMEM Q4H PRN PRN Reason: Pain Last Admin: 03/27/17 13:05 Dose: 5 ml Metoprolol Succinate (Toprol Xl) 25 mg PO DAILY [facility] Last Admin: 03/29/17 10:04 Dose: 25 mg Admin: 03/28/17 08:45 Dose: 25 mg Admin: 03/27/17 08:28 Dose: 25 mg Admin: 03/26/17 08:43 Dose: 25 mg Admin: 03/25/17 11:32 Dose: 25 mg Admin: 03/24/17 08:30 Dose: 25 mg Admin: 03/23/17 08:21 Dose: 25 mg Admin: 03/22/17 09:59 Dose: 25 mg Morphine Sulfate (Morphine) 2 mg IVPUSH Q2H PRN PRN Reason: Pain (severe 7-10) Last Admin: 03/29/17 01:51 Dose: 2 mg Admin: 03/28/17 23:20 Dose: 2 mg Admin: 03/28/17 19:10 Dose: 2 mg Admin: 03/27/17 21:01 Dose: 2 mg Admin: 03/26/17 23:30 Dose: 2 mg Admin: 03/26/17 20:25 Dose: 2 mg Admin: 03/26/17 14:55 Dose: 2 mg Admin: 03/25/17 23:14 Dose: 2 mg Admin: 03/25/17 18:21 Dose: 2 mg Admin: 03/25/17 15:00 Dose: 2 mg Ondansetron HCl (Zofran) 4 mg IV Q6H PRN PRN Reason: Nausea/Vomiting Last Admin: 03/27/17 09:39 Dose: 4 mg Admin: 03/25/17 08:40 Dose: 4 mg Admin: 03/23/17 11:39 Dose: 4 mg Admin: 03/23/17 04:48 Dose: 4 mg Admin: 03/22/17 22:04 Dose: 4 mg Admin: 03/22/17 15:46 Dose: 4 mg Admin: 03/22/17 10:05 Dose: 4 mg Admin: 03/22/17 03:16 Dose: 4 mg Admin: 03/21/17 21:09 Dose: 4 mg Pantoprazole Sodium (Protonix Iv) 40 mg IVPUSH DAILY [facility] Last Admin: 03/29/17 10:02 Dose: 40 mg Admin: 03/28/17 08:45 Dose: 40 mg Admin: 03/27/17 08:28 Dose: 40 mg Admin: 03/26/17 08:50 Dose: 40 mg Admin: 03/25/17 11:32 Dose: 40 mg Admin: 03/24/17 08:30 Dose: 40 mg Admin: 03/23/17 08:19 Dose: 40 mg Admin: 03/22/17 10:00 Dose: 40 mg Phytonadione (Aquamephyton) 10 mg IM Mo [facility] Last Admin: 03/23/17 08:18 Dose: 10 mg Sodium Chloride (Saline Flush) 10 ml FLUSH ASDIRECTED PRN PRN Reason: Keep Vein Open Last Admin: 03/29/17 10:05 Dose: 10 ml Admin: 03/29/17 01:52 Dose: 10 ml Admin: 03/28/17 23:21 Dose: 10 ml Admin: 03/26/17 23:31 Dose: 10 ml Admin: 03/26/17 14:56 Dose: 10 ml Admin: 03/26/17 08:57 Dose: 10 ml Admin: 03/25/17 11:33 Dose: 10 ml Admin: 03/25/17 08:40 Dose: 10 ml Admin: 03/23/17 04:55 Dose: 10 ml Admin: 03/23/17 01:48 Dose: 10 ml Admin: 03/22/17 22:11 Dose: 10 ml Admin: 03/22/17 22:10 Dose: 10 ml Admin: 03/22/17 20:06 Dose: 10 ml Admin: 03/22/17 15:43 Dose: 10 ml Admin: 03/22/17 10:10 Dose: 10 ml Admin: 03/22/17 10:04 Dose: 10 ml Admin: 03/22/17 03:24 Dose: 10 ml Admin: 03/22/17 03:12 Dose: 10 ml Admin: 03/21/17 21:09 Dose: 10 ml - Assessment Assessment (Free Text/Narrative):: stable exam - Plan Plan (Free Text/Narrative):: continue current rx.
[2017-03-30] MEDS: Pantoprazole 40 MG Vial IVPUSH SCH (10:45)
[2017-03-30] MEDS: Metoprolol Succinate 25 MG Tab.ER PO SCH (10:46)
[2017-03-30] MEDS: Sodium Chloride 0.9% 10 ML Syringe FLUSH PRN ×4 (10:47→22:32)
[2017-03-30] MEDS: Sodium Chloride 0.9% 1,000 ML IV SCH (11:05)
[2017-03-30] MEDS: Fat Emulsion 250 ML IV SCH (12:25)
[2017-03-30] MEDS: Morphine 2 MG/ML Syringe IVPUSH PRN ×2 (16:35→22:28)
[2017-03-30] MEDS: Ondansetron 4 MG/2 ML SDV IV PRN (16:36)
[2017-03-30] MEDS: Latanoprost 0.005% Ophth Soln 2.5 ML Bottle EYEBOTH SCH (20:28)
[2017-03-31] MEDS: Ketorolac 15 MG/ML SDV IVPUSH PRN (03:40)
[2017-03-31] MEDS: Sodium Chloride 0.9% 10 ML Syringe FLUSH PRN ×3 (03:40→22:34)
[2017-03-31] MEDS: Sodium Chloride 0.9% 1,000 ML IV SCH (06:22)
[2017-03-31] MEDS: Pantoprazole 40 MG Vial IVPUSH SCH (08:35)
[2017-03-31] MEDS: Metoprolol Succinate 25 MG Tab.ER PO SCH (08:35)
[2017-03-31] MEDS: [UNRECOGNIZED DRUG - OTHER] IV SCH ×4 (10:32→22:39)
[2017-03-31] MEDS: LYTES IV SCH ×4 (10:32→22:39)
[2017-03-31] MEDS: CALCIUM IV SCH ×4 (10:32→22:39)
[2017-03-31] MEDS: CALC IV SCH ×4 (10:32→22:39)
[2017-03-31] MEDS: MVI IV SCH ×4 (10:32→22:39)
[2017-03-31] MEDS: Fat Emulsion 250 ML IV SCH (12:56)
[2017-03-31] MEDS: Morphine 2 MG/ML Syringe IVPUSH PRN ×2 (16:00→22:34)
[2017-03-31] MEDS: Latanoprost 0.005% Ophth Soln 2.5 ML Bottle EYEBOTH SCH (20:32)
[2017-04-01] MEDS: Sodium Chloride 0.9% 1,000 ML IV SCH ×2 (02:47→23:16)
[2017-04-01] MEDS: Sodium Chloride 0.9% 10 ML Syringe FLUSH PRN ×3 (02:53→10:10)
[2017-04-01] MEDS: Ondansetron 4 MG/2 ML SDV IV PRN ×2 (02:54→09:37)
[2017-04-01] MEDS: Morphine 2 MG/ML Syringe IVPUSH PRN (06:17)
[2017-04-01] MEDS: Metoprolol Succinate 25 MG Tab.ER PO SCH (09:34)
[2017-04-01] MEDS: Pantoprazole 40 MG Vial IVPUSH SCH (09:40)
[2017-04-01] MEDS: CALCIUM IV SCH ×4 (11:18→23:15)
[2017-04-01] MEDS: MVI IV SCH ×4 (11:18→23:15)
[2017-04-01] MEDS: [UNRECOGNIZED DRUG - OTHER] IV SCH ×4 (11:18→23:15)
[2017-04-01] MEDS: CALC IV SCH ×4 (11:18→23:15)
[2017-04-01] MEDS: LYTES IV SCH ×4 (11:18→23:15)
--- NOTE | 2017-04-01 12:03 | PCM.SURGPN ---
- General Info Date of Service: 04/01/17 Functional Status: Reports: Other (emesis this am. feels better ) - Patient Data Vitals - Most Recent: Last Vital Signs Temp 36.5 C 04/01/17 08:00 Pulse 72 04/01/17 09:34 Resp 18 04/01/17 08:00 BP 132/85 04/01/17 09:34 Pulse Ox 98 04/01/17 08:00 Weight - Most Recent: 75.886 kg I&O - Last 24 Hours: Intake & Output 03/31/17 04/01/17 04/01/17 22:59 06:59 14:59 Intake Total 1185 409 Output Total 2500 Balance 1185 -2091 Lab Results Last 24 Hrs: Laboratory Results - last 24 hr 04/01/17 Range/Units 06:32 POC Glucose 121 H (80-116) mg/dL Med Orders - Current: Current Medications Acetaminophen (Tylenol) 650 mg PO Q4H PRN PRN Reason: Pain (Mild 1-3)/fever Last Admin: 03/22/17 11:25 Dose: 650 mg Albuterol/Ipratropium (Duoneb 3.0-0.5 Mg/3 Ml) 3 ml NEB Q4H PRN PRN Reason: Wheezing Heparin Sodium (Porcine) (Heparin Lock Flush 100 Units/Ml) 500 units FLUSH ASDIRECTED PRN PRN Reason: Keep Vein Open Last Admin: 04/01/17 10:10 Dose: 500 units Fat Emulsion Intravenous (Intralipid 20%) 250 mls @ 20 mls/hr IV Q24H [facility] Last Admin: 03/31/17 12:56 Dose: 20 mls/hr Sodium Chloride (Normal Saline) 1,000 mls @ 50 mls/hr IV ASDIRECTED [facility] Last Admin: 04/01/17 02:47 Dose: 50 mls/hr Multivitamins/Minerals 10 ml/Amino Ac/Electrol/Dextrose/Calcium 1,010 mls @ 84 mls/hr IV .BY DURATION [facility] Last Admin: 04/01/17 11:18 Dose: 84 mls/hr Amino Ac/Electrol/Dextrose/Calcium (Clinimix E 5/15) 1,000 mls @ 84 mls/hr IV .BY DURATION [facility] Last Admin: 03/31/17 22:39 Dose: 84 mls/hr Ketorolac Tromethamine (Toradol) 15 mg IVPUSH Q6H PRN PRN Reason: Pain (moderate 4-6) Last Admin: 03/31/17 03:40 Dose: 15 mg Latanoprost (Xalatan 0.005% Ophth Soln) 0 ml EYEBOTH BEDTIME [facility] Last Admin: 03/31/17 20:32 Dose: 1 drop Lidocaine HCl (Xylocaine 2% Jelly) 5 ml MUCMEM Q4H PRN PRN Reason: Pain Last Admin: 03/27/17 13:05 Dose: 5 ml Metoprolol Succinate (Toprol Xl) 25 mg PO DAILY [facility] Last Admin: 04/01/17 09:34 Dose: 25 mg Morphine Sulfate (Morphine) 2 mg IVPUSH Q2H PRN PRN Reason: Pain (severe 7-10) Last Admin: 04/01/17 06:17 Dose: 2 mg Ondansetron HCl (Zofran) 4 mg IV Q6H PRN PRN Reason: Nausea/Vomiting Last Admin: 04/01/17 09:37 Dose: 4 mg Pantoprazole Sodium (Protonix Iv) 40 mg IVPUSH DAILY [facility] Last Admin: 04/01/17 09:40 Dose: 40 mg Phytonadione (Aquamephyton) 10 mg IM Mo [facility] Last Admin: 03/30/17 10:45 Dose: 10 mg Sodium Chloride (Saline Flush) 10 ml FLUSH ASDIRECTED PRN PRN Reason: Keep Vein Open Last Admin: 04/01/17 10:10 Dose: 10 ml Discontinued Medications Bisacodyl (Dulcolax) 10 mg RECTAL ONETIME ONE Stop: 03/22/17 08:59 Last Admin: 03/22/17 11:16 Dose: 10 mg Fentanyl (Sublimaze) 100 mcg IV .STK-MED ONE Stop: 03/25/17 10:01 Multivitamins/Minerals 10 ml/Amino Ac/Electrol/Dextrose/Calcium 1,010 mls @ 84 mls/hr IV Q24H [facility] Stop: 03/23/17 13:30 Last Admin: 03/22/17 14:17 Dose: 42 mls/hr Multivitamins/Minerals 10 ml/Amino Ac/Electrol/Dextrose/Calcium 1,010 mls @ 84 mls/hr IV .BY DURATION [facility] Last Admin: 03/24/17 13:29 Dose: 84 mls/hr Amino Ac/Electrol/Dextrose/Calcium (Clinimix E 12/08) 1,000 mls @ 84 mls/hr IV .BY DURATION [facility] Last Admin: 03/25/17 02:17 Dose: 84 mls/hr Potassium Chloride 20 meq/ (Premix) 100 mls @ 50 mls/hr IV ONETIME ONE Stop: 03/24/17 10:10 Last Admin: 03/24/17 09:03 Dose: 50 mls/hr Potassium Chloride 20 meq/ (Premix) 100 mls @ 50 mls/hr IV ONETIME ONE Stop: 03/24/17 12:14 Last Admin: 03/24/17 11:06 Dose: 50 mls/hr Magnesium Sulfate 2 gm/ Premix 50 mls @ 8 mls/hr IV ONETIME ONE Stop: 03/24/17 23:14 Last Admin: 03/24/17 17:04 Dose: 8 mls/hr Lactated Ringer's (Ringers, Lactated) 1,000 mls @ as directed IV .STK-MED ONE Stop: 03/25/17 10:01 Dextrose/Water (Dextrose 10% In Water) 1,000 mls @ as directed IV .STK-MED ONE Stop: 03/25/17 10:01 Magnesium Sulfate 2 gm/ Premix 50 mls @ 8 mls/hr IV ONETIME ONE Stop: 03/29/17 14:44 Last Admin: 03/29/17 10:00 Dose: 8 mls/hr Insulin Aspart (Novolog) 0 unit SUBCUT WITHMEALSANDBED [facility] PRN Reason: Protocol Last Admin: 03/25/17 18:57 Dose: Not Given Metoclopramide HCl (Reglan) 5 mg IV Q6H [facility] Last Admin: 03/23/17 08:24 Dose: 5 mg Metoprolol Succinate (Toprol Xl) 50 mg PO DAILY [facility] Midazolam HCl (Versed 1 Mg/Ml) 1 mg IV .STK-MED ONE Stop: 03/25/17 10:01 Propofol (Diprivan 20 Ml) 100 mg IV .STK-MED ONE Stop: 03/25/17 10:01 Sucralfate (Carafate) 1 gm PO Q6H [facility] Last Admin: 03/25/17 11:28 Dose: Not Given - Exam Wound/Incisions: Healing Well Lungs: Clear to Auscultation, Normal Respiratory Effort Cardiovascular: Regular Rate, Regular Rhythm Extremities: Normal Inspection, Leg Pain (very minor lle ). No: Mabel's Sign Skin: Warm, Dry, Intact - Problem List & Annotations (1) Gastroparesis SNOMED Code(s): 544887704 Code(s): K31.84 - GASTROPARESIS Status: Acute Current Visit: No - Problem List Review Problem List Initiated/Reviewed/Updated: Yes - My Orders Last 24 Hours: Active Orders 24 hr Category Date Time Status VL Duplex Lwr Ext Veins Ltd Lt [US] Routine Exams 04/01/17 11:57 Ordered CBC WITH AUTO DIFF [HEME] [facility] 04/02/17 06:00 Ordered CBC WITH AUTO DIFF [HEME] TH Lab 04/09/17 06:00 Ordered CBC WITH AUTO DIFF [HEME] TH Lab 04/16/17 06:00 Ordered CBC WITH AUTO DIFF [HEME] TH Lab 04/23/17 06:00 Ordered CBC WITH AUTO DIFF [HEME] TH Lab 04/30/17 06:00 Ordered COMPREHENSIVE METABOLIC PN,CMP [CHEM] [facility] Lab 04/06/17 06:00 Ordered COMPREHENSIVE METABOLIC PN,CMP [CHEM] MO Lab 04/13/17 06:00 Ordered COMPREHENSIVE METABOLIC PN,CMP [CHEM] MO Lab 04/20/17 06:00 Ordered COMPREHENSIVE METABOLIC PN,CMP [CHEM] MO Lab 04/27/17 06:00 Ordered COMPREHENSIVE METABOLIC PN,CMP [CHEM] MO Lab 05/04/17 06:00 Ordered COMPREHENSIVE METABOLIC PN,CMP [CHEM] TH Lab 04/02/17 06:00 Ordered COMPREHENSIVE METABOLIC PN,CMP [CHEM] TH Lab 04/09/17 06:00 Ordered COMPREHENSIVE METABOLIC PN,CMP [CHEM] TH Lab 04/16/17 06:00 Ordered COMPREHENSIVE METABOLIC PN,CMP [CHEM] TH Lab 04/23/17 06:00 Ordered COMPREHENSIVE METABOLIC PN,CMP [CHEM] TH Lab 04/30/17 06:00 Ordered INR,PT,PROTHROMBIN TIME [COAG] Lab 04/02/17 06:00 Ordered INR,PT,PROTHROMBIN TIME [COAG] TH Lab 04/09/17 06:00 Ordered INR,PT,PROTHROMBIN TIME [COAG] TH Lab 04/16/17 06:00 Ordered INR,PT,PROTHROMBIN TIME [COAG] TH Lab 04/23/17 06:00 Ordered INR,PT,PROTHROMBIN TIME [COAG] TH Lab 04/30/17 06:00 Ordered Medication Orders Acetaminophen (Tylenol) 650 mg PO Q4H PRN PRN Reason: Pain (Mild 1-3)/fever Last Admin: 03/22/17 11:25 Dose: 650 mg Albuterol/Ipratropium (Duoneb 3.0-0.5 Mg/3 Ml) 3 ml NEB Q4H PRN PRN Reason: Wheezing Heparin Sodium (Porcine) (Heparin Lock Flush 100 Units/Ml) 500 units FLUSH ASDIRECTED PRN PRN Reason: Keep Vein Open Last Admin: 04/01/17 10:10 Dose: 500 units Admin: 03/22/17 10:11 Dose: 500 units Fat Emulsion Intravenous (Intralipid 20%) 250 mls @ 20 mls/hr IV Q24H [facility] Last Admin: 03/31/17 12:56 Dose: 20 mls/hr Infusion: 03/31/17 00:55 Dose: 20 mls/hr Admin: 03/30/17 12:25 Dose: 20 mls/hr Infusion: 03/30/17 01:34 Dose: 20 mls/hr Admin: 03/29/17 13:04 Dose: 20 mls/hr Infusion: 03/29/17 01:32 Dose: 20 mls/hr Admin: 03/28/17 13:02 Dose: 20 mls/hr Infusion: 03/28/17 01:30 Dose: 20 mls/hr Admin: 03/27/17 13:00 Dose: 20 mls/hr Infusion: 03/27/17 00:22 Dose: 20 mls/hr Admin: 03/26/17 11:52 Dose: 20 mls/hr Infusion: 03/26/17 00:48 Dose: 20 mls/hr Admin: 03/25/17 12:18 Dose: 20 mls/hr Infusion: 03/25/17 01:18 Dose: 20 mls/hr Admin: 03/24/17 12:48 Dose: 20 mls/hr Infusion: 03/24/17 01:15 Dose: 20 mls/hr Admin: 03/23/17 12:45 Dose: 20 mls/hr Infusion: 03/23/17 01:38 Dose: 20 mls/hr Admin: 03/22/17 13:08 Dose: 20 mls/hr Infusion: 03/22/17 01:23 Dose: 20 mls/hr Admin: 03/21/17 12:53 Dose: 20 mls/hr Sodium Chloride (Normal Saline) 1,000 mls @ 50 mls/hr IV ASDIRECTED [facility] Last Admin: 04/01/17 02:47 Dose: 50 mls/hr Infusion: 04/01/17 02:22 Dose: 50 mls/hr Admin: 03/31/17 06:22 Dose: 50 mls/hr Infusion: 03/31/17 06:22 Dose: 50 mls/hr Admin: 03/30/17 11:05 Dose: 50 mls/hr Infusion: 03/30/17 11:05 Dose: 50 mls/hr Admin: 03/29/17 16:07 Dose: 50 mls/hr Infusion: 03/29/17 15:42 Dose: 50 mls/hr Admin: 03/28/17 19:42 Dose: 50 mls/hr Infusion: 03/28/17 19:42 Dose: 50 mls/hr Admin: 03/27/17 23:47 Dose: 50 mls/hr Infusion: 03/27/17 23:47 Dose: 50 mls/hr Admin: 03/27/17 03:47 Dose: 50 mls/hr Infusion: 03/27/17 03:47 Dose: 50 mls/hr Admin: 03/26/17 08:20 Dose: 50 mls/hr Infusion: 03/26/17 08:20 Dose: 50 mls/hr Admin: 03/25/17 12:25 Dose: 50 mls/hr Infusion: 03/25/17 04:11 Dose: 50 mls/hr Admin: 03/24/17 08:11 Dose: 50 mls/hr Multivitamins/Minerals 10 ml/Amino Ac/Electrol/Dextrose/Calcium 1,010 mls @ 84 mls/hr IV .BY DURATION [facility] Last Admin: 04/01/17 11:18 Dose: 84 mls/hr Infusion: 03/31/17 11:10 Dose: 84 mls/hr Admin: 03/31/17 10:32 Dose: 84 mls/hr Infusion: 03/31/17 00:20 Dose: 84 mls/hr Admin: 03/30/17 12:18 Dose: 84 mls/hr Infusion: 03/29/17 23:32 Dose: 84 mls/hr Admin: 03/29/17 11:30 Dose: 84 mls/hr Infusion: 03/28/17 23:17 Dose: 84 mls/hr Admin: 03/28/17 11:15 Dose: 84 mls/hr Infusion: 03/27/17 23:32 Dose: 84 mls/hr Admin: 03/27/17 11:30 Dose: 84 mls/hr Infusion: 03/26/17 23:14 Dose: 84 mls/hr Admin: 03/26/17 11:12 Dose: 84 mls/hr Infusion: 03/25/17 22:48 Dose: 84 mls/hr Admin: 03/25/17 10:46 Dose: 84 mls/hr Amino Ac/Electrol/Dextrose/Calcium (Clinimix E 5/15) 1,000 mls @ 84 mls/hr IV .BY DURATION [facility] Last Admin: 03/31/17 22:39 Dose: 84 mls/hr Infusion: 03/31/17 11:51 Dose: 84 mls/hr Admin: 03/30/17 23:56 Dose: 84 mls/hr Infusion: 03/30/17 12:10 Dose: 84 mls/hr Admin: 03/30/17 00:15 Dose: 84 mls/hr Infusion: 03/29/17 11:05 Dose: 84 mls/hr Admin: 03/28/17 23:10 Dose: 84 mls/hr Infusion: 03/28/17 11:36 Dose: 84 mls/hr Admin: 03/27/17 23:41 Dose: 84 mls/hr Infusion: 03/27/17 11:14 Dose: 84 mls/hr Admin: 03/26/17 23:19 Dose: 84 mls/hr Infusion: 03/26/17 10:59 Dose: 84 mls/hr Admin: 03/25/17 23:04 Dose: 84 mls/hr Ketorolac Tromethamine (Toradol) 15 mg IVPUSH Q6H PRN PRN Reason: Pain (moderate 4-6) Last Admin: 03/31/17 03:40 Dose: 15 mg Admin: 03/23/17 04:48 Dose: 15 mg Admin: 03/22/17 22:04 Dose: 15 mg Admin: 03/22/17 15:43 Dose: 15 mg Admin: 03/22/17 03:12 Dose: 15 mg Latanoprost (Xalatan 0.005% Ophth Soln) 0 ml EYEBOTH BEDTIME [facility] Last Admin: 03/31/17 20:32 Dose: 1 drop Admin: 03/30/17 20:28 Dose: 1 drop Admin: 03/29/17 20:34 Dose: 1 drop Admin: 03/28/17 20:58 Dose: 1 drop Admin: 03/27/17 20:48 Dose: 1 drop Admin: 03/26/17 20:21 Dose: 1 drop Admin: 03/25/17 23:06 Dose: 1 drop Admin: 03/24/17 20:03 Dose: 1 drop Admin: 03/23/17 22:01 Dose: 1 drop Admin: 03/22/17 20:37 Dose: 1 drop Admin: 03/21/17 21:05 Dose: 1 drop Lidocaine HCl (Xylocaine 2% Jelly) 5 ml MUCMEM Q4H PRN PRN Reason: Pain Last Admin: 03/27/17 13:05 Dose: 5 ml Metoprolol Succinate (Toprol Xl) 25 mg PO DAILY [facility] Last Admin: 04/01/17 09:34 Dose: 25 mg Admin: 03/31/17 08:35 Dose: 25 mg Admin: 03/30/17 10:46 Dose: 25 mg Admin: 03/29/17 10:04 Dose: 25 mg Admin: 03/28/17 08:45 Dose: 25 mg Admin: 03/27/17 08:28 Dose: 25 mg Admin: 03/26/17 08:43 Dose: 25 mg Admin: 03/25/17 11:32 Dose: 25 mg Admin: 03/24/17 08:30 Dose: 25 mg Admin: 03/23/17 08:21 Dose: 25 mg Admin: 03/22/17 09:59 Dose: 25 mg Morphine Sulfate (Morphine) 2 mg IVPUSH Q2H PRN PRN Reason: Pain (severe 7-10) Last Admin: 04/01/17 06:17 Dose: 2 mg Admin: 03/31/17 22:34 Dose: 2 mg Admin: 03/31/17 16:00 Dose: 2 mg Admin: 03/30/17 22:28 Dose: 2 mg Admin: 03/30/17 16:35 Dose: 2 mg Admin: 03/29/17 01:51 Dose: 2 mg Admin: 03/28/17 23:20 Dose: 2 mg Admin: 03/28/17 19:10 Dose: 2 mg Admin: 03/27/17 21:01 Dose: 2 mg Admin: 03/26/17 23:30 Dose: 2 mg Admin: 03/26/17 20:25 Dose: 2 mg Admin: 03/26/17 14:55 Dose: 2 mg Admin: 03/25/17 23:14 Dose: 2 mg Admin: 03/25/17 18:21 Dose: 2 mg Admin: 03/25/17 15:00 Dose: 2 mg Ondansetron HCl (Zofran) 4 mg IV Q6H PRN PRN Reason: Nausea/Vomiting Last Admin: 04/01/17 09:37 Dose: 4 mg Admin: 04/01/17 02:54 Dose: 4 mg Admin: 03/30/17 16:36 Dose: 4 mg Admin: 03/27/17 09:39 Dose: 4 mg Admin: 03/25/17 08:40 Dose: 4 mg Admin: 03/23/17 11:39 Dose: 4 mg Admin: 03/23/17 04:48 Dose: 4 mg Admin: 03/22/17 22:04 Dose: 4 mg Admin: 03/22/17 15:46 Dose: 4 mg Admin: 03/22/17 10:05 Dose: 4 mg Admin: 03/22/17 03:16 Dose: 4 mg Admin: 03/21/17 21:09 Dose: 4 mg Pantoprazole Sodium (Protonix Iv) 40 mg IVPUSH DAILY [facility] Last Admin: 04/01/17 09:40 Dose: 40 mg Admin: 03/31/17 08:35 Dose: 40 mg Admin: 03/30/17 10:45 Dose: 40 mg Admin: 03/29/17 10:02 Dose: 40 mg Admin: 03/28/17 08:45 Dose: 40 mg Admin: 03/27/17 08:28 Dose: 40 mg Admin: 03/26/17 08:50 Dose: 40 mg Admin: 03/25/17 11:32 Dose: 40 mg Admin: 03/24/17 08:30 Dose: 40 mg Admin: 03/23/17 08:19 Dose: 40 mg Admin: 03/22/17 10:00 Dose: 40 mg Phytonadione (Aquamephyton) 10 mg IM Mo [facility] Last Admin: 03/30/17 10:45 Dose: 10 mg Admin: 03/23/17 08:18 Dose: 10 mg Sodium Chloride (Saline Flush) 10 ml FLUSH ASDIRECTED PRN PRN Reason: Keep Vein Open Last Admin: 04/01/17 10:10 Dose: 10 ml Admin: 04/01/17 06:17 Dose: 10 ml Admin: 04/01/17 02:53 Dose: 10 ml Admin: 03/31/17 22:34 Dose: 10 ml Admin: 03/31/17 16:01 Dose: 10 ml Admin: 03/31/17 03:40 Dose: 10 ml Admin: 03/30/17 22:32 Dose: 10 ml Admin: 03/30/17 22:28 Dose: 10 ml Admin: 03/30/17 16:36 Dose: 10 ml Admin: 03/30/17 10:47 Dose: 10 ml Admin: 03/29/17 10:05 Dose: 10 ml Admin: 03/29/17 01:52 Dose: 10 ml Admin: 03/28/17 23:21 Dose: 10 ml Admin: 03/26/17 23:31 Dose: 10 ml Admin: 03/26/17 14:56 Dose: 10 ml Admin: 03/26/17 08:57 Dose: 10 ml Admin: 03/25/17 11:33 Dose: 10 ml Admin: 03/25/17 08:40 Dose: 10 ml Admin: 03/23/17 04:55 Dose: 10 ml Admin: 03/23/17 01:48 Dose: 10 ml Admin: 03/22/17 22:11 Dose: 10 ml Admin: 03/22/17 22:10 Dose: 10 ml Admin: 03/22/17 20:06 Dose: 10 ml Admin: 03/22/17 15:43 Dose: 10 ml Admin: 03/22/17 10:10 Dose: 10 ml Admin: 03/22/17 10:04 Dose: 10 ml Admin: 03/22/17 03:24 Dose: 10 ml Admin: 03/22/17 03:12 Dose: 10 ml Admin: 03/21/17 21:09 Dose: 10 ml - Assessment Assessment (Free Text/Narrative):: will get us to r/o dvt - Plan Plan (Free Text/Narrative):: gastric emptying scan on Thursday..
[2017-04-01] MEDS: Fat Emulsion 250 ML IV SCH (13:40)
[2017-04-01] MEDS: Enoxaparin 80 MG/0.8 ML Syringe SUBCUT SCH (14:40)
[2017-04-01] MEDS: Latanoprost 0.005% Ophth Soln 2.5 ML Bottle EYEBOTH SCH (20:53)
[2017-04-02] MEDS: Enoxaparin 80 MG/0.8 ML Syringe SUBCUT SCH ×2 (02:07→13:57)
[2017-04-02] MEDS: Ondansetron 4 MG/2 ML SDV IV PRN ×2 (07:20→15:34)
[2017-04-02] MEDS: Pantoprazole 40 MG Vial IVPUSH SCH (08:52)
[2017-04-02] MEDS: Metoprolol Succinate 25 MG Tab.ER PO SCH (08:52)
--- NOTE | 2017-04-02 09:11 | PCM.SURGPN ---
- General Info Date of Service: 04/02/17 Functional Status: Reports: Pain Controlled, Ambulating, Urinating - Review of Systems Pulmonary: Reports: No Symptoms Cardiovascular: Reports: No Symptoms Gastrointestinal: Reports: Nausea, Other (moving bowels ) Musculoskeletal: Reports: No Symptoms Skin: Reports: No Symptoms Systems Review Comment:: noted to have a dvt in the lle lovenox started. - Patient Data Vitals - Most Recent: Last Vital Signs Temp 36.8 C 04/02/17 07:10 Pulse 80 04/02/17 08:52 Resp 18 04/02/17 07:10 BP 135/79 04/02/17 08:52 Pulse Ox 98 04/02/17 07:10 Weight - Most Recent: 75.977 kg I&O - Last 24 Hours: Intake & Output 04/01/17 04/02/17 04/02/17 22:59 06:59 14:59 Intake Total 1271 1153 Output Total 475 950 Balance 796 203 Lab Results Last 24 Hrs: Laboratory Results - last 24 hr 04/02/17 04/02/17 04/02/17 Range/Units 06:08 06:35 06:35 WBC 4.8 (4.5-12.0) X10-3/uL RBC 3.48 L (4.30-5.75) x10(6)uL Hgb 11.1 L (11.5-15.5) g/dL Hct 32.3 (30.0-51.3) % MCV 92.8 (80-96) fL MCH 32.0 (27.7-33.6) pg MCHC 34.4 (32.2-35.4) g/dL RDW 14.1 (11.5-15.5) % Plt Count 246 (125-369) X10(3)uL MPV 7.3 L (7.4-10.4) fL Neut % (Auto) 66.3 (46-82) % Lymph % (Auto) 21.8 (13-37) % Traill % (Auto) 8.3 (4-12) % Eos % (Auto) 3 (1.0-5.0) % Baso % (Auto) 1 (0-2) % Neut # (Auto) 3.3 (1.6-8.3) # Lymph # (Auto) 1.0 (0.6-5.0) # Traill # (Auto) 0.4 (0.0-1.3) # Eos # (Auto) 0.1 (0.0-0.8) # Baso # (Auto) 0.0 (0.0-0.2) # PT 11.1 (8.7-11.1) INR 1.10 (0.89-1.13) Sodium (135-145) mmol/L Potassium (3.5-5.3) mmol/L Chloride (100-110) mmol/L Carbon Dioxide (23-29) mmol/L BUN (8-23) mg/dL Creatinine (0.6-1.3) mg/dL Est Cr Clr Drug Dosing mL/min Estimated GFR (MDRD) (>60) BUN/Creatinine Ratio (9-20) Glucose (80-116) mg/dL POC Glucose 124 H (80-116) mg/dL Calcium (8.6-10.2) mg/dL Total Bilirubin (0.1-1.3) mg/dL AST (5-27) IU/L ALT (14-26) IU/L Alkaline Phosphatase (56-112) IU/L Total Protein (6.0-8.0) g/dL Albumin (2.9-4.5) g/dL Globulin g/dL Albumin/Globulin Ratio //17 Range/Units 06:35 WBC (4.5-12.0) X10-3/uL RBC (4.30-5.75) x10(6)uL Hgb (11.5-15.5) g/dL Hct (30.0-51.3) % MCV (80-96) fL MCH (27.7-33.6) pg MCHC (32.2-35.4) g/dL RDW (11.5-15.5) % Plt Count (125-369) X10(3)uL MPV (7.4-10.4) fL Neut % (Auto) (46-82) % Lymph % (Auto) (13-37) % Traill % (Auto) (4-12) % Eos % (Auto) (1.0-5.0) % Baso % (Auto) (0-2) % Neut # (Auto) (1.6-8.3) # Lymph # (Auto) (0.6-5.0) # Traill # (Auto) (0.0-1.3) # Eos # (Auto) (0.0-0.8) # Baso # (Auto) (0.0-0.2) # PT (8.7-11.1) INR (0.89-1.13) Sodium 138 (135-145) mmol/L Potassium 3.3 L (3.5-5.3) mmol/L Chloride 102 (100-110) mmol/L Carbon Dioxide 27 (23-29) mmol/L BUN 19 (8-23) mg/dL Creatinine 0.7 (0.6-1.3) mg/dL Est Cr Clr Drug Dosing 64.56 mL/min Estimated GFR (MDRD) > 60 (>60) BUN/Creatinine Ratio 27.1 H (9-20) Glucose 136 H (80-116) mg/dL POC Glucose (80-116) mg/dL Calcium 8.2 L (8.6-10.2) mg/dL Total Bilirubin 0.8 (0.1-1.3) mg/dL AST 33 H D (5-27) IU/L ALT 40 H D (14-26) IU/L Alkaline Phosphatase 135 H (56-112) IU/L Total Protein 6.1 (6.0-8.0) g/dL Albumin 2.7 L (2.9-4.5) g/dL Globulin 3.4 g/dL Albumin/Globulin Ratio 0.8 Med Orders - Current: Current Medications Acetaminophen (Tylenol) 650 mg PO Q4H PRN PRN Reason: Pain (Mild 1-3)/fever Last Admin: 03/22/17 11:25 Dose: 650 mg Albuterol/Ipratropium (Duoneb 3.0-0.5 Mg/3 Ml) 3 ml NEB Q4H PRN PRN Reason: Wheezing Enoxaparin Sodium (Lovenox) 80 mg SUBCUT Q12H [facility] Last Admin: 04/02/17 02:07 Dose: 80 mg Heparin Sodium (Porcine) (Heparin Lock Flush 100 Units/Ml) 500 units FLUSH ASDIRECTED PRN PRN Reason: Keep Vein Open Last Admin: 04/01/17 10:10 Dose: 500 units Fat Emulsion Intravenous (Intralipid 20%) 250 mls @ 20 mls/hr IV Q24H [facility] Last Admin: 04/01/17 13:40 Dose: 20 mls/hr Sodium Chloride (Normal Saline) 1,000 mls @ 50 mls/hr IV ASDIRECTED [facility] Last Admin: 04/01/17 23:16 Dose: 50 mls/hr Multivitamins/Minerals 10 ml/Amino Ac/Electrol/Dextrose/Calcium 1,010 mls @ 84 mls/hr IV .BY DURATION [facility] Last Admin: 04/01/17 11:18 Dose: 84 mls/hr Amino Ac/Electrol/Dextrose/Calcium (Clinimix E 15) 1,000 mls @ 84 mls/hr IV .BY DURATION [facility] Last Admin: 04/01/17 23:15 Dose: 84 mls/hr Ketorolac Tromethamine (Toradol) 15 mg IVPUSH Q6H PRN PRN Reason: Pain (moderate 4-6) Last Admin: 03/31/17 03:40 Dose: 15 mg Latanoprost (Xalatan 0.005% Ophth Soln) 0 ml EYEBOTH BEDTIME [facility] Last Admin: 04/01/17 20:53 Dose: 1 drop Lidocaine HCl (Xylocaine 2% Jelly) 5 ml MUCMEM Q4H PRN PRN Reason: Pain Last Admin: 03/27/17 13:05 Dose: 5 ml Metoprolol Succinate (Toprol Xl) 25 mg PO DAILY [facility] Last Admin: 04/02/17 08:52 Dose: 25 mg Morphine Sulfate (Morphine) 2 mg IVPUSH Q2H PRN PRN Reason: Pain (severe 7-10) Last Admin: 04/01/17 06:17 Dose: 2 mg Ondansetron HCl (Zofran) 4 mg IV Q6H PRN PRN Reason: Nausea/Vomiting Last Admin: 04/02/17 07:20 Dose: 4 mg Pantoprazole Sodium (Protonix Iv) 40 mg IVPUSH DAILY [facility] Last Admin: 04/02/17 08:52 Dose: 40 mg Phytonadione (Aquamephyton) 10 mg IM Mo [facility] Last Admin: 03/30/17 10:45 Dose: 10 mg Sodium Chloride (Saline Flush) 10 ml FLUSH ASDIRECTED PRN PRN Reason: Keep Vein Open Last Admin: 04/01/17 10:10 Dose: 10 ml Discontinued Medications Bisacodyl (Dulcolax) 10 mg RECTAL ONETIME ONE Stop: 03/22/17 08:59 Last Admin: 03/22/17 11:16 Dose: 10 mg Fentanyl (Sublimaze) 100 mcg IV .STK-MED ONE Stop: 03/25/17 10:01 Multivitamins/Minerals 10 ml/Amino Ac/Electrol/Dextrose/Calcium 1,010 mls @ 84 mls/hr IV Q24H [facility] Stop: 03/23/17 13:30 Last Admin: 03/22/17 14:17 Dose: 42 mls/hr Multivitamins/Minerals 10 ml/Amino Ac/Electrol/Dextrose/Calcium 1,010 mls @ 84 mls/hr IV .BY DURATION [facility] Last Admin: 03/24/17 13:29 Dose: 84 mls/hr Amino Ac/Electrol/Dextrose/Calcium (Clinimix E 15) 1,000 mls @ 84 mls/hr IV .BY DURATION [facility] Last Admin: 03/25/17 02:17 Dose: 84 mls/hr Potassium Chloride 20 meq/ (Premix) 100 mls @ 50 mls/hr IV ONETIME ONE Stop: 03/24/17 10:10 Last Admin: 03/24/17 09:03 Dose: 50 mls/hr Potassium Chloride 20 meq/ (Premix) 100 mls @ 50 mls/hr IV ONETIME ONE Stop: 03/24/17 12:14 Last Admin: 03/24/17 11:06 Dose: 50 mls/hr Magnesium Sulfate 2 gm/ Premix 50 mls @ 8 mls/hr IV ONETIME ONE Stop: 03/24/17 23:14 Last Admin: 03/24/17 17:04 Dose: 8 mls/hr Lactated Ringer's (Ringers, Lactated) 1,000 mls @ as directed IV .STK-MED ONE Stop: 03/25/17 10:01 Dextrose/Water (Dextrose 10% In Water) 1,000 mls @ as directed IV .STK-MED ONE Stop: 03/25/17 10:01 Magnesium Sulfate 2 gm/ Premix 50 mls @ 8 mls/hr IV ONETIME ONE Stop: 03/29/17 14:44 Last Admin: 03/29/17 10:00 Dose: 8 mls/hr Insulin Aspart (Novolog) 0 unit SUBCUT WITHMEALSANDBED [facility] PRN Reason: Protocol Last Admin: 03/25/17 18:57 Dose: Not Given Metoclopramide HCl (Reglan) 5 mg IV Q6H [facility] Last Admin: 03/23/17 08:24 Dose: 5 mg Metoprolol Succinate (Toprol Xl) 50 mg PO DAILY [facility] Midazolam HCl (Versed 1 Mg/Ml) 1 mg IV .STK-MED ONE Stop: 03/25/17 10:01 Propofol (Diprivan 20 Ml) 100 mg IV .STK-MED ONE Stop: 03/25/17 10:01 Sucralfate (Carafate) 1 gm PO Q6H [facility] Last Admin: 03/25/17 11:28 Dose: Not Given - Exam General: Alert, Oriented, Cooperative Lungs: Clear to Auscultation, Normal Respiratory Effort Cardiovascular: Regular Rate, Regular Rhythm GI/Abdominal Exam: Normal Bowel Sounds, Soft, Non-Tender, No Distention - Problem List & Annotations (1) Gastroparesis SNOMED Code(s): 948540539 Code(s): K31.84 - GASTROPARESIS Status: Acute Current Visit: No (2) DVT, lower extremity, distal SNOMED Code(s): 348156315 Code(s): I82.4Z9 - ACUTE EMBLSM AND THOMBOS UNSP DEEP VN UNSP DISTAL LOW EXTRM Status: Acute Current Visit: Yes Qualifiers: Chronicity: unspecified Laterality: left Qualified Code(s): I82.4Z2 - Acute embolism and thrombosis of unspecified deep veins of left distal lower extremity - Problem List Review Problem List Initiated/Reviewed/Updated: Yes - My Orders Last 24 Hours: Active Orders 24 hr Category Date Time Status VL Duplex Lwr Ext Veins Ltd Lt [US] Routine Exams 04/01/17 11:57 Taken CBC WITH AUTO DIFF [HEME] [facility] 04/09/17 06:00 Ordered CBC WITH AUTO DIFF [HEME] [facility] 04/16/17 06:00 Ordered CBC WITH AUTO DIFF [HEME] [facility] Lab 04/23/17 06:00 Ordered CBC WITH AUTO DIFF [HEME] TH Lab 04/30/17 06:00 Ordered COMPREHENSIVE METABOLIC PN,CMP [CHEM] [facility] Lab 04/06/17 06:00 Ordered COMPREHENSIVE METABOLIC PN,CMP [CHEM] MO Lab 04/13/17 06:00 Ordered COMPREHENSIVE METABOLIC PN,CMP [CHEM] MO Lab 04/20/17 06:00 Ordered COMPREHENSIVE METABOLIC PN,CMP [CHEM] MO Lab 04/27/17 06:00 Ordered COMPREHENSIVE METABOLIC PN,CMP [CHEM] MO Lab 05/04/17 06:00 Ordered COMPREHENSIVE METABOLIC PN,CMP [CHEM] TH Lab 04/09/17 06:00 Ordered COMPREHENSIVE METABOLIC PN,CMP [CHEM] TH Lab 04/16/17 06:00 Ordered COMPREHENSIVE METABOLIC PN,CMP [CHEM] TH Lab 04/23/17 06:00 Ordered COMPREHENSIVE METABOLIC PN,CMP [CHEM] TH Lab 04/30/17 06:00 Ordered INR,PT,PROTHROMBIN TIME [COAG] TH Lab 04/09/17 06:00 Ordered INR,PT,PROTHROMBIN TIME [COAG] TH Lab 04/16/17 06:00 Ordered INR,PT,PROTHROMBIN TIME [COAG] TH Lab 04/23/17 06:00 Ordered INR,PT,PROTHROMBIN TIME [COAG] TH Lab 04/30/17 06:00 Ordered Enoxaparin [Lovenox] Med 04/01/17 14:30 Active 80 mg SUBCUT Q12H Medication Orders Acetaminophen (Tylenol) 650 mg PO Q4H PRN PRN Reason: Pain (Mild 1-3)/fever Last Admin: 03/22/17 11:25 Dose: 650 mg Albuterol/Ipratropium (Duoneb 3.0-0.5 Mg/3 Ml) 3 ml NEB Q4H PRN PRN Reason: Wheezing Enoxaparin Sodium (Lovenox) 80 mg SUBCUT Q12H [facility] Last Admin: 04/02/17 02:07 Dose: 80 mg Admin: 04/01/17 14:40 Dose: 80 mg Heparin Sodium (Porcine) (Heparin Lock Flush 100 Units/Ml) 500 units FLUSH ASDIRECTED PRN PRN Reason: Keep Vein Open Last Admin: 04/01/17 10:10 Dose: 500 units Admin: 03/22/17 10:11 Dose: 500 units Fat Emulsion Intravenous (Intralipid 20%) 250 mls @ 20 mls/hr IV Q24H [facility] Last Admin: 04/01/17 13:40 Dose: 20 mls/hr Infusion: 04/01/17 01:26 Dose: 20 mls/hr Admin: 03/31/17 12:56 Dose: 20 mls/hr Infusion: 03/31/17 00:55 Dose: 20 mls/hr Admin: 03/30/17 12:25 Dose: 20 mls/hr Infusion: 03/30/17 01:34 Dose: 20 mls/hr Admin: 03/29/17 13:04 Dose: 20 mls/hr Infusion: 03/29/17 01:32 Dose: 20 mls/hr Admin: 03/28/17 13:02 Dose: 20 mls/hr Infusion: 03/28/17 01:30 Dose: 20 mls/hr Admin: 03/27/17 13:00 Dose: 20 mls/hr Infusion: 03/27/17 00:22 Dose: 20 mls/hr Admin: 03/26/17 11:52 Dose: 20 mls/hr Infusion: 03/26/17 00:48 Dose: 20 mls/hr Admin: 03/25/17 12:18 Dose: 20 mls/hr Infusion: 03/25/17 01:18 Dose: 20 mls/hr Admin: 03/24/17 12:48 Dose: 20 mls/hr Infusion: 03/24/17 01:15 Dose: 20 mls/hr Admin: 03/23/17 12:45 Dose: 20 mls/hr Infusion: 03/23/17 01:38 Dose: 20 mls/hr Admin: 03/22/17 13:08 Dose: 20 mls/hr Infusion: 03/22/17 01:23 Dose: 20 mls/hr Admin: 03/21/17 12:53 Dose: 20 mls/hr Sodium Chloride (Normal Saline) 1,000 mls @ 50 mls/hr IV ASDIRECTED [facility] Last Admin: 04/01/17 23:16 Dose: 50 mls/hr Infusion: 04/01/17 22:47 Dose: 50 mls/hr Admin: 04/01/17 02:47 Dose: 50 mls/hr Infusion: 04/01/17 02:22 Dose: 50 mls/hr Admin: 03/31/17 06:22 Dose: 50 mls/hr Infusion: 03/31/17 06:22 Dose: 50 mls/hr Admin: 03/30/17 11:05 Dose: 50 mls/hr Infusion: 03/30/17 11:05 Dose: 50 mls/hr Admin: 03/29/17 16:07 Dose: 50 mls/hr Infusion: 03/29/17 15:42 Dose: 50 mls/hr Admin: 03/28/17 19:42 Dose: 50 mls/hr Infusion: 03/28/17 19:42 Dose: 50 mls/hr Admin: 03/27/17 23:47 Dose: 50 mls/hr Infusion: 03/27/17 23:47 Dose: 50 mls/hr Admin: 03/27/17 03:47 Dose: 50 mls/hr Infusion: 03/27/17 03:47 Dose: 50 mls/hr Admin: 03/26/17 08:20 Dose: 50 mls/hr Infusion: 03/26/17 08:20 Dose: 50 mls/hr Admin: 03/25/17 12:25 Dose: 50 mls/hr Infusion: 03/25/17 04:11 Dose: 50 mls/hr Admin: 03/24/17 08:11 Dose: 50 mls/hr Multivitamins/Minerals 10 ml/Amino Ac/Electrol/Dextrose/Calcium 1,010 mls @ 84 mls/hr IV .BY DURATION [facility] Last Admin: 04/01/17 11:18 Dose: 84 mls/hr Infusion: 03/31/17 11:10 Dose: 84 mls/hr Admin: 03/31/17 10:32 Dose: 84 mls/hr Infusion: 03/31/17 00:20 Dose: 84 mls/hr Admin: 03/30/17 12:18 Dose: 84 mls/hr Infusion: 03/29/17 23:32 Dose: 84 mls/hr Admin: 03/29/17 11:30 Dose: 84 mls/hr Infusion: 03/28/17 23:17 Dose: 84 mls/hr Admin: 03/28/17 11:15 Dose: 84 mls/hr Infusion: 03/27/17 23:32 Dose: 84 mls/hr Admin: 03/27/17 11:30 Dose: 84 mls/hr Infusion: 03/26/17 23:14 Dose: 84 mls/hr Admin: 03/26/17 11:12 Dose: 84 mls/hr Infusion: 03/25/17 22:48 Dose: 84 mls/hr Admin: 03/25/17 10:46 Dose: 84 mls/hr Amino Ac/Electrol/Dextrose/Calcium (Clinimix E 12/08) 1,000 mls @ 84 mls/hr IV .BY DURATION [facility] Last Admin: 04/01/17 23:15 Dose: 84 mls/hr Infusion: 04/01/17 10:34 Dose: 84 mls/hr Admin: 03/31/17 22:39 Dose: 84 mls/hr Infusion: 03/31/17 11:51 Dose: 84 mls/hr Admin: 03/30/17 23:56 Dose: 84 mls/hr Infusion: 03/30/17 12:10 Dose: 84 mls/hr Admin: 03/30/17 00:15 Dose: 84 mls/hr Infusion: 03/29/17 11:05 Dose: 84 mls/hr Admin: 03/28/17 23:10 Dose: 84 mls/hr Infusion: 03/28/17 11:36 Dose: 84 mls/hr Admin: 03/27/17 23:41 Dose: 84 mls/hr Infusion: 03/27/17 11:14 Dose: 84 mls/hr Admin: 03/26/17 23:19 Dose: 84 mls/hr Infusion: 03/26/17 10:59 Dose: 84 mls/hr Admin: 03/25/17 23:04 Dose: 84 mls/hr Ketorolac Tromethamine (Toradol) 15 mg IVPUSH Q6H PRN PRN Reason: Pain (moderate 4-6) Last Admin: 03/31/17 03:40 Dose: 15 mg Admin: 03/23/17 04:48 Dose: 15 mg Admin: 03/22/17 22:04 Dose: 15 mg Admin: 03/22/17 15:43 Dose: 15 mg Admin: 03/22/17 03:12 Dose: 15 mg Latanoprost (Xalatan 0.005% Ophth Soln) 0 ml EYEBOTH BEDTIME [facility] Last Admin: 04/01/17 20:53 Dose: 1 drop Admin: 03/31/17 20:32 Dose: 1 drop Admin: 03/30/17 20:28 Dose: 1 drop Admin: 03/29/17 20:34 Dose: 1 drop Admin: 03/28/17 20:58 Dose: 1 drop Admin: 03/27/17 20:48 Dose: 1 drop Admin: 03/26/17 20:21 Dose: 1 drop Admin: 03/25/17 23:06 Dose: 1 drop Admin: 03/24/17 20:03 Dose: 1 drop Admin: 03/23/17 22:01 Dose: 1 drop Admin: 03/22/17 20:37 Dose: 1 drop Admin: 03/21/17 21:05 Dose: 1 drop Lidocaine HCl (Xylocaine 2% Jelly) 5 ml MUCMEM Q4H PRN PRN Reason: Pain Last Admin: 03/27/17 13:05 Dose: 5 ml Metoprolol Succinate (Toprol Xl) 25 mg PO DAILY [facility] Last Admin: 04/02/17 08:52 Dose: 25 mg Admin: 04/01/17 09:34 Dose: 25 mg Admin: 03/31/17 08:35 Dose: 25 mg Admin: 03/30/17 10:46 Dose: 25 mg Admin: 03/29/17 10:04 Dose: 25 mg Admin: 03/28/17 08:45 Dose: 25 mg Admin: 03/27/17 08:28 Dose: 25 mg Admin: 03/26/17 08:43 Dose: 25 mg Admin: 03/25/17 11:32 Dose: 25 mg Admin: 03/24/17 08:30 Dose: 25 mg Admin: 03/23/17 08:21 Dose: 25 mg Admin: 03/22/17 09:59 Dose: 25 mg Morphine Sulfate (Morphine) 2 mg IVPUSH Q2H PRN PRN Reason: Pain (severe 7-10) Last Admin: 04/01/17 06:17 Dose: 2 mg Admin: 03/31/17 22:34 Dose: 2 mg Admin: 03/31/17 16:00 Dose: 2 mg Admin: 03/30/17 22:28 Dose: 2 mg Admin: 03/30/17 16:35 Dose: 2 mg Admin: 03/29/17 01:51 Dose: 2 mg Admin: 03/28/17 23:20 Dose: 2 mg Admin: 03/28/17 19:10 Dose: 2 mg Admin: 03/27/17 21:01 Dose: 2 mg Admin: 03/26/17 23:30 Dose: 2 mg Admin: 03/26/17 20:25 Dose: 2 mg Admin: 03/26/17 14:55 Dose: 2 mg Admin: 03/25/17 23:14 Dose: 2 mg Admin: 03/25/17 18:21 Dose: 2 mg Admin: 03/25/17 15:00 Dose: 2 mg Ondansetron HCl (Zofran) 4 mg IV Q6H PRN PRN Reason: Nausea/Vomiting Last Admin: 04/02/17 07:20 Dose: 4 mg Admin: 04/01/17 09:37 Dose: 4 mg Admin: 04/01/17 02:54 Dose: 4 mg Admin: 03/30/17 16:36 Dose: 4 mg Admin: 03/27/17 09:39 Dose: 4 mg Admin: 03/25/17 08:40 Dose: 4 mg Admin: 03/23/17 11:39 Dose: 4 mg Admin: 03/23/17 04:48 Dose: 4 mg Admin: 03/22/17 22:04 Dose: 4 mg Admin: 03/22/17 15:46 Dose: 4 mg Admin: 03/22/17 10:05 Dose: 4 mg Admin: 03/22/17 03:16 Dose: 4 mg Admin: 03/21/17 21:09 Dose: 4 mg Pantoprazole Sodium (Protonix Iv) 40 mg IVPUSH DAILY [facility] Last Admin: 04/02/17 08:52 Dose: 40 mg Admin: 04/01/17 09:40 Dose: 40 mg Admin: 03/31/17 08:35 Dose: 40 mg Admin: 03/30/17 10:45 Dose: 40 mg Admin: 03/29/17 10:02 Dose: 40 mg Admin: 03/28/17 08:45 Dose: 40 mg Admin: 03/27/17 08:28 Dose: 40 mg Admin: 03/26/17 08:50 Dose: 40 mg Admin: 03/25/17 11:32 Dose: 40 mg Admin: 03/24/17 08:30 Dose: 40 mg Admin: 03/23/17 08:19 Dose: 40 mg Admin: 03/22/17 10:00 Dose: 40 mg Phytonadione (Aquamephyton) 10 mg IM Mo [facility] Last Admin: 03/30/17 10:45 Dose: 10 mg Admin: 03/23/17 08:18 Dose: 10 mg Sodium Chloride (Saline Flush) 10 ml FLUSH ASDIRECTED PRN PRN Reason: Keep Vein Open Last Admin: 04/01/17 10:10 Dose: 10 ml Admin: 04/01/17 06:17 Dose: 10 ml Admin: 04/01/17 02:53 Dose: 10 ml Admin: 03/31/17 22:34 Dose: 10 ml Admin: 03/31/17 16:01 Dose: 10 ml Admin: 03/31/17 03:40 Dose: 10 ml Admin: 03/30/17 22:32 Dose: 10 ml Admin: 03/30/17 22:28 Dose: 10 ml Admin: 03/30/17 16:36 Dose: 10 ml Admin: 03/30/17 10:47 Dose: 10 ml Admin: 03/29/17 10:05 Dose: 10 ml Admin: 03/29/17 01:52 Dose: 10 ml Admin: 03/28/17 23:21 Dose: 10 ml Admin: 03/26/17 23:31 Dose: 10 ml Admin: 03/26/17 14:56 Dose: 10 ml Admin: 03/26/17 08:57 Dose: 10 ml Admin: 03/25/17 11:33 Dose: 10 ml Admin: 03/25/17 08:40 Dose: 10 ml Admin: 03/23/17 04:55 Dose: 10 ml Admin: 03/23/17 01:48 Dose: 10 ml Admin: 03/22/17 22:11 Dose: 10 ml Admin: 03/22/17 22:10 Dose: 10 ml Admin: 03/22/17 20:06 Dose: 10 ml Admin: 03/22/17 15:43 Dose: 10 ml Admin: 03/22/17 10:10 Dose: 10 ml Admin: 03/22/17 10:04 Dose: 10 ml Admin: 03/22/17 03:24 Dose: 10 ml Admin: 03/22/17 03:12 Dose: 10 ml Admin: 03/21/17 21:09 Dose: 10 ml - Assessment Assessment (Free Text/Narrative):: as above - Plan Plan (Free Text/Narrative):: continue current rx will wean tpn off on Dominik night for outpt testing on Thursday in [place].
[2017-04-02] MEDS: CALC IV SCH ×2 (12:11)
[2017-04-02] MEDS: [UNRECOGNIZED DRUG - OTHER] IV SCH ×2 (12:11)
[2017-04-02] MEDS: MVI IV SCH ×2 (12:11)
[2017-04-02] MEDS: CALCIUM IV SCH ×2 (12:11)
[2017-04-02] MEDS: LYTES IV SCH ×2 (12:11)
[2017-04-02] MEDS: Fat Emulsion 250 ML IV SCH (13:41)
[2017-04-02] MEDS: Ketorolac 15 MG/ML SDV IVPUSH PRN (16:14)
[2017-04-02] MEDS: Sodium Chloride 0.9% 1,000 ML IV SCH (19:31)
[2017-04-02] MEDS: Latanoprost 0.005% Ophth Soln 2.5 ML Bottle EYEBOTH SCH (20:03)
[2017-04-03] MEDS: LYTES IV SCH ×4 (00:20→12:33)
[2017-04-03] MEDS: [UNRECOGNIZED DRUG - OTHER] IV SCH ×4 (00:20→12:33)
[2017-04-03] MEDS: CALCIUM IV SCH ×4 (00:20→12:33)
[2017-04-03] MEDS: MVI IV SCH ×4 (00:20→12:33)
[2017-04-03] MEDS: CALC IV SCH ×4 (00:20→12:33)
[2017-04-03] MEDS: Enoxaparin 80 MG/0.8 ML Syringe SUBCUT SCH ×2 (02:52→14:35)
[2017-04-03] MEDS ORDERED: Potassium Chloride 20 MEQ in Premix Bag 1 BAG IV ONE (07:16)
--- NOTE | 2017-04-03 07:18 | PCM.SURGPN ---
- General Info Date of Service: 04/03/17 - Review of Systems Systems Review Comment:: no sig issue some emesis. not as much - Patient Data Vitals - Most Recent: Last Vital Signs Temp 36.8 C 04/02/17 07:10 Pulse 80 04/02/17 08:52 Resp 18 04/02/17 07:10 BP 135/79 04/02/17 08:52 Pulse Ox 98 04/02/17 07:10 Weight - Most Recent: 77.02 kg I&O - Last 24 Hours: Intake & Output 04/02/17 04/03/17 04/03/17 22:59 06:59 14:59 Intake Total 1248 1418 Output Total 150 1850 Balance 1098 -432 Lab Results Last 24 Hrs: Laboratory Results - last 24 hr 04/02/17 04/03/17 Range/Units 06:35 05:55 Sodium 138 (135-145) mmol/L Potassium 3.3 L (3.5-5.3) mmol/L Chloride 102 (100-110) mmol/L Carbon Dioxide 27 (23-29) mmol/L BUN 19 (8-23) mg/dL Creatinine 0.7 (0.6-1.3) mg/dL Est Cr Clr Drug Dosing 64.56 mL/min Estimated GFR (MDRD) > 60 (>60) BUN/Creatinine Ratio 27.1 H (9-20) Glucose 136 H (80-116) mg/dL POC Glucose 143 H (80-116) mg/dL Calcium 8.2 L (8.6-10.2) mg/dL Total Bilirubin 0.8 (0.1-1.3) mg/dL AST 33 H D (5-27) IU/L ALT 40 H D (14-26) IU/L Alkaline Phosphatase 135 H (56-112) IU/L Total Protein 6.1 (6.0-8.0) g/dL Albumin 2.7 L (2.9-4.5) g/dL Globulin 3.4 g/dL Albumin/Globulin Ratio 0.8 Med Orders - Current: Current Medications Acetaminophen (Tylenol) 650 mg PO Q4H PRN PRN Reason: Pain (Mild 1-3)/fever Last Admin: 03/22/17 11:25 Dose: 650 mg Albuterol/Ipratropium (Duoneb 3.0-0.5 Mg/3 Ml) 3 ml NEB Q4H PRN PRN Reason: Wheezing Enoxaparin Sodium (Lovenox) 80 mg SUBCUT Q12H [facility] Last Admin: 04/03/17 02:52 Dose: 80 mg Heparin Sodium (Porcine) (Heparin Lock Flush 100 Units/Ml) 500 units FLUSH ASDIRECTED PRN PRN Reason: Keep Vein Open Last Admin: 04/01/17 10:10 Dose: 500 units Fat Emulsion Intravenous (Intralipid 20%) 250 mls @ 20 mls/hr IV Q24H [facility] Last Admin: 04/02/17 13:41 Dose: 20 mls/hr Sodium Chloride (Normal Saline) 1,000 mls @ 50 mls/hr IV ASDIRECTED [facility] Last Admin: 04/02/17 19:31 Dose: 50 mls/hr Multivitamins/Minerals 10 ml/Amino Ac/Electrol/Dextrose/Calcium 1,010 mls @ 84 mls/hr IV .BY DURATION [facility] Stop: 04/05/17 22:00 Last Admin: 04/02/17 12:11 Dose: 84 mls/hr Amino Ac/Electrol/Dextrose/Calcium (Clinimix E 15) 1,000 mls @ 84 mls/hr IV .BY DURATION [facility] Stop: 04/05/17 22:00 Last Admin: 04/03/17 00:20 Dose: 84 mls/hr Multivitamins/Minerals 10 ml/Amino Ac/Electrol/Dextrose/Calcium 1,010 mls @ 42 mls/hr IV Q24H [facility] Stop: 04/06/17 06:00 Ketorolac Tromethamine (Toradol) 15 mg IVPUSH Q6H PRN PRN Reason: Pain (moderate 4-6) Last Admin: 04/02/17 16:14 Dose: 15 mg Latanoprost (Xalatan 0.005% Ophth Soln) 0 ml EYEBOTH BEDTIME [facility] Last Admin: 04/02/17 20:03 Dose: 1 drop Lidocaine HCl (Xylocaine 2% Jelly) 5 ml MUCMEM Q4H PRN PRN Reason: Pain Last Admin: 03/27/17 13:05 Dose: 5 ml Metoprolol Succinate (Toprol Xl) 25 mg PO DAILY [facility] Last Admin: 04/02/17 08:52 Dose: 25 mg Morphine Sulfate (Morphine) 2 mg IVPUSH Q2H PRN PRN Reason: Pain (severe 7-10) Last Admin: 04/01/17 06:17 Dose: 2 mg Ondansetron HCl (Zofran) 4 mg IV Q6H PRN PRN Reason: Nausea/Vomiting Last Admin: 04/02/17 15:34 Dose: 4 mg Pantoprazole Sodium (Protonix Iv) 40 mg IVPUSH DAILY [facility] Last Admin: 04/02/17 08:52 Dose: 40 mg Phytonadione (Aquamephyton) 10 mg IM Mo [facility] Last Admin: 03/30/17 10:45 Dose: 10 mg Sodium Chloride (Saline Flush) 10 ml FLUSH ASDIRECTED PRN PRN Reason: Keep Vein Open Last Admin: 04/01/17 10:10 Dose: 10 ml Discontinued Medications Bisacodyl (Dulcolax) 10 mg RECTAL ONETIME ONE Stop: 03/22/17 08:59 Last Admin: 03/22/17 11:16 Dose: 10 mg Fentanyl (Sublimaze) 100 mcg IV .STK-MED ONE Stop: 03/25/17 10:01 Multivitamins/Minerals 10 ml/Amino Ac/Electrol/Dextrose/Calcium 1,010 mls @ 84 mls/hr IV Q24H [facility] Stop: 03/23/17 13:30 Last Admin: 03/22/17 14:17 Dose: 42 mls/hr Multivitamins/Minerals 10 ml/Amino Ac/Electrol/Dextrose/Calcium 1,010 mls @ 84 mls/hr IV .BY DURATION [facility] Last Admin: 03/24/17 13:29 Dose: 84 mls/hr Amino Ac/Electrol/Dextrose/Calcium (Clinimix E 5/15) 1,000 mls @ 84 mls/hr IV .BY DURATION [facility] Last Admin: 03/25/17 02:17 Dose: 84 mls/hr Potassium Chloride 20 meq/ (Premix) 100 mls @ 50 mls/hr IV ONETIME ONE Stop: 03/24/17 10:10 Last Admin: 03/24/17 09:03 Dose: 50 mls/hr Potassium Chloride 20 meq/ (Premix) 100 mls @ 50 mls/hr IV ONETIME ONE Stop: 03/24/17 12:14 Last Admin: 03/24/17 11:06 Dose: 50 mls/hr Magnesium Sulfate 2 gm/ Premix 50 mls @ 8 mls/hr IV ONETIME ONE Stop: 03/24/17 23:14 Last Admin: 03/24/17 17:04 Dose: 8 mls/hr Lactated Ringer's (Ringers, Lactated) 1,000 mls @ as directed IV .STK-MED ONE Stop: 03/25/17 10:01 Dextrose/Water (Dextrose 10% In Water) 1,000 mls @ as directed IV .STK-MED ONE Stop: 03/25/17 10:01 Magnesium Sulfate 2 gm/ Premix 50 mls @ 8 mls/hr IV ONETIME ONE Stop: 03/29/17 14:44 Last Admin: 03/29/17 10:00 Dose: 8 mls/hr Insulin Aspart (Novolog) 0 unit SUBCUT WITHMEALSANDBED [facility] PRN Reason: Protocol Last Admin: 03/25/17 18:57 Dose: Not Given Metoclopramide HCl (Reglan) 5 mg IV Q6H [facility] Last Admin: 03/23/17 08:24 Dose: 5 mg Metoprolol Succinate (Toprol Xl) 50 mg PO DAILY [facility] Midazolam HCl (Versed 1 Mg/Ml) 1 mg IV .STK-MED ONE Stop: 03/25/17 10:01 Propofol (Diprivan 20 Ml) 100 mg IV .STK-MED ONE Stop: 03/25/17 10:01 Sucralfate (Carafate) 1 gm PO Q6H [facility] Last Admin: 03/25/17 11:28 Dose: Not Given - Exam General: Alert, Oriented, Cooperative Lungs: Clear to Auscultation, Normal Respiratory Effort Cardiovascular: Regular Rate, Regular Rhythm GI/Abdominal Exam: Normal Bowel Sounds, Soft, Non-Tender - Problem List & Annotations (1) Gastroparesis SNOMED Code(s): 297919680 Code(s): K31.84 - GASTROPARESIS Status: Acute Current Visit: No (2) DVT, lower extremity, distal SNOMED Code(s): 486076031 Code(s): I82.4Z9 - ACUTE EMBLSM AND THOMBOS UNSP DEEP VN UNSP DISTAL LOW EXTRM Status: Acute Current Visit: Yes Qualifiers: Chronicity: unspecified Laterality: left Qualified Code(s): I82.4Z2 - Acute embolism and thrombosis of unspecified deep veins of left distal lower extremity - Problem List Review Problem List Initiated/Reviewed/Updated: Yes - My Orders Last 24 Hours: Active Orders 24 hr Category Date Time Status Communication Order [RC] 02,04,06,08,10,12,14,16,18,20, Care 04/02/17 14:00 Active 22,00 Communication Order [RC] MO Care 04/06/17 06:00 Active CBC WITH AUTO DIFF [HEME] [facility] 04/09/17 06:00 Ordered CBC WITH AUTO DIFF [HEME] TH Lab 04/16/17 06:00 Ordered CBC WITH AUTO DIFF [HEME] TH Lab 04/23/17 06:00 Ordered CBC WITH AUTO DIFF [HEME] TH Lab 04/30/17 06:00 Ordered COMPREHENSIVE METABOLIC PN,CMP [CHEM] MO Lab 04/06/17 06:00 Ordered COMPREHENSIVE METABOLIC PN,CMP [CHEM] MO Lab 04/13/17 06:00 Ordered COMPREHENSIVE METABOLIC PN,CMP [CHEM] MO Lab 04/20/17 06:00 Ordered COMPREHENSIVE METABOLIC PN,CMP [CHEM] MO Lab 04/27/17 06:00 Ordered COMPREHENSIVE METABOLIC PN,CMP [CHEM] MO Lab 05/04/17 06:00 Ordered COMPREHENSIVE METABOLIC PN,CMP [CHEM] TH Lab 04/09/17 06:00 Ordered COMPREHENSIVE METABOLIC PN,CMP [CHEM] TH Lab 04/16/17 06:00 Ordered COMPREHENSIVE METABOLIC PN,CMP [CHEM] TH Lab 04/23/17 06:00 Ordered COMPREHENSIVE METABOLIC PN,CMP [CHEM] TH Lab 04/30/17 06:00 Ordered INR,PT,PROTHROMBIN TIME [COAG] TH Lab 04/09/17 06:00 Ordered INR,PT,PROTHROMBIN TIME [COAG] TH Lab 04/16/17 06:00 Ordered INR,PT,PROTHROMBIN TIME [COAG] TH Lab 04/23/17 06:00 Ordered INR,PT,PROTHROMBIN TIME [COAG] Lab 04/30/17 06:00 Ordered MVI, Adult with Vitamin K [Infuvite Adult] 10 ml Med 04/05/17 22:01 Active AA 5%/Calcium/D15W/Lytes [Clinimix E 5/15] 1,000 ml IV Q24H Potassium Chloride [KCL 20 MEQ in Water 100 ML] 20 meq Med 04/03/17 07:16 Ordered Premix Bag 1 bag IV ONETIME Medication Orders Acetaminophen (Tylenol) 650 mg PO Q4H PRN PRN Reason: Pain (Mild 1-3)/fever Last Admin: 03/22/17 11:25 Dose: 650 mg Albuterol/Ipratropium (Duoneb 3.0-0.5 Mg/3 Ml) 3 ml NEB Q4H PRN PRN Reason: Wheezing Enoxaparin Sodium (Lovenox) 80 mg SUBCUT Q12H [facility] Last Admin: 04/03/17 02:52 Dose: 80 mg Admin: 04/02/17 13:57 Dose: 80 mg Admin: 04/02/17 02:07 Dose: 80 mg Admin: 04/01/17 14:40 Dose: 80 mg Heparin Sodium (Porcine) (Heparin Lock Flush 100 Units/Ml) 500 units FLUSH ASDIRECTED PRN PRN Reason: Keep Vein Open Last Admin: 04/01/17 10:10 Dose: 500 units Admin: 03/22/17 10:11 Dose: 500 units Fat Emulsion Intravenous (Intralipid 20%) 250 mls @ 20 mls/hr IV Q24H [facility] Last Admin: 04/02/17 13:41 Dose: 20 mls/hr Infusion: 04/02/17 02:10 Dose: 20 mls/hr Admin: 04/01/17 13:40 Dose: 20 mls/hr Infusion: 04/01/17 01:26 Dose: 20 mls/hr Admin: 03/31/17 12:56 Dose: 20 mls/hr Infusion: 03/31/17 00:55 Dose: 20 mls/hr Admin: 03/30/17 12:25 Dose: 20 mls/hr Infusion: 03/30/17 01:34 Dose: 20 mls/hr Admin: 03/29/17 13:04 Dose: 20 mls/hr Infusion: 03/29/17 01:32 Dose: 20 mls/hr Admin: 03/28/17 13:02 Dose: 20 mls/hr Infusion: 03/28/17 01:30 Dose: 20 mls/hr Admin: 03/27/17 13:00 Dose: 20 mls/hr Infusion: 03/27/17 00:22 Dose: 20 mls/hr Admin: 03/26/17 11:52 Dose: 20 mls/hr Infusion: 03/26/17 00:48 Dose: 20 mls/hr Admin: 03/25/17 12:18 Dose: 20 mls/hr Infusion: 03/25/17 01:18 Dose: 20 mls/hr Admin: 03/24/17 12:48 Dose: 20 mls/hr Infusion: 03/24/17 01:15 Dose: 20 mls/hr Admin: 03/23/17 12:45 Dose: 20 mls/hr Infusion: 03/23/17 01:38 Dose: 20 mls/hr Admin: 03/22/17 13:08 Dose: 20 mls/hr Infusion: 03/22/17 01:23 Dose: 20 mls/hr Admin: 03/21/17 12:53 Dose: 20 mls/hr Sodium Chloride (Normal Saline) 1,000 mls @ 50 mls/hr IV ASDIRECTED [facility] Admin: 04/02/17 19:31 Dose: 50 mls/hr Infusion: 04/02/17 19:16 Dose: 50 mls/hr Admin: 04/01/17 23:16 Dose: 50 mls/hr Infusion: 04/01/17 22:47 Dose: 50 mls/hr Admin: 04/01/17 02:47 Dose: 50 mls/hr Infusion: 04/01/17 02:22 Dose: 50 mls/hr Admin: 03/31/17 06:22 Dose: 50 mls/hr Infusion: 03/31/17 06:22 Dose: 50 mls/hr Admin: 03/30/17 11:05 Dose: 50 mls/hr Infusion: 03/30/17 11:05 Dose: 50 mls/hr Admin: 03/29/17 16:07 Dose: 50 mls/hr Infusion: 03/29/17 15:42 Dose: 50 mls/hr Admin: 03/28/17 19:42 Dose: 50 mls/hr Infusion: 03/28/17 19:42 Dose: 50 mls/hr Admin: 03/27/17 23:47 Dose: 50 mls/hr Infusion: 03/27/17 23:47 Dose: 50 mls/hr Admin: 03/27/17 03:47 Dose: 50 mls/hr Infusion: 03/27/17 03:47 Dose: 50 mls/hr Admin: 03/26/17 08:20 Dose: 50 mls/hr Infusion: 03/26/17 08:20 Dose: 50 mls/hr Admin: 03/25/17 12:25 Dose: 50 mls/hr Infusion: 03/25/17 04:11 Dose: 50 mls/hr Admin: 03/24/17 08:11 Dose: 50 mls/hr Multivitamins/Minerals 10 ml/Amino Ac/Electrol/Dextrose/Calcium 1,010 mls @ 84 mls/hr IV .BY DURATION [facility] Stop: 04/05/17 22:00 Last Admin: 04/02/17 12:11 Dose: 84 mls/hr Infusion: 04/01/17 23:20 Dose: 84 mls/hr Admin: 04/01/17 11:18 Dose: 84 mls/hr Infusion: 03/31/17 11:10 Dose: 84 mls/hr Admin: 03/31/17 10:32 Dose: 84 mls/hr Infusion: 03/31/17 00:20 Dose: 84 mls/hr Admin: 03/30/17 12:18 Dose: 84 mls/hr Infusion: 03/29/17 23:32 Dose: 84 mls/hr Admin: 03/29/17 11:30 Dose: 84 mls/hr Infusion: 03/28/17 23:17 Dose: 84 mls/hr Admin: 03/28/17 11:15 Dose: 84 mls/hr Infusion: 03/27/17 23:32 Dose: 84 mls/hr Admin: 03/27/17 11:30 Dose: 84 mls/hr Infusion: 03/26/17 23:14 Dose: 84 mls/hr Admin: 03/26/17 11:12 Dose: 84 mls/hr Infusion: 03/25/17 22:48 Dose: 84 mls/hr Admin: 03/25/17 10:46 Dose: 84 mls/hr Amino Ac/Electrol/Dextrose/Calcium (Clinimix E 12/08) 1,000 mls @ 84 mls/hr IV .BY DURATION [facility] Stop: 04/05/17 22:00 Last Admin: 04/03/17 00:20 Dose: 84 mls/hr Infusion: 04/02/17 11:10 Dose: 84 mls/hr Admin: 04/01/17 23:15 Dose: 84 mls/hr Infusion: 04/01/17 10:34 Dose: 84 mls/hr Admin: 03/31/17 22:39 Dose: 84 mls/hr Infusion: 03/31/17 11:51 Dose: 84 mls/hr Admin: 03/30/17 23:56 Dose: 84 mls/hr Infusion: 03/30/17 12:10 Dose: 84 mls/hr Admin: 03/30/17 00:15 Dose: 84 mls/hr Infusion: 03/29/17 11:05 Dose: 84 mls/hr Admin: 03/28/17 23:10 Dose: 84 mls/hr Infusion: 03/28/17 11:36 Dose: 84 mls/hr Admin: 03/27/17 23:41 Dose: 84 mls/hr Infusion: 03/27/17 11:14 Dose: 84 mls/hr Admin: 03/26/17 23:19 Dose: 84 mls/hr Infusion: 03/26/17 10:59 Dose: 84 mls/hr Admin: 03/25/17 23:04 Dose: 84 mls/hr Multivitamins/Minerals 10 ml/Amino Ac/Electrol/Dextrose/Calcium 1,010 mls @ 42 mls/hr IV Q24H [facility] Stop: 04/06/17 06:00 Ketorolac Tromethamine (Toradol) 15 mg IVPUSH Q6H PRN PRN Reason: Pain (moderate 4-6) Last Admin: 04/02/17 16:14 Dose: 15 mg Admin: 03/31/17 03:40 Dose: 15 mg Admin: 03/23/17 04:48 Dose: 15 mg Admin: 03/22/17 22:04 Dose: 15 mg Admin: 03/22/17 15:43 Dose: 15 mg Admin: 03/22/17 03:12 Dose: 15 mg Latanoprost (Xalatan 0.005% Ophth Soln) 0 ml EYEBOTH BEDTIME [facility] Last Admin: 04/02/17 20:03 Dose: 1 drop Admin: 04/01/17 20:53 Dose: 1 drop Admin: 03/31/17 20:32 Dose: 1 drop Admin: 03/30/17 20:28 Dose: 1 drop Admin: 03/29/17 20:34 Dose: 1 drop Admin: 03/28/17 20:58 Dose: 1 drop Admin: 03/27/17 20:48 Dose: 1 drop Admin: 03/26/17 20:21 Dose: 1 drop Admin: 03/25/17 23:06 Dose: 1 drop Admin: 03/24/17 20:03 Dose: 1 drop Admin: 03/23/17 22:01 Dose: 1 drop Admin: 03/22/17 20:37 Dose: 1 drop Admin: 03/21/17 21:05 Dose: 1 drop Lidocaine HCl (Xylocaine 2% Jelly) 5 ml MUCMEM Q4H PRN PRN Reason: Pain Last Admin: 03/27/17 13:05 Dose: 5 ml Metoprolol Succinate (Toprol Xl) 25 mg PO DAILY [facility] Last Admin: 04/02/17 08:52 Dose: 25 mg Admin: 04/01/17 09:34 Dose: 25 mg Admin: 03/31/17 08:35 Dose: 25 mg Admin: 03/30/17 10:46 Dose: 25 mg Admin: 03/29/17 10:04 Dose: 25 mg Admin: 03/28/17 08:45 Dose: 25 mg Admin: 03/27/17 08:28 Dose: 25 mg Admin: 03/26/17 08:43 Dose: 25 mg Admin: 03/25/17 11:32 Dose: 25 mg Admin: 03/24/17 08:30 Dose: 25 mg Admin: 03/23/17 08:21 Dose: 25 mg Admin: 03/22/17 09:59 Dose: 25 mg Morphine Sulfate (Morphine) 2 mg IVPUSH Q2H PRN PRN Reason: Pain (severe 7-10) Last Admin: 04/01/17 06:17 Dose: 2 mg Admin: 03/31/17 22:34 Dose: 2 mg Admin: 03/31/17 16:00 Dose: 2 mg Admin: 03/30/17 22:28 Dose: 2 mg Admin: 03/30/17 16:35 Dose: 2 mg Admin: 03/29/17 01:51 Dose: 2 mg Admin: 03/28/17 23:20 Dose: 2 mg Admin: 03/28/17 19:10 Dose: 2 mg Admin: 03/27/17 21:01 Dose: 2 mg Admin: 03/26/17 23:30 Dose: 2 mg Admin: 03/26/17 20:25 Dose: 2 mg Admin: 03/26/17 14:55 Dose: 2 mg Admin: 03/25/17 23:14 Dose: 2 mg Admin: 03/25/17 18:21 Dose: 2 mg Admin: 03/25/17 15:00 Dose: 2 mg Ondansetron HCl (Zofran) 4 mg IV Q6H PRN PRN Reason: Nausea/Vomiting Last Admin: 04/02/17 15:34 Dose: 4 mg Admin: 04/02/17 07:20 Dose: 4 mg Admin: 04/01/17 09:37 Dose: 4 mg Admin: 04/01/17 02:54 Dose: 4 mg Admin: 03/30/17 16:36 Dose: 4 mg Admin: 03/27/17 09:39 Dose: 4 mg Admin: 03/25/17 08:40 Dose: 4 mg Admin: 03/23/17 11:39 Dose: 4 mg Admin: 03/23/17 04:48 Dose: 4 mg Admin: 03/22/17 22:04 Dose: 4 mg Admin: 03/22/17 15:46 Dose: 4 mg Admin: 03/22/17 10:05 Dose: 4 mg Admin: 03/22/17 03:16 Dose: 4 mg Admin: 03/21/17 21:09 Dose: 4 mg Pantoprazole Sodium (Protonix Iv) 40 mg IVPUSH DAILY [facility] Last Admin: 04/02/17 08:52 Dose: 40 mg Admin: 04/01/17 09:40 Dose: 40 mg Admin: 03/31/17 08:35 Dose: 40 mg Admin: 03/30/17 10:45 Dose: 40 mg Admin: 03/29/17 10:02 Dose: 40 mg Admin: 03/28/17 08:45 Dose: 40 mg Admin: 03/27/17 08:28 Dose: 40 mg Admin: 03/26/17 08:50 Dose: 40 mg Admin: 03/25/17 11:32 Dose: 40 mg Admin: 03/24/17 08:30 Dose: 40 mg Admin: 03/23/17 08:19 Dose: 40 mg Admin: 03/22/17 10:00 Dose: 40 mg Phytonadione (Aquamephyton) 10 mg IM Mo [facility] Last Admin: 03/30/17 10:45 Dose: 10 mg Admin: 03/23/17 08:18 Dose: 10 mg Sodium Chloride (Saline Flush) 10 ml FLUSH ASDIRECTED PRN PRN Reason: Keep Vein Open Last Admin: 04/01/17 10:10 Dose: 10 ml Admin: 04/01/17 06:17 Dose: 10 ml Admin: 04/01/17 02:53 Dose: 10 ml Admin: 03/31/17 22:34 Dose: 10 ml Admin: 03/31/17 16:01 Dose: 10 ml Admin: 03/31/17 03:40 Dose: 10 ml Admin: 03/30/17 22:32 Dose: 10 ml Admin: 03/30/17 22:28 Dose: 10 ml Admin: 03/30/17 16:36 Dose: 10 ml Admin: 03/30/17 10:47 Dose: 10 ml Admin: 03/29/17 10:05 Dose: 10 ml Admin: 03/29/17 01:52 Dose: 10 ml Admin: 03/28/17 23:21 Dose: 10 ml Admin: 03/26/17 23:31 Dose: 10 ml Admin: 03/26/17 14:56 Dose: 10 ml Admin: 03/26/17 08:57 Dose: 10 ml Admin: 03/25/17 11:33 Dose: 10 ml Admin: 03/25/17 08:40 Dose: 10 ml Admin: 03/23/17 04:55 Dose: 10 ml Admin: 03/23/17 01:48 Dose: 10 ml Admin: 03/22/17 22:11 Dose: 10 ml Admin: 03/22/17 22:10 Dose: 10 ml Admin: 03/22/17 20:06 Dose: 10 ml Admin: 03/22/17 15:43 Dose: 10 ml Admin: 03/22/17 10:10 Dose: 10 ml Admin: 03/22/17 10:04 Dose: 10 ml Admin: 03/22/17 03:24 Dose: 10 ml Admin: 03/22/17 03:12 Dose: 10 ml Admin: 03/21/17 21:09 Dose: 10 ml - Assessment Assessment (Free Text/Narrative):: stable - Plan Plan (Free Text/Narrative):: emptying test on Thursday
[2017-04-03] MEDS: Metoprolol Succinate 25 MG Tab.ER PO SCH (08:47)
[2017-04-03] MEDS: Pantoprazole 40 MG Vial IVPUSH SCH (08:47)
[2017-04-03] MEDS: Ondansetron 4 MG/2 ML SDV IV PRN ×2 (12:28→20:53)
[2017-04-03] MEDS: Sodium Chloride 0.9% 10 ML Syringe FLUSH PRN (12:29)
[2017-04-03] MEDS: Fat Emulsion 250 ML IV SCH (13:18)
--- NOTE | 2017-04-03 15:50 | US ---
INDICATION: Leg swelling, moderate, with some pain. Evaluate for DVT. COMPARISON: Right lower extremity duplex Doppler examination 05 April 2009. ULTRASOUND DUPLEX DOPPLER EXAMINATION LOWER EXTREMITIES BILATERAL: Normal color , pulsed-wave Doppler vascular flow, singleton-scale compressibility of the common femoral veins bilaterally, superficial femoral veins bilaterally, and popliteal veins. Normal color and pulsed-wave Doppler vascular flow on limited visualization of proximal left greater saphenous vein. Intermittent regions of moderate decreased singleton-scale compressibility of the left posterior tibial vein, with moderate decreased color and pulsed-wave Doppler vascular flow in this region. Intermittent regions of singleton-scale compressibility and color Doppler vascular flow of posterior tibial vein, in particular mid to distally at this previously described region as well. This is left side. Normal color and pulsed-wave Doppler vascular flow on limited visualization of the right posterior tibial vein and anterior tibial vein and normal color Doppler vascular flow on limited visualization of the left anterior tibial vein. No solid or cystic mass or fluid collection. IMPRESSION: 1. Moderate partially occlusive acute deep venous thrombosis left posterior tibial vein. Clinical team of Dr. Gutierrez was notified of the findings at the time of dictation. 2. No evidence of deep venous thrombosis right lower extremity. 3. No evidence of solid or cystic mass or fluid collections. [facility]
[2017-04-03] MEDS: Sodium Chloride 0.9% 1,000 ML IV SCH (17:44)
[2017-04-03] MEDS: Latanoprost 0.005% Ophth Soln 2.5 ML Bottle EYEBOTH SCH (20:54)
[2017-04-04] MEDS: LYTES IV SCH ×2 (00:54)
[2017-04-04] MEDS: MVI IV SCH ×2 (00:54)
[2017-04-04] MEDS: CALCIUM IV SCH ×2 (00:54)
[2017-04-04] MEDS: CALC IV SCH ×2 (00:54)
[2017-04-04] MEDS: [UNRECOGNIZED DRUG - OTHER] IV SCH ×2 (00:54)
[2017-04-04] MEDS: Enoxaparin 80 MG/0.8 ML Syringe SUBCUT SCH ×2 (02:42→14:46)
[2017-04-04] MEDS: Ketorolac 15 MG/ML SDV IVPUSH PRN ×2 (03:40→10:11)
[2017-04-04] MEDS: Sodium Chloride 0.9% 10 ML Syringe FLUSH PRN ×2 (03:41→21:01)
[2017-04-04] MEDS: Metoprolol Succinate 25 MG Tab.ER PO SCH (09:44)
[2017-04-04] MEDS: Pantoprazole 40 MG Vial IVPUSH SCH (10:11)
[2017-04-04] MEDS: Ondansetron 4 MG/2 ML SDV IV PRN ×2 (10:11→21:01)
[2017-04-04] MEDS: Dextrose 10% in Water 1,000 ML IV SCH (13:28)
[2017-04-04] MEDS: Fat Emulsion 250 ML IV SCH (13:34)
[2017-04-04] MEDS: Sodium Chloride 0.9% 1,000 ML IV SCH (13:37)
[2017-04-04] MEDS: Latanoprost 0.005% Ophth Soln 2.5 ML Bottle EYEBOTH SCH (21:00)
[2017-04-05] MEDS: Dextrose 10% in Water 1,000 ML IV SCH ×2 (01:32→13:26)
[2017-04-05] MEDS: Enoxaparin 80 MG/0.8 ML Syringe SUBCUT SCH ×2 (02:14→14:43)
[2017-04-05] MEDS: Pantoprazole 40 MG Vial IVPUSH SCH (08:32)
[2017-04-05] MEDS: Metoprolol Succinate 25 MG Tab.ER PO SCH (08:32)
[2017-04-05] MEDS: Ondansetron 4 MG/2 ML SDV IV PRN ×2 (10:35→16:51)
[2017-04-05] MEDS: Ketorolac 15 MG/ML SDV IVPUSH PRN ×2 (10:35→16:51)
[2017-04-05] MEDS: MVI IV SCH ×2 (10:57)
[2017-04-05] MEDS: [UNRECOGNIZED DRUG - OTHER] IV SCH ×2 (10:57)
[2017-04-05] MEDS: LYTES IV SCH ×2 (10:57)
[2017-04-05] MEDS: CALCIUM IV SCH ×2 (10:57)
[2017-04-05] MEDS: CALC IV SCH ×2 (10:57)
[2017-04-05] MEDS: Sodium Chloride 0.9% 1,000 ML IV SCH (10:58)
[2017-04-05] MEDS: Fat Emulsion 250 ML IV SCH (15:23)
--- NOTE | 2017-04-05 18:02 | PCM.SN ---
- Free Text/Narrative Note: no new complaints. some abd pain. has not vomited for several day.s lungs cta heart rrr abd soft some distention. stable exam. gastric emptying study tommorrow.
[2017-04-05] MEDS: Latanoprost 0.005% Ophth Soln 2.5 ML Bottle EYEBOTH SCH (20:39)
[2017-04-05] MEDS ORDERED: AA 5%/Calcium/D15W/Lytes 1,000 ML IV SCH (22:01)
[2017-04-05] MEDS ORDERED: Dextrose 10% in Water 1,000 ML IV SCH (22:01)
[2017-04-06] MEDS: Ketorolac 15 MG/ML SDV IVPUSH PRN (02:16)
[2017-04-06] MEDS: Ondansetron 4 MG/2 ML SDV IV PRN (02:17)
[2017-04-06] MEDS: Enoxaparin 80 MG/0.8 ML Syringe SUBCUT SCH ×3 (02:17→17:17)
[2017-04-06] MEDS: Sodium Chloride 0.9% 10 ML Syringe FLUSH PRN ×3 (02:17→09:46)
[2017-04-06] MEDS: Sodium Chloride 0.9% 1,000 ML IV SCH ×2 (03:58→23:30)
[2017-04-06] MEDS ORDERED: Lidocaine 2% Viscous Solution 15 ML Cup PO SCH (07:00)
[2017-04-06] MEDS ORDERED: Lidocaine 2% Viscous Solution 100 ML Bottle PO SCH (07:00)
[2017-04-06] MEDS ORDERED: Lidocaine 2% Jelly 5 ML Urojet MUCMEM SCH (07:00)
[2017-04-06] MEDS ORDERED: Lidocaine 2% Viscous Solution 15 ML Cup ONE (07:34)
[2017-04-06] MEDS ORDERED: Potassium Chloride 20 MEQ in Premix Bag 1 BAG IV ONE (08:18)
[2017-04-06] MEDS: Metoprolol Succinate 25 MG Tab.ER PO SCH (09:38)
[2017-04-06] MEDS: Pantoprazole 40 MG Vial IVPUSH SCH (09:39)
[2017-04-06] MEDS: Fat Emulsion 250 ML IV SCH ×2 (14:01→17:16)
[2017-04-06] MEDS ORDERED: MVI, Adult with Vitamin K 10 ML in AA 5%/Calcium/D15W/Lytes 1,000 ML IV ONE ×2 (18:00)
[2017-04-06] MEDS: Latanoprost 0.005% Ophth Soln 2.5 ML Bottle EYEBOTH SCH (20:37)
[2017-04-07] MEDS: Sodium Chloride 0.9% 10 ML Syringe FLUSH PRN (06:25)
[2017-04-07] MEDS: Enoxaparin 80 MG/0.8 ML Syringe SUBCUT SCH ×2 (06:25→18:19)
[2017-04-07] MEDS ORDERED: Magnesium Sulfate/Water 50 ML IV ONE (09:00)
[2017-04-07] MEDS: Metoprolol Succinate 25 MG Tab.ER PO SCH (09:21)
[2017-04-07] MEDS: Pantoprazole 40 MG Vial IVPUSH SCH (09:29)
--- NOTE | 2017-04-07 09:55 | PCM.SURGPN ---
- General Info Date of Service: 04/07/17 - Review of Systems Systems Review Comment:: alittle gi upset this am. otherwise no complaints. - Patient Data Vitals - Most Recent: Last Vital Signs Temp 36.1 C 04/07/17 07:46 Pulse 87 04/07/17 09:21 Resp 18 04/07/17 07:46 BP 145/72 H 04/07/17 09:21 Pulse Ox 95 04/07/17 07:46 Weight - Most Recent: 73.961 kg I&O - Last 24 Hours: Intake & Output 04/06/17 04/07/17 04/07/17 22:59 06:59 14:59 Intake Total 547 821 Output Total 400 Balance 547 421 Lab Results Last 24 Hrs: Laboratory Results - last 24 hr 04/07/17 04/07/17 Range/Units 06:20 06:22 Potassium 3.0 L (3.5-5.3) mmol/L POC Glucose 189 H (80-116) mg/dL Magnesium 1.7 L (1.8-2.5) mg/dL Med Orders - Current: Current Medications Acetaminophen (Tylenol) 650 mg PO Q4H PRN PRN Reason: Pain (Mild 1-3)/fever Last Admin: 03/22/17 11:25 Dose: 650 mg Albuterol/Ipratropium (Duoneb 3.0-0.5 Mg/3 Ml) 3 ml NEB Q4H PRN PRN Reason: Wheezing Enoxaparin Sodium (Lovenox) 80 mg SUBCUT Q12H [facility] Last Admin: 04/07/17 06:25 Dose: 80 mg Heparin Sodium (Porcine) (Heparin Lock Flush 100 Units/Ml) 500 units FLUSH ASDIRECTED PRN PRN Reason: Keep Vein Open Last Admin: 04/06/17 09:49 Dose: 500 units Sodium Chloride (Normal Saline) 1,000 mls @ 50 mls/hr IV ASDIRECTED [facility] Last Admin: 04/06/17 23:30 Dose: 50 mls/hr Fat Emulsion Intravenous (Intralipid 20%) 250 mls @ 20 mls/hr IV Q24H [facility] Last Admin: 04/06/17 17:16 Dose: 20 mls/hr Multivitamins/Minerals 10 ml/Amino Ac/Electrol/Dextrose/Calcium 1,010 mls @ 42 mls/hr IV ONETIME ONE Stop: 04/07/17 18:02 Last Admin: 04/06/17 17:16 Dose: 42 mls/hr Multivitamins/Minerals 10 ml/Amino Ac/Electrol/Dextrose/Calcium 1,010 mls @ 84 mls/hr IV .BY DURATION [facility] Amino Ac/Electrol/Dextrose/Calcium (Clinimix E /15) 1,000 mls @ 84 mls/hr IV .BY DURATION [facility] Magnesium Sulfate (Magnesium Sulfate 2 Gm In Water 50 Ml) 50 mls @ 8 mls/hr IV ONETIME ONE Stop: 04/07/17 15:14 Last Admin: 04/07/17 09:22 Dose: 8 mls/hr Potassium Chloride 20 meq/ (Premix) 100 mls @ 50 mls/hr IV ONETIME ONE Stop: 04/07/17 11:49 Potassium Chloride 20 meq/ (Premix) 100 mls @ 50 mls/hr IV ONETIME ONE Stop: 04/07/17 11:50 Ketorolac Tromethamine (Toradol) 15 mg IVPUSH Q6H PRN PRN Reason: Pain (moderate 4-6) Last Admin: 04/06/17 02:16 Dose: 15 mg Latanoprost (Xalatan 0.005% Ophth Soln) 0 ml EYEBOTH BEDTIME [facility] Last Admin: 04/06/17 20:37 Dose: 1 drop Lidocaine HCl (Xylocaine 2% Jelly) 5 ml MUCMEM Q4H PRN PRN Reason: Pain Last Admin: 03/27/17 13:05 Dose: 5 ml Metoprolol Succinate (Toprol Xl) 25 mg PO DAILY [facility] Last Admin: 04/07/17 09:21 Dose: 25 mg Morphine Sulfate (Morphine) 2 mg IVPUSH Q2H PRN PRN Reason: Pain (severe 7-10) Last Admin: 04/01/17 06:17 Dose: 2 mg Ondansetron HCl (Zofran) 4 mg IV Q6H PRN PRN Reason: Nausea/Vomiting Last Admin: 04/06/17 02:17 Dose: 4 mg Pantoprazole Sodium (Protonix Iv) 40 mg IVPUSH DAILY [facility] Last Admin: 04/07/17 09:29 Dose: 40 mg Phytonadione (Aquamephyton) 10 mg IM Mo [facility] Last Admin: 04/06/17 07:57 Dose: Not Given Sodium Chloride (Saline Flush) 10 ml FLUSH ASDIRECTED PRN PRN Reason: Keep Vein Open Last Admin: 04/07/17 06:25 Dose: 10 ml Discontinued Medications Bisacodyl (Dulcolax) 10 mg RECTAL ONETIME ONE Stop: 03/22/17 08:59 Last Admin: 03/22/17 11:16 Dose: 10 mg Enoxaparin Sodium (Lovenox) 80 mg SUBCUT Q12H [facility] Last Admin: 04/06/17 15:27 Dose: Not Given Fentanyl (Sublimaze) 100 mcg IV .STK-MED ONE Stop: 03/25/17 10:01 Fat Emulsion Intravenous (Intralipid 20%) 250 mls @ 20 mls/hr IV Q24H [facility] Last Admin: 04/06/17 14:01 Dose: Not Given Multivitamins/Minerals 10 ml/Amino Ac/Electrol/Dextrose/Calcium 1,010 mls @ 84 mls/hr IV Q24H [facility] Stop: 03/23/17 13:30 Last Admin: 03/22/17 14:17 Dose: 42 mls/hr Multivitamins/Minerals 10 ml/Amino Ac/Electrol/Dextrose/Calcium 1,010 mls @ 84 mls/hr IV .BY DURATION [facility] Last Admin: 03/24/17 13:29 Dose: 84 mls/hr Amino Ac/Electrol/Dextrose/Calcium (Clinimix E 5/15) 1,000 mls @ 84 mls/hr IV .BY DURATION [facility] Last Admin: 03/25/17 02:17 Dose: 84 mls/hr Potassium Chloride 20 meq/ (Premix) 100 mls @ 50 mls/hr IV ONETIME ONE Stop: 03/24/17 10:10 Last Admin: 03/24/17 09:03 Dose: 50 mls/hr Potassium Chloride 20 meq/ (Premix) 100 mls @ 50 mls/hr IV ONETIME ONE Stop: 03/24/17 12:14 Last Admin: 03/24/17 11:06 Dose: 50 mls/hr Magnesium Sulfate 2 gm/ Premix 50 mls @ 8 mls/hr IV ONETIME ONE Stop: 03/24/17 23:14 Last Admin: 03/24/17 17:04 Dose: 8 mls/hr Multivitamins/Minerals 10 ml/Amino Ac/Electrol/Dextrose/Calcium 1,010 mls @ 84 mls/hr IV .BY DURATION [facility] Stop: 04/04/17 13:15 Last Admin: 04/05/17 10:57 Dose: Not Given Amino Ac/Electrol/Dextrose/Calcium (Clinimix E 12/08) 1,000 mls @ 84 mls/hr IV .BY DURATION [facility] Stop: 04/04/17 13:15 Last Admin: 04/04/17 00:54 Dose: 84 mls/hr Lactated Ringer's (Ringers, Lactated) 1,000 mls @ as directed IV .STK-MED ONE Stop: 03/25/17 10:01 Dextrose/Water (Dextrose 10% In Water) 1,000 mls @ as directed IV .STK-MED ONE Stop: 03/25/17 10:01 Magnesium Sulfate 2 gm/ Premix 50 mls @ 8 mls/hr IV ONETIME ONE Stop: 03/29/17 14:44 Last Admin: 03/29/17 10:00 Dose: 8 mls/hr Potassium Chloride 20 meq/ (Premix) 100 mls @ 50 mls/hr IV ONETIME ONE Stop: 04/03/17 09:15 Last Admin: 04/03/17 07:50 Dose: 50 mls/hr Dextrose/Water (Dextrose 10% In Water) 1,000 mls @ 84 mls/hr IV Q12H [facility] Stop: 04/05/17 22:00 Last Admin: 04/05/17 13:26 Dose: 84 mls/hr Dextrose/Water (Dextrose 10% In Water) 1,000 mls @ 42 mls/hr IV Q24H [facility] Stop: 04/06/17 06:00 Last Admin: 04/05/17 22:30 Dose: 42 mls/hr Potassium Chloride 20 meq/ (Premix) 100 mls @ 50 mls/hr IV ONETIME ONE Stop: 04/06/17 10:17 Last Admin: 04/06/17 08:35 Dose: 50 mls/hr Insulin Aspart (Novolog) 0 unit SUBCUT WITHMEALSANDBED [facility] PRN Reason: Protocol Last Admin: 03/25/17 18:57 Dose: Not Given Lidocaine HCl (Xylocaine 2% Jelly) 5 ml MUCMEM 07 [facility] Last Admin: 04/06/17 07:38 Dose: 5 ml Lidocaine HCl (Xylocaine 2% Viscous) 15 ml PO 07 [facility] Lidocaine HCl (Xylocaine 2% Viscous) Confirm Administered Dose 15 ml .ROUTE .STK -MED ONE Stop: 04/06/17 07:35 Last Admin: 04/06/17 07:55 Dose: Not Given Lidocaine HCl (Xylocaine 2% Viscous) 15 ml PO 0700 [facility] Stop: 04/06/17 07:01 Last Admin: 04/06/17 07:35 Dose: 15 ml Metoclopramide HCl (Reglan) 5 mg IV Q6H [facility] Last Admin: 03/23/17 08:24 Dose: 5 mg Metoprolol Succinate (Toprol Xl) 50 mg PO DAILY [facility] Midazolam HCl (Versed 1 Mg/Ml) 1 mg IV .STK-MED ONE Stop: 03/25/17 10:01 Propofol (Diprivan 20 Ml) 100 mg IV .STK-MED ONE Stop: 03/25/17 10:01 Sucralfate (Carafate) 1 gm PO Q6H [facility] Last Admin: 03/25/17 11:28 Dose: Not Given - Exam General: Alert, Oriented, Cooperative, No Acute Distress Lungs: Clear to Auscultation, Normal Respiratory Effort Cardiovascular: Regular Rate, Regular Rhythm GI/Abdominal Exam: Normal Bowel Sounds, Soft - Problem List & Annotations (1) Gastroparesis SNOMED Code(s): 643246008 Code(s): K31.84 - GASTROPARESIS Status: Acute Current Visit: No (2) DVT, lower extremity, distal SNOMED Code(s): 973643159 Code(s): I82.4Z9 - ACUTE EMBLSM AND THOMBOS UNSP DEEP VN UNSP DISTAL LOW EXTRM Status: Acute Current Visit: Yes Qualifiers: Chronicity: unspecified Laterality: left Qualified Code(s): I82.4Z2 - Acute embolism and thrombosis of unspecified deep veins of left distal lower extremity - Problem List Review Problem List Initiated/Reviewed/Updated: Yes - My Orders Last 24 Hours: Active Orders 24 hr Category Date Time Status CBC WITH AUTO DIFF [HEME] TH Lab 04/09/17 06:00 Ordered CBC WITH AUTO DIFF [HEME] TH Lab 04/16/17 06:00 Ordered CBC WITH AUTO DIFF [HEME] TH Lab 04/23/17 06:00 Ordered CBC WITH AUTO DIFF [HEME] TH Lab 04/30/17 06:00 Ordered COMPREHENSIVE METABOLIC PN,CMP [CHEM] MO Lab 04/13/17 06:00 Ordered COMPREHENSIVE METABOLIC PN,CMP [CHEM] MO Lab 04/20/17 06:00 Ordered COMPREHENSIVE METABOLIC PN,CMP [CHEM] MO Lab 04/27/17 06:00 Ordered COMPREHENSIVE METABOLIC PN,CMP [CHEM] MO Lab 05/04/17 06:00 Ordered COMPREHENSIVE METABOLIC PN,CMP [CHEM] TH Lab 04/09/17 06:00 Ordered COMPREHENSIVE METABOLIC PN,CMP [CHEM] TH Lab 04/16/17 06:00 Ordered COMPREHENSIVE METABOLIC PN,CMP [CHEM] TH Lab 04/23/17 06:00 Ordered COMPREHENSIVE METABOLIC PN,CMP [CHEM] TH Lab 04/30/17 06:00 Ordered INR,PT,PROTHROMBIN TIME [COAG] Lab 04/09/17 06:00 Ordered INR,PT,PROTHROMBIN TIME [COAG] Lab 04/16/17 06:00 Ordered INR,PT,PROTHROMBIN TIME [COAG] Lab 04/23/17 06:00 Ordered INR,PT,PROTHROMBIN TIME [COAG] TH Lab 04/30/17 06:00 Ordered ALT Order Med 04/07/17 18:00 Active Enoxaparin [Lovenox] Med 04/06/17 18:00 Active 80 mg SUBCUT Q12H Fat Emulsion [Intralipid 20%] 250 ml Med 04/06/17 18:00 Active IV Q24H [facility], Adult with Vitamin K [Infuvite Adult] 10 ml Med 04/06/17 18:00 Active AA 5%/Calcium/D15W/Lytes [Clinimix E 12/08] 1,000 ml IV ONETIME Magnesium Sulfate/Water [Magnesium Sulfate 2 GM in Med 04/07/17 09:00 Active Water 50 ML] 50 ml IV ONETIME Potassium Chloride [KCL 20 MEQ in Water 100 ML] 20 meq Med 04/07/17 09:50 Ordered Premix Bag 1 bag IV ONETIME Potassium Chloride [KCL 20 MEQ in Water 100 ML] 20 meq Med 04/07/17 09:51 Ordered Premix Bag 1 bag IV ONETIME Medication Orders Acetaminophen (Tylenol) 650 mg PO Q4H PRN PRN Reason: Pain (Mild 1-3)/fever Last Admin: 03/22/17 11:25 Dose: 650 mg Albuterol/Ipratropium (Duoneb 3.0-0.5 Mg/3 Ml) 3 ml NEB Q4H PRN PRN Reason: Wheezing Enoxaparin Sodium (Lovenox) 80 mg SUBCUT Q12H [facility] Last Admin: 04/07/17 06:25 Dose: 80 mg Admin: 04/06/17 17:17 Dose: 80 mg Heparin Sodium (Porcine) (Heparin Lock Flush 100 Units/Ml) 500 units FLUSH ASDIRECTED PRN PRN Reason: Keep Vein Open Last Admin: 04/06/17 09:49 Dose: 500 units Admin: 04/01/17 10:10 Dose: 500 units Admin: 03/22/17 10:11 Dose: 500 units Sodium Chloride (Normal Saline) 1,000 mls @ 50 mls/hr IV ASDIRECTED [facility] Last Admin: 04/06/17 23:30 Dose: 50 mls/hr Infusion: 04/06/17 23:30 Dose: 50 mls/hr Admin: 04/06/17 03:58 Dose: 50 mls/hr Infusion: 04/06/17 03:58 Dose: 50 mls/hr Admin: 04/05/17 10:58 Dose: 50 mls/hr Infusion: 04/05/17 08:30 Dose: 50 mls/hr Admin: 04/04/17 13:37 Dose: 50 mls/hr Infusion: 04/04/17 13:37 Dose: 50 mls/hr Admin: 04/03/17 17:44 Dose: 50 mls/hr Infusion: 04/03/17 15:31 Dose: 50 mls/hr Admin: 04/02/17 19:31 Dose: 50 mls/hr Infusion: 04/02/17 19:16 Dose: 50 mls/hr Admin: 04/01/17 23:16 Dose: 50 mls/hr Infusion: 04/01/17 22:47 Dose: 50 mls/hr Admin: 04/01/17 02:47 Dose: 50 mls/hr Infusion: 04/01/17 02:22 Dose: 50 mls/hr Admin: 03/31/17 06:22 Dose: 50 mls/hr Infusion: 03/31/17 06:22 Dose: 50 mls/hr Admin: 03/30/17 11:05 Dose: 50 mls/hr Infusion: 03/30/17 11:05 Dose: 50 mls/hr Admin: 03/29/17 16:07 Dose: 50 mls/hr Infusion: 03/29/17 15:42 Dose: 50 mls/hr Admin: 03/28/17 19:42 Dose: 50 mls/hr Infusion: 03/28/17 19:42 Dose: 50 mls/hr Admin: 03/27/17 23:47 Dose: 50 mls/hr Infusion: 03/27/17 23:47 Dose: 50 mls/hr Admin: 03/27/17 03:47 Dose: 50 mls/hr Infusion: 03/27/17 03:47 Dose: 50 mls/hr Admin: 03/26/17 08:20 Dose: 50 mls/hr Infusion: 03/26/17 08:20 Dose: 50 mls/hr Admin: 03/25/17 12:25 Dose: 50 mls/hr Infusion: 03/25/17 04:11 Dose: 50 mls/hr Admin: 03/24/17 08:11 Dose: 50 mls/hr Fat Emulsion Intravenous (Intralipid 20%) 250 mls @ 20 mls/hr IV Q24H [facility] Last Admin: 04/06/17 17:16 Dose: 20 mls/hr Multivitamins/Minerals 10 ml/Amino Ac/Electrol/Dextrose/Calcium 1,010 mls @ 42 mls/hr IV ONETIME ONE Stop: 04/07/17 18:02 Last Admin: 04/06/17 17:16 Dose: 42 mls/hr Multivitamins/Minerals 10 ml/Amino Ac/Electrol/Dextrose/Calcium 1,010 mls @ 84 mls/hr IV .BY DURATION [facility] Amino Ac/Electrol/Dextrose/Calcium (Clinimix E 5/15) 1,000 mls @ 84 mls/hr IV .BY DURATION [facility] Magnesium Sulfate (Magnesium Sulfate 2 Gm In Water 50 Ml) 50 mls @ 8 mls/hr IV ONETIME ONE Stop: 04/07/17 15:14 Last Admin: 04/07/17 09:22 Dose: 8 mls/hr Potassium Chloride 20 meq/ (Premix) 100 mls @ 50 mls/hr IV ONETIME ONE Stop: 04/07/17 11:49 Potassium Chloride 20 meq/ (Premix) 100 mls @ 50 mls/hr IV ONETIME ONE Stop: 04/07/17 11:50 Ketorolac Tromethamine (Toradol) 15 mg IVPUSH Q6H PRN PRN Reason: Pain (moderate 4-6) Last Admin: 04/06/17 02:16 Dose: 15 mg Admin: 04/05/17 16:51 Dose: 15 mg Admin: 04/05/17 10:35 Dose: 15 mg Admin: 04/04/17 10:11 Dose: 15 mg Admin: 04/04/17 03:40 Dose: 15 mg Admin: 04/02/17 16:14 Dose: 15 mg Admin: 03/31/17 03:40 Dose: 15 mg Admin: 03/23/17 04:48 Dose: 15 mg Admin: 03/22/17 22:04 Dose: 15 mg Admin: 03/22/17 15:43 Dose: 15 mg Admin: 03/22/17 03:12 Dose: 15 mg Latanoprost (Xalatan 0.005% Ophth Soln) 0 ml EYEBOTH BEDTIME [facility] Last Admin: 04/06/17 20:37 Dose: 1 drop Admin: 04/05/17 20:39 Dose: 1 drop Admin: 04/04/17 21:00 Dose: 1 drop Admin: 04/03/17 20:54 Dose: 1 drop Admin: 04/02/17 20:03 Dose: 1 drop Admin: 04/01/17 20:53 Dose: 1 drop Admin: 03/31/17 20:32 Dose: 1 drop Admin: 03/30/17 20:28 Dose: 1 drop Admin: 03/29/17 20:34 Dose: 1 drop Admin: 03/28/17 20:58 Dose: 1 drop Admin: 03/27/17 20:48 Dose: 1 drop Admin: 03/26/17 20:21 Dose: 1 drop Admin: 03/25/17 23:06 Dose: 1 drop Admin: 03/24/17 20:03 Dose: 1 drop Admin: 03/23/17 22:01 Dose: 1 drop Admin: 03/22/17 20:37 Dose: 1 drop Admin: 03/21/17 21:05 Dose: 1 drop Lidocaine HCl (Xylocaine 2% Jelly) 5 ml MUCMEM Q4H PRN PRN Reason: Pain Last Admin: 03/27/17 13:05 Dose: 5 ml Metoprolol Succinate (Toprol Xl) 25 mg PO DAILY [facility] Last Admin: 04/07/17 09:21 Dose: 25 mg Admin: 04/06/17 09:38 Dose: 25 mg Admin: 04/05/17 08:32 Dose: 25 mg Admin: 04/04/17 09:44 Dose: 25 mg Admin: 04/03/17 08:47 Dose: 25 mg Admin: 04/02/17 08:52 Dose: 25 mg Admin: 04/01/17 09:34 Dose: 25 mg Admin: 03/31/17 08:35 Dose: 25 mg Admin: 03/30/17 10:46 Dose: 25 mg Admin: 03/29/17 10:04 Dose: 25 mg Admin: 03/28/17 08:45 Dose: 25 mg Admin: 03/27/17 08:28 Dose: 25 mg Admin: 03/26/17 08:43 Dose: 25 mg Admin: 03/25/17 11:32 Dose: 25 mg Admin: 03/24/17 08:30 Dose: 25 mg Admin: 03/23/17 08:21 Dose: 25 mg Admin: 03/22/17 09:59 Dose: 25 mg Morphine Sulfate (Morphine) 2 mg IVPUSH Q2H PRN PRN Reason: Pain (severe 7-10) Last Admin: 04/01/17 06:17 Dose: 2 mg Admin: 03/31/17 22:34 Dose: 2 mg Admin: 03/31/17 16:00 Dose: 2 mg Admin: 03/30/17 22:28 Dose: 2 mg Admin: 03/30/17 16:35 Dose: 2 mg Admin: 03/29/17 01:51 Dose: 2 mg Admin: 03/28/17 23:20 Dose: 2 mg Admin: 03/28/17 19:10 Dose: 2 mg Admin: 03/27/17 21:01 Dose: 2 mg Admin: 03/26/17 23:30 Dose: 2 mg Admin: 03/26/17 20:25 Dose: 2 mg Admin: 03/26/17 14:55 Dose: 2 mg Admin: 03/25/17 23:14 Dose: 2 mg Admin: 03/25/17 18:21 Dose: 2 mg Admin: 03/25/17 15:00 Dose: 2 mg Ondansetron HCl (Zofran) 4 mg IV Q6H PRN PRN Reason: Nausea/Vomiting Last Admin: 04/06/17 02:17 Dose: 4 mg Admin: 04/05/17 16:51 Dose: 4 mg Admin: 04/05/17 10:35 Dose: 4 mg Admin: 04/04/17 21:01 Dose: 4 mg Admin: 04/04/17 10:11 Dose: 4 mg Admin: 04/03/17 20:53 Dose: 4 mg Admin: 04/03/17 12:28 Dose: 4 mg Admin: 04/02/17 15:34 Dose: 4 mg Admin: 04/02/17 07:20 Dose: 4 mg Admin: 04/01/17 09:37 Dose: 4 mg Admin: 04/01/17 02:54 Dose: 4 mg Admin: 03/30/17 16:36 Dose: 4 mg Admin: 03/27/17 09:39 Dose: 4 mg Admin: 03/25/17 08:40 Dose: 4 mg Admin: 03/23/17 11:39 Dose: 4 mg Admin: 03/23/17 04:48 Dose: 4 mg Admin: 03/22/17 22:04 Dose: 4 mg Admin: 03/22/17 15:46 Dose: 4 mg Admin: 03/22/17 10:05 Dose: 4 mg Admin: 03/22/17 03:16 Dose: 4 mg Admin: 03/21/17 21:09 Dose: 4 mg Pantoprazole Sodium (Protonix Iv) 40 mg IVPUSH DAILY [facility] Last Admin: 04/07/17 09:29 Dose: 40 mg Admin: 04/06/17 09:39 Dose: 40 mg Admin: 04/05/17 08:32 Dose: 40 mg Admin: 04/04/17 10:11 Dose: 40 mg Admin: 04/03/17 08:47 Dose: 40 mg Admin: 04/02/17 08:52 Dose: 40 mg Admin: 04/01/17 09:40 Dose: 40 mg Admin: 03/31/17 08:35 Dose: 40 mg Admin: 03/30/17 10:45 Dose: 40 mg Admin: 03/29/17 10:02 Dose: 40 mg Admin: 03/28/17 08:45 Dose: 40 mg Admin: 03/27/17 08:28 Dose: 40 mg Admin: 03/26/17 08:50 Dose: 40 mg Admin: 03/25/17 11:32 Dose: 40 mg Admin: 03/24/17 08:30 Dose: 40 mg Admin: 03/23/17 08:19 Dose: 40 mg Admin: 03/22/17 10:00 Dose: 40 mg Phytonadione (Aquamephyton) 10 mg IM Mo [facility] Last Admin: 04/06/17 07:57 Dose: Not Given Admin: 03/30/17 10:45 Dose: 10 mg Admin: 03/23/17 08:18 Dose: 10 mg Sodium Chloride (Saline Flush) 10 ml FLUSH ASDIRECTED PRN PRN Reason: Keep Vein Open Last Admin: 04/07/17 06:25 Dose: 10 ml Admin: 04/06/17 09:46 Dose: 10 ml Admin: 04/06/17 06:12 Dose: 10 ml Admin: 04/06/17 02:17 Dose: 10 ml Admin: 04/04/17 21:01 Dose: 10 ml Admin: 04/04/17 03:41 Dose: 10 ml Admin: 04/03/17 12:29 Dose: 10 ml Admin: 04/01/17 10:10 Dose: 10 ml Admin: 04/01/17 06:17 Dose: 10 ml Admin: 04/01/17 02:53 Dose: 10 ml Admin: 03/31/17 22:34 Dose: 10 ml Admin: 03/31/17 16:01 Dose: 10 ml Admin: 03/31/17 03:40 Dose: 10 ml Admin: 03/30/17 22:32 Dose: 10 ml Admin: 03/30/17 22:28 Dose: 10 ml Admin: 03/30/17 16:36 Dose: 10 ml Admin: 03/30/17 10:47 Dose: 10 ml Admin: 03/29/17 10:05 Dose: 10 ml Admin: 03/29/17 01:52 Dose: 10 ml Admin: 03/28/17 23:21 Dose: 10 ml Admin: 03/26/17 23:31 Dose: 10 ml Admin: 08/31/17 14:56 Dose: 10 ml Admin: 03/26/17 08:57 Dose: 10 ml Admin: 03/25/17 11:33 Dose: 10 ml Admin: 03/25/17 08:40 Dose: 10 ml Admin: 03/23/17 04:55 Dose: 10 ml Admin: 03/23/17 01:48 Dose: 10 ml Admin: 03/22/17 22:11 Dose: 10 ml Admin: 03/22/17 22:10 Dose: 10 ml Admin: 03/22/17 20:06 Dose: 10 ml Admin: 03/22/17 15:43 Dose: 10 ml Admin: 03/22/17 10:10 Dose: 10 ml Admin: 03/22/17 10:04 Dose: 10 ml Admin: 03/22/17 03:24 Dose: 10 ml Admin: 03/22/17 03:12 Dose: 10 ml Admin: 03/21/17 21:09 Dose: 10 ml - Assessment Assessment (Free Text/Narrative):: K and Mg are a little low - Plan Plan (Free Text/Narrative):: await gastric emptying results. replace Mg and K
[2017-04-07] MEDS ORDERED: Potassium Chloride 20 MEQ in Premix Bag 1 BAG IV ONE ×2 (10:00→12:00)
[2017-04-07] MEDS: MVI IV SCH ×4 (16:58→18:10)
[2017-04-07] MEDS: LYTES IV SCH ×4 (16:58→18:10)
[2017-04-07] MEDS: [UNRECOGNIZED DRUG - OTHER] IV SCH ×4 (16:58→18:10)
[2017-04-07] MEDS: CALCIUM IV SCH ×4 (16:58→18:10)
[2017-04-07] MEDS: CALC IV SCH ×4 (16:58→18:10)
[2017-04-07] MEDS: Fat Emulsion 250 ML IV SCH (18:41)
[2017-04-07] MEDS: Latanoprost 0.005% Ophth Soln 2.5 ML Bottle EYEBOTH SCH (20:51)
[2017-04-08] MEDS: Sodium Chloride 0.9% 1,000 ML IV SCH (02:09)
[2017-04-08] MEDS: LYTES IV SCH ×4 (06:33→11:45)
[2017-04-08] MEDS: [UNRECOGNIZED DRUG - OTHER] IV SCH ×4 (06:33→11:45)
[2017-04-08] MEDS: CALC IV SCH ×4 (06:33→11:45)
[2017-04-08] MEDS: MVI IV SCH ×4 (06:33→11:45)
[2017-04-08] MEDS: CALCIUM IV SCH ×4 (06:33→11:45)
[2017-04-08] MEDS: Enoxaparin 80 MG/0.8 ML Syringe SUBCUT SCH ×2 (06:33→17:16)
[2017-04-08] MEDS: Pantoprazole 40 MG Vial IVPUSH SCH (08:54)
[2017-04-08] MEDS: Metoprolol Succinate 25 MG Tab.ER PO SCH (08:57)
--- NOTE | 2017-04-08 10:06 | PCM.SN ---
- Free Text/Narrative Note: extensive discussion with family and pt today. will place a gastric-jejunostomy tube in the am. procedure and risks explained to the pt to include bleeding, infection, conversion to open. he expressed understanding and asks us to proceed.
[2017-04-08] MEDS: Fat Emulsion 250 ML IV SCH (17:15)
[2017-04-08] MEDS: Latanoprost 0.005% Ophth Soln 2.5 ML Bottle EYEBOTH SCH (21:33)
[2017-04-09] MEDS: CALC IV SCH ×2 (01:08)
[2017-04-09] MEDS: LYTES IV SCH ×2 (01:08)
[2017-04-09] MEDS: CALCIUM IV SCH ×2 (01:08)
[2017-04-09] MEDS: [UNRECOGNIZED DRUG - OTHER] IV SCH ×2 (01:08)
[2017-04-09] MEDS: MVI IV SCH ×2 (01:08)
[2017-04-09] MEDS ORDERED: Dextrose 10% in Water 1,000 ML IV SCH (06:00)
[2017-04-09] MEDS ORDERED: Lidocaine 2% Jelly 5 ML Urojet MUCMEM ONE (07:57)
[2017-04-09] MEDS ORDERED: Lidocaine 2% Viscous Solution 15 ML Cup PO ONE (08:15)
[2017-04-09] MEDS ORDERED: ceFAZolin 1 GM in Sodium Chloride 0.9% 50 ML IV ONE (09:30)
[2017-04-09] MEDS ORDERED: Rocuronium 100 MG/10 ML MDV IV ONE (09:30)
[2017-04-09] MEDS ORDERED: fentaNYL 100 MCG/2 ML SDV IV ONE (09:30)
[2017-04-09] MEDS ORDERED: Propofol 200 MG/20 ML SDV IV ONE (09:30)
[2017-04-09] MEDS ORDERED: Phenylephrine 1% 10 MG/ML SDV IV ONE (09:30)
[2017-04-09] MEDS ORDERED: Ketorolac 30 MG/ML SDV IVPUSH ONE (09:30)
[2017-04-09] MEDS ORDERED: Lidocaine 2% 100 MG/5 ML Syringe IVPUSH ONE (09:30)
[2017-04-09] MEDS ORDERED: Ondansetron 4 MG/2 ML SDV IVPUSH ONE (09:30)
[2017-04-09] MEDS ORDERED: Midazolam 1 MG/ML 2 ML SDV IV ONE (09:30)
[2017-04-09] MEDS ORDERED: Succinylcholine 200 MG/10 ML MDV IV ONE (09:30)
[2017-04-09] MEDS ORDERED: ceFAZolin 1 GM Vial IVPUSH ONE (09:30)
[2017-04-09] MEDS ORDERED: Bupivacaine 0.5% 50 ML MDV INJECT ONE (09:58)
[2017-04-09] MEDS ORDERED: Lidocaine 1% with EPINEPHrine 1:100,000 20 ML MDV INJECT ONE (09:58)
[2017-04-09] MEDS ORDERED: Morphine 2 MG/ML Syringe IVPUSH PRN (11:36)
--- NOTE | 2017-04-09 11:39 | PCM.OPNOTE ---
- General Post-Op/Procedure Note Date of Surgery/Procedure: 04/09/17 Operative Procedure(s): gastrostomy tube placement. feeding jejunostomy tube placement Findings: unable to place endoscopically converted to open 20 fr gastrostomy tube placed. 9 fr jejunostomy tube. Pre Op Diagnosis: gastroparesis Post-Op Diagnosis: Same Anesthesia Technique: General ET Tube, Local (8 ml 1 % lido with epi /0.5% buvipicaine) Primary Surgeon: Wolf Gutierrez Anesthesia Provider: Collette Reardon Pathology: none EBL in mLs: 3 Complications: None Condition: Good Free Text/Narrative:: Intake & Output 04/08/17 04/09/17 04/09/17 22:59 06:59 14:59 Intake Total 908 929 Output Total 3650 Balance [phone] [id number] see dictation
--- NOTE | 2017-04-09 12:25 | CR ---
INDICATION: Abdominal pain, check stomach size. ABDOMEN: Two supine images of the abdomen were obtained and revealed an appearance of fluid-filled gastric dilatation. The stomach appears fairly massive in size. However, this cannot be confirmed without either air or contrast placed in the stomach for confirmation, or by CT, as felt to be clinically necessary. Barium is noted in multiple diverticula in the descending and sigmoid colon. No mechanically obstructive process is identified in the large bowel. No gross free air is seen. IMPRESSION: Gastric dilatation. MTDD
[2017-04-09] MEDS: Metoprolol Succinate 25 MG Tab.ER PO SCH (12:45)
[2017-04-09] MEDS: Pantoprazole 40 MG Vial IVPUSH SCH (12:51)
[2017-04-09] MEDS: D5 1/2 NS w/ 20 mEq/L KCl 1,000 ML IV SCH ×2 (13:31→21:35)
[2017-04-09] MEDS: Morphine 2 MG/ML Syringe IVPUSH PRN (13:31)
[2017-04-09] MEDS: HYDROmorphone 2 MG/ML SDV IVPUSH PRN ×2 (16:05→20:35)
--- NOTE | 2017-04-09 16:20 | OR ---
DATE OF OPERATION: 04/09/2017 SURGEON: Wolf Gutierrez MD PROCEDURE PERFORMED: Gastrostomy and feeding jejunostomy tube placement. PREOPERATIVE DIAGNOSIS: Gastroparesis. POSTOPERATIVE DIAGNOSIS: Gastroparesis. INDICATIONS FOR PROCEDURE: This is an 89-year-old white male, who has developed some gastroparesis over the past several months. Gastric emptying study demonstrates proximally an 80% food retention at 4 hours. We do have dye studies, which demonstrate contrast going through the duodenum and it appears that the gastroparesis has been a result of peptic ulcer disease, which he developed in August. INTRAOPERATIVE FINDINGS: As follows: We were unable to place the tube endoscopically and oriented up with an open 20-Spanish gastric tube, as well as 9- Spanish feeding jejunostomy tube placed. DESCRIPTION OF OPERATION: After an excellent IV sedation was administered, the bite block was inserted. The flexible endoscope was inserted and advanced into the stomach. Attempts to advance the scope beyond the first portion of duodenum were unsuccessful. This was primarily due to the fact that we had coiling at the scope and the stomach. It did have some retained food left including his egg meal that was there from earlier this week. It became readily apparent that we would not be successful to place gastrostomy tube and advancing the feeding tube beyond the second portion of the duodenum would not be successful. 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 We therefore made preparations and converted into open. After general anesthetic was administered, local anesthetic was used to infiltrate the midline. A 5 cm incision was made with a #10 scalpel blade. The underlying fat and fascia were divided and the abdominal cavity was entered. The stomach was grasped along the greater curve and delivered out through the incision. A pursestring of 4-0 silk was then made just above the epiploic vessels and a gastrotomy was created, and our 20-Spanish G-tube was placed into the stomach without difficulty. The pursestring was then tied and a stab incision was made in the left upper quadrant of the abdomen and then feeding tube was delivered out through the anterior abdominal wall. This was then PEX to the anterior abdominal wall with more interrupted 4-0 like silk. We then passed the feeding tube down the gastrostomy tube. Attempts to get it to file through the pylorus were not successful. Finally, passing the endoscope we were unable to advance again as well. We therefore made a small gastrotomy and were able to advance the feeding tube into the patient's duodenum. However, attempts to go along the second portion of duodenum were unsuccessful at the site of palpation and noted to curve. At this point, I elected to place a separate feeding jejunostomy. The gastric defect was closed in two layers with a running Lembert suture of 3-0 Vicryl followed by imbrication with 3-0 silk over the top. The proximal jejunum was grasped and approximately 15 cm from the Ligament of Treitz, enterotomy was made after making a pursestring silk. The feeding tube was then brought in through a separate stab incision in proximity to the gastrostomy tube and was then carefully advanced down the jejunum. After getting approximately 20 cm of our tube down, we tied off the pursestring and silk was then used to imbricate the feeding tube for a short distance of approximately 3 cm along the anti-mesenteric border of the jejunum. This was then tacked to the anterior abdominal wall in two places to keep it from twisting. The midline fascia was then closed with a running #1 Maxon. [place] were used to close the skin, 2-0 nylon was used to tack feeding jejunostomy to the anterior abdominal wall, as well as the gastric tube bolster. The patient was taken to recovery in good condition having tolerated the procedure well. /[id number] /RHONAL
[2017-04-09] MEDS: Sodium Chloride 0.9% 1,000 ML IV SCH (17:14)
[2017-04-09] MEDS ORDERED: Potassium Chloride 20 MEQ in Premix Bag 1 BAG IV ONE (17:32)
[2017-04-09] MEDS: Latanoprost 0.005% Ophth Soln 2.5 ML Bottle EYEBOTH SCH (20:25)
[2017-04-10] MEDS: HYDROmorphone 2 MG/ML SDV IVPUSH PRN (02:28)
[2017-04-10] MEDS: D5 1/2 NS w/ 20 mEq/L KCl 1,000 ML IV SCH ×3 (05:02→21:34)
[2017-04-10] MEDS: Pantoprazole 40 MG Vial IVPUSH SCH (09:49)
[2017-04-10] MEDS: Metoprolol Succinate 25 MG Tab.ER PO SCH (09:49)
[2017-04-10] MEDS: Ketorolac 15 MG/ML SDV IVPUSH PRN (09:52)
--- NOTE | 2017-04-10 11:38 | PCM.SURGPN ---
- General Info Date of Service: 04/10/17 POD#: 1 Functional Status: Reports: Pain Controlled, Ambulating, Urinating - Review of Systems Gastrointestinal: Reports: Abdominal Pain - Patient Data Vitals - Most Recent: Last Vital Signs Temp 36.9 C 04/10/17 04:00 Pulse 98 04/10/17 09:49 Resp 18 04/10/17 04:00 BP 150/97 H 04/10/17 09:49 Pulse Ox 93 L 04/10/17 04:00 Weight - Most Recent: 74.072 kg I&O - Last 24 Hours: Intake & Output 04/09/17 04/10/17 04/10/17 22:59 06:59 14:59 Intake Total 1145 987 Output Total 925 350 Balance 220 637 Lab Results Last 24 Hrs: Laboratory Results - last 24 hr 04/10/17 Range/Units 05:55 POC Glucose 124 H (80-116) mg/dL Nomi Results Last 24 Hrs: Microbiology 04/08/17 14:50 Aerobic Blood Culture - Preliminary Blood - Port-A-Cath NO GROWTH AFTER 1 DAY Anaerobic Blood Culture - Preliminary NO GROWTH AFTER 1 DAY Med Orders - Current: Current Medications Acetaminophen (Tylenol) 650 mg PO Q4H PRN PRN Reason: Pain (Mild 1-3)/fever Last Admin: 03/22/17 11:25 Dose: 650 mg Albuterol/Ipratropium (Duoneb 3.0-0.5 Mg/3 Ml) 3 ml NEB Q4H PRN PRN Reason: Wheezing Enoxaparin Sodium (Lovenox) 80 mg SUBCUT Q12H [facility] Last Admin: 04/08/17 17:16 Dose: 80 mg Heparin Sodium (Porcine) (Heparin Lock Flush 100 Units/Ml) 500 units FLUSH ASDIRECTED PRN PRN Reason: Keep Vein Open Last Admin: 04/06/17 09:49 Dose: 500 units Hydromorphone HCl (Dilaudid) 1 mg IVPUSH Q3H PRN PRN Reason: Pain Last Admin: 04/10/17 02:28 Dose: 1 mg Potassium Chloride/Dextrose/Sod Cl (D5 1/2 Ns W/ 20 Meq/L Kcl) 1,000 mls @ 125 mls/hr IV Q8H [facility] Last Admin: 04/10/17 05:02 Dose: 125 mls/hr Ketorolac Tromethamine (Toradol) 15 mg IVPUSH Q6H PRN PRN Reason: Pain (moderate 4-6) Last Admin: 04/10/17 09:52 Dose: 15 mg Latanoprost (Xalatan 0.005% Ophth Soln) 0 ml EYEBOTH BEDTIME [facility] Last Admin: 04/09/17 20:25 Dose: 1 drop Lidocaine HCl (Xylocaine 2% Jelly) 5 ml MUCMEM Q4H PRN PRN Reason: Pain Last Admin: 03/27/17 13:05 Dose: 5 ml Metoprolol Succinate (Toprol Xl) 25 mg PO DAILY [facility] Last Admin: 04/10/17 09:49 Dose: 25 mg Ondansetron HCl (Zofran) 4 mg IV Q6H PRN PRN Reason: Nausea/Vomiting Last Admin: 04/06/17 02:17 Dose: 4 mg Pantoprazole Sodium (Protonix Iv) 40 mg IVPUSH DAILY [facility] Last Admin: 04/10/17 09:49 Dose: 40 mg Sodium Chloride (Saline Flush) 10 ml FLUSH ASDIRECTED PRN PRN Reason: Keep Vein Open Last Admin: 04/07/17 06:25 Dose: 10 ml Discontinued Medications Bisacodyl (Dulcolax) 10 mg RECTAL ONETIME ONE Stop: 03/22/17 08:59 Last Admin: 03/22/17 11:16 Dose: 10 mg Bupivacaine HCl (Marcaine 0.5%) 5 ml INJECT .STK-MED ONE Stop: 04/09/17 09:59 Last Admin: 04/09/17 09:58 Dose: 5 ml Enoxaparin Sodium (Lovenox) 80 mg SUBCUT Q12H [facility] Last Admin: 04/06/17 15:27 Dose: Not Given Fentanyl (Sublimaze) 100 mcg IV .STK-MED ONE Stop: 03/25/17 10:01 Fat Emulsion Intravenous (Intralipid 20%) 250 mls @ 20 mls/hr IV Q24H [facility] Last Admin: 04/06/17 14:01 Dose: Not Given Multivitamins/Minerals 10 ml/Amino Ac/Electrol/Dextrose/Calcium 1,010 mls @ 84 mls/hr IV Q24H [facility] Stop: 03/23/17 13:30 Last Admin: 03/22/17 14:17 Dose: 42 mls/hr Multivitamins/Minerals 10 ml/Amino Ac/Electrol/Dextrose/Calcium 1,010 mls @ 84 mls/hr IV .BY DURATION [facility] Last Admin: 03/24/17 13:29 Dose: 84 mls/hr Amino Ac/Electrol/Dextrose/Calcium (Clinimix E 5/15) 1,000 mls @ 84 mls/hr IV .BY DURATION [facility] Last Admin: 03/25/17 02:17 Dose: 84 mls/hr Sodium Chloride (Normal Saline) 1,000 mls @ 50 mls/hr IV ASDIRECTED [facility] Last Admin: 04/09/17 17:14 Dose: 50 mls/hr Potassium Chloride 20 meq/ (Premix) 100 mls @ 50 mls/hr IV ONETIME ONE Stop: 03/24/17 10:10 Last Admin: 03/24/17 09:03 Dose: 50 mls/hr Potassium Chloride 20 meq/ (Premix) 100 mls @ 50 mls/hr IV ONETIME ONE Stop: 03/24/17 12:14 Last Admin: 03/24/17 11:06 Dose: 50 mls/hr Magnesium Sulfate 2 gm/ Premix 50 mls @ 8 mls/hr IV ONETIME ONE Stop: 03/24/17 23:14 Last Admin: 03/24/17 17:04 Dose: 8 mls/hr Multivitamins/Minerals 10 ml/Amino Ac/Electrol/Dextrose/Calcium 1,010 mls @ 84 mls/hr IV .BY DURATION [facility] Stop: 04/04/17 13:15 Last Admin: 04/05/17 10:57 Dose: Not Given Amino Ac/Electrol/Dextrose/Calcium (Clinimix E 5/15) 1,000 mls @ 84 mls/hr IV .BY DURATION [facility] Stop: 04/04/17 13:15 Last Admin: 04/04/17 00:54 Dose: 84 mls/hr Lactated Ringer's (Ringers, Lactated) 1,000 mls @ as directed IV .STK-MED ONE Stop: 03/25/17 10:01 Dextrose/Water (Dextrose 10% In Water) 1,000 mls @ as directed IV .STK-MED ONE Stop: 03/25/17 10:01 Magnesium Sulfate 2 gm/ Premix 50 mls @ 8 mls/hr IV ONETIME ONE Stop: 03/29/17 14:44 Last Admin: 03/29/17 10:00 Dose: 8 mls/hr Potassium Chloride 20 meq/ (Premix) 100 mls @ 50 mls/hr IV ONETIME ONE Stop: 04/03/17 09:15 Last Admin: 04/03/17 07:50 Dose: 50 mls/hr Dextrose/Water (Dextrose 10% In Water) 1,000 mls @ 84 mls/hr IV Q12H [facility] Stop: 04/05/17 22:00 Last Admin: 04/05/17 13:26 Dose: 84 mls/hr Dextrose/Water (Dextrose 10% In Water) 1,000 mls @ 42 mls/hr IV Q24H [facility] Stop: 04/06/17 06:00 Last Admin: 04/05/17 22:30 Dose: 42 mls/hr Potassium Chloride 20 meq/ (Premix) 100 mls @ 50 mls/hr IV ONETIME ONE Stop: 04/06/17 10:17 Last Admin: 04/06/17 08:35 Dose: 50 mls/hr Fat Emulsion Intravenous (Intralipid 20%) 250 mls @ 20 mls/hr IV Q24H [facility] Last Admin: 04/08/17 17:15 Dose: 20 mls/hr Multivitamins/Minerals 10 ml/Amino Ac/Electrol/Dextrose/Calcium 1,010 mls @ 42 mls/hr IV ONETIME ONE Stop: 04/07/17 18:02 Last Admin: 04/06/17 17:16 Dose: 42 mls/hr Multivitamins/Minerals 10 ml/Amino Ac/Electrol/Dextrose/Calcium 1,010 mls @ 84 mls/hr IV .BY DURATION [facility] Stop: 04/09/17 05:51 Last Admin: 04/08/17 11:45 Dose: 84 mls/hr Amino Ac/Electrol/Dextrose/Calcium (Clinimix E 12/08) 1,000 mls @ 84 mls/hr IV .BY DURATION [facility] Stop: 04/09/17 05:51 Last Admin: 04/09/17 01:08 Dose: 84 mls/hr Magnesium Sulfate (Magnesium Sulfate 2 Gm In Water 50 Ml) 50 mls @ 8 mls/hr IV ONETIME ONE Stop: 04/07/17 15:14 Last Admin: 04/07/17 09:22 Dose: 8 mls/hr Potassium Chloride 20 meq/ (Premix) 100 mls @ 50 mls/hr IV ONETIME ONE Stop: 04/07/17 11:59 Last Admin: 04/07/17 10:24 Dose: 50 mls/hr Potassium Chloride 20 meq/ (Premix) 100 mls @ 50 mls/hr IV ONETIME ONE Stop: 04/07/17 13:59 Last Admin: 04/07/17 12:32 Dose: 50 mls/hr Dextrose/Water (Dextrose 10% In Water) 1,000 mls @ 42 mls/hr IV ASDIRECTED [facility] Cefazolin Sodium 1 gm/ Sodium (Chloride) 50 mls @ 100 mls/hr IV ONETIME ONE Stop: 04/09/17 09:59 Last Admin: 04/09/17 08:59 Dose: 100 mls/hr Potassium Chloride 20 meq/ (Premix) 100 mls @ 50 mls/hr IV ONETIME ONE Stop: 04/09/17 19:31 Last Admin: 04/09/17 17:59 Dose: 50 mls/hr Insulin Aspart (Novolog) 0 unit SUBCUT WITHMEALSANDBED [facility] PRN Reason: Protocol Last Admin: 03/25/17 18:57 Dose: Not Given Lidocaine HCl (Xylocaine 2% Jelly) 5 ml MUCMEM 07 [facility] Last Admin: 04/06/17 07:38 Dose: 5 ml Lidocaine HCl (Xylocaine 2% Viscous) 15 ml PO 07 [facility] Lidocaine HCl (Xylocaine 2% Viscous) Confirm Administered Dose 15 ml .ROUTE .STK -MED ONE Stop: 04/06/17 07:35 Last Admin: 04/06/17 07:55 Dose: Not Given Lidocaine HCl (Xylocaine 2% Viscous) 15 ml PO 0700 [facility] Stop: 04/06/17 07:01 Last Admin: 04/06/17 07:35 Dose: 15 ml Lidocaine HCl (Xylocaine 2% Jelly) 5 ml MUCMEM ONETIME ONE Stop: 04/09/17 07:58 Last Admin: 04/09/17 11:15 Dose: Not Given Lidocaine HCl (Xylocaine 2% Viscous) 15 ml PO ONETIME ONE Stop: 04/09/17 08:16 Last Admin: 04/09/17 11:15 Dose: Not Given Lidocaine/Epinephrine (Xylocaine 1% With Epinephrine 1:100,000) 5 ml INJECT .STK-MED ONE Stop: 04/09/17 09:59 Last Admin: 04/09/17 09:58 Dose: 5 ml Metoclopramide HCl (Reglan) 5 mg IV Q6H [facility] Last Admin: 03/23/17 08:24 Dose: 5 mg Metoprolol Succinate (Toprol Xl) 50 mg PO DAILY [facility] Midazolam HCl (Versed 1 Mg/Ml) 1 mg IV .STK-MED ONE Stop: 03/25/17 10:01 Morphine Sulfate (Morphine) 2 mg IVPUSH Q2H PRN PRN Reason: Pain (severe 7-10) Last Admin: 04/09/17 13:31 Dose: 2 mg Morphine Sulfate (Morphine) 2 mg IVPUSH Q3M PRN PRN Reason: Abdominal Pain Phytonadione (Aquamephyton) 10 mg IM Mo [facility] Last Admin: 04/06/17 07:57 Dose: Not Given Propofol (Diprivan 20 Ml) 100 mg IV .STK-MED ONE Stop: 03/25/17 10:01 Sucralfate (Carafate) 1 gm PO Q6H [facility] Last Admin: 03/25/17 11:28 Dose: Not Given - Exam Wound/Incisions: Dressing Dry and Intact Lungs: Clear to Auscultation, Normal Respiratory Effort Cardiovascular: Regular Rate, Regular Rhythm GI/Abdominal Exam: Normal Bowel Sounds, Tender (along incision ) - Problem List & Annotations (1) Gastroparesis SNOMED Code(s): 306106537 Code(s): K31.84 - GASTROPARESIS Status: Acute Current Visit: No (2) DVT, lower extremity, distal SNOMED Code(s): 863193319 Code(s): I82.4Z9 - ACUTE EMBLSM AND THOMBOS UNSP DEEP VN UNSP DISTAL LOW EXTRM Status: Acute Current Visit: Yes Qualifiers: Chronicity: unspecified Laterality: left Qualified Code(s): I82.4Z2 - Acute embolism and thrombosis of unspecified deep veins of left distal lower extremity - Problem List Review Problem List Initiated/Reviewed/Updated: Yes - My Orders Last 24 Hours: Active Orders 24 hr Category Date Time Status Communication Order [RC] 09 Care 04/10/17 09:00 Active Enteral Feedings [RC] CONTINUOUS Care 04/10/17 12:00 Active Gastrointestinal Tube Mgmt [RC] 08,16,00 Care 04/09/17 11:39 Active RT Incentive Spirometry [RC] Q2HWA Care 04/09/17 11:39 Active Up to Chair [RC] BID Care 04/09/17 11:40 Active Vital Signs [RC] Q4HR Care 04/09/17 11:39 Active CBC WITH AUTO DIFF [HEME] TH Lab 04/16/17 06:00 Ordered CBC WITH AUTO DIFF [HEME] TH Lab 04/23/17 06:00 Ordered CBC WITH AUTO DIFF [HEME] TH Lab 04/30/17 06:00 Ordered COMPREHENSIVE METABOLIC PN,CMP [CHEM] MO Lab 04/13/17 06:00 Ordered COMPREHENSIVE METABOLIC PN,CMP [CHEM] MO Lab 04/20/17 06:00 Ordered COMPREHENSIVE METABOLIC PN,CMP [CHEM] MO Lab 04/27/17 06:00 Ordered COMPREHENSIVE METABOLIC PN,CMP [CHEM] MO Lab 05/04/17 06:00 Ordered COMPREHENSIVE METABOLIC PN,CMP [CHEM] TH Lab 04/16/17 06:00 Ordered COMPREHENSIVE METABOLIC PN,CMP [CHEM] TH Lab 04/23/17 06:00 Ordered COMPREHENSIVE METABOLIC PN,CMP [CHEM] TH Lab 04/30/17 06:00 Ordered INR,PT,PROTHROMBIN TIME [COAG] TH Lab 04/16/17 06:00 Ordered INR,PT,PROTHROMBIN TIME [COAG] TH Lab 04/23/17 06:00 Ordered INR,PT,PROTHROMBIN TIME [COAG] TH Lab 04/30/17 06:00 Ordered D5 1/2 NS w/ 20 mEq/L KCl 1,000 ml Med 04/09/17 12:00 Active IV Q8H HYDROmorphone [Dilaudid] Med 04/09/17 15:41 Active 1 mg IVPUSH Q3H PRN Gastrostomy Tube Management [OM.PC] Routine Oth 04/09/17 11:44 Ordered Medication Orders Acetaminophen (Tylenol) 650 mg PO Q4H PRN PRN Reason: Pain (Mild 1-3)/fever Last Admin: 03/22/17 11:25 Dose: 650 mg Albuterol/Ipratropium (Duoneb 3.0-0.5 Mg/3 Ml) 3 ml NEB Q4H PRN PRN Reason: Wheezing Enoxaparin Sodium (Lovenox) 80 mg SUBCUT Q12H [facility] Last Admin: 04/08/17 17:16 Dose: 80 mg Admin: 04/08/17 06:33 Dose: 80 mg Admin: 04/07/17 18:19 Dose: 80 mg Admin: 04/07/17 06:25 Dose: 80 mg Admin: 04/06/17 17:17 Dose: 80 mg Heparin Sodium (Porcine) (Heparin Lock Flush 100 Units/Ml) 500 units FLUSH ASDIRECTED PRN PRN Reason: Keep Vein Open Last Admin: 04/06/17 09:49 Dose: 500 units Admin: 04/01/17 10:10 Dose: 500 units Admin: 03/22/17 10:11 Dose: 500 units Hydromorphone HCl (Dilaudid) 1 mg IVPUSH Q3H PRN PRN Reason: Pain Last Admin: 04/10/17 02:28 Dose: 1 mg Admin: 04/09/17 20:35 Dose: 1 mg Admin: 04/09/17 16:05 Dose: 1 mg Potassium Chloride/Dextrose/Sod Cl (D5 1/2 Ns W/ 20 Meq/L Kcl) 1,000 mls @ 125 mls/hr IV Q8H [facility] Last Admin: 04/10/17 05:02 Dose: 125 mls/hr Infusion: 04/10/17 05:02 Dose: 125 mls/hr Admin: 04/09/17 21:35 Dose: 125 mls/hr Infusion: 04/09/17 21:31 Dose: 125 mls/hr Admin: 04/09/17 13:31 Dose: 125 mls/hr Ketorolac Tromethamine (Toradol) 15 mg IVPUSH Q6H PRN PRN Reason: Pain (moderate 4-6) Last Admin: 04/10/17 09:52 Dose: 15 mg Admin: 04/06/17 02:16 Dose: 15 mg Admin: 04/05/17 16:51 Dose: 15 mg Admin: 04/05/17 10:35 Dose: 15 mg Admin: 04/04/17 10:11 Dose: 15 mg Admin: 04/04/17 03:40 Dose: 15 mg Admin: 04/02/17 16:14 Dose: 15 mg Admin: 03/31/17 03:40 Dose: 15 mg Admin: 03/23/17 04:48 Dose: 15 mg Admin: 03/22/17 22:04 Dose: 15 mg Admin: 03/22/17 15:43 Dose: 15 mg Admin: 03/22/17 03:12 Dose: 15 mg Latanoprost (Xalatan 0.005% Ophth Soln) 0 ml EYEBOTH BEDTIME [facility] Last Admin: 04/09/17 20:25 Dose: 1 drop Admin: 04/08/17 21:33 Dose: 1 drop Admin: 04/07/17 20:51 Dose: 1 drop Admin: 04/06/17 20:37 Dose: 1 drop Admin: 04/05/17 20:39 Dose: 1 drop Admin: 04/04/17 21:00 Dose: 1 drop Admin: 04/03/17 20:54 Dose: 1 drop Admin: 04/02/17 20:03 Dose: 1 drop Admin: 04/01/17 20:53 Dose: 1 drop Admin: 03/31/17 20:32 Dose: 1 drop Admin: 03/30/17 20:28 Dose: 1 drop Admin: 03/29/17 20:34 Dose: 1 drop Admin: 03/28/17 20:58 Dose: 1 drop Admin: 03/27/17 20:48 Dose: 1 drop Admin: 03/26/17 20:21 Dose: 1 drop Admin: 03/25/17 23:06 Dose: 1 drop Admin: 03/24/17 20:03 Dose: 1 drop Admin: 03/23/17 22:01 Dose: 1 drop Admin: 03/22/17 20:37 Dose: 1 drop Admin: 03/21/17 21:05 Dose: 1 drop Lidocaine HCl (Xylocaine 2% Jelly) 5 ml MUCMEM Q4H PRN PRN Reason: Pain Last Admin: 03/27/17 13:05 Dose: 5 ml Metoprolol Succinate (Toprol Xl) 25 mg PO DAILY [facility] Last Admin: 04/10/17 09:49 Dose: 25 mg Admin: 04/09/17 12:45 Dose: Admin: 04/08/17 08:57 Dose: 25 mg Admin: 04/07/17 09:21 Dose: 25 mg Admin: 04/06/17 09:38 Dose: 25 mg Admin: 04/05/17 08:32 Dose: 25 mg Admin: 04/04/17 09:44 Dose: 25 mg Admin: 04/03/17 08:47 Dose: 25 mg Admin: 04/02/17 08:52 Dose: 25 mg Admin: 04/01/17 09:34 Dose: 25 mg Admin: 03/31/17 08:35 Dose: 25 mg Admin: 03/30/17 10:46 Dose: 25 mg Admin: 03/29/17 10:04 Dose: 25 mg Admin: 03/28/17 08:45 Dose: 25 mg Admin: 03/27/17 08:28 Dose: 25 mg Admin: 03/26/17 08:43 Dose: 25 mg Admin: 03/25/17 11:32 Dose: 25 mg Admin: 03/24/17 08:30 Dose: 25 mg Admin: 03/23/17 08:21 Dose: 25 mg Admin: 03/22/17 09:59 Dose: 25 mg Ondansetron HCl (Zofran) 4 mg IV Q6H PRN PRN Reason: Nausea/Vomiting Last Admin: 04/06/17 02:17 Dose: 4 mg Admin: 04/05/17 16:51 Dose: 4 mg Admin: 04/05/17 10:35 Dose: 4 mg Admin: 04/04/17 21:01 Dose: 4 mg Admin: 04/04/17 10:11 Dose: 4 mg Admin: 04/03/17 20:53 Dose: 4 mg Admin: 04/03/17 12:28 Dose: 4 mg Admin: 04/02/17 15:34 Dose: 4 mg Admin: 04/02/17 07:20 Dose: 4 mg Admin: 04/01/17 09:37 Dose: 4 mg Admin: 04/01/17 02:54 Dose: 4 mg Admin: 03/30/17 16:36 Dose: 4 mg Admin: 03/27/17 09:39 Dose: 4 mg Admin: 03/25/17 08:40 Dose: 4 mg Admin: 03/23/17 11:39 Dose: 4 mg Admin: 03/23/17 04:48 Dose: 4 mg Admin: 03/22/17 22:04 Dose: 4 mg Admin: 03/22/17 15:46 Dose: 4 mg Admin: 03/22/17 10:05 Dose: 4 mg Admin: 03/22/17 03:16 Dose: 4 mg Admin: 03/21/17 21:09 Dose: 4 mg Pantoprazole Sodium (Protonix Iv) 40 mg IVPUSH DAILY [facility] Last Admin: 04/10/17 09:49 Dose: 40 mg Admin: 04/09/17 12:51 Dose: 40 mg Admin: 04/08/17 08:54 Dose: 40 mg Admin: 04/07/17 09:29 Dose: 40 mg Admin: 04/06/17 09:39 Dose: 40 mg Admin: 04/05/17 08:32 Dose: 40 mg Admin: 04/04/17 10:11 Dose: 40 mg Admin: 04/03/17 08:47 Dose: 40 mg Admin: 04/02/17 08:52 Dose: 40 mg Admin: 04/01/17 09:40 Dose: 40 mg Admin: 03/31/17 08:35 Dose: 40 mg Admin: 03/30/17 10:45 Dose: 40 mg Admin: 03/29/17 10:02 Dose: 40 mg Admin: 03/28/17 08:45 Dose: 40 mg Admin: 03/27/17 08:28 Dose: 40 mg Admin: 03/26/17 08:50 Dose: 40 mg Admin: 03/25/17 11:32 Dose: 40 mg Admin: 03/24/17 08:30 Dose: 40 mg Admin: 03/23/17 08:19 Dose: 40 mg Admin: 03/22/17 10:00 Dose: 40 mg Sodium Chloride (Saline Flush) 10 ml FLUSH ASDIRECTED PRN PRN Reason: Keep Vein Open Last Admin: 04/07/17 06:25 Dose: 10 ml Admin: 04/06/17 09:46 Dose: 10 ml Admin: 04/06/17 06:12 Dose: 10 ml Admin: 04/06/17 02:17 Dose: 10 ml Admin: 04/04/17 21:01 Dose: 10 ml Admin: 04/04/17 03:41 Dose: 10 ml Admin: 04/03/17 12:29 Dose: 10 ml Admin: 04/01/17 10:10 Dose: 10 ml Admin: 04/01/17 06:17 Dose: 10 ml Admin: 04/01/17 02:53 Dose: 10 ml Admin: 03/31/17 22:34 Dose: 10 ml Admin: 03/31/17 16:01 Dose: 10 ml Admin: 03/31/17 03:40 Dose: 10 ml Admin: 03/30/17 22:32 Dose: 10 ml Admin: 03/30/17 22:28 Dose: 10 ml Admin: 03/30/17 16:36 Dose: 10 ml Admin: 03/30/17 10:47 Dose: 10 ml Admin: 03/29/17 10:05 Dose: 10 ml Admin: 03/29/17 01:52 Dose: 10 ml Admin: 03/28/17 23:21 Dose: 10 ml Admin: 03/26/17 23:31 Dose: 10 ml Admin: 03/26/17 14:56 Dose: 10 ml Admin: 03/26/17 08:57 Dose: 10 ml Admin: 03/25/17 11:33 Dose: 10 ml Admin: 03/25/17 08:40 Dose: 10 ml Admin: 03/23/17 04:55 Dose: 10 ml Admin: 03/23/17 01:48 Dose: 10 ml Admin: 03/22/17 22:11 Dose: 10 ml Admin: 03/22/17 22:10 Dose: 10 ml Admin: 03/22/17 20:06 Dose: 10 ml Admin: 03/22/17 15:43 Dose: 10 ml Admin: 03/22/17 10:10 Dose: 10 ml Admin: 03/22/17 10:04 Dose: 10 ml Admin: 03/22/17 03:24 Dose: 10 ml Admin: 03/22/17 03:12 Dose: 10 ml Admin: 03/21/17 21:09 Dose: 10 ml - Assessment Assessment (Free Text/Narrative):: unremarkable exam. - Plan Plan (Free Text/Narrative):: will start tube feeds.
[2017-04-10] MEDS: Latanoprost 0.005% Ophth Soln 2.5 ML Bottle EYEBOTH SCH (21:33)
[2017-04-11] MEDS: D5 1/2 NS w/ 20 mEq/L KCl 1,000 ML IV SCH ×3 (05:47→20:50)
[2017-04-11] MEDS: Enoxaparin 80 MG/0.8 ML Syringe SUBCUT SCH ×2 (05:48→17:37)
[2017-04-11] MEDS: Pantoprazole 40 MG Vial IVPUSH SCH (09:57)
[2017-04-11] MEDS: Metoprolol Succinate 25 MG Tab.ER PO SCH (09:57)
--- NOTE | 2017-04-11 10:31 | PCM.SURGPN ---
- General Info Date of Service: 04/11/17 POD#: 2 Functional Status: Reports: Pain Controlled, Tolerating Diet, Ambulating, Urinating - Review of Systems Gastrointestinal: Reports: No Symptoms, Other (ngt output is down and is clear ) Genitourinary: Reports: No Symptoms - Patient Data Vitals - Most Recent: Last Vital Signs Temp 36.9 C 04/10/17 22:00 Pulse 104 H 04/11/17 09:57 Resp 20 04/11/17 04:00 BP 142/82 H 04/11/17 09:57 Pulse Ox 93 L 04/11/17 04:00 Weight - Most Recent: 74.208 kg I&O - Last 24 Hours: Intake & Output 04/10/17 04/11/17 04/11/17 22:59 06:59 14:59 Intake Total 1275 1307 30 Output Total 300 1650 Balance 975 -343 30 Nomi Results Last 24 Hrs: Microbiology 04/08/17 14:50 Aerobic Blood Culture - Preliminary Blood - Port-A-Cath NO GROWTH AFTER 2 DAYS Anaerobic Blood Culture - Preliminary NO GROWTH AFTER 2 DAYS Med Orders - Current: Current Medications Acetaminophen (Tylenol) 650 mg PO Q4H PRN PRN Reason: Pain (Mild 1-3)/fever Last Admin: 03/22/17 11:25 Dose: 650 mg Albuterol/Ipratropium (Duoneb 3.0-0.5 Mg/3 Ml) 3 ml NEB Q4H PRN PRN Reason: Wheezing Enoxaparin Sodium (Lovenox) 80 mg SUBCUT Q12H [facility] Last Admin: 04/11/17 05:48 Dose: 80 mg Heparin Sodium (Porcine) (Heparin Lock Flush 100 Units/Ml) 500 units FLUSH ASDIRECTED PRN PRN Reason: Keep Vein Open Last Admin: 04/06/17 09:49 Dose: 500 units Hydromorphone HCl (Dilaudid) 1 mg IVPUSH Q3H PRN PRN Reason: Pain Last Admin: 04/10/17 02:28 Dose: 1 mg Potassium Chloride/Dextrose/Sod Cl (D5 1/2 Ns W/ 20 Meq/L Kcl) 1,000 mls @ 75 mls/hr IV Q8H [facility] Last Infusion: 04/11/17 10:24 Dose: 75 mls/hr Ketorolac Tromethamine (Toradol) 15 mg IVPUSH Q6H PRN PRN Reason: Pain (moderate 4-6) Last Admin: 04/10/17 09:52 Dose: 15 mg Latanoprost (Xalatan 0.005% Ophth Soln) 0 ml EYEBOTH BEDTIME [facility] Last Admin: 04/10/17 21:33 Dose: 1 drop Lidocaine HCl (Xylocaine 2% Jelly) 5 ml MUCMEM Q4H PRN PRN Reason: Pain Last Admin: 03/27/17 13:05 Dose: 5 ml Metoprolol Succinate (Toprol Xl) 25 mg PO DAILY [facility] Last Admin: 04/11/17 09:57 Dose: 25 mg Ondansetron HCl (Zofran) 4 mg IV Q6H PRN PRN Reason: Nausea/Vomiting Last Admin: 04/06/17 02:17 Dose: 4 mg Pantoprazole Sodium (Protonix Iv) 40 mg IVPUSH DAILY [facility] Last Admin: 04/11/17 09:57 Dose: 40 mg Sodium Chloride (Saline Flush) 10 ml FLUSH ASDIRECTED PRN PRN Reason: Keep Vein Open Last Admin: 04/07/17 06:25 Dose: 10 ml Discontinued Medications Bisacodyl (Dulcolax) 10 mg RECTAL ONETIME ONE Stop: 03/22/17 08:59 Last Admin: 03/22/17 11:16 Dose: 10 mg Bupivacaine HCl (Marcaine 0.5%) 5 ml INJECT .STK-MED ONE Stop: 04/09/17 09:59 Last Admin: 04/09/17 09:58 Dose: 5 ml Enoxaparin Sodium (Lovenox) 80 mg SUBCUT Q12H [facility] Last Admin: 04/06/17 15:27 Dose: Not Given Fentanyl (Sublimaze) 100 mcg IV .STK-MED ONE Stop: 03/25/17 10:01 Fentanyl (Sublimaze) 150 mcg IV .STK-MED ONE Stop: 04/09/17 09:31 Fat Emulsion Intravenous (Intralipid 20%) 250 mls @ 20 mls/hr IV Q24H [facility] Last Admin: 04/06/17 14:01 Dose: Not Given Multivitamins/Minerals 10 ml/Amino Ac/Electrol/Dextrose/Calcium 1,010 mls @ 84 mls/hr IV Q24H [facility] Stop: 03/23/17 13:30 Last Admin: 03/22/17 14:17 Dose: 42 mls/hr Multivitamins/Minerals 10 ml/Amino Ac/Electrol/Dextrose/Calcium 1,010 mls @ 84 mls/hr IV .BY DURATION [facility] Last Admin: 03/24/17 13:29 Dose: 84 mls/hr Amino Ac/Electrol/Dextrose/Calcium (Clinimix E 5/15) 1,000 mls @ 84 mls/hr IV .BY DURATION [facility] Last Admin: 03/25/17 02:17 Dose: 84 mls/hr Sodium Chloride (Normal Saline) 1,000 mls @ 50 mls/hr IV ASDIRECTED [facility] Last Admin: 04/09/17 17:14 Dose: 50 mls/hr Potassium Chloride 20 meq/ (Premix) 100 mls @ 50 mls/hr IV ONETIME ONE Stop: 03/24/17 10:10 Last Admin: 03/24/17 09:03 Dose: 50 mls/hr Potassium Chloride 20 meq/ (Premix) 100 mls @ 50 mls/hr IV ONETIME ONE Stop: 03/24/17 12:14 Last Admin: 03/24/17 11:06 Dose: 50 mls/hr Magnesium Sulfate 2 gm/ Premix 50 mls @ 8 mls/hr IV ONETIME ONE Stop: 03/24/17 23:14 Last Admin: 03/24/17 17:04 Dose: 8 mls/hr Multivitamins/Minerals 10 ml/Amino Ac/Electrol/Dextrose/Calcium 1,010 mls @ 84 mls/hr IV .BY DURATION [facility] Stop: 04/04/17 13:15 Last Admin: 04/05/17 10:57 Dose: Not Given Amino Ac/Electrol/Dextrose/Calcium (Clinimix E 5/15) 1,000 mls @ 84 mls/hr IV .BY DURATION [facility] Stop: 04/04/17 13:15 Last Admin: 04/04/17 00:54 Dose: 84 mls/hr Lactated Ringer's (Ringers, Lactated) 1,000 mls @ as directed IV .STK-MED ONE Stop: 03/25/17 10:01 Dextrose/Water (Dextrose 10% In Water) 1,000 mls @ as directed IV .STK-MED ONE Stop: 03/25/17 10:01 Magnesium Sulfate 2 gm/ Premix 50 mls @ 8 mls/hr IV ONETIME ONE Stop: 03/29/17 14:44 Last Admin: 03/29/17 10:00 Dose: 8 mls/hr Potassium Chloride 20 meq/ (Premix) 100 mls @ 50 mls/hr IV ONETIME ONE Stop: 04/03/17 09:15 Last Admin: 04/03/17 07:50 Dose: 50 mls/hr Dextrose/Water (Dextrose 10% In Water) 1,000 mls @ 84 mls/hr IV Q12H [facility] Stop: 04/05/17 22:00 Last Admin: 04/05/17 13:26 Dose: 84 mls/hr Dextrose/Water (Dextrose 10% In Water) 1,000 mls @ 42 mls/hr IV Q24H [facility] Stop: 04/06/17 06:00 Last Admin: 04/05/17 22:30 Dose: 42 mls/hr Potassium Chloride 20 meq/ (Premix) 100 mls @ 50 mls/hr IV ONETIME ONE Stop: 04/06/17 10:17 Last Admin: 04/06/17 08:35 Dose: 50 mls/hr Fat Emulsion Intravenous (Intralipid 20%) 250 mls @ 20 mls/hr IV Q24H [facility] Last Admin: 04/08/17 17:15 Dose: 20 mls/hr Multivitamins/Minerals 10 ml/Amino Ac/Electrol/Dextrose/Calcium 1,010 mls @ 42 mls/hr IV ONETIME ONE Stop: 04/07/17 18:02 Last Admin: 04/06/17 17:16 Dose: 42 mls/hr Multivitamins/Minerals 10 ml/Amino Ac/Electrol/Dextrose/Calcium 1,010 mls @ 84 mls/hr IV .BY DURATION [facility] Stop: 04/09/17 05:51 Last Admin: 04/08/17 11:45 Dose: 84 mls/hr Amino Ac/Electrol/Dextrose/Calcium (Clinimix E 15) 1,000 mls @ 84 mls/hr IV .BY DURATION [facility] Stop: 04/09/17 05:51 Last Admin: 04/09/17 01:08 Dose: 84 mls/hr Magnesium Sulfate (Magnesium Sulfate 2 Gm In Water 50 Ml) 50 mls @ 8 mls/hr IV ONETIME ONE Stop: 04/07/17 15:14 Last Admin: 04/07/17 09:22 Dose: 8 mls/hr Potassium Chloride 20 meq/ (Premix) 100 mls @ 50 mls/hr IV ONETIME ONE Stop: 04/07/17 11:59 Last Admin: 04/07/17 10:24 Dose: 50 mls/hr Potassium Chloride 20 meq/ (Premix) 100 mls @ 50 mls/hr IV ONETIME ONE Stop: 04/07/17 13:59 Last Admin: 04/07/17 12:32 Dose: 50 mls/hr Dextrose/Water (Dextrose 10% In Water) 1,000 mls @ 42 mls/hr IV ASDIRECTED [facility] Cefazolin Sodium 1 gm/ Sodium (Chloride) 50 mls @ 100 mls/hr IV ONETIME ONE Stop: 04/09/17 09:59 Last Admin: 04/09/17 08:59 Dose: 100 mls/hr Potassium Chloride 20 meq/ (Premix) 100 mls @ 50 mls/hr IV ONETIME ONE Stop: 04/09/17 19:31 Last Admin: 04/09/17 17:59 Dose: 50 mls/hr Insulin Aspart (Novolog) 0 unit SUBCUT WITHMEALSANDBED [facility] PRN Reason: Protocol Last Admin: 03/25/17 18:57 Dose: Not Given Ketorolac Tromethamine (Toradol) 15 mg IVPUSH .STK-MED ONE Stop: 04/09/17 09:31 Lidocaine HCl (Xylocaine 2% Jelly) 5 ml MUCMEM 07 [facility] Last Admin: 04/06/17 07:38 Dose: 5 ml Lidocaine HCl (Xylocaine 2% Viscous) 15 ml PO 07 [facility] Lidocaine HCl (Xylocaine 2% Viscous) Confirm Administered Dose 15 ml .ROUTE .STK -MED ONE Stop: 04/06/17 07:35 Last Admin: 04/06/17 07:55 Dose: Not Given Lidocaine HCl (Xylocaine 2% Viscous) 15 ml PO 0700 [facility] Stop: 04/06/17 07:01 Last Admin: 04/06/17 07:35 Dose: 15 ml Lidocaine HCl (Xylocaine 2% Jelly) 5 ml MUCMEM ONETIME ONE Stop: 04/09/17 07:58 Last Admin: 04/09/17 11:15 Dose: Not Given Lidocaine HCl (Xylocaine 2% Viscous) 15 ml PO ONETIME ONE Stop: 04/09/17 08:16 Last Admin: 04/09/17 11:15 Dose: Not Given Lidocaine HCl (Xylocaine 2%) 100 mg IVPUSH .STK-MED ONE Stop: 04/09/17 09:31 Lidocaine/Epinephrine (Xylocaine 1% With Epinephrine 1:100,000) 5 ml INJECT .STK-MED ONE Stop: 04/09/17 09:59 Last Admin: 04/09/17 09:58 Dose: 5 ml Metoclopramide HCl (Reglan) 5 mg IV Q6H [facility] Last Admin: 03/23/17 08:24 Dose: 5 mg Metoprolol Succinate (Toprol Xl) 50 mg PO DAILY [facility] Midazolam HCl (Versed 1 Mg/Ml) 1 mg IV .STK-MED ONE Stop: 03/25/17 10:01 Midazolam HCl (Versed 1 Mg/Ml) 0.5 mg IV .STK-MED ONE Stop: 04/09/17 09:31 Morphine Sulfate (Morphine) 2 mg IVPUSH Q2H PRN PRN Reason: Pain (severe 7-10) Last Admin: 04/09/17 13:31 Dose: 2 mg Morphine Sulfate (Morphine) 2 mg IVPUSH Q3M PRN PRN Reason: Abdominal Pain Ondansetron HCl (Zofran) 4 mg IVPUSH .STK-MED ONE Stop: 04/09/17 09:31 Phenylephrine HCl (Deni-Synephrine) 0.4 mg IV .STK-MED ONE Stop: 04/09/17 09:31 Phytonadione (Aquamephyton) 10 mg IM Mo [facility] Last Admin: 04/06/17 07:57 Dose: Not Given Propofol (Diprivan 20 Ml) 100 mg IV .STK-MED ONE Stop: 03/25/17 10:01 Propofol (Diprivan 20 Ml) 180 mg IV .STK-MED ONE Stop: 04/09/17 09:31 Rocuronium [place] (Zemuron) 5 mg IV .STK-MED ONE Stop: 04/09/17 09:31 Succinylcholine Chloride (Quelicin) 140 mg IV .STK-MED ONE Stop: 04/09/17 09:31 Sucralfate (Carafate) 1 gm PO Q6H [facility] Last Admin: 03/25/17 11:28 Dose: Not Given - Exam Wound/Incisions: Healing Well, No Drainage. No: Erythema Lungs: Clear to Auscultation, Normal Respiratory Effort Cardiovascular: Regular Rate, Regular Rhythm GI/Abdominal Exam: Normal Bowel Sounds, Soft, Non-Tender - Problem List & Annotations (1) Gastroparesis SNOMED Code(s): 666896696 Code(s): K31.84 - GASTROPARESIS Status: Acute Current Visit: No (2) DVT, lower extremity, distal SNOMED Code(s): 994751621 Code(s): I82.4Z9 - ACUTE EMBLSM AND THOMBOS UNSP DEEP VN UNSP DISTAL LOW EXTRM Status: Acute Current Visit: Yes Qualifiers: Chronicity: unspecified Laterality: left Qualified Code(s): I82.4Z2 - Acute embolism and thrombosis of unspecified deep veins of left distal lower extremity - Problem List Review Problem List Initiated/Reviewed/Updated: Yes - My Orders Last 24 Hours: Active Orders 24 hr Category Date Time Status Enteral Feedings [RC] Q4H Care 04/10/17 12:00 Active Nothing Per Oral Diet [DIET] Diet 04/11/17 Breakfast Active Medication Orders Acetaminophen (Tylenol) 650 mg PO Q4H PRN PRN Reason: Pain (Mild 1-3)/fever Last Admin: 03/22/17 11:25 Dose: 650 mg Albuterol/Ipratropium (Duoneb 3.0-0.5 Mg/3 Ml) 3 ml NEB Q4H PRN PRN Reason: Wheezing Enoxaparin Sodium (Lovenox) 80 mg SUBCUT Q12H [facility] Last Admin: 04/11/17 05:48 Dose: 80 mg Admin: 04/08/17 17:16 Dose: 80 mg Admin: 04/08/17 06:33 Dose: 80 mg Admin: 04/07/17 18:19 Dose: 80 mg Admin: 04/07/17 06:25 Dose: 80 mg Admin: 04/06/17 17:17 Dose: 80 mg Heparin Sodium (Porcine) (Heparin Lock Flush 100 Units/Ml) 500 units FLUSH ASDIRECTED PRN PRN Reason: Keep Vein Open Last Admin: 04/06/17 09:49 Dose: 500 units Admin: 04/01/17 10:10 Dose: 500 units Admin: 03/22/17 10:11 Dose: 500 units Hydromorphone HCl (Dilaudid) 1 mg IVPUSH Q3H PRN PRN Reason: Pain Last Admin: 04/10/17 02:28 Dose: 1 mg Admin: 04/09/17 20:35 Dose: 1 mg Admin: 04/09/17 16:05 Dose: 1 mg Potassium Chloride/Dextrose/Sod Cl (D5 1/2 Ns W/ 20 Meq/L Kcl) 1,000 mls @ 75 mls/hr IV Q8H [facility] Last Infusion: 04/11/17 10:24 Dose: 75 mls/hr Admin: 04/11/17 05:47 Dose: 125 mls/hr Infusion: 04/11/17 05:34 Dose: 125 mls/hr Admin: 04/10/17 21:34 Dose: 125 mls/hr Infusion: 04/10/17 21:20 Dose: 125 mls/hr Admin: 04/10/17 13:20 Dose: 125 mls/hr Infusion: 04/10/17 13:02 Dose: 125 mls/hr Admin: 04/10/17 05:02 Dose: 125 mls/hr Infusion: 04/10/17 05:02 Dose: 125 mls/hr Admin: 04/09/17 21:35 Dose: 125 mls/hr Infusion: 04/09/17 21:31 Dose: 125 mls/hr Admin: 04/09/17 13:31 Dose: 125 mls/hr Ketorolac Tromethamine (Toradol) 15 mg IVPUSH Q6H PRN PRN Reason: Pain (moderate 4-6) Last Admin: 04/10/17 09:52 Dose: 15 mg Admin: 04/06/17 02:16 Dose: 15 mg Admin: 04/05/17 16:51 Dose: 15 mg Admin: 04/05/17 10:35 Dose: 15 mg Admin: 04/04/17 10:11 Dose: 15 mg Admin: 04/04/17 03:40 Dose: 15 mg Admin: 04/02/17 16:14 Dose: 15 mg Admin: 03/31/17 03:40 Dose: 15 mg Admin: 03/23/17 04:48 Dose: 15 mg Admin: 03/22/17 22:04 Dose: 15 mg Admin: 03/22/17 15:43 Dose: 15 mg Admin: 03/22/17 03:12 Dose: 15 mg Latanoprost (Xalatan 0.005% Ophth Soln) 0 ml EYEBOTH BEDTIME [facility] Last Admin: 04/10/17 21:33 Dose: 1 drop Admin: 04/09/17 20:25 Dose: 1 drop Admin: 04/08/17 21:33 Dose: 1 drop Admin: 04/07/17 20:51 Dose: 1 drop Admin: 04/06/17 20:37 Dose: 1 drop Admin: 04/05/17 20:39 Dose: 1 drop Admin: 04/04/17 21:00 Dose: 1 drop Admin: 04/03/17 20:54 Dose: 1 drop Admin: 04/02/17 20:03 Dose: 1 drop Admin: 04/01/17 20:53 Dose: 1 drop Admin: 03/31/17 20:32 Dose: 1 drop Admin: 03/30/17 20:28 Dose: 1 drop Admin: 03/29/17 20:34 Dose: 1 drop Admin: 03/28/17 20:58 Dose: 1 drop Admin: 03/27/17 20:48 Dose: 1 drop Admin: 03/26/17 20:21 Dose: 1 drop Admin: 03/25/17 23:06 Dose: 1 drop Admin: 03/24/17 20:03 Dose: 1 drop Admin: 03/23/17 22:01 Dose: 1 drop Admin: 03/22/17 20:37 Dose: 1 drop Admin: 03/21/17 21:05 Dose: 1 drop Lidocaine HCl (Xylocaine 2% Jelly) 5 ml MUCMEM Q4H PRN PRN Reason: Pain Last Admin: 03/27/17 13:05 Dose: 5 ml Metoprolol Succinate (Toprol Xl) 25 mg PO DAILY [facility] Last Admin: 04/11/17 09:57 Dose: 25 mg Admin: 04/10/17 09:49 Dose: 25 mg Admin: 04/09/17 12:45 Dose: Admin: 04/08/17 08:57 Dose: 25 mg Admin: 04/07/17 09:21 Dose: 25 mg Admin: 04/06/17 09:38 Dose: 25 mg Admin: 04/05/17 08:32 Dose: 25 mg Admin: 04/04/17 09:44 Dose: 25 mg Admin: 04/03/17 08:47 Dose: 25 mg Admin: 04/02/17 08:52 Dose: 25 mg Admin: 04/01/17 09:34 Dose: 25 mg Admin: 03/31/17 08:35 Dose: 25 mg Admin: 03/30/17 10:46 Dose: 25 mg Admin: 03/29/17 10:04 Dose: 25 mg Admin: 03/28/17 08:45 Dose: 25 mg Admin: 03/27/17 08:28 Dose: 25 mg Admin: 03/26/17 08:43 Dose: 25 mg Admin: 03/25/17 11:32 Dose: 25 mg Admin: 03/24/17 08:30 Dose: 25 mg Admin: 03/23/17 08:21 Dose: 25 mg Admin: 03/22/17 09:59 Dose: 25 mg Ondansetron HCl (Zofran) 4 mg IV Q6H PRN PRN Reason: Nausea/Vomiting Last Admin: 04/06/17 02:17 Dose: 4 mg Admin: 04/05/17 16:51 Dose: 4 mg Admin: 04/05/17 10:35 Dose: 4 mg Admin: 04/04/17 21:01 Dose: 4 mg Admin: 04/04/17 10:11 Dose: 4 mg Admin: 04/03/17 20:53 Dose: 4 mg Admin: 04/03/17 12:28 Dose: 4 mg Admin: 04/02/17 15:34 Dose: 4 mg Admin: 04/02/17 07:20 Dose: 4 mg Admin: 04/01/17 09:37 Dose: 4 mg Admin: 04/01/17 02:54 Dose: 4 mg Admin: 03/30/17 16:36 Dose: 4 mg Admin: 03/27/17 09:39 Dose: 4 mg Admin: 03/25/17 08:40 Dose: 4 mg Admin: 03/23/17 11:39 Dose: 4 mg Admin: 03/23/17 04:48 Dose: 4 mg Admin: 03/22/17 22:04 Dose: 4 mg Admin: 03/22/17 15:46 Dose: 4 mg Admin: 03/22/17 10:05 Dose: 4 mg Admin: 03/22/17 03:16 Dose: 4 mg Admin: 03/21/17 21:09 Dose: 4 mg Pantoprazole Sodium (Protonix Iv) 40 mg IVPUSH DAILY [facility] Last Admin: 04/11/17 09:57 Dose: 40 mg Admin: 04/10/17 09:49 Dose: 40 mg Admin: 04/09/17 12:51 Dose: 40 mg Admin: 04/08/17 08:54 Dose: 40 mg Admin: 04/07/17 09:29 Dose: 40 mg Admin: 04/06/17 09:39 Dose: 40 mg Admin: 04/05/17 08:32 Dose: 40 mg Admin: 04/04/17 10:11 Dose: 40 mg Admin: 04/03/17 08:47 Dose: 40 mg Admin: 04/02/17 08:52 Dose: 40 mg Admin: 04/01/17 09:40 Dose: 40 mg Admin: 03/31/17 08:35 Dose: 40 mg Admin: 03/30/17 10:45 Dose: 40 mg Admin: 03/29/17 10:02 Dose: 40 mg Admin: 03/28/17 08:45 Dose: 40 mg Admin: 03/27/17 08:28 Dose: 40 mg Admin: 03/26/17 08:50 Dose: 40 mg Admin: 03/25/17 11:32 Dose: 40 mg Admin: 03/24/17 08:30 Dose: 40 mg Admin: 03/23/17 08:19 Dose: 40 mg Admin: 03/22/17 10:00 Dose: 40 mg Sodium Chloride (Saline Flush) 10 ml FLUSH ASDIRECTED PRN PRN Reason: Keep Vein Open Last Admin: 04/07/17 06:25 Dose: 10 ml Admin: 04/06/17 09:46 Dose: 10 ml Admin: 04/06/17 06:12 Dose: 10 ml Admin: 04/06/17 02:17 Dose: 10 ml Admin: 04/04/17 21:01 Dose: 10 ml Admin: 04/04/17 03:41 Dose: 10 ml Admin: 04/03/17 12:29 Dose: 10 ml Admin: 04/01/17 10:10 Dose: 10 ml Admin: 04/01/17 06:17 Dose: 10 ml Admin: 04/01/17 02:53 Dose: 10 ml Admin: 03/31/17 22:34 Dose: 10 ml Admin: 03/31/17 16:01 Dose: 10 ml Admin: 03/31/17 03:40 Dose: 10 ml Admin: 03/30/17 22:32 Dose: 10 ml Admin: 03/30/17 22:28 Dose: 10 ml Admin: 03/30/17 16:36 Dose: 10 ml Admin: 03/30/17 10:47 Dose: 10 ml Admin: 03/29/17 10:05 Dose: 10 ml Admin: 03/29/17 01:52 Dose: 10 ml Admin: 03/28/17 23:21 Dose: 10 ml Admin: 03/26/17 23:31 Dose: 10 ml Admin: 03/26/17 14:56 Dose: 10 ml Admin: 03/26/17 08:57 Dose: 10 ml Admin: 03/25/17 11:33 Dose: 10 ml Admin: 03/25/17 08:40 Dose: 10 ml Admin: 03/23/17 04:55 Dose: 10 ml Admin: 03/23/17 01:48 Dose: 10 ml Admin: 03/22/17 22:11 Dose: 10 ml Admin: 03/22/17 22:10 Dose: 10 ml Admin: 03/22/17 20:06 Dose: 10 ml Admin: 03/22/17 15:43 Dose: 10 ml Admin: 03/22/17 10:10 Dose: 10 ml Admin: 03/22/17 10:04 Dose: 10 ml Admin: 03/22/17 03:24 Dose: 10 ml Admin: 03/22/17 03:12 Dose: 10 ml Admin: 03/21/17 21:09 Dose: 10 ml - Assessment Assessment (Free Text/Narrative):: tolerating tube feeds - Plan Plan (Free Text/Narrative):: decrease iv rate stop labs and poc glucose testing
[2017-04-11] MEDS: Latanoprost 0.005% Ophth Soln 2.5 ML Bottle EYEBOTH SCH (20:49)
[2017-04-11] MEDS: Ketorolac 15 MG/ML SDV IVPUSH PRN (21:54)
[2017-04-12] MEDS: D5 1/2 NS w/ 20 mEq/L KCl 1,000 ML IV SCH (04:55)
[2017-04-12] MEDS: Enoxaparin 80 MG/0.8 ML Syringe SUBCUT SCH ×2 (06:01→18:29)
[2017-04-12] MEDS: Pantoprazole 40 MG Vial IVPUSH SCH (08:08)
[2017-04-12] MEDS: Metoprolol Succinate 25 MG Tab.ER PO SCH (08:08)
--- NOTE | 2017-04-12 09:34 | PCM.SURGPN ---
- General Info Date of Service: 04/12/17 Functional Status: Reports: Pain Controlled, Tolerating Diet, Ambulating, Urinating - Review of Systems Pulmonary: Reports: No Symptoms Cardiovascular: Reports: No Symptoms Gastrointestinal: Reports: No Symptoms - Patient Data Vitals - Most Recent: Last Vital Signs Temp 36.8 C 04/11/17 08:12 Pulse 88 04/12/17 08:08 Resp 18 04/11/17 08:12 BP 144/90 H 04/12/17 08:08 Pulse Ox 97 04/11/17 08:12 Weight - Most Recent: 74.435 kg I&O - Last 24 Hours: Intake & Output 04/11/17 04/12/17 04/12/17 22:59 06:59 14:59 Intake Total 1915 1134 Output Total 800 650 Balance 1115 484 Lab Results Last 24 Hrs: Laboratory Results - last 24 hr 04/11/17 Range/Units 05:53 POC Glucose 129 H (80-116) mg/dL Nomi Results Last 24 Hrs: Microbiology 04/08/17 14:50 Aerobic Blood Culture - Preliminary Blood - Port-A-Cath NO GROWTH AFTER 3 DAYS Anaerobic Blood Culture - Preliminary NO GROWTH AFTER 3 DAYS Med Orders - Current: Current Medications Acetaminophen (Tylenol) 650 mg PO Q4H PRN PRN Reason: Pain (Mild 1-3)/fever Last Admin: 03/22/17 11:25 Dose: 650 mg Albuterol/Ipratropium (Duoneb 3.0-0.5 Mg/3 Ml) 3 ml NEB Q4H PRN PRN Reason: Wheezing Enoxaparin Sodium (Lovenox) 80 mg SUBCUT Q12H [facility] Last Admin: 04/12/17 06:01 Dose: 80 mg Heparin Sodium (Porcine) (Heparin Lock Flush 100 Units/Ml) 500 units FLUSH ASDIRECTED PRN PRN Reason: Keep Vein Open Last Admin: 04/06/17 09:49 Dose: 500 units Hydromorphone HCl (Dilaudid) 1 mg IVPUSH Q3H PRN PRN Reason: Pain Last Admin: 04/10/17 02:28 Dose: 1 mg Ketorolac Tromethamine (Toradol) 15 mg IVPUSH Q6H PRN PRN Reason: Pain (moderate 4-6) Last Admin: 04/11/17 21:54 Dose: 15 mg Latanoprost (Xalatan 0.005% Ophth Soln) 0 ml EYEBOTH BEDTIME [facility] Last Admin: 04/11/17 20:49 Dose: 1 drop Metoprolol Succinate (Toprol Xl) 25 mg PO DAILY [facility] Last Admin: 04/12/17 08:08 Dose: 25 mg Ondansetron HCl (Zofran) 4 mg IV Q6H PRN PRN Reason: Nausea/Vomiting Last Admin: 04/06/17 02:17 Dose: 4 mg Pantoprazole Sodium (Protonix Iv) 40 mg IVPUSH DAILY [facility] Last Admin: 04/12/17 08:08 Dose: 40 mg Sodium Chloride (Saline Flush) 10 ml FLUSH ASDIRECTED PRN PRN Reason: Keep Vein Open Last Admin: 04/07/17 06:25 Dose: 10 ml Discontinued Medications Bisacodyl (Dulcolax) 10 mg RECTAL ONETIME ONE Stop: 03/22/17 08:59 Last Admin: 03/22/17 11:16 Dose: 10 mg Bupivacaine HCl (Marcaine 0.5%) 5 ml INJECT .STK-MED ONE Stop: 04/09/17 09:59 Last Admin: 04/09/17 09:58 Dose: 5 ml Enoxaparin Sodium (Lovenox) 80 mg SUBCUT Q12H [facility] Last Admin: 04/06/17 15:27 Dose: Not Given Fentanyl (Sublimaze) 100 mcg IV .STK-MED ONE Stop: 03/25/17 10:01 Fentanyl (Sublimaze) 150 mcg IV .STK-MED ONE Stop: 04/09/17 09:31 Fat Emulsion Intravenous (Intralipid 20%) 250 mls @ 20 mls/hr IV Q24H [facility] Last Admin: 04/06/17 14:01 Dose: Not Given Multivitamins/Minerals 10 ml/Amino Ac/Electrol/Dextrose/Calcium 1,010 mls @ 84 mls/hr IV Q24H [facility] Stop: 03/23/17 13:30 Last Admin: 03/22/17 14:17 Dose: 42 mls/hr Multivitamins/Minerals 10 ml/Amino Ac/Electrol/Dextrose/Calcium 1,010 mls @ 84 mls/hr IV .BY DURATION [facility] Last Admin: 03/24/17 13:29 Dose: 84 mls/hr Amino Ac/Electrol/Dextrose/Calcium (Clinimix E 5/15) 1,000 mls @ 84 mls/hr IV .BY DURATION [facility] Last Admin: 03/25/17 02:17 Dose: 84 mls/hr Sodium Chloride (Normal Saline) 1,000 mls @ 50 mls/hr IV ASDIRECTED [facility] Last Admin: 04/09/17 17:14 Dose: 50 mls/hr Potassium Chloride 20 meq/ (Premix) 100 mls @ 50 mls/hr IV ONETIME ONE Stop: 03/24/17 10:10 Last Admin: 03/24/17 09:03 Dose: 50 mls/hr Potassium Chloride 20 meq/ (Premix) 100 mls @ 50 mls/hr IV ONETIME ONE Stop: 03/24/17 12:14 Last Admin: 03/24/17 11:06 Dose: 50 mls/hr Magnesium Sulfate 2 gm/ Premix 50 mls @ 8 mls/hr IV ONETIME ONE Stop: 03/24/17 23:14 Last Admin: 03/24/17 17:04 Dose: 8 mls/hr Multivitamins/Minerals 10 ml/Amino Ac/Electrol/Dextrose/Calcium 1,010 mls @ 84 mls/hr IV .BY DURATION [facility] Stop: 04/04/17 13:15 Last Admin: 04/05/17 10:57 Dose: Not Given Amino Ac/Electrol/Dextrose/Calcium (Clinimix E 5/15) 1,000 mls @ 84 mls/hr IV .BY DURATION [facility] Stop: 04/04/17 13:15 Last Admin: 04/04/17 00:54 Dose: 84 mls/hr Lactated Ringer's (Ringers, Lactated) 1,000 mls @ as directed IV .STK-MED ONE Stop: 03/25/17 10:01 Dextrose/Water (Dextrose 10% In Water) 1,000 mls @ as directed IV .STK-MED ONE Stop: 03/25/17 10:01 Magnesium Sulfate 2 gm/ Premix 50 mls @ 8 mls/hr IV ONETIME ONE Stop: 03/29/17 14:44 Last Admin: 03/29/17 10:00 Dose: 8 mls/hr Potassium Chloride 20 meq/ (Premix) 100 mls @ 50 mls/hr IV ONETIME ONE Stop: 04/03/17 09:15 Last Admin: 04/03/17 07:50 Dose: 50 mls/hr Dextrose/Water (Dextrose 10% In Water) 1,000 mls @ 84 mls/hr IV Q12H [facility] Stop: 04/05/17 22:00 Last Admin: 04/05/17 13:26 Dose: 84 mls/hr Dextrose/Water (Dextrose 10% In Water) 1,000 mls @ 42 mls/hr IV Q24H [facility] Stop: 04/06/17 06:00 Last Admin: 04/05/17 22:30 Dose: 42 mls/hr Potassium Chloride 20 meq/ (Premix) 100 mls @ 50 mls/hr IV ONETIME ONE Stop: 04/06/17 10:17 Last Admin: 04/06/17 08:35 Dose: 50 mls/hr Fat Emulsion Intravenous (Intralipid 20%) 250 mls @ 20 mls/hr IV Q24H [facility] Last Admin: 04/08/17 17:15 Dose: 20 mls/hr Multivitamins/Minerals 10 ml/Amino Ac/Electrol/Dextrose/Calcium 1,010 mls @ 42 mls/hr IV ONETIME ONE Stop: 04/07/17 18:02 Last Admin: 04/06/17 17:16 Dose: 42 mls/hr Multivitamins/Minerals 10 ml/Amino Ac/Electrol/Dextrose/Calcium 1,010 mls @ 84 mls/hr IV .BY DURATION [facility] Stop: 04/09/17 05:51 Last Admin: 04/08/17 11:45 Dose: 84 mls/hr Amino Ac/Electrol/Dextrose/Calcium (Clinimix E 12/08) 1,000 mls @ 84 mls/hr IV .BY DURATION [facility] Stop: 04/09/17 05:51 Last Admin: 04/09/17 01:08 Dose: 84 mls/hr Magnesium Sulfate (Magnesium Sulfate 2 Gm In Water 50 Ml) 50 mls @ 8 mls/hr IV ONETIME ONE Stop: 04/07/17 15:14 Last Admin: 04/07/17 09:22 Dose: 8 mls/hr Potassium Chloride 20 meq/ (Premix) 100 mls @ 50 mls/hr IV ONETIME ONE Stop: 04/07/17 11:59 Last Admin: 04/07/17 10:24 Dose: 50 mls/hr Potassium Chloride 20 meq/ (Premix) 100 mls @ 50 mls/hr IV ONETIME ONE Stop: 04/07/17 13:59 Last Admin: 04/07/17 12:32 Dose: 50 mls/hr Dextrose/Water (Dextrose 10% In Water) 1,000 mls @ 42 mls/hr IV ASDIRECTED [facility] Cefazolin Sodium 1 gm/ Sodium (Chloride) 50 mls @ 100 mls/hr IV ONETIME ONE Stop: 04/09/17 09:59 Last Admin: 04/09/17 08:59 Dose: 100 mls/hr Potassium Chloride/Dextrose/Sod Cl (D5 1/2 Ns W/ 20 Meq/L Kcl) 1,000 mls @ 75 mls/hr IV Q8H [facility] Last Admin: 04/12/17 04:55 Dose: 75 mls/hr Potassium Chloride 20 meq/ (Premix) 100 mls @ 50 mls/hr IV ONETIME ONE Stop: 04/09/17 19:31 Last Admin: 04/09/17 17:59 Dose: 50 mls/hr Insulin Aspart (Novolog) 0 unit SUBCUT WITHMEALSANDBED [facility] PRN Reason: Protocol Last Admin: 03/25/17 18:57 Dose: Not Given Ketorolac Tromethamine (Toradol) 15 mg IVPUSH .STK-MED ONE Stop: 04/09/17 09:31 Lidocaine HCl (Xylocaine 2% Jelly) 5 ml MUCMEM Q4H PRN PRN Reason: Pain Last Admin: 03/27/17 13:05 Dose: 5 ml Lidocaine HCl (Xylocaine 2% Jelly) 5 ml MUCMEM 07 [facility] Last Admin: 04/06/17 07:38 Dose: 5 ml Lidocaine HCl (Xylocaine 2% Viscous) 15 ml PO 07 [facility] Lidocaine HCl (Xylocaine 2% Viscous) Confirm Administered Dose 15 ml .ROUTE .STK -MED ONE Stop: 04/06/17 07:35 Last Admin: 04/06/17 07:55 Dose: Not Given Lidocaine HCl (Xylocaine 2% Viscous) 15 ml PO 0700 [facility] Stop: 04/06/17 07:01 Last Admin: 04/06/17 07:35 Dose: 15 ml Lidocaine HCl (Xylocaine 2% Jelly) 5 ml MUCMEM ONETIME ONE Stop: 04/09/17 07:58 Last Admin: 04/09/17 11:15 Dose: Not Given Lidocaine HCl (Xylocaine 2% Viscous) 15 ml PO ONETIME ONE Stop: 04/09/17 08:16 Last Admin: 04/09/17 11:15 Dose: Not Given Lidocaine HCl (Xylocaine 2%) 100 mg IVPUSH .STK-MED ONE Stop: 04/09/17 09:31 Lidocaine/Epinephrine (Xylocaine 1% With Epinephrine 1:100,000) 5 ml INJECT .STK-MED ONE Stop: 04/09/17 09:59 Last Admin: 04/09/17 09:58 Dose: 5 ml Metoclopramide HCl (Reglan) 5 mg IV Q6H [facility] Last Admin: 03/23/17 08:24 Dose: 5 mg Metoprolol Succinate (Toprol Xl) 50 mg PO DAILY [facility] Midazolam HCl (Versed 1 Mg/Ml) 1 mg IV .STK-MED ONE Stop: 03/25/17 10:01 Midazolam HCl (Versed 1 Mg/Ml) 0.5 mg IV .STK-MED ONE Stop: 04/09/17 09:31 Morphine Sulfate (Morphine) 2 mg IVPUSH Q2H PRN PRN Reason: Pain (severe 7-10) Last Admin: 04/09/17 13:31 Dose: 2 mg Morphine Sulfate (Morphine) 2 mg IVPUSH Q3M PRN PRN Reason: Abdominal Pain Ondansetron HCl (Zofran) 4 mg IVPUSH .STK-MED ONE Stop: 04/09/17 09:31 Phenylephrine HCl (Deni-Synephrine) 0.4 mg IV .STK-MED ONE Stop: 04/09/17 09:31 Phytonadione (Aquamephyton) 10 mg IM Mo [facility] Last Admin: 04/06/17 07:57 Dose: Not Given Propofol (Diprivan 20 Ml) 100 mg IV .STK-MED ONE Stop: 03/25/17 10:01 Propofol (Diprivan 20 Ml) 180 mg IV .STK-MED ONE Stop: 04/09/17 09:31 Rocuronium Diboll (Zemuron) 5 mg IV .STK-MED ONE Stop: 04/09/17 09:31 Succinylcholine Chloride (Quelicin) 140 mg IV .STK-MED ONE Stop: 04/09/17 09:31 Sucralfate (Carafate) 1 gm PO Q6H [facility] Last Admin: 03/25/17 11:28 Dose: Not Given - Exam Wound/Incisions: Healing Well General: Alert, Oriented, Cooperative, No Acute Distress Lungs: Clear to Auscultation, Normal Respiratory Effort Cardiovascular: Regular Rate, Regular Rhythm GI/Abdominal Exam: Normal Bowel Sounds, Soft, Non-Tender, No Distention - Problem List & Annotations (1) Gastroparesis SNOMED Code(s): 320091019 Code(s): K31.84 - GASTROPARESIS Status: Acute Current Visit: No (2) DVT, lower extremity, distal SNOMED Code(s): 161888537 Code(s): I82.4Z9 - ACUTE EMBLSM AND THOMBOS UNSP DEEP VN UNSP DISTAL LOW EXTRM Status: Acute Current Visit: Yes Qualifiers: Chronicity: unspecified Laterality: left Qualified Code(s): I82.4Z2 - Acute embolism and thrombosis of unspecified deep veins of left distal lower extremity - Problem List Review Problem List Initiated/Reviewed/Updated: Yes - My Orders Last 24 Hours: Medication Orders Acetaminophen (Tylenol) 650 mg PO Q4H PRN PRN Reason: Pain (Mild 1-3)/fever Last Admin: 03/22/17 11:25 Dose: 650 mg Albuterol/Ipratropium (Duoneb 3.0-0.5 Mg/3 Ml) 3 ml NEB Q4H PRN PRN Reason: Wheezing Enoxaparin Sodium (Lovenox) 80 mg SUBCUT Q12H [facility] Last Admin: 04/12/17 06:01 Dose: 80 mg Admin: 04/11/17 17:37 Dose: 80 mg Admin: 04/11/17 05:48 Dose: 80 mg Admin: 04/08/17 17:16 Dose: 80 mg Admin: 04/08/17 06:33 Dose: 80 mg Admin: 04/07/17 18:19 Dose: 80 mg Admin: 04/07/17 06:25 Dose: 80 mg Admin: 04/06/17 17:17 Dose: 80 mg Heparin Sodium (Porcine) (Heparin Lock Flush 100 Units/Ml) 500 units FLUSH ASDIRECTED PRN PRN Reason: Keep Vein Open Last Admin: 04/06/17 09:49 Dose: 500 units Admin: 04/01/17 10:10 Dose: 500 units Admin: 03/22/17 10:11 Dose: 500 units Hydromorphone HCl (Dilaudid) 1 mg IVPUSH Q3H PRN PRN Reason: Pain Last Admin: 04/10/17 02:28 Dose: 1 mg Admin: 04/09/17 20:35 Dose: 1 mg Admin: 04/09/17 16:05 Dose: 1 mg Ketorolac Tromethamine (Toradol) 15 mg IVPUSH Q6H PRN PRN Reason: Pain (moderate 4-6) Last Admin: 04/11/17 21:54 Dose: 15 mg Admin: 04/10/17 09:52 Dose: 15 mg Admin: 04/06/17 02:16 Dose: 15 mg Admin: 04/05/17 16:51 Dose: 15 mg Admin: 04/05/17 10:35 Dose: 15 mg Admin: 04/04/17 10:11 Dose: 15 mg Admin: 04/04/17 03:40 Dose: 15 mg Admin: 04/02/17 16:14 Dose: 15 mg Admin: 03/31/17 03:40 Dose: 15 mg Admin: 03/23/17 04:48 Dose: 15 mg Admin: 03/22/17 22:04 Dose: 15 mg Admin: 03/22/17 15:43 Dose: 15 mg Admin: 03/22/17 03:12 Dose: 15 mg Latanoprost (Xalatan 0.005% Ophth Soln) 0 ml EYEBOTH BEDTIME [facility] Last Admin: 04/11/17 20:49 Dose: 1 drop Admin: 04/10/17 21:33 Dose: 1 drop Admin: 04/09/17 20:25 Dose: 1 drop Admin: 04/08/17 21:33 Dose: 1 drop Admin: 04/07/17 20:51 Dose: 1 drop Admin: 04/06/17 20:37 Dose: 1 drop Admin: 04/05/17 20:39 Dose: 1 drop Admin: 04/04/17 21:00 Dose: 1 drop Admin: 04/03/17 20:54 Dose: 1 drop Admin: 04/02/17 20:03 Dose: 1 drop Admin: 04/01/17 20:53 Dose: 1 drop Admin: 03/31/17 20:32 Dose: 1 drop Admin: 03/30/17 20:28 Dose: 1 drop Admin: 03/29/17 20:34 Dose: 1 drop Admin: 03/28/17 20:58 Dose: 1 drop Admin: 03/27/17 20:48 Dose: 1 drop Admin: 03/26/17 20:21 Dose: 1 drop Admin: 03/25/17 23:06 Dose: 1 drop Admin: 03/24/17 20:03 Dose: 1 drop Admin: 03/23/17 22:01 Dose: 1 drop Admin: 03/22/17 20:37 Dose: 1 drop Admin: 03/21/17 21:05 Dose: 1 drop Metoprolol Succinate (Toprol Xl) 25 mg PO DAILY [facility] Last Admin: 04/12/17 08:08 Dose: 25 mg Admin: 04/11/17 09:57 Dose: 25 mg Admin: 04/10/17 09:49 Dose: 25 mg Admin: 04/09/17 12:45 Dose: Admin: 04/08/17 08:57 Dose: 25 mg Admin: 04/07/17 09:21 Dose: 25 mg Admin: 04/06/17 09:38 Dose: 25 mg Admin: 04/05/17 08:32 Dose: 25 mg Admin: 04/04/17 09:44 Dose: 25 mg Admin: 04/03/17 08:47 Dose: 25 mg Admin: 04/02/17 08:52 Dose: 25 mg Admin: 04/01/17 09:34 Dose: 25 mg Admin: 03/31/17 08:35 Dose: 25 mg Admin: 03/30/17 10:46 Dose: 25 mg Admin: 03/29/17 10:04 Dose: 25 mg Admin: 03/28/17 08:45 Dose: 25 mg Admin: 03/27/17 08:28 Dose: 25 mg Admin: 03/26/17 08:43 Dose: 25 mg Admin: 03/25/17 11:32 Dose: 25 mg Admin: 03/24/17 08:30 Dose: 25 mg Admin: 03/23/17 08:21 Dose: 25 mg Admin: 03/22/17 09:59 Dose: 25 mg Ondansetron HCl (Zofran) 4 mg IV Q6H PRN PRN Reason: Nausea/Vomiting Last Admin: 04/06/17 02:17 Dose: 4 mg Admin: 04/05/17 16:51 Dose: 4 mg Admin: 04/05/17 10:35 Dose: 4 mg Admin: 04/04/17 21:01 Dose: 4 mg Admin: 04/04/17 10:11 Dose: 4 mg Admin: 04/03/17 20:53 Dose: 4 mg Admin: 04/03/17 12:28 Dose: 4 mg Admin: 04/02/17 15:34 Dose: 4 mg Admin: 04/02/17 07:20 Dose: 4 mg Admin: 04/01/17 09:37 Dose: 4 mg Admin: 04/01/17 02:54 Dose: 4 mg Admin: 03/30/17 16:36 Dose: 4 mg Admin: 03/27/17 09:39 Dose: 4 mg Admin: 03/25/17 08:40 Dose: 4 mg Admin: 03/23/17 11:39 Dose: 4 mg Admin: 03/23/17 04:48 Dose: 4 mg Admin: 03/22/17 22:04 Dose: 4 mg Admin: 03/22/17 15:46 Dose: 4 mg Admin: 03/22/17 10:05 Dose: 4 mg Admin: 03/22/17 03:16 Dose: 4 mg Admin: 03/21/17 21:09 Dose: 4 mg Pantoprazole Sodium (Protonix Iv) 40 mg IVPUSH DAILY [facility] Last Admin: 04/12/17 08:08 Dose: 40 mg Admin: 04/11/17 09:57 Dose: 40 mg Admin: 04/10/17 09:49 Dose: 40 mg Admin: 04/09/17 12:51 Dose: 40 mg Admin: 04/08/17 08:54 Dose: 40 mg Admin: 04/07/17 09:29 Dose: 40 mg Admin: 04/06/17 09:39 Dose: 40 mg Admin: 04/05/17 08:32 Dose: 40 mg Admin: 04/04/17 10:11 Dose: 40 mg Admin: 04/03/17 08:47 Dose: 40 mg Admin: 04/02/17 08:52 Dose: 40 mg Admin: 04/01/17 09:40 Dose: 40 mg Admin: 03/31/17 08:35 Dose: 40 mg Admin: 03/30/17 10:45 Dose: 40 mg Admin: 03/29/17 10:02 Dose: 40 mg Admin: 03/28/17 08:45 Dose: 40 mg Admin: 03/27/17 08:28 Dose: 40 mg Admin: 03/26/17 08:50 Dose: 40 mg Admin: 03/25/17 11:32 Dose: 40 mg Admin: 03/24/17 08:30 Dose: 40 mg Admin: 03/23/17 08:19 Dose: 40 mg Admin: 03/22/17 10:00 Dose: 40 mg Sodium Chloride (Saline Flush) 10 ml FLUSH ASDIRECTED PRN PRN Reason: Keep Vein Open Last Admin: 04/07/17 06:25 Dose: 10 ml Admin: 04/06/17 09:46 Dose: 10 ml Admin: 04/06/17 06:12 Dose: 10 ml Admin: 04/06/17 02:17 Dose: 10 ml Admin: 04/04/17 21:01 Dose: 10 ml Admin: 04/04/17 03:41 Dose: 10 ml Admin: 04/03/17 12:29 Dose: 10 ml Admin: 04/01/17 10:10 Dose: 10 ml Admin: 04/01/17 06:17 Dose: 10 ml Admin: 04/01/17 02:53 Dose: 10 ml Admin: 03/31/17 22:34 Dose: 10 ml Admin: 03/31/17 16:01 Dose: 10 ml Admin: 03/31/17 03:40 Dose: 10 ml Admin: 03/30/17 22:32 Dose: 10 ml Admin: 03/30/17 22:28 Dose: 10 ml Admin: 03/30/17 16:36 Dose: 10 ml Admin: 03/30/17 10:47 Dose: 10 ml Admin: 03/29/17 10:05 Dose: 10 ml Admin: 03/29/17 01:52 Dose: 10 ml Admin: 03/28/17 23:21 Dose: 10 ml Admin: 03/26/17 23:31 Dose: 10 ml Admin: 03/26/17 14:56 Dose: 10 ml Admin: 03/26/17 08:57 Dose: 10 ml Admin: 03/25/17 11:33 Dose: 10 ml Admin: 03/25/17 08:40 Dose: 10 ml Admin: 03/23/17 04:55 Dose: 10 ml Admin: 03/23/17 01:48 Dose: 10 ml Admin: 03/22/17 22:11 Dose: 10 ml Admin: 03/22/17 22:10 Dose: 10 ml Admin: 03/22/17 20:06 Dose: 10 ml Admin: 03/22/17 15:43 Dose: 10 ml Admin: 03/22/17 10:10 Dose: 10 ml Admin: 03/22/17 10:04 Dose: 10 ml Admin: 03/22/17 03:24 Dose: 10 ml Admin: 03/22/17 03:12 Dose: 10 ml Admin: 03/21/17 21:09 Dose: 10 ml - Assessment Assessment (Free Text/Narrative):: at goal for tube feeds. - Plan Plan (Free Text/Narrative):: will stop ivf.
[2017-04-12] MEDS: Sodium Chloride 0.9% 10 ML Syringe FLUSH PRN (10:30)
[2017-04-12] MEDS: Latanoprost 0.005% Ophth Soln 2.5 ML Bottle EYEBOTH SCH (21:51)
[2017-04-13] MEDS: Enoxaparin 80 MG/0.8 ML Syringe SUBCUT SCH ×2 (06:25→18:35)
--- NOTE | 2017-04-13 08:42 | PCM.SURGPN ---
- General Info Date of Service: 04/13/17 Functional Status: Reports: Pain Controlled, Tolerating Diet, Ambulating, Urinating - Review of Systems Pulmonary: Reports: No Symptoms Cardiovascular: Reports: No Symptoms Gastrointestinal: Denies: Abdominal Pain - Patient Data Vitals - Most Recent: Last Vital Signs Temp 36.8 C 04/11/17 08:12 Pulse 88 04/12/17 08:08 Resp 18 04/11/17 08:12 BP 144/90 H 04/12/17 08:08 Pulse Ox 97 04/11/17 08:12 Weight - Most Recent: 72.847 kg I&O - Last 24 Hours: Intake & Output 04/12/17 04/13/17 04/13/17 22:59 06:59 14:59 Intake Total 552 1160 Output Total 600 Balance 552 560 Nomi Results Last 24 Hrs: Microbiology 04/08/17 14:50 Aerobic Blood Culture - Preliminary Blood - Port-A-Cath NO GROWTH AFTER 4 DAYS Anaerobic Blood Culture - Preliminary NO GROWTH AFTER 4 DAYS Med Orders - Current: Current Medications Acetaminophen (Tylenol) 650 mg PO Q4H PRN PRN Reason: Pain (Mild 1-3)/fever Last Admin: 03/22/17 11:25 Dose: 650 mg Albuterol/Ipratropium (Duoneb 3.0-0.5 Mg/3 Ml) 3 ml NEB Q4H PRN PRN Reason: Wheezing Enoxaparin Sodium (Lovenox) 80 mg SUBCUT Q12H [facility] Last Admin: 04/13/17 06:25 Dose: 80 mg Heparin Sodium (Porcine) (Heparin Lock Flush 100 Units/Ml) 500 units FLUSH ASDIRECTED PRN PRN Reason: Keep Vein Open Last Admin: 04/12/17 16:39 Dose: 500 units Hydromorphone HCl (Dilaudid) 1 mg IVPUSH Q3H PRN PRN Reason: Pain Last Admin: 04/10/17 02:28 Dose: 1 mg Ketorolac Tromethamine (Toradol) 15 mg IVPUSH Q6H PRN PRN Reason: Pain (moderate 4-6) Last Admin: 04/11/17 21:54 Dose: 15 mg Latanoprost (Xalatan 0.005% Ophth Soln) 0 ml EYEBOTH BEDTIME [facility] Last Admin: 04/12/17 21:51 Dose: 1 drop Metoprolol Succinate (Toprol Xl) 25 mg PO DAILY [facility] Last Admin: 04/12/17 08:08 Dose: 25 mg Ondansetron HCl (Zofran) 4 mg IV Q6H PRN PRN Reason: Nausea/Vomiting Last Admin: 04/06/17 02:17 Dose: 4 mg Pantoprazole Sodium (Protonix Iv) 40 mg IVPUSH DAILY [facility] Last Admin: 04/12/17 08:08 Dose: 40 mg Sodium Chloride (Saline Flush) 10 ml FLUSH ASDIRECTED PRN PRN Reason: Keep Vein Open Last Admin: 04/12/17 10:30 Dose: 10 ml Discontinued Medications Bisacodyl (Dulcolax) 10 mg RECTAL ONETIME ONE Stop: 03/22/17 08:59 Last Admin: 03/22/17 11:16 Dose: 10 mg Bupivacaine HCl (Marcaine 0.5%) 5 ml INJECT .STK-MED ONE Stop: 04/09/17 09:59 Last Admin: 04/09/17 09:58 Dose: 5 ml Enoxaparin Sodium (Lovenox) 80 mg SUBCUT Q12H [facility] Last Admin: 04/06/17 15:27 Dose: Not Given Fentanyl (Sublimaze) 100 mcg IV .STK-MED ONE Stop: 03/25/17 10:01 Fentanyl (Sublimaze) 150 mcg IV .STK-MED ONE Stop: 04/09/17 09:31 Fat Emulsion Intravenous (Intralipid 20%) 250 mls @ 20 mls/hr IV Q24H [facility] Last Admin: 04/06/17 14:01 Dose: Not Given Multivitamins/Minerals 10 ml/Amino Ac/Electrol/Dextrose/Calcium 1,010 mls @ 84 mls/hr IV Q24H [facility] Stop: 03/23/17 13:30 Last Admin: 03/22/17 14:17 Dose: 42 mls/hr Multivitamins/Minerals 10 ml/Amino Ac/Electrol/Dextrose/Calcium 1,010 mls @ 84 mls/hr IV .BY DURATION [facility] Last Admin: 03/24/17 13:29 Dose: 84 mls/hr Amino Ac/Electrol/Dextrose/Calcium (Clinimix E 15) 1,000 mls @ 84 mls/hr IV .BY DURATION [facility] Last Admin: 03/25/17 02:17 Dose: 84 mls/hr Sodium Chloride (Normal Saline) 1,000 mls @ 50 mls/hr IV ASDIRECTED [facility] Last Admin: 04/09/17 17:14 Dose: 50 mls/hr Potassium Chloride 20 meq/ (Premix) 100 mls @ 50 mls/hr IV ONETIME ONE Stop: 03/24/17 10:10 Last Admin: 03/24/17 09:03 Dose: 50 mls/hr Potassium Chloride 20 meq/ (Premix) 100 mls @ 50 mls/hr IV ONETIME ONE Stop: 03/24/17 12:14 Last Admin: 03/24/17 11:06 Dose: 50 mls/hr Magnesium Sulfate 2 gm/ Premix 50 mls @ 8 mls/hr IV ONETIME ONE Stop: 03/24/17 23:14 Last Admin: 03/24/17 17:04 Dose: 8 mls/hr Multivitamins/Minerals 10 ml/Amino Ac/Electrol/Dextrose/Calcium 1,010 mls @ 84 mls/hr IV .BY DURATION [facility] Stop: 04/04/17 13:15 Last Admin: 04/05/17 10:57 Dose: Not Given Amino Ac/Electrol/Dextrose/Calcium (Clinimix E 12/08) 1,000 mls @ 84 mls/hr IV .BY DURATION [facility] Stop: 04/04/17 13:15 Last Admin: 04/04/17 00:54 Dose: 84 mls/hr Lactated Ringer's (Ringers, Lactated) 1,000 mls @ as directed IV .STK-MED ONE Stop: 03/25/17 10:01 Dextrose/Water (Dextrose 10% In Water) 1,000 mls @ as directed IV .STK-MED ONE Stop: 03/25/17 10:01 Magnesium Sulfate 2 gm/ Premix 50 mls @ 8 mls/hr IV ONETIME ONE Stop: 03/29/17 14:44 Last Admin: 03/29/17 10:00 Dose: 8 mls/hr Potassium Chloride 20 meq/ (Premix) 100 mls @ 50 mls/hr IV ONETIME ONE Stop: 04/03/17 09:15 Last Admin: 04/03/17 07:50 Dose: 50 mls/hr Dextrose/Water (Dextrose 10% In Water) 1,000 mls @ 84 mls/hr IV Q12H [facility] Stop: 04/05/17 22:00 Last Admin: 04/05/17 13:26 Dose: 84 mls/hr Dextrose/Water (Dextrose 10% In Water) 1,000 mls @ 42 mls/hr IV Q24H [facility] Stop: 04/06/17 06:00 Last Admin: 04/05/17 22:30 Dose: 42 mls/hr Potassium Chloride 20 meq/ (Premix) 100 mls @ 50 mls/hr IV ONETIME ONE Stop: 04/06/17 10:17 Last Admin: 04/06/17 08:35 Dose: 50 mls/hr Fat Emulsion Intravenous (Intralipid 20%) 250 mls @ 20 mls/hr IV Q24H [facility] Last Admin: 04/08/17 17:15 Dose: 20 mls/hr Multivitamins/Minerals 10 ml/Amino Ac/Electrol/Dextrose/Calcium 1,010 mls @ 42 mls/hr IV ONETIME ONE Stop: 04/07/17 18:02 Last Admin: 04/06/17 17:16 Dose: 42 mls/hr Multivitamins/Minerals 10 ml/Amino Ac/Electrol/Dextrose/Calcium 1,010 mls @ 84 mls/hr IV .BY DURATION [facility] Stop: 04/09/17 05:51 Last Admin: 04/08/17 11:45 Dose: 84 mls/hr Amino Ac/Electrol/Dextrose/Calcium (Clinimix E 5/15) 1,000 mls @ 84 mls/hr IV .BY DURATION [facility] Stop: 04/09/17 05:51 Last Admin: 04/09/17 01:08 Dose: 84 mls/hr Magnesium Sulfate (Magnesium Sulfate 2 Gm In Water 50 Ml) 50 mls @ 8 mls/hr IV ONETIME ONE Stop: 04/07/17 15:14 Last Admin: 04/07/17 09:22 Dose: 8 mls/hr Potassium Chloride 20 meq/ (Premix) 100 mls @ 50 mls/hr IV ONETIME ONE Stop: 04/07/17 11:59 Last Admin: 04/07/17 10:24 Dose: 50 mls/hr Potassium Chloride 20 meq/ (Premix) 100 mls @ 50 mls/hr IV ONETIME ONE Stop: 04/07/17 13:59 Last Admin: 04/07/17 12:32 Dose: 50 mls/hr Dextrose/Water (Dextrose 10% In Water) 1,000 mls @ 42 mls/hr IV ASDIRECTED [facility] Cefazolin Sodium 1 gm/ Sodium (Chloride) 50 mls @ 100 mls/hr IV ONETIME ONE Stop: 04/09/17 09:59 Last Admin: 04/09/17 08:59 Dose: 100 mls/hr Potassium Chloride/Dextrose/Sod Cl (D5 1/2 Ns W/ 20 Meq/L Kcl) 1,000 mls @ 75 mls/hr IV Q8H [facility] Last Admin: 04/12/17 04:55 Dose: 75 mls/hr Potassium Chloride 20 meq/ (Premix) 100 mls @ 50 mls/hr IV ONETIME ONE Stop: 04/09/17 19:31 Last Admin: 04/09/17 17:59 Dose: 50 mls/hr Insulin Aspart (Novolog) 0 unit SUBCUT WITHMEALSANDBED [facility] PRN Reason: Protocol Last Admin: 03/25/17 18:57 Dose: Not Given Ketorolac Tromethamine (Toradol) 15 mg IVPUSH .STK-MED ONE Stop: 04/09/17 09:31 Lidocaine HCl (Xylocaine 2% Jelly) 5 ml MUCMEM Q4H PRN PRN Reason: Pain Last Admin: 03/27/17 13:05 Dose: 5 ml Lidocaine HCl (Xylocaine 2% Jelly) 5 ml MUCMEM 07 [facility] Last Admin: 04/06/17 07:38 Dose: 5 ml Lidocaine HCl (Xylocaine 2% Viscous) 15 ml PO 07 [facility] Lidocaine HCl (Xylocaine 2% Viscous) Confirm Administered Dose 15 ml .ROUTE .STK -MED ONE Stop: 04/06/17 07:35 Last Admin: 04/06/17 07:55 Dose: Not Given Lidocaine HCl (Xylocaine 2% Viscous) 15 ml PO 0700 [facility] Stop: 04/06/17 07:01 Last Admin: 04/06/17 07:35 Dose: 15 ml Lidocaine HCl (Xylocaine 2% Jelly) 5 ml MUCMEM ONETIME ONE Stop: 04/09/17 07:58 Last Admin: 04/09/17 11:15 Dose: Not Given Lidocaine HCl (Xylocaine 2% Viscous) 15 ml PO ONETIME ONE Stop: 04/09/17 08:16 Last Admin: 04/09/17 11:15 Dose: Not Given Lidocaine HCl (Xylocaine 2%) 100 mg IVPUSH .STK-MED ONE Stop: 04/09/17 09:31 Lidocaine/Epinephrine (Xylocaine 1% With Epinephrine 1:100,000) 5 ml INJECT .STK-MED ONE Stop: 04/09/17 09:59 Last Admin: 04/09/17 09:58 Dose: 5 ml Metoclopramide HCl (Reglan) 5 mg IV Q6H [facility] Last Admin: 03/23/17 08:24 Dose: 5 mg Metoprolol Succinate (Toprol Xl) 50 mg PO DAILY [facility] Midazolam HCl (Versed 1 Mg/Ml) 1 mg IV .STK-MED ONE Stop: 03/25/17 10:01 Midazolam HCl (Versed 1 Mg/Ml) 0.5 mg IV .STK-MED ONE Stop: 04/09/17 09:31 Morphine Sulfate (Morphine) 2 mg IVPUSH Q2H PRN PRN Reason: Pain (severe 7-10) Last Admin: 04/09/17 13:31 Dose: 2 mg Morphine Sulfate (Morphine) 2 mg IVPUSH Q3M PRN PRN Reason: Abdominal Pain Ondansetron HCl (Zofran) 4 mg IVPUSH .STK-MED ONE Stop: 04/09/17 09:31 Phenylephrine HCl (Deni-Synephrine) 0.4 mg IV .STK-MED ONE Stop: 04/09/17 09:31 Phytonadione (Aquamephyton) 10 mg IM Mo [facility] Last Admin: 04/06/17 07:57 Dose: Not Given Propofol (Diprivan 20 Ml) 100 mg IV .STK-MED ONE Stop: 03/25/17 10:01 Propofol (Diprivan 20 Ml) 180 mg IV .STK-MED ONE Stop: 04/09/17 09:31 Rocuronium [place] (Zemuron) 5 mg IV .STK-MED ONE Stop: 04/09/17 09:31 Succinylcholine Chloride (Quelicin) 140 mg IV .STK-MED ONE Stop: 04/09/17 09:31 Sucralfate (Carafate) 1 gm PO Q6H [facility] Last Admin: 03/25/17 11:28 Dose: Not Given - Exam Wound/Incisions: Healing Well Lungs: Clear to Auscultation, Normal Respiratory Effort Cardiovascular: Regular Rate, Regular Rhythm GI/Abdominal Exam: Normal Bowel Sounds, Soft, Non-Tender, No Organomegaly Skin: Warm, Dry, Intact - Problem List & Annotations (1) Gastroparesis SNOMED Code(s): 467891775 Code(s): K31.84 - GASTROPARESIS Status: Acute Current Visit: No (2) DVT, lower extremity, distal SNOMED Code(s): 484575100 Code(s): I82.4Z9 - ACUTE EMBLSM AND THOMBOS UNSP DEEP VN UNSP DISTAL LOW EXTRM Status: Acute Current Visit: Yes Qualifiers: Chronicity: unspecified Laterality: left Qualified Code(s): I82.4Z2 - Acute embolism and thrombosis of unspecified deep veins of left distal lower extremity - Problem List Review Problem List Initiated/Reviewed/Updated: Yes - My Orders Last 24 Hours: Medication Orders Acetaminophen (Tylenol) 650 mg PO Q4H PRN PRN Reason: Pain (Mild 1-3)/fever Last Admin: 03/22/17 11:25 Dose: 650 mg Albuterol/Ipratropium (Duoneb 3.0-0.5 Mg/3 Ml) 3 ml NEB Q4H PRN PRN Reason: Wheezing Enoxaparin Sodium (Lovenox) 80 mg SUBCUT Q12H [facility] Last Admin: 04/13/17 06:25 Dose: 80 mg Admin: 04/12/17 18:29 Dose: 80 mg Admin: 04/12/17 06:01 Dose: 80 mg Admin: 04/11/17 17:37 Dose: 80 mg Admin: 04/11/17 05:48 Dose: 80 mg Admin: 04/08/17 17:16 Dose: 80 mg Admin: 04/08/17 06:33 Dose: 80 mg Admin: 04/07/17 18:19 Dose: 80 mg Admin: 04/07/17 06:25 Dose: 80 mg Admin: 04/06/17 17:17 Dose: 80 mg Heparin Sodium (Porcine) (Heparin Lock Flush 100 Units/Ml) 500 units FLUSH ASDIRECTED PRN PRN Reason: Keep Vein Open Last Admin: 04/12/17 16:39 Dose: 500 units Admin: 04/06/17 09:49 Dose: 500 units Admin: 04/01/17 10:10 Dose: 500 units Admin: 03/22/17 10:11 Dose: 500 units Hydromorphone HCl (Dilaudid) 1 mg IVPUSH Q3H PRN PRN Reason: Pain Last Admin: 04/10/17 02:28 Dose: 1 mg Admin: 04/09/17 20:35 Dose: 1 mg Admin: 04/09/17 16:05 Dose: 1 mg Ketorolac Tromethamine (Toradol) 15 mg IVPUSH Q6H PRN PRN Reason: Pain (moderate 4-6) Last Admin: 04/11/17 21:54 Dose: 15 mg Admin: 04/10/17 09:52 Dose: 15 mg Admin: 04/06/17 02:16 Dose: 15 mg Admin: 04/05/17 16:51 Dose: 15 mg Admin: 04/05/17 10:35 Dose: 15 mg Admin: 04/04/17 10:11 Dose: 15 mg Admin: 04/04/17 03:40 Dose: 15 mg Admin: 04/02/17 16:14 Dose: 15 mg Admin: 03/31/17 03:40 Dose: 15 mg Admin: 03/23/17 04:48 Dose: 15 mg Admin: 03/22/17 22:04 Dose: 15 mg Admin: 03/22/17 15:43 Dose: 15 mg Admin: 03/22/17 03:12 Dose: 15 mg Latanoprost (Xalatan 0.005% Ophth Soln) 0 ml EYEBOTH BEDTIME [facility] Last Admin: 04/12/17 21:51 Dose: 1 drop Admin: 04/11/17 20:49 Dose: 1 drop Admin: 04/10/17 21:33 Dose: 1 drop Admin: 04/09/17 20:25 Dose: 1 drop Admin: 04/08/17 21:33 Dose: 1 drop Admin: 04/07/17 20:51 Dose: 1 drop Admin: 04/06/17 20:37 Dose: 1 drop Admin: 04/05/17 20:39 Dose: 1 drop Admin: 04/04/17 21:00 Dose: 1 drop Admin: 04/03/17 20:54 Dose: 1 drop Admin: 04/02/17 20:03 Dose: 1 drop Admin: 04/01/17 20:53 Dose: 1 drop Admin: 03/31/17 20:32 Dose: 1 drop Admin: 03/30/17 20:28 Dose: 1 drop Admin: 03/29/17 20:34 Dose: 1 drop Admin: 03/28/17 20:58 Dose: 1 drop Admin: 03/27/17 20:48 Dose: 1 drop Admin: 03/26/17 20:21 Dose: 1 drop Admin: 03/25/17 23:06 Dose: 1 drop Admin: 03/24/17 20:03 Dose: 1 drop Admin: 03/23/17 22:01 Dose: 1 drop Admin: 03/22/17 20:37 Dose: 1 drop Admin: 03/21/17 21:05 Dose: 1 drop Metoprolol Succinate (Toprol Xl) 25 mg PO DAILY [facility] Last Admin: 04/12/17 08:08 Dose: 25 mg Admin: 04/11/17 09:57 Dose: 25 mg Admin: 04/10/17 09:49 Dose: 25 mg Admin: 04/09/17 12:45 Dose: Admin: 04/08/17 08:57 Dose: 25 mg Admin: 04/07/17 09:21 Dose: 25 mg Admin: 04/06/17 09:38 Dose: 25 mg Admin: 04/05/17 08:32 Dose: 25 mg Admin: 04/04/17 09:44 Dose: 25 mg Admin: 04/03/17 08:47 Dose: 25 mg Admin: 04/02/17 08:52 Dose: 25 mg Admin: 04/01/17 09:34 Dose: 25 mg Admin: 03/31/17 08:35 Dose: 25 mg Admin: 03/30/17 10:46 Dose: 25 mg Admin: 03/29/17 10:04 Dose: 25 mg Admin: 03/28/17 08:45 Dose: 25 mg Admin: 03/27/17 08:28 Dose: 25 mg Admin: 03/26/17 08:43 Dose: 25 mg Admin: 03/25/17 11:32 Dose: 25 mg Admin: 03/24/17 08:30 Dose: 25 mg Admin: 03/23/17 08:21 Dose: 25 mg Admin: 03/22/17 09:59 Dose: 25 mg Ondansetron HCl (Zofran) 4 mg IV Q6H PRN PRN Reason: Nausea/Vomiting Last Admin: 04/06/17 02:17 Dose: 4 mg Admin: 04/05/17 16:51 Dose: 4 mg Admin: 04/05/17 10:35 Dose: 4 mg Admin: 04/04/17 21:01 Dose: 4 mg Admin: 04/04/17 10:11 Dose: 4 mg Admin: 04/03/17 20:53 Dose: 4 mg Admin: 04/03/17 12:28 Dose: 4 mg Admin: 04/02/17 15:34 Dose: 4 mg Admin: 04/02/17 07:20 Dose: 4 mg Admin: 04/01/17 09:37 Dose: 4 mg Admin: 04/01/17 02:54 Dose: 4 mg Admin: 03/30/17 16:36 Dose: 4 mg Admin: 03/27/17 09:39 Dose: 4 mg Admin: 03/25/17 08:40 Dose: 4 mg Admin: 03/23/17 11:39 Dose: 4 mg Admin: 03/23/17 04:48 Dose: 4 mg Admin: 03/22/17 22:04 Dose: 4 mg Admin: 03/22/17 15:46 Dose: 4 mg Admin: 03/22/17 10:05 Dose: 4 mg Admin: 03/22/17 03:16 Dose: 4 mg Admin: 03/21/17 21:09 Dose: 4 mg Pantoprazole Sodium (Protonix Iv) 40 mg IVPUSH DAILY [facility] Last Admin: 04/12/17 08:08 Dose: 40 mg Admin: 04/11/17 09:57 Dose: 40 mg Admin: 04/10/17 09:49 Dose: 40 mg Admin: 04/09/17 12:51 Dose: 40 mg Admin: 04/08/17 08:54 Dose: 40 mg Admin: 04/07/17 09:29 Dose: 40 mg Admin: 04/06/17 09:39 Dose: 40 mg Admin: 04/05/17 08:32 Dose: 40 mg Admin: 04/04/17 10:11 Dose: 40 mg Admin: 04/03/17 08:47 Dose: 40 mg Admin: 04/02/17 08:52 Dose: 40 mg Admin: 04/01/17 09:40 Dose: 40 mg Admin: 03/31/17 08:35 Dose: 40 mg Admin: 03/30/17 10:45 Dose: 40 mg Admin: 03/29/17 10:02 Dose: 40 mg Admin: 03/28/17 08:45 Dose: 40 mg Admin: 03/27/17 08:28 Dose: 40 mg Admin: 03/26/17 08:50 Dose: 40 mg Admin: 03/25/17 11:32 Dose: 40 mg Admin: 03/24/17 08:30 Dose: 40 mg Admin: 03/23/17 08:19 Dose: 40 mg Admin: 03/22/17 10:00 Dose: 40 mg Sodium Chloride (Saline Flush) 10 ml FLUSH ASDIRECTED PRN PRN Reason: Keep Vein Open Last Admin: 04/12/17 10:30 Dose: 10 ml Admin: 04/07/17 06:25 Dose: 10 ml Admin: 04/06/17 09:46 Dose: 10 ml Admin: 04/06/17 06:12 Dose: 10 ml Admin: 04/06/17 02:17 Dose: 10 ml Admin: 04/04/17 21:01 Dose: 10 ml Admin: 04/04/17 03:41 Dose: 10 ml Admin: 04/03/17 12:29 Dose: 10 ml Admin: 04/01/17 10:10 Dose: 10 ml Admin: 04/01/17 06:17 Dose: 10 ml Admin: 04/01/17 02:53 Dose: 10 ml Admin: 03/31/17 22:34 Dose: 10 ml Admin: 03/31/17 16:01 Dose: 10 ml Admin: 03/31/17 03:40 Dose: 10 ml Admin: 03/30/17 22:32 Dose: 10 ml Admin: 03/30/17 22:28 Dose: 10 ml Admin: 03/30/17 16:36 Dose: 10 ml Admin: 03/30/17 10:47 Dose: 10 ml Admin: 03/29/17 10:05 Dose: 10 ml Admin: 03/29/17 01:52 Dose: 10 ml Admin: 03/28/17 23:21 Dose: 10 ml Admin: 03/26/17 23:31 Dose: 10 ml Admin: 03/26/17 14:56 Dose: 10 ml Admin: 03/26/17 08:57 Dose: 10 ml Admin: 03/25/17 11:33 Dose: 10 ml Admin: 03/25/17 08:40 Dose: 10 ml Admin: 03/23/17 04:55 Dose: 10 ml Admin: 03/23/17 01:48 Dose: 10 ml Admin: 03/22/17 22:11 Dose: 10 ml Admin: 03/22/17 22:10 Dose: 10 ml Admin: 03/22/17 20:06 Dose: 10 ml Admin: 03/22/17 15:43 Dose: 10 ml Admin: 03/22/17 10:10 Dose: 10 ml Admin: 03/22/17 10:04 Dose: 10 ml Admin: 03/22/17 03:24 Dose: 10 ml Admin: 03/22/17 03:12 Dose: 10 ml Admin: 03/21/17 21:09 Dose: 10 ml - Assessment Assessment (Free Text/Narrative):: tolerating tube feeds. has maintained good uo. - Plan Plan (Free Text/Narrative):: gastric tube off suction today to go to as needed. continue Tube feeds.
[2017-04-13] MEDS: Metoprolol Succinate 25 MG Tab.ER PO SCH (09:45)
[2017-04-13] MEDS: Pantoprazole 40 MG Vial IVPUSH SCH (09:46)
[2017-04-13] MEDS: Sodium Chloride 0.9% 10 ML Syringe FLUSH PRN (09:46)
[2017-04-13] MEDS: Latanoprost 0.005% Ophth Soln 2.5 ML Bottle EYEBOTH SCH (20:40)
[2017-04-14] MEDS: Enoxaparin 80 MG/0.8 ML Syringe SUBCUT SCH (06:26)
--- NOTE | 2017-04-14 09:40 | PCM.SURGPN ---
- General Info Date of Service: 04/14/17 Functional Status: Reports: Pain Controlled, Tolerating Diet, Ambulating - Review of Systems Pulmonary: Reports: No Symptoms Cardiovascular: Reports: No Symptoms Gastrointestinal: Reports: No Symptoms - Patient Data Vitals - Most Recent: Last Vital Signs Temp 36.8 C 04/11/17 08:12 Pulse 81 04/13/17 09:45 Resp 18 04/11/17 08:12 BP 150/96 H 04/13/17 09:45 Pulse Ox 97 04/11/17 08:12 Weight - Most Recent: 72.756 kg I&O - Last 24 Hours: Intake & Output 04/13/17 04/14/17 04/14/17 22:59 06:59 14:59 Intake Total 657 606 Balance 657 606 Nomi Results Last 24 Hrs: Microbiology 04/08/17 14:50 Aerobic Blood Culture - Final Blood - Port-A-Cath NO GROWTH AFTER 5 DAYS Anaerobic Blood Culture - Final NO GROWTH AFTER 5 DAYS Med Orders - Current: Current Medications Acetaminophen (Tylenol) 650 mg PO Q4H PRN PRN Reason: Pain (Mild 1-3)/fever Last Admin: 03/22/17 11:25 Dose: 650 mg Albuterol/Ipratropium (Duoneb 3.0-0.5 Mg/3 Ml) 3 ml NEB Q4H PRN PRN Reason: Wheezing Enoxaparin Sodium (Lovenox) 100 mg SUBCUT Q24H [facility] Heparin Sodium (Porcine) (Heparin Lock Flush 100 Units/Ml) 500 units FLUSH ASDIRECTED PRN PRN Reason: Keep Vein Open Last Admin: 04/12/17 16:39 Dose: 500 units Hydromorphone HCl (Dilaudid) 1 mg IVPUSH Q3H PRN PRN Reason: Pain Last Admin: 04/10/17 02:28 Dose: 1 mg Ketorolac Tromethamine (Toradol) 15 mg IVPUSH Q6H PRN PRN Reason: Pain (moderate 4-6) Last Admin: 04/11/17 21:54 Dose: 15 mg Latanoprost (Xalatan 0.005% Ophth Soln) 0 ml EYEBOTH BEDTIME [facility] Last Admin: 04/13/17 20:40 Dose: 1 drop Metoprolol Succinate (Toprol Xl) 25 mg PO DAILY REPLACED BY [facility] Last Admin: 04/13/17 09:45 Dose: 25 mg Ondansetron HCl (Zofran) 4 mg IV Q6H PRN PRN Reason: Nausea/Vomiting Last Admin: 04/06/17 02:17 Dose: 4 mg Pantoprazole Sodium (Protonix Iv) 40 mg IVPUSH DAILY REPLACED BY [facility] Last Admin: 04/13/17 09:46 Dose: 40 mg Sodium Chloride (Saline Flush) 10 ml FLUSH ASDIRECTED PRN PRN Reason: Keep Vein Open Last Admin: 04/13/17 09:46 Dose: 10 ml Discontinued Medications Bisacodyl (Dulcolax) 10 mg RECTAL ONETIME ONE Stop: 03/22/17 08:59 Last Admin: 03/22/17 11:16 Dose: 10 mg Bupivacaine HCl (Marcaine 0.5%) 5 ml INJECT .STK-MED ONE Stop: 04/09/17 09:59 Last Admin: 04/09/17 09:58 Dose: 5 ml Enoxaparin Sodium (Lovenox) 80 mg SUBCUT Q12H REPLACED BY [facility] Last Admin: 04/06/17 15:27 Dose: Not Given Enoxaparin Sodium (Lovenox) 80 mg SUBCUT Q12H REPLACED BY [facility] Last Admin: 04/14/17 06:26 Dose: 80 mg Fentanyl (Sublimaze) 100 mcg IV .STK-MED ONE Stop: 03/25/17 10:01 Fentanyl (Sublimaze) 150 mcg IV .STK-MED ONE Stop: 04/09/17 09:31 Fat Emulsion Intravenous (Intralipid 20%) 250 mls @ 20 mls/hr IV Q24H REPLACED BY [facility] Last Admin: 04/06/17 14:01 Dose: Not Given Multivitamins/Minerals 10 ml/Amino Ac/Electrol/Dextrose/Calcium 1,010 mls @ 84 mls/hr IV Q24H [facility] Stop: 03/23/17 13:30 Last Admin: 03/22/17 14:17 Dose: 42 mls/hr Multivitamins/Minerals 10 ml/Amino Ac/Electrol/Dextrose/Calcium 1,010 mls @ 84 mls/hr IV .BY DURATION REPLACED BY [facility] Last Admin: 03/24/17 13:29 Dose: 84 mls/hr Amino Ac/Electrol/Dextrose/Calcium (Clinimix E 5/15) 1,000 mls @ 84 mls/hr IV .BY DURATION REPLACED BY [facility] Last Admin: 03/25/17 02:17 Dose: 84 mls/hr Sodium Chloride (Normal Saline) 1,000 mls @ 50 mls/hr IV ASDIRECTED REPLACED BY [facility] Last Admin: 04/09/17 17:14 Dose: 50 mls/hr Potassium Chloride 20 meq/ (Premix) 100 mls @ 50 mls/hr IV ONETIME ONE Stop: 03/24/17 10:10 Last Admin: 03/24/17 09:03 Dose: 50 mls/hr Potassium Chloride 20 meq/ (Premix) 100 mls @ 50 mls/hr IV ONETIME ONE Stop: 03/24/17 12:14 Last Admin: 03/24/17 11:06 Dose: 50 mls/hr Magnesium Sulfate 2 gm/ Premix 50 mls @ 8 mls/hr IV ONETIME ONE Stop: 03/24/17 23:14 Last Admin: 03/24/17 17:04 Dose: 8 mls/hr Multivitamins/Minerals 10 ml/Amino Ac/Electrol/Dextrose/Calcium 1,010 mls @ 84 mls/hr IV .BY DURATION REPLACED BY [facility] Stop: 04/04/17 13:15 Last Admin: 04/05/17 10:57 Dose: Not Given Amino Ac/Electrol/Dextrose/Calcium (Clinimix E 12/08) 1,000 mls @ 84 mls/hr IV .BY DURATION REPLACED BY [facility] Stop: 04/04/17 13:15 Last Admin: 04/04/17 00:54 Dose: 84 mls/hr Lactated Ringer's (Ringers, Lactated) 1,000 mls @ as directed IV .STK-MED ONE Stop: 03/25/17 10:01 Dextrose/Water (Dextrose 10% In Water) 1,000 mls @ as directed IV .STK-MED ONE Stop: 03/25/17 10:01 Magnesium Sulfate 2 gm/ Premix 50 mls @ 8 mls/hr IV ONETIME ONE Stop: 03/29/17 14:44 Last Admin: 03/29/17 10:00 Dose: 8 mls/hr Potassium Chloride 20 meq/ (Premix) 100 mls @ 50 mls/hr IV ONETIME ONE Stop: 04/03/17 09:15 Last Admin: 04/03/17 07:50 Dose: 50 mls/hr Dextrose/Water (Dextrose 10% In Water) 1,000 mls @ 84 mls/hr IV Q12H [facility] Stop: 04/05/17 22:00 Last Admin: 04/05/17 13:26 Dose: 84 mls/hr Dextrose/Water (Dextrose 10% In Water) 1,000 mls @ 42 mls/hr IV Q24H [facility] Stop: 04/06/17 06:00 Last Admin: 04/05/17 22:30 Dose: 42 mls/hr Potassium Chloride 20 meq/ (Premix) 100 mls @ 50 mls/hr IV ONETIME ONE Stop: 04/06/17 10:17 Last Admin: 04/06/17 08:35 Dose: 50 mls/hr Fat Emulsion Intravenous (Intralipid 20%) 250 mls @ 20 mls/hr IV Q24H REPLACED BY [facility] Last Admin: 04/08/17 17:15 Dose: 20 mls/hr Multivitamins/Minerals 10 ml/Amino Ac/Electrol/Dextrose/Calcium 1,010 mls @ 42 mls/hr IV ONETIME ONE Stop: 04/07/17 18:02 Last Admin: 04/06/17 17:16 Dose: 42 mls/hr Multivitamins/Minerals 10 ml/Amino Ac/Electrol/Dextrose/Calcium 1,010 mls @ 84 mls/hr IV .BY DURATION REPLACED BY [facility] Stop: 04/09/17 05:51 Last Admin: 04/08/17 11:45 Dose: 84 mls/hr Amino Ac/Electrol/Dextrose/Calcium (Clinimix E 12/08) 1,000 mls @ 84 mls/hr IV .BY DURATION REPLACED BY [facility] Stop: 04/09/17 05:51 Last Admin: 04/09/17 01:08 Dose: 84 mls/hr Magnesium Sulfate (Magnesium Sulfate 2 Gm In Water 50 Ml) 50 mls @ 8 mls/hr IV ONETIME ONE Stop: 04/07/17 15:14 Last Admin: 04/07/17 09:22 Dose: 8 mls/hr Potassium Chloride 20 meq/ (Premix) 100 mls @ 50 mls/hr IV ONETIME ONE Stop: 04/07/17 11:59 Last Admin: 04/07/17 10:24 Dose: 50 mls/hr Potassium Chloride 20 meq/ (Premix) 100 mls @ 50 mls/hr IV ONETIME ONE Stop: 04/07/17 13:59 Last Admin: 04/07/17 12:32 Dose: 50 mls/hr Dextrose/Water (Dextrose 10% In Water) 1,000 mls @ 42 mls/hr IV ASDIRECTED REPLACED BY [facility] Cefazolin Sodium 1 gm/ Sodium (Chloride) 50 mls @ 100 mls/hr IV ONETIME ONE Stop: 04/09/17 09:59 Last Admin: 04/09/17 08:59 Dose: 100 mls/hr Potassium Chloride/Dextrose/Sod Cl (D5 1/2 Ns W/ 20 Meq/L Kcl) 1,000 mls @ 75 mls/hr IV Q8H REPLACED BY [facility] Last Admin: 04/12/17 04:55 Dose: 75 mls/hr Potassium Chloride 20 meq/ (Premix) 100 mls @ 50 mls/hr IV ONETIME ONE Stop: 04/09/17 19:31 Last Admin: 04/09/17 17:59 Dose: 50 mls/hr Insulin Aspart (Novolog) 0 unit SUBCUT WITHMEALSANDBED REPLACED BY [facility] PRN Reason: Protocol Last Admin: 03/25/17 18:57 Dose: Not Given Ketorolac Tromethamine (Toradol) 15 mg IVPUSH .STK-MED ONE Stop: 04/09/17 09:31 Lidocaine HCl (Xylocaine 2% Jelly) 5 ml MUCMEM Q4H PRN PRN Reason: Pain Last Admin: 03/27/17 13:05 Dose: 5 ml Lidocaine HCl (Xylocaine 2% Jelly) 5 ml MUCMEM 07 REPLACED BY [facility] Last Admin: 04/06/17 07:38 Dose: 5 ml Lidocaine HCl (Xylocaine 2% Viscous) 15 ml PO 07 [facility] Lidocaine HCl (Xylocaine 2% Viscous) Confirm Administered Dose 15 ml .ROUTE .STK -MED ONE Stop: 04/06/17 07:35 Last Admin: 04/06/17 07:55 Dose: Not Given Lidocaine HCl (Xylocaine 2% Viscous) 15 ml PO 0700 REPLACED BY [facility] Stop: 04/06/17 07:01 Last Admin: 04/06/17 07:35 Dose: 15 ml Lidocaine HCl (Xylocaine 2% Jelly) 5 ml MUCMEM ONETIME ONE Stop: 04/09/17 07:58 Last Admin: 04/09/17 11:15 Dose: Not Given Lidocaine HCl (Xylocaine 2% Viscous) 15 ml PO ONETIME ONE Stop: 04/09/17 08:16 Last Admin: 04/09/17 11:15 Dose: Not Given Lidocaine HCl (Xylocaine 2%) 100 mg IVPUSH .STK-MED ONE Stop: 04/09/17 09:31 Lidocaine/Epinephrine (Xylocaine 1% With Epinephrine 1:100,000) 5 ml INJECT .STK-MED ONE Stop: 04/09/17 09:59 Last Admin: 04/09/17 09:58 Dose: 5 ml Metoclopramide HCl (Reglan) 5 mg IV Q6H REPLACED BY [facility] Last Admin: 03/23/17 08:24 Dose: 5 mg Metoprolol Succinate (Toprol Xl) 50 mg PO DAILY [facility] Midazolam HCl (Versed 1 Mg/Ml) 1 mg IV .STK-MED ONE Stop: 03/25/17 10:01 Midazolam HCl (Versed 1 Mg/Ml) 0.5 mg IV .STK-MED ONE Stop: 04/09/17 09:31 Morphine Sulfate (Morphine) 2 mg IVPUSH Q2H PRN PRN Reason: Pain (severe 7-10) Last Admin: 04/09/17 13:31 Dose: 2 mg Morphine Sulfate (Morphine) 2 mg IVPUSH Q3M PRN PRN Reason: Abdominal Pain Ondansetron HCl (Zofran) 4 mg IVPUSH .STK-MED ONE Stop: 04/09/17 09:31 Phenylephrine HCl (Deni-Synephrine) 0.4 mg IV .STK-MED ONE Stop: 04/09/17 09:31 Phytonadione (Aquamephyton) 10 mg IM Mo REPLACED BY [facility] Last Admin: 04/06/17 07:57 Dose: Not Given Propofol (Diprivan 20 Ml) 100 mg IV .STK-MED ONE Stop: 03/25/17 10:01 Propofol (Diprivan 20 Ml) 180 mg IV .STK-MED ONE Stop: 04/09/17 09:31 Rocuronium [place] (Zemuron) 5 mg IV .STK-MED ONE Stop: 04/09/17 09:31 Succinylcholine Chloride (Quelicin) 140 mg IV .STK-MED ONE Stop: 04/09/17 09:31 Sucralfate (Carafate) 1 gm PO Q6H [facility] Last Admin: 03/25/17 11:28 Dose: Not Given - Exam Wound/Incisions: Healing Well General: Alert, Oriented, Cooperative Lungs: Clear to Auscultation, Normal Respiratory Effort Cardiovascular: Regular Rate, Regular Rhythm GI/Abdominal Exam: Normal Bowel Sounds, Soft, Non-Tender, No Organomegaly - Problem List & Annotations (1) Gastroparesis SNOMED Code(s): 657007749 Code(s): K31.84 - GASTROPARESIS Status: Acute Current Visit: No (2) DVT, lower extremity, distal SNOMED Code(s): 940342927 Code(s): I82.4Z9 - ACUTE EMBLSM AND THOMBOS UNSP DEEP VN UNSP DISTAL LOW EXTRM Status: Acute Current Visit: Yes Qualifiers: Chronicity: unspecified Laterality: left Qualified Code(s): I82.4Z2 - Acute embolism and thrombosis of unspecified deep veins of left distal lower extremity - Problem List Review Problem List Initiated/Reviewed/Updated: Yes - My Orders Last 24 Hours: Active Orders 24 hr Category Date Time Status Communication Order [RC] ROUTINE Care 04/13/17 17:01 Active Communication Order [RC] ROUTINE Care 04/14/17 09:37 Ordered Enoxaparin [Lovenox] Med 04/14/17 18:00 Active 100 mg SUBCUT Q24H Gastrostomy Tube Management [OM.PC] Routine Oth 04/13/17 08:41 Ordered Medication Orders Acetaminophen (Tylenol) 650 mg PO Q4H PRN PRN Reason: Pain (Mild 1-3)/fever Last Admin: 03/22/17 11:25 Dose: 650 mg Albuterol/Ipratropium (Duoneb 3.0-0.5 Mg/3 Ml) 3 ml NEB Q4H PRN PRN Reason: Wheezing Enoxaparin Sodium (Lovenox) 100 mg SUBCUT Q24H [facility] Heparin Sodium (Porcine) (Heparin Lock Flush 100 Units/Ml) 500 units FLUSH ASDIRECTED PRN PRN Reason: Keep Vein Open Last Admin: 04/12/17 16:39 Dose: 500 units Admin: 04/06/17 09:49 Dose: 500 units Admin: 04/01/17 10:10 Dose: 500 units Admin: 03/22/17 10:11 Dose: 500 units Hydromorphone HCl (Dilaudid) 1 mg IVPUSH Q3H PRN PRN Reason: Pain Last Admin: 04/10/17 02:28 Dose: 1 mg Admin: 04/09/17 20:35 Dose: 1 mg Admin: 04/09/17 16:05 Dose: 1 mg Ketorolac Tromethamine (Toradol) 15 mg IVPUSH Q6H PRN PRN Reason: Pain (moderate 4-6) Last Admin: 04/11/17 21:54 Dose: 15 mg Admin: 04/10/17 09:52 Dose: 15 mg Admin: 04/06/17 02:16 Dose: 15 mg Admin: 04/05/17 16:51 Dose: 15 mg Admin: 04/05/17 10:35 Dose: 15 mg Admin: 04/04/17 10:11 Dose: 15 mg Admin: 04/04/17 03:40 Dose: 15 mg Admin: 04/02/17 16:14 Dose: 15 mg Admin: 03/31/17 03:40 Dose: 15 mg Admin: 03/23/17 04:48 Dose: 15 mg Admin: 03/22/17 22:04 Dose: 15 mg Admin: 03/22/17 15:43 Dose: 15 mg Admin: 03/22/17 03:12 Dose: 15 mg Latanoprost (Xalatan 0.005% Ophth Soln) 0 ml EYEBOTH BEDTIME [facility] Last Admin: 04/13/17 20:40 Dose: 1 drop Admin: 04/12/17 21:51 Dose: 1 drop Admin: 04/11/17 20:49 Dose: 1 drop Admin: 04/10/17 21:33 Dose: 1 drop Admin: 04/09/17 20:25 Dose: 1 drop Admin: 04/08/17 21:33 Dose: 1 drop Admin: 04/07/17 20:51 Dose: 1 drop Admin: 04/06/17 20:37 Dose: 1 drop Admin: 04/05/17 20:39 Dose: 1 drop Admin: 04/04/17 21:00 Dose: 1 drop Admin: 04/03/17 20:54 Dose: 1 drop Admin: 04/02/17 20:03 Dose: 1 drop Admin: 04/01/17 20:53 Dose: 1 drop Admin: 03/31/17 20:32 Dose: 1 drop Admin: 03/30/17 20:28 Dose: 1 drop Admin: 03/29/17 20:34 Dose: 1 drop Admin: 03/28/17 20:58 Dose: 1 drop Admin: 03/27/17 20:48 Dose: 1 drop Admin: 03/26/17 20:21 Dose: 1 drop Admin: 03/25/17 23:06 Dose: 1 drop Admin: 03/24/17 20:03 Dose: 1 drop Admin: 03/23/17 22:01 Dose: 1 drop Admin: 03/22/17 20:37 Dose: 1 drop Admin: 03/21/17 21:05 Dose: 1 drop Metoprolol Succinate (Toprol Xl) 25 mg PO DAILY [facility] Last Admin: 04/13/17 09:45 Dose: 25 mg Admin: 04/12/17 08:08 Dose: 25 mg Admin: 04/11/17 09:57 Dose: 25 mg Admin: 04/10/17 09:49 Dose: 25 mg Admin: 04/09/17 12:45 Dose: Admin: 04/08/17 08:57 Dose: 25 mg Admin: 04/07/17 09:21 Dose: 25 mg Admin: 04/06/17 09:38 Dose: 25 mg Admin: 04/05/17 08:32 Dose: 25 mg Admin: 04/04/17 09:44 Dose: 25 mg Admin: 04/03/17 08:47 Dose: 25 mg Admin: 04/02/17 08:52 Dose: 25 mg Admin: 04/01/17 09:34 Dose: 25 mg Admin: 03/31/17 08:35 Dose: 25 mg Admin: 03/30/17 10:46 Dose: 25 mg Admin: 03/29/17 10:04 Dose: 25 mg Admin: 03/28/17 08:45 Dose: 25 mg Admin: 03/27/17 08:28 Dose: 25 mg Admin: 03/26/17 08:43 Dose: 25 mg Admin: 03/25/17 11:32 Dose: 25 mg Admin: 03/24/17 08:30 Dose: 25 mg Admin: 03/23/17 08:21 Dose: 25 mg Admin: 03/22/17 09:59 Dose: 25 mg Ondansetron HCl (Zofran) 4 mg IV Q6H PRN PRN Reason: Nausea/Vomiting Last Admin: 04/06/17 02:17 Dose: 4 mg Admin: 04/05/17 16:51 Dose: 4 mg Admin: 04/05/17 10:35 Dose: 4 mg Admin: 04/04/17 21:01 Dose: 4 mg Admin: 04/04/17 10:11 Dose: 4 mg Admin: 04/03/17 20:53 Dose: 4 mg Admin: 04/03/17 12:28 Dose: 4 mg Admin: 04/02/17 15:34 Dose: 4 mg Admin: 04/02/17 07:20 Dose: 4 mg Admin: 04/01/17 09:37 Dose: 4 mg Admin: 04/01/17 02:54 Dose: 4 mg Admin: 03/30/17 16:36 Dose: 4 mg Admin: 03/27/17 09:39 Dose: 4 mg Admin: 03/25/17 08:40 Dose: 4 mg Admin: 03/23/17 11:39 Dose: 4 mg Admin: 03/23/17 04:48 Dose: 4 mg Admin: 03/22/17 22:04 Dose: 4 mg Admin: 03/22/17 15:46 Dose: 4 mg Admin: 03/22/17 10:05 Dose: 4 mg Admin: 03/22/17 03:16 Dose: 4 mg Admin: 03/21/17 21:09 Dose: 4 mg Pantoprazole Sodium (Protonix Iv) 40 mg IVPUSH DAILY [facility] Last Admin: 04/13/17 09:46 Dose: 40 mg Admin: 04/12/17 08:08 Dose: 40 mg Admin: 04/11/17 09:57 Dose: 40 mg Admin: 04/10/17 09:49 Dose: 40 mg Admin: 04/09/17 12:51 Dose: 40 mg Admin: 04/08/17 08:54 Dose: 40 mg Admin: 04/07/17 09:29 Dose: 40 mg Admin: 04/06/17 09:39 Dose: 40 mg Admin: 04/05/17 08:32 Dose: 40 mg Admin: 04/04/17 10:11 Dose: 40 mg Admin: 04/03/17 08:47 Dose: 40 mg Admin: 04/02/17 08:52 Dose: 40 mg Admin: 04/01/17 09:40 Dose: 40 mg Admin: 03/31/17 08:35 Dose: 40 mg Admin: 03/30/17 10:45 Dose: 40 mg Admin: 03/29/17 10:02 Dose: 40 mg Admin: 03/28/17 08:45 Dose: 40 mg Admin: 03/27/17 08:28 Dose: 40 mg Admin: 03/26/17 08:50 Dose: 40 mg Admin: 03/25/17 11:32 Dose: 40 mg Admin: 03/24/17 08:30 Dose: 40 mg Admin: 03/23/17 08:19 Dose: 40 mg Admin: 03/22/17 10:00 Dose: 40 mg Sodium Chloride (Saline Flush) 10 ml FLUSH ASDIRECTED PRN PRN Reason: Keep Vein Open Last Admin: 04/13/17 09:46 Dose: 10 ml Admin: 04/12/17 10:30 Dose: 10 ml Admin: 04/07/17 06:25 Dose: 10 ml Admin: 04/06/17 09:46 Dose: 10 ml Admin: 04/06/17 06:12 Dose: 10 ml Admin: 04/06/17 02:17 Dose: 10 ml Admin: 04/04/17 21:01 Dose: 10 ml Admin: 04/04/17 03:41 Dose: 10 ml Admin: 04/03/17 12:29 Dose: 10 ml Admin: 04/01/17 10:10 Dose: 10 ml Admin: 04/01/17 06:17 Dose: 10 ml Admin: 04/01/17 02:53 Dose: 10 ml Admin: 03/31/17 22:34 Dose: 10 ml Admin: 03/31/17 16:01 Dose: 10 ml Admin: 03/31/17 03:40 Dose: 10 ml Admin: 03/30/17 22:32 Dose: 10 ml Admin: 03/30/17 22:28 Dose: 10 ml Admin: 03/30/17 16:36 Dose: 10 ml Admin: 03/30/17 10:47 Dose: 10 ml Admin: 03/29/17 10:05 Dose: 10 ml Admin: 03/29/17 01:52 Dose: 10 ml Admin: 03/28/17 23:21 Dose: 10 ml Admin: 03/26/17 23:31 Dose: 10 ml Admin: 03/26/17 14:56 Dose: 10 ml Admin: 03/26/17 08:57 Dose: 10 ml Admin: 03/25/17 11:33 Dose: 10 ml Admin: 03/25/17 08:40 Dose: 10 ml Admin: 03/23/17 04:55 Dose: 10 ml Admin: 03/23/17 01:48 Dose: 10 ml Admin: 03/22/17 22:11 Dose: 10 ml Admin: 03/22/17 22:10 Dose: 10 ml Admin: 03/22/17 20:06 Dose: 10 ml Admin: 03/22/17 15:43 Dose: 10 ml Admin: 03/22/17 10:10 Dose: 10 ml Admin: 03/22/17 10:04 Dose: 10 ml Admin: 03/22/17 03:24 Dose: 10 ml Admin: 03/22/17 03:12 Dose: 10 ml Admin: 03/21/17 21:09 Dose: 10 ml - Assessment Assessment (Free Text/Narrative):: tolerating tube feeds making transition to night feeds - Plan Plan (Free Text/Narrative):: day pass while off tube feeds. continue transition to night feeds.
[2017-04-14] MEDS: Metoprolol Succinate 25 MG Tab.ER PO SCH (09:47)
[2017-04-14] MEDS: Pantoprazole 40 MG Vial IVPUSH SCH (09:47)
[2017-04-14] MEDS: Sodium Chloride 0.9% 10 ML Syringe FLUSH PRN (10:35)
[2017-04-14] MEDS: Saccharomyces Boulardii (Probiotic) 250 MG Cap GTUBE SCH ×2 (12:08→20:52)
[2017-04-14] MEDS: Enoxaparin 100 MG/1 ML Syringe SUBCUT SCH (18:05)
[2017-04-14] MEDS: Latanoprost 0.005% Ophth Soln 2.5 ML Bottle EYEBOTH SCH (20:50)
[2017-04-15] MEDS: Metoprolol Succinate 25 MG Tab.ER PO SCH (09:04)
[2017-04-15] MEDS: Saccharomyces Boulardii (Probiotic) 250 MG Cap GTUBE SCH (09:04)
[2017-04-15] MEDS: Pantoprazole 40 MG Vial IVPUSH SCH (09:04)
[2017-04-15] MEDS: Sodium Chloride 0.9% 10 ML Syringe FLUSH PRN (09:05)
[2017-04-15] MEDS: Enoxaparin 100 MG/1 ML Syringe SUBCUT SCH (17:14)
[2017-04-15] MEDS: Latanoprost 0.005% Ophth Soln 2.5 ML Bottle EYEBOTH SCH (20:14)
[2017-04-15] MEDS: Saccharomyces Boulardii (Probiotic) 250 MG Cap JTUBE SCH (20:14)
[2017-04-16] MEDS: Saccharomyces Boulardii (Probiotic) 250 MG Cap JTUBE SCH ×2 (08:43→20:32)
[2017-04-16] MEDS: Sodium Chloride 0.9% 10 ML Syringe FLUSH PRN (08:45)
[2017-04-16] MEDS: Pantoprazole 40 MG Vial IVPUSH SCH (08:45)
[2017-04-16] MEDS: Metoprolol Succinate 25 MG Tab.ER PO SCH (08:48)
--- NOTE | 2017-04-16 09:35 | PCM.SURGPN ---
- General Info Date of Service: 04/16/17 Functional Status: Reports: Pain Controlled, Tolerating Diet, Ambulating - Review of Systems Pulmonary: Reports: No Symptoms Cardiovascular: Reports: No Symptoms Gastrointestinal: Reports: No Symptoms - Patient Data Vitals - Most Recent: Last Vital Signs Temp 36.8 C 04/11/17 08:12 Pulse 97 04/16/17 08:48 Resp 18 04/11/17 08:12 BP 97/59 L 04/16/17 08:48 Pulse Ox 97 04/11/17 08:12 Weight - Most Recent: 70.443 kg I&O - Last 24 Hours: Intake & Output 04/15/17 04/16/17 04/16/17 22:59 06:59 14:59 Intake Total 180 800 Output Total 275 125 Balance -95 675 Med Orders - Current: Current Medications Acetaminophen (Tylenol) 650 mg PO Q4H PRN PRN Reason: Pain (Mild 1-3)/fever Last Admin: 03/22/17 11:25 Dose: 650 mg Albuterol/Ipratropium (Duoneb 3.0-0.5 Mg/3 Ml) 3 ml NEB Q4H PRN PRN Reason: Wheezing Enoxaparin Sodium (Lovenox) 100 mg SUBCUT Q24H [facility] Last Admin: 04/15/17 17:14 Dose: 100 mg Heparin Sodium (Porcine) (Heparin Lock Flush 100 Units/Ml) 500 units FLUSH ASDIRECTED PRN PRN Reason: Keep Vein Open Last Admin: 04/16/17 09:20 Dose: 500 units Latanoprost (Xalatan 0.005% Ophth Soln) 0 ml EYEBOTH BEDTIME [facility] Last Admin: 04/15/17 20:14 Dose: 1 drop Metoprolol Succinate (Toprol Xl) 25 mg PO DAILY [facility] Last Admin: 04/16/17 08:48 Dose: 25 mg Pantoprazole Sodium (Protonix) 40 mg PO DAILY [facility] Saccharomyces Boulardii (Florastor) 250 mg JTUBE BID [facility] Last Admin: 04/16/17 08:43 Dose: 250 mg Simvastatin (Zocor) 10 mg PO BEDTIME [facility] Sodium Chloride (Saline Flush) 10 ml FLUSH ASDIRECTED PRN PRN Reason: Keep Vein Open Last Admin: 04/16/17 08:45 Dose: 10 ml Discontinued Medications Bisacodyl (Dulcolax) 10 mg RECTAL ONETIME ONE Stop: 03/22/17 08:59 Last Admin: 03/22/17 11:16 Dose: 10 mg Bupivacaine HCl (Marcaine 0.5%) 5 ml INJECT .STK-MED ONE Stop: 04/09/17 09:59 Last Admin: 04/09/17 09:58 Dose: 5 ml Enoxaparin Sodium (Lovenox) 80 mg SUBCUT Q12H [facility] Last Admin: 04/06/17 15:27 Dose: Not Given Enoxaparin Sodium (Lovenox) 80 mg SUBCUT Q12H [facility] Last Admin: 04/14/17 06:26 Dose: 80 mg Fentanyl (Sublimaze) 100 mcg IV .STK-MED ONE Stop: 03/25/17 10:01 Fentanyl (Sublimaze) 150 mcg IV .STK-MED ONE Stop: 04/09/17 09:31 Hydromorphone HCl (Dilaudid) 1 mg IVPUSH Q3H PRN PRN Reason: Pain Last Admin: 04/10/17 02:28 Dose: 1 mg Fat Emulsion Intravenous (Intralipid 20%) 250 mls @ 20 mls/hr IV Q24H [facility] Last Admin: 04/06/17 14:01 Dose: Not Given Multivitamins/Minerals 10 ml/Amino Ac/Electrol/Dextrose/Calcium 1,010 mls @ 84 mls/hr IV Q24H [facility] Stop: 03/23/17 13:30 Last Admin: 03/22/17 14:17 Dose: 42 mls/hr Multivitamins/Minerals 10 ml/Amino Ac/Electrol/Dextrose/Calcium 1,010 mls @ 84 mls/hr IV .BY DURATION [facility] Last Admin: 03/24/17 13:29 Dose: 84 mls/hr Amino Ac/Electrol/Dextrose/Calcium (Clinimix E 12/08) 1,000 mls @ 84 mls/hr IV .BY DURATION [facility] Last Admin: 03/25/17 02:17 Dose: 84 mls/hr Sodium Chloride (Normal Saline) 1,000 mls @ 50 mls/hr IV ASDIRECTED [facility] Last Admin: 04/09/17 17:14 Dose: 50 mls/hr Potassium Chloride 20 meq/ (Premix) 100 mls @ 50 mls/hr IV ONETIME ONE Stop: 03/24/17 10:10 Last Admin: 03/24/17 09:03 Dose: 50 mls/hr Potassium Chloride 20 meq/ (Premix) 100 mls @ 50 mls/hr IV ONETIME ONE Stop: 03/24/17 12:14 Last Admin: 03/24/17 11:06 Dose: 50 mls/hr Magnesium Sulfate 2 gm/ Premix 50 mls @ 8 mls/hr IV ONETIME ONE Stop: 03/24/17 23:14 Last Admin: 03/24/17 17:04 Dose: 8 mls/hr Multivitamins/Minerals 10 ml/Amino Ac/Electrol/Dextrose/Calcium 1,010 mls @ 84 mls/hr IV .BY DURATION [facility] Stop: 04/04/17 13:15 Last Admin: 04/05/17 10:57 Dose: Not Given Amino Ac/Electrol/Dextrose/Calcium (Clinimix E 12/08) 1,000 mls @ 84 mls/hr IV .BY DURATION [facility] Stop: 04/04/17 13:15 Last Admin: 04/04/17 00:54 Dose: 84 mls/hr Lactated Ringer's (Ringers, Lactated) 1,000 mls @ as directed IV .STK-MED ONE Stop: 03/25/17 10:01 Dextrose/Water (Dextrose 10% In Water) 1,000 mls @ as directed IV .STK-MED ONE Stop: 03/25/17 10:01 Magnesium Sulfate 2 gm/ Premix 50 mls @ 8 mls/hr IV ONETIME ONE Stop: 03/29/17 14:44 Last Admin: 03/29/17 10:00 Dose: 8 mls/hr Potassium Chloride 20 meq/ (Premix) 100 mls @ 50 mls/hr IV ONETIME ONE Stop: 04/03/17 09:15 Last Admin: 04/03/17 07:50 Dose: 50 mls/hr Dextrose/Water (Dextrose 10% In Water) 1,000 mls @ 84 mls/hr IV Q12H [facility] Stop: 04/05/17 22:00 Last Admin: 04/05/17 13:26 Dose: 84 mls/hr Dextrose/Water (Dextrose 10% In Water) 1,000 mls @ 42 mls/hr IV Q24H [facility] Stop: 04/06/17 06:00 Last Admin: 04/05/17 22:30 Dose: 42 mls/hr Potassium Chloride 20 meq/ (Premix) 100 mls @ 50 mls/hr IV ONETIME ONE Stop: 04/06/17 10:17 Last Admin: 04/06/17 08:35 Dose: 50 mls/hr Fat Emulsion Intravenous (Intralipid 20%) 250 mls @ 20 mls/hr IV Q24H [facility] Last Admin: 04/08/17 17:15 Dose: 20 mls/hr Multivitamins/Minerals 10 ml/Amino Ac/Electrol/Dextrose/Calcium 1,010 mls @ 42 mls/hr IV ONETIME ONE Stop: 04/07/17 18:02 Last Admin: 04/06/17 17:16 Dose: 42 mls/hr Multivitamins/Minerals 10 ml/Amino Ac/Electrol/Dextrose/Calcium 1,010 mls @ 84 mls/hr IV .BY DURATION [facility] Stop: 04/09/17 05:51 Last Admin: 04/08/17 11:45 Dose: 84 mls/hr Amino Ac/Electrol/Dextrose/Calcium (Clinimix E 12/08) 1,000 mls @ 84 mls/hr IV .BY DURATION [facility] Stop: 04/09/17 05:51 Last Admin: 04/09/17 01:08 Dose: 84 mls/hr Magnesium Sulfate (Magnesium Sulfate 2 Gm In Water 50 Ml) 50 mls @ 8 mls/hr IV ONETIME ONE Stop: 04/07/17 15:14 Last Admin: 04/07/17 09:22 Dose: 8 mls/hr Potassium Chloride 20 meq/ (Premix) 100 mls @ 50 mls/hr IV ONETIME ONE Stop: 04/07/17 11:59 Last Admin: 04/07/17 10:24 Dose: 50 mls/hr Potassium Chloride 20 meq/ (Premix) 100 mls @ 50 mls/hr IV ONETIME ONE Stop: 04/07/17 13:59 Last Admin: 04/07/17 12:32 Dose: 50 mls/hr Dextrose/Water (Dextrose 10% In Water) 1,000 mls @ 42 mls/hr IV ASDIRECTED [facility] Cefazolin Sodium 1 gm/ Sodium (Chloride) 50 mls @ 100 mls/hr IV ONETIME ONE Stop: 04/09/17 09:59 Last Admin: 04/09/17 08:59 Dose: 100 mls/hr Potassium Chloride/Dextrose/Sod Cl (D5 1/2 Ns W/ 20 Meq/L Kcl) 1,000 mls @ 75 mls/hr IV Q8H [facility] Last Admin: 04/12/17 04:55 Dose: 75 mls/hr Potassium Chloride 20 meq/ (Premix) 100 mls @ 50 mls/hr IV ONETIME ONE Stop: 04/09/17 19:31 Last Admin: 04/09/17 17:59 Dose: 50 mls/hr Insulin Aspart (Novolog) 0 unit SUBCUT WITHMEALSANDBED [facility] PRN Reason: Protocol Last Admin: 03/25/17 18:57 Dose: Not Given Ketorolac Tromethamine (Toradol) 15 mg IVPUSH Q6H PRN PRN Reason: Pain (moderate 4-6) Last Admin: 04/11/17 21:54 Dose: 15 mg Ketorolac Tromethamine (Toradol) 15 mg IVPUSH .STK-MED ONE Stop: 04/09/17 09:31 Lidocaine HCl (Xylocaine 2% Jelly) 5 ml MUCMEM Q4H PRN PRN Reason: Pain Last Admin: 03/27/17 13:05 Dose: 5 ml Lidocaine HCl (Xylocaine 2% Jelly) 5 ml MUCMEM 07 [facility] Last Admin: 04/06/17 07:38 Dose: 5 ml Lidocaine HCl (Xylocaine 2% Viscous) 15 ml PO 07 [facility] Lidocaine HCl (Xylocaine 2% Viscous) Confirm Administered Dose 15 ml .ROUTE .STK -MED ONE Stop: 04/06/17 07:35 Last Admin: 04/06/17 07:55 Dose: Not Given Lidocaine HCl (Xylocaine 2% Viscous) 15 ml PO 0700 [facility] Stop: 04/06/17 07:01 Last Admin: 04/06/17 07:35 Dose: 15 ml Lidocaine HCl (Xylocaine 2% Jelly) 5 ml MUCMEM ONETIME ONE Stop: 04/09/17 07:58 Last Admin: 04/09/17 11:15 Dose: Not Given Lidocaine HCl (Xylocaine 2% Viscous) 15 ml PO ONETIME ONE Stop: 04/09/17 08:16 Last Admin: 04/09/17 11:15 Dose: Not Given Lidocaine HCl (Xylocaine 2%) 100 mg IVPUSH .STK-MED ONE Stop: 04/09/17 09:31 Lidocaine/Epinephrine (Xylocaine 1% With Epinephrine 1:100,000) 5 ml INJECT .STK-MED ONE Stop: 04/09/17 09:59 Last Admin: 04/09/17 09:58 Dose: 5 ml Metoclopramide HCl (Reglan) 5 mg IV Q6H [facility] Last Admin: 03/23/17 08:24 Dose: 5 mg Metoprolol Succinate (Toprol Xl) 50 mg PO DAILY [facility] Midazolam HCl (Versed 1 Mg/Ml) 1 mg IV .STK-MED ONE Stop: 03/25/17 10:01 Midazolam HCl (Versed 1 Mg/Ml) 0.5 mg IV .STK-MED ONE Stop: 04/09/17 09:31 Morphine Sulfate (Morphine) 2 mg IVPUSH Q2H PRN PRN Reason: Pain (severe 7-10) Last Admin: 04/09/17 13:31 Dose: 2 mg Morphine Sulfate (Morphine) 2 mg IVPUSH Q3M PRN PRN Reason: Abdominal Pain Ondansetron HCl (Zofran) 4 mg IV Q6H PRN PRN Reason: Nausea/Vomiting Last Admin: 04/06/17 02:17 Dose: 4 mg Ondansetron HCl (Zofran) 4 mg IVPUSH .STK-MED ONE Stop: 04/09/17 09:31 Pantoprazole Sodium (Protonix Iv) 40 mg IVPUSH DAILY [facility] Last Admin: 04/16/17 08:45 Dose: 40 mg Phenylephrine HCl (Deni-Synephrine) 0.4 mg IV .STK-MED ONE Stop: 04/09/17 09:31 Phytonadione (Aquamephyton) 10 mg IM Mo [facility] Last Admin: 04/06/17 07:57 Dose: Not Given Propofol (Diprivan 20 Ml) 100 mg IV .STK-MED ONE Stop: 03/25/17 10:01 Propofol (Diprivan 20 Ml) 180 mg IV .STK-MED ONE Stop: 04/09/17 09:31 Rocuronium Mcpherson (Zemuron) 5 mg IV .STK-MED ONE Stop: 04/09/17 09:31 Saccharomyces Boulardii (Florastor) 250 mg GTUBE BID [facility] Last Admin: 04/15/17 09:04 Dose: 250 mg Succinylcholine Chloride (Quelicin) 140 mg IV .STK-MED ONE Stop: 04/09/17 09:31 Sucralfate (Carafate) 1 gm PO Q6H [facility] Last Admin: 03/25/17 11:28 Dose: Not Given - Exam Wound/Incisions: Healing Well Lungs: Clear to Auscultation, Normal Respiratory Effort Cardiovascular: Regular Rate, Regular Rhythm GI/Abdominal Exam: Normal Bowel Sounds, Soft, Non-Tender, No Organomegaly - Problem List & Annotations (1) Gastroparesis SNOMED Code(s): 765581540 Code(s): K31.84 - GASTROPARESIS Status: Acute Current Visit: No (2) DVT, lower extremity, distal SNOMED Code(s): 266417697 Code(s): I82.4Z9 - ACUTE EMBLSM AND THOMBOS UNSP DEEP VN UNSP DISTAL LOW EXTRM Status: Acute Current Visit: Yes Qualifiers: Chronicity: unspecified Laterality: left Qualified Code(s): I82.4Z2 - Acute embolism and thrombosis of unspecified deep veins of left distal lower extremity - Problem List Review Problem List Initiated/Reviewed/Updated: Yes - My Orders Last 24 Hours: Active Orders 24 hr Category Date Time Status Central Line Assessment [RC] 08,16,00 Care 04/15/17 09:00 Active Communication Order [RC] DAILY Care 04/16/17 09:31 Active Pantoprazole [ProTONIX] Med 04/17/17 09:00 Ordered 40 mg PO DAILY Saccharomyces Boulardii [Florastor] Med 04/15/17 21:00 Active 250 mg JTUBE BID Simvastatin [Zocor] Med 04/16/17 21:00 Ordered 10 mg PO BEDTIME Medication Orders Acetaminophen (Tylenol) 650 mg PO Q4H PRN PRN Reason: Pain (Mild 1-3)/fever Last Admin: 03/22/17 11:25 Dose: 650 mg Albuterol/Ipratropium (Duoneb 3.0-0.5 Mg/3 Ml) 3 ml NEB Q4H PRN PRN Reason: Wheezing Enoxaparin Sodium (Lovenox) 100 mg SUBCUT Q24H [facility] Last Admin: 04/15/17 17:14 Dose: 100 mg Admin: 04/14/17 18:05 Dose: 100 mg Heparin Sodium (Porcine) (Heparin Lock Flush 100 Units/Ml) 500 units FLUSH ASDIRECTED PRN PRN Reason: Keep Vein Open Last Admin: 04/16/17 09:20 Dose: 500 units Admin: 04/16/17 08:56 Dose: 500 units Admin: 04/14/17 10:35 Dose: 500 units Admin: 04/12/17 16:39 Dose: 500 units Admin: 04/06/17 09:49 Dose: 500 units Admin: 04/01/17 10:10 Dose: 500 units Admin: 03/22/17 10:11 Dose: 500 units Latanoprost (Xalatan 0.005% Ophth Soln) 0 ml EYEBOTH BEDTIME [facility] Last Admin: 04/15/17 20:14 Dose: 1 drop Admin: 04/14/17 20:50 Dose: 1 drop Admin: 04/13/17 20:40 Dose: 1 drop Admin: 04/12/17 21:51 Dose: 1 drop Admin: 04/11/17 20:49 Dose: 1 drop Admin: 04/10/17 21:33 Dose: 1 drop Admin: 04/09/17 20:25 Dose: 1 drop Admin: 04/08/17 21:33 Dose: 1 drop Admin: 04/07/17 20:51 Dose: 1 drop Admin: 04/06/17 20:37 Dose: 1 drop Admin: 04/05/17 20:39 Dose: 1 drop Admin: 04/04/17 21:00 Dose: 1 drop Admin: 04/03/17 20:54 Dose: 1 drop Admin: 04/02/17 20:03 Dose: 1 drop Admin: 04/01/17 20:53 Dose: 1 drop Admin: 03/31/17 20:32 Dose: 1 drop Admin: 03/30/17 20:28 Dose: 1 drop Admin: 03/29/17 20:34 Dose: 1 drop Admin: 03/28/17 20:58 Dose: 1 drop Admin: 03/27/17 20:48 Dose: 1 drop Admin: 03/26/17 20:21 Dose: 1 drop Admin: 03/25/17 23:06 Dose: 1 drop Admin: 03/24/17 20:03 Dose: 1 drop Admin: 03/23/17 22:01 Dose: 1 drop Admin: 03/22/17 20:37 Dose: 1 drop Admin: 03/21/17 21:05 Dose: 1 drop Metoprolol Succinate (Toprol Xl) 25 mg PO DAILY [facility] Last Admin: 04/16/17 08:48 Dose: 25 mg Admin: 04/15/17 09:04 Dose: 25 mg Admin: 04/14/17 09:47 Dose: 25 mg Admin: 04/13/17 09:45 Dose: 25 mg Admin: 04/12/17 08:08 Dose: 25 mg Admin: 04/11/17 09:57 Dose: 25 mg Admin: 04/10/17 09:49 Dose: 25 mg Admin: 04/09/17 12:45 Dose: Admin: 04/08/17 08:57 Dose: 25 mg Admin: 04/07/17 09:21 Dose: 25 mg Admin: 04/06/17 09:38 Dose: 25 mg Admin: 04/05/17 08:32 Dose: 25 mg Admin: 04/04/17 09:44 Dose: 25 mg Admin: 04/03/17 08:47 Dose: 25 mg Admin: 04/02/17 08:52 Dose: 25 mg Admin: 04/01/17 09:34 Dose: 25 mg Admin: 03/31/17 08:35 Dose: 25 mg Admin: 03/30/17 10:46 Dose: 25 mg Admin: 03/29/17 10:04 Dose: 25 mg Admin: 03/28/17 08:45 Dose: 25 mg Admin: 03/27/17 08:28 Dose: 25 mg Admin: 03/26/17 08:43 Dose: 25 mg Admin: 03/25/17 11:32 Dose: 25 mg Admin: 03/24/17 08:30 Dose: 25 mg Admin: 03/23/17 08:21 Dose: 25 mg Admin: 03/22/17 09:59 Dose: 25 mg Pantoprazole Sodium (Protonix) 40 mg PO DAILY [facility] Saccharomyces Boulardii (Florastor) 250 mg JTUBE BID [facility] Last Admin: 04/16/17 08:43 Dose: 250 mg Admin: 04/15/17 20:14 Dose: 250 mg Simvastatin (Zocor) 10 mg PO BEDTIME [facility] Sodium Chloride (Saline Flush) 10 ml FLUSH ASDIRECTED PRN PRN Reason: Keep Vein Open Last Admin: 04/16/17 08:45 Dose: 10 ml Admin: 04/15/17 09:05 Dose: 10 ml Admin: 04/14/17 10:35 Dose: 10 ml Admin: 04/13/17 09:46 Dose: 10 ml Admin: 04/12/17 10:30 Dose: 10 ml Admin: 04/07/17 06:25 Dose: 10 ml Admin: 04/06/17 09:46 Dose: 10 ml Admin: 04/06/17 06:12 Dose: 10 ml Admin: 04/06/17 02:17 Dose: 10 ml Admin: 04/04/17 21:01 Dose: 10 ml Admin: 04/04/17 03:41 Dose: 10 ml Admin: 04/03/17 12:29 Dose: 10 ml Admin: 04/01/17 10:10 Dose: 10 ml Admin: 04/01/17 06:17 Dose: 10 ml Admin: 04/01/17 02:53 Dose: 10 ml Admin: 03/31/17 22:34 Dose: 10 ml Admin: 03/31/17 16:01 Dose: 10 ml Admin: 03/31/17 03:40 Dose: 10 ml Admin: 03/30/17 22:32 Dose: 10 ml Admin: 03/30/17 22:28 Dose: 10 ml Admin: 03/30/17 16:36 Dose: 10 ml Admin: 03/30/17 10:47 Dose: 10 ml Admin: 03/29/17 10:05 Dose: 10 ml Admin: 03/29/17 01:52 Dose: 10 ml Admin: 03/28/17 23:21 Dose: 10 ml Admin: 03/26/17 23:31 Dose: 10 ml Admin: 03/26/17 14:56 Dose: 10 ml Admin: 03/26/17 08:57 Dose: 10 ml Admin: 03/25/17 11:33 Dose: 10 ml Admin: 03/25/17 08:40 Dose: 10 ml Admin: 03/23/17 04:55 Dose: 10 ml Admin: 03/23/17 01:48 Dose: 10 ml Admin: 03/22/17 22:11 Dose: 10 ml Admin: 03/22/17 22:10 Dose: 10 ml Admin: 03/22/17 20:06 Dose: 10 ml Admin: 03/22/17 15:43 Dose: 10 ml Admin: 03/22/17 10:10 Dose: 10 ml Admin: 03/22/17 10:04 Dose: 10 ml Admin: 03/22/17 03:24 Dose: 10 ml Admin: 03/22/17 03:12 Dose: 10 ml Admin: 03/21/17 21:09 Dose: 10 ml - Assessment Assessment (Free Text/Narrative):: cata ready for removal. - Plan Plan (Free Text/Narrative):: anticipate d/c in am if pt feels strong enough.
[2017-04-16] MEDS: Enoxaparin 100 MG/1 ML Syringe SUBCUT SCH (17:51)
[2017-04-16] MEDS: Latanoprost 0.005% Ophth Soln 2.5 ML Bottle EYEBOTH SCH (20:33)
[2017-04-16] MEDS: Simvastatin 10 MG Tab PO SCH (20:34)
[2017-04-17] MEDS: Pantoprazole 40 MG Tab.CR PO SCH (05:55)
[2017-04-17] MEDS: Saccharomyces Boulardii (Probiotic) 250 MG Cap JTUBE SCH ×2 (08:30→19:32)
[2017-04-17] MEDS: Metoprolol Succinate 25 MG Tab.ER PO SCH (08:31)
[2017-04-17] MEDS: Enoxaparin 100 MG/1 ML Syringe SUBCUT SCH (18:40)
[2017-04-17] MEDS: Simvastatin 10 MG Tab PO SCH (21:47)
[2017-04-17] MEDS: Latanoprost 0.005% Ophth Soln 2.5 ML Bottle EYEBOTH SCH (21:47)
[2017-04-18] MEDS: Pantoprazole 40 MG Tab.CR PO SCH (06:15)
[2017-04-18] MEDS: Saccharomyces Boulardii (Probiotic) 250 MG Cap JTUBE SCH ×2 (08:08→17:37)
[2017-04-18] MEDS: Metoprolol Succinate 25 MG Tab.ER PO SCH (08:17)
--- NOTE | 2017-04-18 09:18 | PCM.SN ---
- Free Text/Narrative Note: Pt had some abd distention this pm. Was on gravity drainage all night. feels better this am. will place on gravity drainage qhs. Anticipate discharge on Thursday.
[2017-04-18] MEDS: Enoxaparin 100 MG/1 ML Syringe SUBCUT SCH (17:37)
[2017-04-18] MEDS: Latanoprost 0.005% Ophth Soln 2.5 ML Bottle EYEBOTH SCH (20:09)
[2017-04-18] MEDS: Simvastatin 10 MG Tab PO SCH (20:10)
[2017-04-19] MEDS: Pantoprazole 40 MG Tab.CR PO SCH (06:53)
[2017-04-19] MEDS: Metoprolol Succinate 25 MG Tab.ER PO SCH (08:10)
[2017-04-19] MEDS: Saccharomyces Boulardii (Probiotic) 250 MG Cap JTUBE SCH ×2 (08:10→18:22)
--- NOTE | 2017-04-19 10:03 | PCM.SURGPN ---
- General Info Date of Service: 04/19/17 - Review of Systems Systems Review Comment:: some gi discomfort this morning. otherwise no complaints. G tube was placed on gravity drainage last night. - Patient Data Vitals - Most Recent: Last Vital Signs Temp 36.5 C 04/18/17 08:00 Pulse 69 04/19/17 08:10 Resp 18 04/18/17 08:00 BP 129/69 04/19/17 08:10 Pulse Ox 94 L 04/18/17 08:00 Weight - Most Recent: 65.862 kg I&O - Last 24 Hours: Intake & Output 04/18/17 04/19/17 04/19/17 22:59 06:59 14:59 Intake Total 1500 Output Total 1475 200 Balance -1475 1300 Med Orders - Current: Current Medications Acetaminophen (Tylenol) 650 mg PO Q4H PRN PRN Reason: Pain (Mild 1-3)/fever Last Admin: 03/22/17 11:25 Dose: 650 mg Albuterol/Ipratropium (Duoneb 3.0-0.5 Mg/3 Ml) 3 ml NEB Q4H PRN PRN Reason: Wheezing Enoxaparin Sodium (Lovenox) 100 mg SUBCUT Q24H [facility] Last Admin: 04/18/17 17:37 Dose: 100 mg Heparin Sodium (Porcine) (Heparin Lock Flush 100 Units/Ml) 500 units FLUSH ASDIRECTED PRN PRN Reason: Keep Vein Open Last Admin: 04/16/17 09:20 Dose: 500 units Latanoprost (Xalatan 0.005% Ophth Soln) 0 ml EYEBOTH BEDTIME [facility] Last Admin: 04/18/17 20:09 Dose: 1 drop Metoprolol Succinate (Toprol Xl) 25 mg PO DAILY [facility] Last Admin: 04/19/17 08:10 Dose: 25 mg Ondansetron HCl (Zofran Odt) 4 mg PO Q6H PRN PRN Reason: Nausea/Vomiting Pantoprazole Sodium (Protonix) 40 mg PO 0600 [facility] Last Admin: 04/19/17 06:53 Dose: 40 mg Saccharomyces Boulardii (Florastor) 250 mg JTUBE BID@0800,1800 [facility] Last Admin: 04/19/17 08:10 Dose: 250 mg Simvastatin (Zocor) 10 mg PO BEDTIME [facility] Last Admin: 04/18/17 20:10 Dose: 10 mg Sodium Chloride (Saline Flush) 10 ml FLUSH ASDIRECTED PRN PRN Reason: Keep Vein Open Last Admin: 04/16/17 08:45 Dose: 10 ml Discontinued Medications Bisacodyl (Dulcolax) 10 mg RECTAL ONETIME ONE Stop: 03/22/17 08:59 Last Admin: 03/22/17 11:16 Dose: 10 mg Bupivacaine HCl (Marcaine 0.5%) 5 ml INJECT .STK-MED ONE Stop: 04/09/17 09:59 Last Admin: 04/09/17 09:58 Dose: 5 ml Enoxaparin Sodium (Lovenox) 80 mg SUBCUT Q12H [facility] Last Admin: 04/06/17 15:27 Dose: Not Given Enoxaparin Sodium (Lovenox) 80 mg SUBCUT Q12H [facility] Last Admin: 04/14/17 06:26 Dose: 80 mg Fentanyl (Sublimaze) 100 mcg IV .STK-MED ONE Stop: 03/25/17 10:01 Fentanyl (Sublimaze) 150 mcg IV .STK-MED ONE Stop: 04/09/17 09:31 Hydromorphone HCl (Dilaudid) 1 mg IVPUSH Q3H PRN PRN Reason: Pain Last Admin: 04/10/17 02:28 Dose: 1 mg Fat Emulsion Intravenous (Intralipid 20%) 250 mls @ 20 mls/hr IV Q24H [facility] Last Admin: 04/06/17 14:01 Dose: Not Given Multivitamins/Minerals 10 ml/Amino Ac/Electrol/Dextrose/Calcium 1,010 mls @ 84 mls/hr IV Q24H [facility] Stop: 03/23/17 13:30 Last Admin: 03/22/17 14:17 Dose: 42 mls/hr Multivitamins/Minerals 10 ml/Amino Ac/Electrol/Dextrose/Calcium 1,010 mls @ 84 mls/hr IV .BY DURATION [facility] Last Admin: 03/24/17 13:29 Dose: 84 mls/hr Amino Ac/Electrol/Dextrose/Calcium (Clinimix E 15) 1,000 mls @ 84 mls/hr IV .BY DURATION [facility] Last Admin: 03/25/17 02:17 Dose: 84 mls/hr Sodium Chloride (Normal Saline) 1,000 mls @ 50 mls/hr IV ASDIRECTED [facility] Last Admin: 04/09/17 17:14 Dose: 50 mls/hr Potassium Chloride 20 meq/ (Premix) 100 mls @ 50 mls/hr IV ONETIME ONE Stop: 03/24/17 10:10 Last Admin: 03/24/17 09:03 Dose: 50 mls/hr Potassium Chloride 20 meq/ (Premix) 100 mls @ 50 mls/hr IV ONETIME ONE Stop: 03/24/17 12:14 Last Admin: 03/24/17 11:06 Dose: 50 mls/hr Magnesium Sulfate 2 gm/ Premix 50 mls @ 8 mls/hr IV ONETIME ONE Stop: 03/24/17 23:14 Last Admin: 03/24/17 17:04 Dose: 8 mls/hr Multivitamins/Minerals 10 ml/Amino Ac/Electrol/Dextrose/Calcium 1,010 mls @ 84 mls/hr IV .BY DURATION [facility] Stop: 04/04/17 13:15 Last Admin: 04/05/17 10:57 Dose: Not Given Amino Ac/Electrol/Dextrose/Calcium (Clinimix E 12/08) 1,000 mls @ 84 mls/hr IV .BY DURATION [facility] Stop: 04/04/17 13:15 Last Admin: 04/04/17 00:54 Dose: 84 mls/hr Lactated Ringer's (Ringers, Lactated) 1,000 mls @ as directed IV .STK-MED ONE Stop: 03/25/17 10:01 Dextrose/Water (Dextrose 10% In Water) 1,000 mls @ as directed IV .STK-MED ONE Stop: 03/25/17 10:01 Magnesium Sulfate 2 gm/ Premix 50 mls @ 8 mls/hr IV ONETIME ONE Stop: 03/29/17 14:44 Last Admin: 03/29/17 10:00 Dose: 8 mls/hr Potassium Chloride 20 meq/ (Premix) 100 mls @ 50 mls/hr IV ONETIME ONE Stop: 04/03/17 09:15 Last Admin: 04/03/17 07:50 Dose: 50 mls/hr Dextrose/Water (Dextrose 10% In Water) 1,000 mls @ 84 mls/hr IV Q12H [facility] Stop: 04/05/17 22:00 Last Admin: 04/05/17 13:26 Dose: 84 mls/hr Dextrose/Water (Dextrose 10% In Water) 1,000 mls @ 42 mls/hr IV Q24H [facility] Stop: 04/06/17 06:00 Last Admin: 04/05/17 22:30 Dose: 42 mls/hr Potassium Chloride 20 meq/ (Premix) 100 mls @ 50 mls/hr IV ONETIME ONE Stop: 04/06/17 10:17 Last Admin: 04/06/17 08:35 Dose: 50 mls/hr Fat Emulsion Intravenous (Intralipid 20%) 250 mls @ 20 mls/hr IV Q24H [facility] Last Admin: 04/08/17 17:15 Dose: 20 mls/hr Multivitamins/Minerals 10 ml/Amino Ac/Electrol/Dextrose/Calcium 1,010 mls @ 42 mls/hr IV ONETIME ONE Stop: 04/07/17 18:02 Last Admin: 04/06/17 17:16 Dose: 42 mls/hr Multivitamins/Minerals 10 ml/Amino Ac/Electrol/Dextrose/Calcium 1,010 mls @ 84 mls/hr IV .BY DURATION [facility] Stop: 04/09/17 05:51 Last Admin: 04/08/17 11:45 Dose: 84 mls/hr Amino Ac/Electrol/Dextrose/Calcium (Clinimix E 12/08) 1,000 mls @ 84 mls/hr IV .BY DURATION [facility] Stop: 04/09/17 05:51 Last Admin: 04/09/17 01:08 Dose: 84 mls/hr Magnesium Sulfate (Magnesium Sulfate 2 Gm In Water 50 Ml) 50 mls @ 8 mls/hr IV ONETIME ONE Stop: 04/07/17 15:14 Last Admin: 04/07/17 09:22 Dose: 8 mls/hr Potassium Chloride 20 meq/ (Premix) 100 mls @ 50 mls/hr IV ONETIME ONE Stop: 04/07/17 11:59 Last Admin: 04/07/17 10:24 Dose: 50 mls/hr Potassium Chloride 20 meq/ (Premix) 100 mls @ 50 mls/hr IV ONETIME ONE Stop: 04/07/17 13:59 Last Admin: 04/07/17 12:32 Dose: 50 mls/hr Dextrose/Water (Dextrose 10% In Water) 1,000 mls @ 42 mls/hr IV ASDIRECTED [facility] Cefazolin Sodium 1 gm/ Sodium (Chloride) 50 mls @ 100 mls/hr IV ONETIME ONE Stop: 04/09/17 09:59 Last Admin: 04/09/17 08:59 Dose: 100 mls/hr Potassium Chloride/Dextrose/Sod Cl (D5 1/2 Ns W/ 20 Meq/L Kcl) 1,000 mls @ 75 mls/hr IV Q8H [facility] Last Admin: 04/12/17 04:55 Dose: 75 mls/hr Potassium Chloride 20 meq/ (Premix) 100 mls @ 50 mls/hr IV ONETIME ONE Stop: 04/09/17 19:31 Last Admin: 04/09/17 17:59 Dose: 50 mls/hr Insulin Aspart (Novolog) 0 unit SUBCUT WITHMEALSANDBED [facility] PRN Reason: Protocol Last Admin: 03/25/17 18:57 Dose: Not Given Ketorolac Tromethamine (Toradol) 15 mg IVPUSH Q6H PRN PRN Reason: Pain (moderate 4-6) Last Admin: 04/11/17 21:54 Dose: 15 mg Ketorolac Tromethamine (Toradol) 15 mg IVPUSH .STK-MED ONE Stop: 04/09/17 09:31 Lidocaine HCl (Xylocaine 2% Jelly) 5 ml MUCMEM Q4H PRN PRN Reason: Pain Last Admin: 03/27/17 13:05 Dose: 5 ml Lidocaine HCl (Xylocaine 2% Jelly) 5 ml MUCMEM 07 [facility] Last Admin: 04/06/17 07:38 Dose: 5 ml Lidocaine HCl (Xylocaine 2% Viscous) 15 ml PO 07 [facility] Lidocaine HCl (Xylocaine 2% Viscous) Confirm Administered Dose 15 ml .ROUTE .STK -MED ONE Stop: 04/06/17 07:35 Last Admin: 04/06/17 07:55 Dose: Not Given Lidocaine HCl (Xylocaine 2% Viscous) 15 ml PO 0700 [facility] Stop: 04/06/17 07:01 Last Admin: 04/06/17 07:35 Dose: 15 ml Lidocaine HCl (Xylocaine 2% Jelly) 5 ml MUCMEM ONETIME ONE Stop: 04/09/17 07:58 Last Admin: 04/09/17 11:15 Dose: Not Given Lidocaine HCl (Xylocaine 2% Viscous) 15 ml PO ONETIME ONE Stop: 04/09/17 08:16 Last Admin: 04/09/17 11:15 Dose: Not Given Lidocaine HCl (Xylocaine 2%) 100 mg IVPUSH .STK-MED ONE Stop: 04/09/17 09:31 Lidocaine/Epinephrine (Xylocaine 1% With Epinephrine 1:100,000) 5 ml INJECT .STK-MED ONE Stop: 04/09/17 09:59 Last Admin: 04/09/17 09:58 Dose: 5 ml Metoclopramide HCl (Reglan) 5 mg IV Q6H [facility] Last Admin: 03/23/17 08:24 Dose: 5 mg Metoprolol Succinate (Toprol Xl) 50 mg PO DAILY [facility] Midazolam HCl (Versed 1 Mg/Ml) 1 mg IV .STK-MED ONE Stop: 03/25/17 10:01 Midazolam HCl (Versed 1 Mg/Ml) 0.5 mg IV .STK-MED ONE Stop: 04/09/17 09:31 Morphine Sulfate (Morphine) 2 mg IVPUSH Q2H PRN PRN Reason: Pain (severe 7-10) Last Admin: 04/09/17 13:31 Dose: 2 mg Morphine Sulfate (Morphine) 2 mg IVPUSH Q3M PRN PRN Reason: Abdominal Pain Ondansetron HCl (Zofran) 4 mg IV Q6H PRN PRN Reason: Nausea/Vomiting Last Admin: 04/06/17 02:17 Dose: 4 mg Ondansetron HCl (Zofran) 4 mg IVPUSH .STK-MED ONE Stop: 04/09/17 09:31 Pantoprazole Sodium (Protonix Iv) 40 mg IVPUSH DAILY [facility] Last Admin: 04/16/17 08:45 Dose: 40 mg Phenylephrine HCl (Deni-Synephrine) 0.4 mg IV .STK-MED ONE Stop: 04/09/17 09:31 Phytonadione (Aquamephyton) 10 mg IM Mo [facility] Last Admin: 04/06/17 07:57 Dose: Not Given Propofol (Diprivan 20 Ml) 100 mg IV .STK-MED ONE Stop: 03/25/17 10:01 Propofol (Diprivan 20 Ml) 180 mg IV .STK-MED ONE Stop: 04/09/17 09:31 Rocuronium Luttrell (Zemuron) 5 mg IV .STK-MED ONE Stop: 04/09/17 09:31 Saccharomyces Boulardii (Florastor) 250 mg GTUBE BID [facility] Last Admin: 04/15/17 09:04 Dose: 250 mg Saccharomyces Boulardii (Florastor) 250 mg JTUBE BID [facility] Last Admin: 04/16/17 20:32 Dose: 250 mg Succinylcholine Chloride (Quelicin) 140 mg IV .STK-MED ONE Stop: 04/09/17 09:31 Sucralfate (Carafate) 1 gm PO Q6H [facility] Last Admin: 03/25/17 11:28 Dose: Not Given - Exam General: Alert, Oriented, Cooperative, No Acute Distress Lungs: Clear to Auscultation, Normal Respiratory Effort Cardiovascular: Regular Rate, Regular Rhythm GI/Abdominal Exam: Normal Bowel Sounds, Soft, Non-Tender - Problem List & Annotations (1) Gastroparesis SNOMED Code(s): 579718623 Code(s): K31.84 - GASTROPARESIS Status: Acute Current Visit: No (2) DVT, lower extremity, distal SNOMED Code(s): 445855398 Code(s): I82.4Z9 - ACUTE EMBLSM AND THOMBOS UNSP DEEP VN UNSP DISTAL LOW EXTRM Status: Acute Current Visit: Yes Qualifiers: Chronicity: unspecified Laterality: left Qualified Code(s): I82.4Z2 - Acute embolism and thrombosis of unspecified deep veins of left distal lower extremity - Problem List Review Problem List Initiated/Reviewed/Updated: Yes - My Orders Last 24 Hours: Active Orders 24 hr Category Date Time Status Ondansetron [Zofran ODT] Med 04/19/17 10:00 Ordered 4 mg PO Q6H PRN Medication Orders Acetaminophen (Tylenol) 650 mg PO Q4H PRN PRN Reason: Pain (Mild 1-3)/fever Last Admin: 03/22/17 11:25 Dose: 650 mg Albuterol/Ipratropium (Duoneb 3.0-0.5 Mg/3 Ml) 3 ml NEB Q4H PRN PRN Reason: Wheezing Enoxaparin Sodium (Lovenox) 100 mg SUBCUT Q24H [facility] Last Admin: 04/18/17 17:37 Dose: 100 mg Admin: 04/17/17 18:40 Dose: 100 mg Admin: 04/16/17 17:51 Dose: 100 mg Admin: 04/15/17 17:14 Dose: 100 mg Admin: 04/14/17 18:05 Dose: 100 mg Heparin Sodium (Porcine) (Heparin Lock Flush 100 Units/Ml) 500 units FLUSH ASDIRECTED PRN PRN Reason: Keep Vein Open Last Admin: 04/16/17 09:20 Dose: 500 units Admin: 04/16/17 08:56 Dose: 500 units Admin: 04/14/17 10:35 Dose: 500 units Admin: 04/12/17 16:39 Dose: 500 units Admin: 04/06/17 09:49 Dose: 500 units Admin: 04/01/17 10:10 Dose: 500 units Admin: 03/22/17 10:11 Dose: 500 units Latanoprost (Xalatan 0.005% Ophth Soln) 0 ml EYEBOTH BEDTIME [facility] Last Admin: 04/18/17 20:09 Dose: 1 drop Admin: 04/17/17 21:47 Dose: 1 drop Admin: 04/16/17 20:33 Dose: 1 drop Admin: 04/15/17 20:14 Dose: 1 drop Admin: 04/14/17 20:50 Dose: 1 drop Admin: 04/13/17 20:40 Dose: 1 drop Admin: 04/12/17 21:51 Dose: 1 drop Admin: 04/11/17 20:49 Dose: 1 drop Admin: 04/10/17 21:33 Dose: 1 drop Admin: 04/09/17 20:25 Dose: 1 drop Admin: 04/08/17 21:33 Dose: 1 drop Admin: 04/07/17 20:51 Dose: 1 drop Admin: 04/06/17 20:37 Dose: 1 drop Admin: 04/05/17 20:39 Dose: 1 drop Admin: 04/04/17 21:00 Dose: 1 drop Admin: 04/03/17 20:54 Dose: 1 drop Admin: 04/02/17 20:03 Dose: 1 drop Admin: 04/01/17 20:53 Dose: 1 drop Admin: 03/31/17 20:32 Dose: 1 drop Admin: 03/30/17 20:28 Dose: 1 drop Admin: 03/29/17 20:34 Dose: 1 drop Admin: 03/28/17 20:58 Dose: 1 drop Admin: 03/27/17 20:48 Dose: 1 drop Admin: 03/26/17 20:21 Dose: 1 drop Admin: 03/25/17 23:06 Dose: 1 drop Admin: 03/24/17 20:03 Dose: 1 drop Admin: 03/23/17 22:01 Dose: 1 drop Admin: 03/22/17 20:37 Dose: 1 drop Admin: 03/21/17 21:05 Dose: 1 drop Metoprolol Succinate (Toprol Xl) 25 mg PO DAILY [facility] Last Admin: 04/19/17 08:10 Dose: 25 mg Admin: 04/18/17 08:17 Dose: 25 mg Admin: 04/17/17 08:31 Dose: 25 mg Admin: 04/16/17 08:48 Dose: 25 mg Admin: 04/15/17 09:04 Dose: 25 mg Admin: 04/14/17 09:47 Dose: 25 mg Admin: 04/13/17 09:45 Dose: 25 mg Admin: 04/12/17 08:08 Dose: 25 mg Admin: 04/11/17 09:57 Dose: 25 mg Admin: 04/10/17 09:49 Dose: 25 mg Admin: 04/09/17 12:45 Dose: Admin: 04/08/17 08:57 Dose: 25 mg Admin: 04/07/17 09:21 Dose: 25 mg Admin: 04/06/17 09:38 Dose: 25 mg Admin: 04/05/17 08:32 Dose: 25 mg Admin: 04/04/17 09:44 Dose: 25 mg Admin: 04/03/17 08:47 Dose: 25 mg Admin: 04/02/17 08:52 Dose: 25 mg Admin: 04/01/17 09:34 Dose: 25 mg Admin: 03/31/17 08:35 Dose: 25 mg Admin: 03/30/17 10:46 Dose: 25 mg Admin: 03/29/17 10:04 Dose: 25 mg Admin: 03/28/17 08:45 Dose: 25 mg Admin: 03/27/17 08:28 Dose: 25 mg Admin: 03/26/17 08:43 Dose: 25 mg Admin: 03/25/17 11:32 Dose: 25 mg Admin: 03/24/17 08:30 Dose: 25 mg Admin: 03/23/17 08:21 Dose: 25 mg Admin: 03/22/17 09:59 Dose: 25 mg Ondansetron HCl (Zofran Odt) 4 mg PO Q6H PRN PRN Reason: Nausea/Vomiting Pantoprazole Sodium (Protonix) 40 mg PO 0600 [facility] Last Admin: 04/19/17 06:53 Dose: 40 mg Admin: 04/18/17 06:15 Dose: 40 mg Admin: 04/17/17 05:55 Dose: 40 mg Saccharomyces Boulardii (Florastor) 250 mg JTUBE BID@0800,1800 [facility] Last Admin: 04/19/17 08:10 Dose: 250 mg Admin: 04/18/17 17:37 Dose: 250 mg Admin: 04/18/17 08:08 Dose: 250 mg Admin: 04/17/17 19:32 Dose: 250 mg Admin: 04/17/17 08:30 Dose: 250 mg Simvastatin (Zocor) 10 mg PO BEDTIME [facility] Last Admin: 04/18/17 20:10 Dose: 10 mg Admin: 04/17/17 21:47 Dose: 10 mg Admin: 04/16/17 20:34 Dose: 10 mg Sodium Chloride (Saline Flush) 10 ml FLUSH ASDIRECTED PRN PRN Reason: Keep Vein Open Last Admin: 04/16/17 08:45 Dose: 10 ml Admin: 04/15/17 09:05 Dose: 10 ml Admin: 04/14/17 10:35 Dose: 10 ml Admin: 04/13/17 09:46 Dose: 10 ml Admin: 04/12/17 10:30 Dose: 10 ml Admin: 04/07/17 06:25 Dose: 10 ml Admin: 04/06/17 09:46 Dose: 10 ml Admin: 04/06/17 06:12 Dose: 10 ml Admin: 04/06/17 02:17 Dose: 10 ml Admin: 04/04/17 21:01 Dose: 10 ml Admin: 04/04/17 03:41 Dose: 10 ml Admin: 04/03/17 12:29 Dose: 10 ml Admin: 04/01/17 10:10 Dose: 10 ml Admin: 04/01/17 06:17 Dose: 10 ml Admin: 04/01/17 02:53 Dose: 10 ml Admin: 03/31/17 22:34 Dose: 10 ml Admin: 03/31/17 16:01 Dose: 10 ml Admin: 03/31/17 03:40 Dose: 10 ml Admin: 03/30/17 22:32 Dose: 10 ml Admin: 03/30/17 22:28 Dose: 10 ml Admin: 03/30/17 16:36 Dose: 10 ml Admin: 03/30/17 10:47 Dose: 10 ml Admin: 03/29/17 10:05 Dose: 10 ml Admin: 03/29/17 01:52 Dose: 10 ml Admin: 03/28/17 23:21 Dose: 10 ml Admin: 03/26/17 23:31 Dose: 10 ml Admin: 03/26/17 14:56 Dose: 10 ml Admin: 03/26/17 08:57 Dose: 10 ml Admin: 03/25/17 11:33 Dose: 10 ml Admin: 03/25/17 08:40 Dose: 10 ml Admin: 03/23/17 04:55 Dose: 10 ml Admin: 03/23/17 01:48 Dose: 10 ml Admin: 03/22/17 22:11 Dose: 10 ml Admin: 03/22/17 22:10 Dose: 10 ml Admin: 03/22/17 20:06 Dose: 10 ml Admin: 03/22/17 15:43 Dose: 10 ml Admin: 03/22/17 10:10 Dose: 10 ml Admin: 03/22/17 10:04 Dose: 10 ml Admin: 03/22/17 03:24 Dose: 10 ml Admin: 03/22/17 03:12 Dose: 10 ml Admin: 03/21/17 21:09 Dose: 10 ml - Assessment Assessment (Free Text/Narrative):: essentially stable exam - Plan Plan (Free Text/Narrative):: zofran po. gravity drainage of g tube as needed.
[2017-04-19] MEDS: Ondansetron 4 MG Tab.DIS PO PRN (11:13)
[2017-04-19] MEDS: Enoxaparin 100 MG/1 ML Syringe SUBCUT SCH (18:22)
[2017-04-19] MEDS: Simvastatin 10 MG Tab PO SCH (21:11)
[2017-04-19] MEDS: Latanoprost 0.005% Ophth Soln 2.5 ML Bottle EYEBOTH SCH (21:11)
[2017-04-20] MEDS: Pantoprazole 40 MG Tab.CR PO SCH (06:40)
[2017-04-20] MEDS: Saccharomyces Boulardii (Probiotic) 250 MG Cap JTUBE SCH ×2 (08:19→16:19)
[2017-04-20] MEDS: Metoprolol Succinate 25 MG Tab.ER PO SCH (08:20)
[2017-04-20] MEDS ORDERED: Sodium Chloride 0.9% 10 ML Syringe FLUSH PRN (10:10)
[2017-04-20] MEDS ORDERED: Sodium Chloride 0.9% 250 ML IV SCH (10:10)
[2017-04-20] MEDS: Sodium Chloride 0.9% 1,000 ML IV SCH ×2 (10:14→23:51)
[2017-04-20] MEDS: Enoxaparin 100 MG/1 ML Syringe SUBCUT SCH (18:01)
[2017-04-20] MEDS: Latanoprost 0.005% Ophth Soln 2.5 ML Bottle EYEBOTH SCH (20:08)
[2017-04-20] MEDS: Simvastatin 10 MG Tab PO SCH (20:08)
[2017-04-21] MEDS: Pantoprazole 40 MG Tab.CR PO SCH (06:16)
[2017-04-21] MEDS ORDERED: Sodium Chloride 0.9% 500 ML IV ONE (08:03)
[2017-04-21] MEDS ORDERED: FLU Vacc QS 2017-18 (36mos UP)/PF 60 MCG/0.5 ML Syringe IM ONE ×2 (09:00)
--- NOTE | 2017-04-21 09:22 | PCM.SN ---
- Free Text/Narrative Note: still correcting the alkalosis due to his gastroparesis. increase saline drip. recheck lab in am
[2017-04-21] MEDS: Metoprolol Succinate 25 MG Tab.ER PO SCH (09:47)
[2017-04-21] MEDS: Saccharomyces Boulardii (Probiotic) 250 MG Cap JTUBE SCH ×2 (09:58→16:10)
[2017-04-21] MEDS: Potassium Chloride 10% 20 MEQ/15 ML Soln 15 ML UD Cup PO SCH (09:59)
[2017-04-21] MEDS: Sodium Chloride 0.9% 1,000 ML IV SCH ×2 (11:04→17:54)
[2017-04-21] MEDS: Enoxaparin 100 MG/1 ML Syringe SUBCUT SCH (17:56)
[2017-04-21] MEDS: Simvastatin 10 MG Tab PO SCH (21:05)
[2017-04-21] MEDS: Latanoprost 0.005% Ophth Soln 2.5 ML Bottle EYEBOTH SCH (21:05)
[2017-04-22] MEDS: Sodium Chloride 0.9% 1,000 ML IV SCH ×3 (00:45→17:02)
[2017-04-22] MEDS: Pantoprazole 40 MG Tab.CR PO SCH (06:52)
[2017-04-22] MEDS: Metoprolol Succinate 25 MG Tab.ER PO SCH (09:06)
[2017-04-22] MEDS: Potassium Chloride 10% 20 MEQ/15 ML Soln 15 ML UD Cup PO SCH (09:07)
[2017-04-22] MEDS: Saccharomyces Boulardii (Probiotic) 250 MG Cap JTUBE SCH ×2 (09:07→15:55)
--- NOTE | 2017-04-22 12:07 | PCM.SURGPN ---
- General Info Date of Service: 04/22/17 - Review of Systems Gastrointestinal: Reports: Abdominal Pain, Nausea, Vomiting - Patient Data Vitals - Most Recent: Last Vital Signs Temp 37.2 C 04/22/17 08:44 Pulse 79 04/22/17 09:06 Resp 18 04/22/17 08:44 BP 136/83 04/22/17 09:06 Pulse Ox 96 04/22/17 08:44 Weight - Most Recent: 71.214 kg I&O - Last 24 Hours: Intake & Output 04/21/17 04/22/17 04/22/17 22:59 06:59 14:59 Intake Total 1263 1151 1971 Output Total 350 200 Balance 116 455 0077 Lab Results Last 24 Hrs: Laboratory Results - last 24 hr 04/22/17 Range/Units 07:00 Sodium 138 (135-145) mmol/L Potassium 3.4 L (3.5-5.3) mmol/L Chloride 100 D (100-110) mmol/L Carbon Dioxide 29 (23-29) mmol/L BUN 25 H D (8-23) mg/dL Creatinine 0.7 (0.6-1.3) mg/dL Est Cr Clr Drug Dosing 64.56 mL/min Estimated GFR (MDRD) > 60 (>60) BUN/Creatinine Ratio 35.7 H (9-20) Glucose 135 H (80-116) mg/dL Calcium 8.0 L (8.6-10.2) mg/dL Med Orders - Current: Current Medications Acetaminophen (Tylenol) 650 mg PO Q4H PRN PRN Reason: Pain (Mild 1-3)/fever Last Admin: 03/22/17 11:25 Dose: 650 mg Al Hydroxide/Mg Hydroxide (Mag-Al Susp) 30 ml PO Q2H PRN PRN Reason: Abdominal Pain Albuterol/Ipratropium (Duoneb 3.0-0.5 Mg/3 Ml) 3 ml NEB Q4H PRN PRN Reason: Wheezing Enoxaparin Sodium (Lovenox) 100 mg SUBCUT Q24H [facility] Last Admin: 04/21/17 17:56 Dose: 100 mg Heparin Sodium (Porcine) (Heparin Lock Flush 100 Units/Ml) 500 units FLUSH ASDIRECTED PRN PRN Reason: Keep Vein Open Last Admin: 04/16/17 09:20 Dose: 500 units Sodium Chloride (Normal Saline) 1,000 mls @ 75 mls/hr IV ASDIRECTED [facility] Last Admin: 04/22/17 07:31 Dose: 150 mls/hr Sodium Chloride (Normal Saline) 250 mls @ 100 mls/hr IV ASDIRECTED [facility] Latanoprost (Xalatan 0.005% Ophth Soln) 0 ml EYEBOTH BEDTIME [facility] Last Admin: 04/21/17 21:05 Dose: 1 drop Metoprolol Succinate (Toprol Xl) 25 mg PO DAILY [facility] Last Admin: 04/22/17 09:06 Dose: 25 mg Ondansetron HCl (Zofran Odt) 4 mg PO Q6H PRN PRN Reason: Nausea/Vomiting Last Admin: 04/19/17 11:13 Dose: 4 mg Pantoprazole Sodium (Protonix) 40 mg PO 0600 [facility] Last Admin: 04/22/17 06:52 Dose: 40 mg Potassium Chloride (Potassium Chloride Solution) 20 meq PO DAILY [facility] Last Admin: 04/22/17 09:07 Dose: 20 meq Saccharomyces Boulardii (Florastor) 250 mg JTUBE 1000,1600 [facility] Last Admin: 04/22/17 09:07 Dose: 250 mg Simvastatin (Zocor) 10 mg PO BEDTIME [facility] Last Admin: 04/21/17 21:05 Dose: 10 mg Sodium Chloride (Saline Flush) 10 ml FLUSH ASDIRECTED PRN PRN Reason: Keep Vein Open Last Admin: 04/16/17 08:45 Dose: 10 ml Sodium Chloride (Saline Flush) 10 ml FLUSH ASDIRECTED PRN PRN Reason: flush med Discontinued Medications Bisacodyl (Dulcolax) 10 mg RECTAL ONETIME ONE Stop: 03/22/17 08:59 Last Admin: 03/22/17 11:16 Dose: 10 mg Bupivacaine HCl (Marcaine 0.5%) 5 ml INJECT .STK-MED ONE Stop: 04/09/17 09:59 Last Admin: 04/09/17 09:58 Dose: 5 ml Enoxaparin Sodium (Lovenox) 80 mg SUBCUT Q12H [facility] Last Admin: 04/06/17 15:27 Dose: Not Given Enoxaparin Sodium (Lovenox) 80 mg SUBCUT Q12H [facility] Last Admin: 04/14/17 06:26 Dose: 80 mg Fentanyl (Sublimaze) 100 mcg IV .STK-MED ONE Stop: 03/25/17 10:01 Fentanyl (Sublimaze) 150 mcg IV .STK-MED ONE Stop: 04/09/17 09:31 Hydromorphone HCl (Dilaudid) 1 mg IVPUSH Q3H PRN PRN Reason: Pain Last Admin: 04/10/17 02:28 Dose: 1 mg Fat Emulsion Intravenous (Intralipid 20%) 250 mls @ 20 mls/hr IV Q24H [facility] Last Admin: 04/06/17 14:01 Dose: Not Given Multivitamins/Minerals 10 ml/Amino Ac/Electrol/Dextrose/Calcium 1,010 mls @ 84 mls/hr IV Q24H [facility] Stop: 03/23/17 13:30 Last Admin: 03/22/17 14:17 Dose: 42 mls/hr Multivitamins/Minerals 10 ml/Amino Ac/Electrol/Dextrose/Calcium 1,010 mls @ 84 mls/hr IV .BY DURATION [facility] Last Admin: 03/24/17 13:29 Dose: 84 mls/hr Amino Ac/Electrol/Dextrose/Calcium (Clinimix E 5/15) 1,000 mls @ 84 mls/hr IV .BY DURATION [facility] Last Admin: 03/25/17 02:17 Dose: 84 mls/hr Sodium Chloride (Normal Saline) 1,000 mls @ 50 mls/hr IV ASDIRECTED [facility] Last Admin: 04/09/17 17:14 Dose: 50 mls/hr Potassium Chloride 20 meq/ (Premix) 100 mls @ 50 mls/hr IV ONETIME ONE Stop: 03/24/17 10:10 Last Admin: 03/24/17 09:03 Dose: 50 mls/hr Potassium Chloride 20 meq/ (Premix) 100 mls @ 50 mls/hr IV ONETIME ONE Stop: 03/24/17 12:14 Last Admin: 03/24/17 11:06 Dose: 50 mls/hr Magnesium Sulfate 2 gm/ Premix 50 mls @ 8 mls/hr IV ONETIME ONE Stop: 03/24/17 23:14 Last Admin: 03/24/17 17:04 Dose: 8 mls/hr Multivitamins/Minerals 10 ml/Amino Ac/Electrol/Dextrose/Calcium 1,010 mls @ 84 mls/hr IV .BY DURATION [facility] Stop: 04/04/17 13:15 Last Admin: 04/05/17 10:57 Dose: Not Given Amino Ac/Electrol/Dextrose/Calcium (Clinimix E 12/08) 1,000 mls @ 84 mls/hr IV .BY DURATION [facility] Stop: 04/04/17 13:15 Last Admin: 04/04/17 00:54 Dose: 84 mls/hr Lactated Ringer's (Ringers, Lactated) 1,000 mls @ as directed IV .STK-MED ONE Stop: 03/25/17 10:01 Dextrose/Water (Dextrose 10% In Water) 1,000 mls @ as directed IV .STK-MED ONE Stop: 03/25/17 10:01 Magnesium Sulfate 2 gm/ Premix 50 mls @ 8 mls/hr IV ONETIME ONE Stop: 03/29/17 14:44 Last Admin: 03/29/17 10:00 Dose: 8 mls/hr Potassium Chloride 20 meq/ (Premix) 100 mls @ 50 mls/hr IV ONETIME ONE Stop: 04/03/17 09:15 Last Admin: 04/03/17 07:50 Dose: 50 mls/hr Dextrose/Water (Dextrose 10% In Water) 1,000 mls @ 84 mls/hr IV Q12H [facility] Stop: 04/05/17 22:00 Last Admin: 04/05/17 13:26 Dose: 84 mls/hr Dextrose/Water (Dextrose 10% In Water) 1,000 mls @ 42 mls/hr IV Q24H [facility] Stop: 04/06/17 06:00 Last Admin: 04/05/17 22:30 Dose: 42 mls/hr Potassium Chloride 20 meq/ (Premix) 100 mls @ 50 mls/hr IV ONETIME ONE Stop: 04/06/17 10:17 Last Admin: 04/06/17 08:35 Dose: 50 mls/hr Fat Emulsion Intravenous (Intralipid 20%) 250 mls @ 20 mls/hr IV Q24H [facility] Last Admin: 04/08/17 17:15 Dose: 20 mls/hr Multivitamins/Minerals 10 ml/Amino Ac/Electrol/Dextrose/Calcium 1,010 mls @ 42 mls/hr IV ONETIME ONE Stop: 04/07/17 18:02 Last Admin: 04/06/17 17:16 Dose: 42 mls/hr Multivitamins/Minerals 10 ml/Amino Ac/Electrol/Dextrose/Calcium 1,010 mls @ 84 mls/hr IV .BY DURATION [facility] Stop: 04/09/17 05:51 Last Admin: 04/08/17 11:45 Dose: 84 mls/hr Amino Ac/Electrol/Dextrose/Calcium (Clinimix E 12/08) 1,000 mls @ 84 mls/hr IV .BY DURATION [facility] Stop: 04/09/17 05:51 Last Admin: 04/09/17 01:08 Dose: 84 mls/hr Magnesium Sulfate (Magnesium Sulfate 2 Gm In Water 50 Ml) 50 mls @ 8 mls/hr IV ONETIME ONE Stop: 04/07/17 15:14 Last Admin: 04/07/17 09:22 Dose: 8 mls/hr Potassium Chloride 20 meq/ (Premix) 100 mls @ 50 mls/hr IV ONETIME ONE Stop: 04/07/17 11:59 Last Admin: 04/07/17 10:24 Dose: 50 mls/hr Potassium Chloride 20 meq/ (Premix) 100 mls @ 50 mls/hr IV ONETIME ONE Stop: 04/07/17 13:59 Last Admin: 04/07/17 12:32 Dose: 50 mls/hr Dextrose/Water (Dextrose 10% In Water) 1,000 mls @ 42 mls/hr IV ASDIRECTED [facility] Cefazolin Sodium 1 gm/ Sodium (Chloride) 50 mls @ 100 mls/hr IV ONETIME ONE Stop: 04/09/17 09:59 Last Admin: 04/09/17 08:59 Dose: 100 mls/hr Potassium Chloride/Dextrose/Sod Cl (D5 1/2 Ns W/ 20 Meq/L Kcl) 1,000 mls @ 75 mls/hr IV Q8H [facility] Last Admin: 04/12/17 04:55 Dose: 75 mls/hr Potassium Chloride 20 meq/ (Premix) 100 mls @ 50 mls/hr IV ONETIME ONE Stop: 04/09/17 19:31 Last Admin: 04/09/17 17:59 Dose: 50 mls/hr Sodium Chloride (Normal Saline) 500 mls @ 500 mls/hr IV .BOLUS ONE Stop: 04/21/17 09:02 Last Admin: 04/21/17 08:51 Dose: 500 mls/hr Insulin Aspart (Novolog) 0 unit SUBCUT WITHMEALSANDBED [facility] PRN Reason: Protocol Last Admin: 03/25/17 18:57 Dose: Not Given Ketorolac Tromethamine (Toradol) 15 mg IVPUSH Q6H PRN PRN Reason: Pain (moderate 4-6) Last Admin: 04/11/17 21:54 Dose: 15 mg Ketorolac Tromethamine (Toradol) 15 mg IVPUSH .STK-MED ONE Stop: 04/09/17 09:31 Lidocaine HCl (Xylocaine 2% Jelly) 5 ml MUCMEM Q4H PRN PRN Reason: Pain Last Admin: 03/27/17 13:05 Dose: 5 ml Lidocaine HCl (Xylocaine 2% Jelly) 5 ml MUCMEM 07 [facility] Last Admin: 04/06/17 07:38 Dose: 5 ml Lidocaine HCl (Xylocaine 2% Viscous) 15 ml PO 07 [facility] Lidocaine HCl (Xylocaine 2% Viscous) Confirm Administered Dose 15 ml .ROUTE .STK -MED ONE Stop: 04/06/17 07:35 Last Admin: 04/06/17 07:55 Dose: Not Given Lidocaine HCl (Xylocaine 2% Viscous) 15 ml PO 0700 [facility] Stop: 04/06/17 07:01 Last Admin: 04/06/17 07:35 Dose: 15 ml Lidocaine HCl (Xylocaine 2% Jelly) 5 ml MUCMEM ONETIME ONE Stop: 04/09/17 07:58 Last Admin: 04/09/17 11:15 Dose: Not Given Lidocaine HCl (Xylocaine 2% Viscous) 15 ml PO ONETIME ONE Stop: 04/09/17 08:16 Last Admin: 04/09/17 11:15 Dose: Not Given Lidocaine HCl (Xylocaine 2%) 100 mg IVPUSH .STK-MED ONE Stop: 04/09/17 09:31 Lidocaine/Epinephrine (Xylocaine 1% With Epinephrine 1:100,000) 5 ml INJECT .STK-MED ONE Stop: 04/09/17 09:59 Last Admin: 04/09/17 09:58 Dose: 5 ml Metoclopramide HCl (Reglan) 5 mg IV Q6H [facility] Last Admin: 03/23/17 08:24 Dose: 5 mg Metoprolol Succinate (Toprol Xl) 50 mg PO DAILY [facility] Midazolam HCl (Versed 1 Mg/Ml) 1 mg IV .STK-MED ONE Stop: 03/25/17 10:01 Midazolam HCl (Versed 1 Mg/Ml) 0.5 mg IV .STK-MED ONE Stop: 04/09/17 09:31 Morphine Sulfate (Morphine) 2 mg IVPUSH Q2H PRN PRN Reason: Pain (severe 7-10) Last Admin: 04/09/17 13:31 Dose: 2 mg Morphine Sulfate (Morphine) 2 mg IVPUSH Q3M PRN PRN Reason: Abdominal Pain Ondansetron HCl (Zofran) 4 mg IV Q6H PRN PRN Reason: Nausea/Vomiting Last Admin: 04/06/17 02:17 Dose: 4 mg Ondansetron HCl (Zofran) 4 mg IVPUSH .STK-MED ONE Stop: 04/09/17 09:31 Pantoprazole Sodium (Protonix Iv) 40 mg IVPUSH DAILY [facility] Last Admin: 04/16/17 08:45 Dose: 40 mg Phenylephrine HCl (Deni-Synephrine) 0.4 mg IV .STK-MED ONE Stop: 04/09/17 09:31 Phytonadione (Aquamephyton) 10 mg IM Mo [facility] Last Admin: 04/06/17 07:57 Dose: Not Given Propofol (Diprivan 20 Ml) 100 mg IV .STK-MED ONE Stop: 03/25/17 10:01 Propofol (Diprivan 20 Ml) 180 mg IV .STK-MED ONE Stop: 04/09/17 09:31 Rocuronium Sullivan (Zemuron) 5 mg IV .STK-MED ONE Stop: 04/09/17 09:31 Saccharomyces Boulardii (Florastor) 250 mg GTUBE BID [facility] Last Admin: 04/15/17 09:04 Dose: 250 mg Saccharomyces Boulardii (Florastor) 250 mg JTUBE BID [facility] Last Admin: 04/16/17 20:32 Dose: 250 mg Saccharomyces Boulardii (Florastor) 250 mg JTUBE BID@0800,1800 [facility] Last Admin: 04/20/17 08:19 Dose: 250 mg Succinylcholine Chloride (Quelicin) 140 mg IV .STK-MED ONE Stop: 04/09/17 09:31 Sucralfate (Carafate) 1 gm PO Q6H [facility] Last Admin: 03/25/17 11:28 Dose: Not Given - Exam Lungs: Clear to Auscultation, Normal Respiratory Effort Cardiovascular: Regular Rate, Regular Rhythm GI/Abdominal Exam: Normal Bowel Sounds, Soft, Non-Tender, No Organomegaly - Problem List & Annotations (1) Gastroparesis SNOMED Code(s): 080104470 Code(s): K31.84 - GASTROPARESIS Status: Acute Current Visit: No (2) DVT, lower extremity, distal SNOMED Code(s): 959644852 Code(s): I82.4Z9 - ACUTE EMBLSM AND THOMBOS UNSP DEEP VN UNSP DISTAL LOW EXTRM Status: Acute Current Visit: Yes Qualifiers: Chronicity: unspecified Laterality: left Qualified Code(s): I82.4Z2 - Acute embolism and thrombosis of unspecified deep veins of left distal lower extremity - Problem List Review Problem List Initiated/Reviewed/Updated: Yes - My Orders Last 24 Hours: Active Orders 24 hr Category Date Time Status Alum Hydroxide/Mag Hydroxide [Mag-Al Susp] Med 04/22/17 11:42 Active 30 ml PO Q2H PRN Medication Orders Acetaminophen (Tylenol) 650 mg PO Q4H PRN PRN Reason: Pain (Mild 1-3)/fever Last Admin: 03/22/17 11:25 Dose: 650 mg Al Hydroxide/Mg Hydroxide (Mag-Al Susp) 30 ml PO Q2H PRN PRN Reason: Abdominal Pain Albuterol/Ipratropium (Duoneb 3.0-0.5 Mg/3 Ml) 3 ml NEB Q4H PRN PRN Reason: Wheezing Enoxaparin Sodium (Lovenox) 100 mg SUBCUT Q24H [facility] Last Admin: 04/21/17 17:56 Dose: 100 mg Admin: 04/20/17 18:01 Dose: 100 mg Admin: 04/19/17 18:22 Dose: 100 mg Admin: 04/18/17 17:37 Dose: 100 mg Admin: 04/17/17 18:40 Dose: 100 mg Admin: 04/16/17 17:51 Dose: 100 mg Admin: 04/15/17 17:14 Dose: 100 mg Admin: 04/14/17 18:05 Dose: 100 mg Heparin Sodium (Porcine) (Heparin Lock Flush 100 Units/Ml) 500 units FLUSH ASDIRECTED PRN PRN Reason: Keep Vein Open Last Admin: 04/16/17 09:20 Dose: 500 units Admin: 04/16/17 08:56 Dose: 500 units Admin: 04/14/17 10:35 Dose: 500 units Admin: 04/12/17 16:39 Dose: 500 units Admin: 04/06/17 09:49 Dose: 500 units Admin: 04/01/17 10:10 Dose: 500 units Admin: 03/22/17 10:11 Dose: 500 units Sodium Chloride (Normal Saline) 1,000 mls @ 75 mls/hr IV ASDIRECTED [facility] Last Admin: 04/22/17 07:31 Dose: 150 mls/hr Infusion: 04/22/17 07:26 Dose: 150 mls/hr Admin: 04/22/17 00:45 Dose: 150 mls/hr Infusion: 04/22/17 00:35 Dose: 150 mls/hr Admin: 04/21/17 17:54 Dose: 150 mls/hr Infusion: 04/21/17 17:45 Dose: 150 mls/hr Admin: 04/21/17 11:04 Dose: 150 mls/hr Infusion: 04/21/17 07:51 Dose: 125 mls/hr Admin: 04/20/17 23:51 Dose: 125 mls/hr Infusion: 04/20/17 18:14 Dose: 125 mls/hr Admin: 04/20/17 10:14 Dose: 125 mls/hr Sodium Chloride (Normal Saline) 250 mls @ 100 mls/hr IV ASDIRECTED [facility] Latanoprost (Xalatan 0.005% Ophth Soln) 0 ml EYEBOTH BEDTIME [facility] Last Admin: 04/21/17 21:05 Dose: 1 drop Admin: 04/20/17 20:08 Dose: 1 drop Admin: 04/19/17 21:11 Dose: 1 drop Admin: 04/18/17 20:09 Dose: 1 drop Admin: 04/17/17 21:47 Dose: 1 drop Admin: 04/16/17 20:33 Dose: 1 drop Admin: 04/15/17 20:14 Dose: 1 drop Admin: 04/14/17 20:50 Dose: 1 drop Admin: 04/13/17 20:40 Dose: 1 drop Admin: 04/12/17 21:51 Dose: 1 drop Admin: 04/11/17 20:49 Dose: 1 drop Admin: 04/10/17 21:33 Dose: 1 drop Admin: 04/09/17 20:25 Dose: 1 drop Admin: 04/08/17 21:33 Dose: 1 drop Admin: 04/07/17 20:51 Dose: 1 drop Admin: 04/06/17 20:37 Dose: 1 drop Admin: 04/05/17 20:39 Dose: 1 drop Admin: 04/04/17 21:00 Dose: 1 drop Admin: 04/03/17 20:54 Dose: 1 drop Admin: 04/02/17 20:03 Dose: 1 drop Admin: 04/01/17 20:53 Dose: 1 drop Admin: 03/31/17 20:32 Dose: 1 drop Admin: 03/30/17 20:28 Dose: 1 drop Admin: 03/29/17 20:34 Dose: 1 drop Admin: 03/28/17 20:58 Dose: 1 drop Admin: 03/27/17 20:48 Dose: 1 drop Admin: 03/26/17 20:21 Dose: 1 drop Admin: 03/25/17 23:06 Dose: 1 drop Admin: 03/24/17 20:03 Dose: 1 drop Admin: 03/23/17 22:01 Dose: 1 drop Admin: 03/22/17 20:37 Dose: 1 drop Admin: 03/21/17 21:05 Dose: 1 drop Metoprolol Succinate (Toprol Xl) 25 mg PO DAILY [facility] Last Admin: 04/22/17 09:06 Dose: 25 mg Admin: 04/21/17 09:47 Dose: 25 mg Admin: 04/20/17 08:20 Dose: 25 mg Admin: 04/19/17 08:10 Dose: 25 mg Admin: 04/18/17 08:17 Dose: 25 mg Admin: 04/17/17 08:31 Dose: 25 mg Admin: 04/16/17 08:48 Dose: 25 mg Admin: 04/15/17 09:04 Dose: 25 mg Admin: 04/14/17 09:47 Dose: 25 mg Admin: 04/13/17 09:45 Dose: 25 mg Admin: 04/12/17 08:08 Dose: 25 mg Admin: 04/11/17 09:57 Dose: 25 mg Admin: 04/10/17 09:49 Dose: 25 mg Admin: 04/09/17 12:45 Dose: Admin: 04/08/17 08:57 Dose: 25 mg Admin: 04/07/17 09:21 Dose: 25 mg Admin: 04/06/17 09:38 Dose: 25 mg Admin: 04/05/17 08:32 Dose: 25 mg Admin: 04/04/17 09:44 Dose: 25 mg Admin: 04/03/17 08:47 Dose: 25 mg Admin: 04/02/17 08:52 Dose: 25 mg Admin: 04/01/17 09:34 Dose: 25 mg Admin: 03/31/17 08:35 Dose: 25 mg Admin: 03/30/17 10:46 Dose: 25 mg Admin: 03/29/17 10:04 Dose: 25 mg Admin: 03/28/17 08:45 Dose: 25 mg Admin: 03/27/17 08:28 Dose: 25 mg Admin: 03/26/17 08:43 Dose: 25 mg Admin: 03/25/17 11:32 Dose: 25 mg Admin: 03/24/17 08:30 Dose: 25 mg Admin: 03/23/17 08:21 Dose: 25 mg Admin: 03/22/17 09:59 Dose: 25 mg Ondansetron HCl (Zofran Odt) 4 mg PO Q6H PRN PRN Reason: Nausea/Vomiting Last Admin: 04/19/17 11:13 Dose: 4 mg Pantoprazole Sodium (Protonix) 40 mg PO 0600 [facility] Last Admin: 04/22/17 06:52 Dose: 40 mg Admin: 04/21/17 06:16 Dose: 40 mg Admin: 04/20/17 06:40 Dose: 40 mg Admin: 04/19/17 06:53 Dose: 40 mg Admin: 04/18/17 06:15 Dose: 40 mg Admin: 04/17/17 05:55 Dose: 40 mg Potassium Chloride (Potassium Chloride Solution) 20 meq PO DAILY [facility] Last Admin: 04/22/17 09:07 Dose: 20 meq Admin: 04/21/17 09:59 Dose: 20 meq Saccharomyces Manueli (Florastor) 250 mg JTUBE 1000,1600 [facility] Last Admin: 04/22/17 09:07 Dose: 250 mg Admin: 04/21/17 16:10 Dose: 250 mg Admin: 04/21/17 09:58 Dose: 250 mg Admin: 04/20/17 16:19 Dose: 250 mg Simvastatin (Zocor) 10 mg PO BEDTIME [facility] Last Admin: 04/21/17 21:05 Dose: 10 mg Admin: 04/20/17 20:08 Dose: 10 mg Admin: 04/19/17 21:11 Dose: 10 mg Admin: 04/18/17 20:10 Dose: 10 mg Admin: 04/17/17 21:47 Dose: 10 mg Admin: 04/16/17 20:34 Dose: 10 mg Sodium Chloride (Saline Flush) 10 ml FLUSH ASDIRECTED PRN PRN Reason: Keep Vein Open Last Admin: 04/16/17 08:45 Dose: 10 ml Admin: 04/15/17 09:05 Dose: 10 ml Admin: 04/14/17 10:35 Dose: 10 ml Admin: 04/13/17 09:46 Dose: 10 ml Admin: 04/12/17 10:30 Dose: 10 ml Admin: 04/07/17 06:25 Dose: 10 ml Admin: 04/06/17 09:46 Dose: 10 ml Admin: 04/06/17 06:12 Dose: 10 ml Admin: 04/06/17 02:17 Dose: 10 ml Admin: 04/04/17 21:01 Dose: 10 ml Admin: 04/04/17 03:41 Dose: 10 ml Admin: 04/03/17 12:29 Dose: 10 ml Admin: 04/01/17 10:10 Dose: 10 ml Admin: 04/01/17 06:17 Dose: 10 ml Admin: 04/01/17 02:53 Dose: 10 ml Admin: 03/31/17 22:34 Dose: 10 ml Admin: 03/31/17 16:01 Dose: 10 ml Admin: 03/31/17 03:40 Dose: 10 ml Admin: 03/30/17 22:32 Dose: 10 ml Admin: 03/30/17 22:28 Dose: 10 ml Admin: 03/30/17 16:36 Dose: 10 ml Admin: 03/30/17 10:47 Dose: 10 ml Admin: 03/29/17 10:05 Dose: 10 ml Admin: 03/29/17 01:52 Dose: 10 ml Admin: 03/28/17 23:21 Dose: 10 ml Admin: 03/26/17 23:31 Dose: 10 ml Admin: 03/26/17 14:56 Dose: 10 ml Admin: 03/26/17 08:57 Dose: 10 ml Admin: 03/25/17 11:33 Dose: 10 ml Admin: 03/25/17 08:40 Dose: 10 ml Admin: 03/23/17 04:55 Dose: 10 ml Admin: 03/23/17 01:48 Dose: 10 ml Admin: 03/22/17 22:11 Dose: 10 ml Admin: 03/22/17 22:10 Dose: 10 ml Admin: 03/22/17 20:06 Dose: 10 ml Admin: 03/22/17 15:43 Dose: 10 ml Admin: 03/22/17 10:10 Dose: 10 ml Admin: 03/22/17 10:04 Dose: 10 ml Admin: 03/22/17 03:24 Dose: 10 ml Admin: 03/22/17 03:12 Dose: 10 ml Admin: 03/21/17 21:09 Dose: 10 ml Sodium Chloride (Saline Flush) 10 ml FLUSH ASDIRECTED PRN PRN Reason: flush med - Assessment Assessment (Free Text/Narrative):: lab work is better - Plan Plan (Free Text/Narrative):: will have ngt output replaced by flushes of ns during the day myl[place] for the gi upset decrease IVF rate to 75 ml/hr.
[2017-04-22] MEDS: Aluminum Hydroxide/Magnesium Hydroxide Susp 30 ML Cup PO PRN ×2 (14:12→17:26)
[2017-04-22] MEDS: Ondansetron 4 MG Tab.DIS PO PRN (17:26)
[2017-04-22] MEDS: Enoxaparin 100 MG/1 ML Syringe SUBCUT SCH (17:26)
[2017-04-22] MEDS ORDERED: hydrOXYzine HCl 50 MG/ML SDV PRN (17:54)
[2017-04-22] MEDS ORDERED: HYDROmorphone 2 MG/ML SDV IVPUSH PRN (17:55)
[2017-04-22] MEDS: Latanoprost 0.005% Ophth Soln 2.5 ML Bottle EYEBOTH SCH (20:44)
[2017-04-22] MEDS: Simvastatin 10 MG Tab PO SCH (20:44)
[2017-04-23] MEDS: Sodium Chloride 0.9% 1,000 ML IV SCH ×2 (06:00→19:54)
[2017-04-23] MEDS: Pantoprazole 40 MG Tab.CR PO SCH (06:05)
[2017-04-23] MEDS: Potassium Chloride 10% 20 MEQ/15 ML Soln 15 ML UD Cup PO SCH (08:50)
[2017-04-23] MEDS: Metoprolol Succinate 25 MG Tab.ER PO SCH (08:51)
[2017-04-23] MEDS: Saccharomyces Boulardii (Probiotic) 250 MG Cap JTUBE SCH ×2 (09:06→15:58)
--- NOTE | 2017-04-23 09:50 | PCM.CONS ---
H&P History of Present Illness - General Date of Service: 04/23/17 Admit Problem/Dx: Admission Diagnosis/Problem Admission Diagnosis/Problem Gastroparesis Source of Information: Patient History Limitations: Reports: No Limitations - History of Present Illness Initial Comments - Free Text/Narative: This is an 89-year-old male patient of Dr. Gutierrez asked me to see in regards to depression. He's been in the hospital for 5 weeks for gastroparesis and now is on tube feeding. No etiology has been found. He has no history of depression in the past. He states he is a little down the dose but nothing he can handle. He says he sleep in okay. He denies concentration problems, memory problems or suicidal ideation. He says he is running out of hope in hopes the situation will turnaround for him. Left Chest Pain Score (Numeric/FACES): 2 Left Hip Pain Score (Numeric/FACES): 2 L lower abdomen Pain Score (Numeric/FACES): 3 abdomen Pain Score (Numeric/FACES): 3 denies pain when asked Pain Score (Numeric/FACES): 0 L leg Pain Score (Numeric/FACES): 3 - Related Data Allergies/Adverse Reactions: Allergies Allergy/AdvReac Type Severity Reaction Status Date / Time No Known Allergies Allergy Verified 03/09/17 17:32 Home Medications: Home Meds Metoprolol Succinate [Toprol XL] 50 mg PO DAILY 08/06/14 [History] [place]-3 Fatty Acids [Tilton-3] 1,000 mg PO BID 08/06/14 [History] Simvastatin [Zocor] 10 mg PO BEDTIME 08/06/14 [History] Pantoprazole Sodium [Protonix] 40 mg PO DAILY 02/09/17 [History] Travoprost [Travatan Z 0.004% Ophth Soln] 1 drop EYEBOTH BEDTIME 02/13/17 [ History] Erythromycin Base [Sharad-Tab] 500 mg PO BID 03/03/17 [History] Potassium Chloride [Klor-Con M20] 20 meq PO BID 03/03/17 [History] Past Medical History HEENT History: Reports: Glaucoma, Impaired Vision, Other (See Below) Other HEENT History: ACOUSTIC NEUROMA Cardiovascular History: Reports: CAD, High Cholesterol, Hypertension Respiratory History: Reports: None Other Respiratory History: couple of cases of pneumonia Gastrointestinal History: Reports: Diverticulosis, GERD, Other (See Below) Other Gastrointestinal History: dx last week, recent hx of gastroparesis Genitourinary History: Reports: None [employer] History: Reports: None Musculoskeletal History: Reports: Osteoarthritis Neurological History: Reports: None Other Neuro History: 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 Psychiatric History: Reports: None Endocrine/Metabolic History: Reports: None Hematologic History: Reports: Transfusion Reaction Immunologic History: Reports: None Oncologic (Cancer) History: Reports: None Dermatologic History: Reports: None - Infectious Disease History Infectious Disease History: Reports: Chicken Pox, Measles, Mumps, Shingles - Past Surgical History Head Surgeries/Procedures: Reports: None HEENT Surgical History: Reports: Oral Surgery, Tonsillectomy Cardiovascular Surgical History: Reports: Carotid Stents, Coronary Artery Bypass , Valve Replacement Respiratory Surgical History: Reports: None GI Surgical History: Reports: Colonoscopy, EGD, Hernia, Inguinal Male Surgical History: Reports: None Endocrine Surgical History: Reports: None Neurological Surgical History: Reports: None Musculoskeletal Surgical History: Reports: None Oncologic Surgical History: Reports: None Social & Family History - Family History Family Medical History: Noncontributory Oncologic: Reports: Breast - Tobacco Use Smoking Status *Q: Never Smoker Years of Tobacco use: 10 Packs/Tins Daily: 0 Used Tobacco, but Quit: Yes Month Tobacco Last Used: unknown Second Hand Smoke Exposure: No - Caffeine Use Caffeine Use: Reports: Coffee, Tea Other Caffeine Use: 2 cups per day Caffeine Use Comment: 3-4 CUPS COFFEE - Alcohol Use Days Per Week of Alcohol Use: 1 Number of Drinks Per Day: 0 Total Drinks Per Week: 0 - Recreational Drug Use Recreational Drug Use: No Drug Use in Last 12 Months: No H&P Review of Systems - Review of Systems: Review Of Systems: See Below General: Reports: No Symptoms Psychiatric: Reports: Other (His affect is still good when I talk to him. His insight is good. He has no crying spells. He does not look sad although he states he feels a little bit sad.). Denies: Confusion, Mood Lability, Anxiety, Agitation, Hallucinations, Suicidal Ideation Exam - Exam Exam: See Below - Vital Signs Vital Signs: Last Vital Signs Temp 99.0 F 04/22/17 08:44 Pulse 70 04/23/17 08:51 Resp 18 04/22/17 08:44 BP 118/21 L 04/23/17 08:51 Pulse Ox 96 04/22/17 08:44 Weight: 157 lb 11.2 oz - Exam Neuro Extensive - Mental Status: Alert, Oriented x3, Normal Mood/Affect, Normal Cognition, Memory Intact - Patient Data Result Diagrams: 04/09/17 07:00 04/22/17 07:00 Consult PN Assessment/Plan Procedures: Procedures AGENT NOS ASSAY W/OPTIC (08/23/16) ANESTH ANORECTAL SURGERY (12/05/16) ANESTH UPPER GI VISUALIZE (02/10/17) ASSAY OF AMYLASE (08/26/16) ASSAY OF NATRIURETIC PEPTIDE (08/26/16) ASSAY OF SERUM POTASSIUM (08/26/16) ASSAY OF TROPONIN QUANT (08/26/16) ASSAY PH BODY FLUID NOS (08/23/16) BLOOD TRANSFUSION SERVICE (08/26/16) BLOOD TYPING SEROLOGIC ABO (08/26/16) BLOOD TYPING SEROLOGIC RH(D) (08/26/16) CHEST X-RAY 2VW FRONTAL&LATL (03/09/17) COMPATIBILITY TEST ANTIGLOB (08/26/16) COMPATIBILITY TEST SPIN (08/26/16) COMPLETE CBC AUTOMATED (03/03/17) COMPLETE CBC W/AUTO DIFF WBC (03/09/17) COMPREHEN METABOLIC PANEL (03/09/17) CT ABD & PELV W/CONTRAST (02/05/17) EGD BIOPSY SINGLE/MULTIPLE (02/10/17) EGD DIAGNOSTIC BRUSH WASH (12/05/16) ELECTROCARDIOGRAM TRACING (08/26/16) EMERGENCY DEPT VISIT (03/03/17) EMERGENCY DEPT VISIT (08/26/16) EMERGENCY DEPT VISIT (08/23/16) EMERGENCY DEPT VISIT (08/23/16) EMERGENCY DEPT VISIT (08/06/14) EMERGENCY DEPT VISIT (08/06/14) FECES CULTURE AEROBIC BACT (08/23/16) FLUOROGUIDE FOR VEIN DEVICE (03/09/17) GLUCOSE BLOOD TEST (03/09/17) HEMATOCRIT (08/26/16) HEMOGLOBIN (01/01/17) HEPATIC FUNCTION PANEL (08/26/16) HPYLORI STOOL IA (08/23/16) HYDRATE IV INFUSION ADD-ON (03/03/17) IMMUNOHISTO ANTB 1ST STAIN (02/10/17) LACTOFERRIN FECAL (QUAL) (08/23/16) METABOLIC PANEL TOTAL CA (03/09/17) OCCULT BLD FECES 1-3 TESTS (08/26/16) PROTHROMBIN TIME (03/09/17) PT EVAL LOW COMPLEX 20 MIN (03/09/17) RBC ANTIBODY SCREEN (08/26/16) ROUTINE VENIPUNCTURE (03/09/17) SPECIMEN INFECT AGNT CONCNTJ (08/23/16) STOOL CULTR AEROBIC BACT EA (08/23/16) THER/PROPH/DIAG INJ IV PUSH (03/03/17) THER/PROPH/DIAG IV INF INIT (08/26/16) THROMBOPLASTIN TIME PARTIAL (08/26/16) TISSUE EXAM BY PATHOLOGIST (02/10/17) TX/PRO/DX INJ NEW DRUG ADDON (08/23/16) URINALYSIS AUTO W/SCOPE (08/26/16) US GUIDE VASCULAR ACCESS (03/09/17) VITAL CAPACITY TEST (03/09/17) X-RAY EXAM OF ABDOMEN (03/09/17) X-RAY EXAM OF ABDOMEN (03/09/17) X-RAY UPPER GI DELAY W/O KUB (12/10/16) (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 Discussed treatment with the patient. He does not want to try any medication at this time. He states if he gets worse he will then asked for. 2. The patient does ask for an antidepressant would consider using Prozac a small dose which we 10 mg a day and then titrate up every 3-6 weeks. 3. Counseling could be discussed in the future. I did not discuss that with him at this time.
[2017-04-23] MEDS: Enoxaparin 100 MG/1 ML Syringe SUBCUT SCH (17:26)
[2017-04-23] MEDS: Latanoprost 0.005% Ophth Soln 2.5 ML Bottle EYEBOTH SCH (21:40)
[2017-04-23] MEDS: Simvastatin 10 MG Tab PO SCH (21:40)
[2017-04-24] MEDS: Pantoprazole 40 MG Tab.CR PO SCH (06:50)
[2017-04-24] MEDS: Sodium Chloride 0.9% 1,000 ML IV SCH (08:31)
[2017-04-24] MEDS: Metoprolol Succinate 25 MG Tab.ER PO SCH (08:36)
[2017-04-24] MEDS: Potassium Chloride 10% 20 MEQ/15 ML Soln 15 ML UD Cup PO SCH (08:36)
[2017-04-24 08:37] VITALS: BP 126/80
[2017-04-24] MEDS: Saccharomyces Boulardii (Probiotic) 250 MG Cap JTUBE SCH (10:06)
--- NOTE | 2017-04-24 11:32 | PCM.DCSUM1 ---
Discharge Summary - Discharge Data Discharge Date: 04/24/17 Discharge Disposition: Home, Self-Care 01 Condition: Good - Discharge Diagnosis/Problem(s) (1) Gastroparesis SNOMED Code(s): 637982968 ICD Code: K31.84 - GASTROPARESIS Status: Acute Current Visit: No (2) DVT, lower extremity, distal SNOMED Code(s): 352042405 ICD Code: I82.4Z9 - ACUTE EMBLSM AND THOMBOS UNSP DEEP VN UNSP DISTAL LOW EXTRM Status: Acute Current Visit: Yes Qualifiers: Chronicity: unspecified Laterality: left Qualified Code(s): I82.4Z2 - Acute embolism and thrombosis of unspecified deep veins of left distal lower extremity - Patient Summary/Data Operative Procedure(s) Performed: gastrostomy tube placement. feeding jejunostomy tube placement Consults: Consultations 04/14/17 17:06 OT Evaluation and Treatment [CONS] Routine Please Evaluate and Treat. OT Reason for Consult: Discharge Planning This query below is only for informational purposes and is not editable. Admission Diagnosis/Problem: Gastroparesis PT Evaluation and Treatment [CONS] Routine Please Evaluate and Treat. PT Reason for Consult: Strengthening Special Instructions: going home soon This query below is only for informational purposes and is not editable. Admission Diagnosis/Problem: Gastroparesis - Patient Instructions Diet, Other: tube feedings as currently doing Activity: As Tolerated Driving: Do Not Drive Showering/Bathing: May Shower, No Tub Bathing/Swimming Notify Provider of: Fever, Swelling and Redness, Drainage - Discharge Plan Prescriptions/Med Rec: Acetaminophen/Codeine [Tylenol/Codeine 120-12 MG/5 ML] 15 ml PO Q4H #118 ml Enoxaparin [Lovenox] 100 mg SUBCUT Q24H 30 Days #30 syringe Metoprolol Succinate [Toprol XL] 25 mg PO DAILY #30 tab.er Ondansetron [Zofran ODT] 4 mg PO Q6H PRN #30 tab.dis PRN Reason: Nausea/Vomiting Potassium Chloride [Potassium Chloride Solution] 20 meq PO DAILY #30 cup Home Medications: Home Meds [place]-3 Fatty Acids [[place]-3] 1,000 mg PO BID 08/06/14 [History] Travoprost [Travatan Z 0.004% Ophth Soln] 1 drop EYEBOTH BEDTIME 02/13/17 [ History] Acetaminophen/Codeine [Tylenol/Codeine 120-12 MG/5 ML] 15 ml PO Q4H #118 ml [Rx] Enoxaparin [Lovenox] 100 mg SUBCUT Q24H 30 Days #30 syringe 04/24/17 [Rx] Latanoprost [Xalatan 0.005% Ophth Soln] 0 ml EYEBOTH BEDTIME bottle 04/24/17 [ Rx] Metoprolol Succinate [Toprol XL] 25 mg PO DAILY #30 tab.er 04/24/17 [Rx] Ondansetron [Zofran ODT] 4 mg PO Q6H PRN #30 tab.dis 04/24/17 [Rx] Pantoprazole [ProTONIX] 40 mg PO 0600 tab.cr 04/24/17 [Rx] Potassium Chloride [Potassium Chloride Solution] 20 meq PO DAILY #30 cup [Rx] Simvastatin [Zocor] 10 mg PO BEDTIME tablet 04/24/17 [Rx] Patient Handouts: Deep Vein Thrombosis Referrals: Wolf Gutierrez MD [Physician] - 04/28/17 - Discharge Summary/Plan Comment DC Time >30 min.: Yes Discharge Summary/Plan Comment: see above - Patient Data Vitals - Most Recent: Last Vital Signs Temp 37.2 C 04/22/17 08:44 Pulse 67 04/24/17 08:36 Resp 18 04/22/17 08:44 BP 126/80 04/24/17 08:36 Pulse Ox 96 04/22/17 08:44 Weight - Most Recent: 70.851 kg I&O - Last 24 hours: Intake & Output 04/23/17 04/24/17 04/24/17 22:59 06:59 14:59 Intake Total 379 1249 1775 Output Total 0482 Balance [phone] -[phone] Med Orders - Current: Current Medications Acetaminophen (Tylenol) 650 mg PO Q4H PRN PRN Reason: Pain (Mild 1-3)/fever Last Admin: 03/22/17 11:25 Dose: 650 mg Al Hydroxide/Mg Hydroxide (Mag-Al Susp) 30 ml PO Q2H PRN PRN Reason: Abdominal Pain Last Admin: 04/22/17 17:26 Dose: 30 ml Albuterol/Ipratropium (Duoneb 3.0-0.5 Mg/3 Ml) 3 ml NEB Q4H PRN PRN Reason: Wheezing Enoxaparin Sodium (Lovenox) 100 mg SUBCUT Q24H [facility] Last Admin: 04/23/17 17:26 Dose: 100 mg Heparin Sodium (Porcine) (Heparin Lock Flush 100 Units/Ml) 500 units FLUSH ASDIRECTED PRN PRN Reason: Keep Vein Open Last Admin: 04/16/17 09:20 Dose: 500 units Hydromorphone HCl (Dilaudid) 1 mg IVPUSH Q2H PRN PRN Reason: Pain Last Admin: 04/22/17 18:09 Dose: 1 mg Sodium Chloride (Normal Saline) 1,000 mls @ 75 mls/hr IV ASDIRECTED [facility] Last Admin: 04/24/17 08:31 Dose: 75 mls/hr Sodium Chloride (Normal Saline) 250 mls @ 100 mls/hr IV ASDIRECTED [facility] Latanoprost (Xalatan 0.005% Oph Soln) 0 ml EYEBOTH BEDTIME [facility] Last Admin: 04/23/17 21:40 Dose: 1 drop Metoprolol Succinate (Toprol Xl) 25 mg PO DAILY [facility] Last Admin: 04/24/17 08:36 Dose: 25 mg Ondansetron HCl (Zofran Odt) 4 mg PO Q6H PRN PRN Reason: Nausea/Vomiting Last Admin: 04/22/17 17:26 Dose: 4 mg Pantoprazole Sodium (Protonix) 40 mg PO 0600 [facility] Last Admin: 04/24/17 06:50 Dose: 40 mg Potassium Chloride (Potassium Chloride Solution) 20 meq PO DAILY [facility] Last Admin: 04/24/17 08:36 Dose: 20 meq Saccharomyces Boulardii (Florastor) 250 mg JTUBE 1000,1600 [facility] Last Admin: 04/24/17 10:06 Dose: 250 mg Simvastatin (Zocor) 10 mg PO BEDTIME [facility] Last Admin: 04/23/17 21:40 Dose: 10 mg Sodium Chloride (Saline Flush) 10 ml FLUSH ASDIRECTED PRN PRN Reason: Keep Vein Open Last Admin: 04/16/17 08:45 Dose: 10 ml Sodium Chloride (Saline Flush) 10 ml FLUSH ASDIRECTED PRN PRN Reason: flush med Discontinued Medications Bisacodyl (Dulcolax) 10 mg RECTAL ONETIME ONE Stop: 03/22/17 08:59 Last Admin: 03/22/17 11:16 Dose: 10 mg Bupivacaine HCl (Marcaine 0.5%) 5 ml INJECT .STK-MED ONE Stop: 04/09/17 09:59 Last Admin: 04/09/17 09:58 Dose: 5 ml Enoxaparin Sodium (Lovenox) 80 mg SUBCUT Q12H [facility] Last Admin: 04/06/17 15:27 Dose: Not Given Enoxaparin Sodium (Lovenox) 80 mg SUBCUT Q12H [facility] Last Admin: 04/14/17 06:26 Dose: 80 mg Fentanyl (Sublimaze) 100 mcg IV .STK-MED ONE Stop: 03/25/17 10:01 Fentanyl (Sublimaze) 150 mcg IV .STK-MED ONE Stop: 04/09/17 09:31 Hydromorphone HCl (Dilaudid) 1 mg IVPUSH Q3H PRN PRN Reason: Pain Last Admin: 04/10/17 02:28 Dose: 1 mg Fat Emulsion Intravenous (Intralipid 20%) 250 mls @ 20 mls/hr IV Q24H [facility] Last Admin: 04/06/17 14:01 Dose: Not Given Multivitamins/Minerals 10 ml/Amino Ac/Electrol/Dextrose/Calcium 1,010 mls @ 84 mls/hr IV Q24H [facility] Stop: 03/23/17 13:30 Last Admin: 03/22/17 14:17 Dose: 42 mls/hr Multivitamins/Minerals 10 ml/Amino Ac/Electrol/Dextrose/Calcium 1,010 mls @ 84 mls/hr IV .BY DURATION [facility] Last Admin: 03/24/17 13:29 Dose: 84 mls/hr Amino Ac/Electrol/Dextrose/Calcium (Clinimix E 12/08) 1,000 mls @ 84 mls/hr IV .BY DURATION [facility] Last Admin: 03/25/17 02:17 Dose: 84 mls/hr Sodium Chloride (Normal Saline) 1,000 mls @ 50 mls/hr IV ASDIRECTED [facility] Last Admin: 04/09/17 17:14 Dose: 50 mls/hr Potassium Chloride 20 meq/ (Premix) 100 mls @ 50 mls/hr IV ONETIME ONE Stop: 03/24/17 10:10 Last Admin: 03/24/17 09:03 Dose: 50 mls/hr Potassium Chloride 20 meq/ (Premix) 100 mls @ 50 mls/hr IV ONETIME ONE Stop: 03/24/17 12:14 Last Admin: 03/24/17 11:06 Dose: 50 mls/hr Magnesium Sulfate 2 gm/ Premix 50 mls @ 8 mls/hr IV ONETIME ONE Stop: 03/24/17 23:14 Last Admin: 03/24/17 17:04 Dose: 8 mls/hr Multivitamins/Minerals 10 ml/Amino Ac/Electrol/Dextrose/Calcium 1,010 mls @ 84 mls/hr IV .BY DURATION [facility] Stop: 04/04/17 13:15 Last Admin: 04/05/17 10:57 Dose: Not Given Amino Ac/Electrol/Dextrose/Calcium (Clinimix E 12/08) 1,000 mls @ 84 mls/hr IV .BY DURATION [facility] Stop: 04/04/17 13:15 Last Admin: 04/04/17 00:54 Dose: 84 mls/hr Lactated Ringer's (Ringers, Lactated) 1,000 mls @ as directed IV .STK-MED ONE Stop: 03/25/17 10:01 Dextrose/Water (Dextrose 10% In Water) 1,000 mls @ as directed IV .STK-MED ONE Stop: 03/25/17 10:01 Magnesium Sulfate 2 gm/ Premix 50 mls @ 8 mls/hr IV ONETIME ONE Stop: 03/29/17 14:44 Last Admin: 03/29/17 10:00 Dose: 8 mls/hr Potassium Chloride 20 meq/ (Premix) 100 mls @ 50 mls/hr IV ONETIME ONE Stop: 04/03/17 09:15 Last Admin: 04/03/17 07:50 Dose: 50 mls/hr Dextrose/Water (Dextrose 10% In Water) 1,000 mls @ 84 mls/hr IV Q12H [facility] Stop: 04/05/17 22:00 Last Admin: 04/05/17 13:26 Dose: 84 mls/hr Dextrose/Water (Dextrose 10% In Water) 1,000 mls @ 42 mls/hr IV Q24H [facility] Stop: 04/06/17 06:00 Last Admin: 04/05/17 22:30 Dose: 42 mls/hr Potassium Chloride 20 meq/ (Premix) 100 mls @ 50 mls/hr IV ONETIME ONE Stop: 04/06/17 10:17 Last Admin: 04/06/17 08:35 Dose: 50 mls/hr Fat Emulsion Intravenous (Intralipid 20%) 250 mls @ 20 mls/hr IV Q24H [facility] Last Admin: 04/08/17 17:15 Dose: 20 mls/hr Multivitamins/Minerals 10 ml/Amino Ac/Electrol/Dextrose/Calcium 1,010 mls @ 42 mls/hr IV ONETIME ONE Stop: 04/07/17 18:02 Last Admin: 04/06/17 17:16 Dose: 42 mls/hr Multivitamins/Minerals 10 ml/Amino Ac/Electrol/Dextrose/Calcium 1,010 mls @ 84 mls/hr IV .BY DURATION [facility] Stop: 04/09/17 05:51 Last Admin: 04/08/17 11:45 Dose: 84 mls/hr Amino Ac/Electrol/Dextrose/Calcium (Clinimix E 12/08) 1,000 mls @ 84 mls/hr IV .BY DURATION [facility] Stop: 04/09/17 05:51 Last Admin: 04/09/17 01:08 Dose: 84 mls/hr Magnesium Sulfate (Magnesium Sulfate 2 Gm In Water 50 Ml) 50 mls @ 8 mls/hr IV ONETIME ONE Stop: 04/07/17 15:14 Last Admin: 04/07/17 09:22 Dose: 8 mls/hr Potassium Chloride 20 meq/ (Premix) 100 mls @ 50 mls/hr IV ONETIME ONE Stop: 04/07/17 11:59 Last Admin: 04/07/17 10:24 Dose: 50 mls/hr Potassium Chloride 20 meq/ (Premix) 100 mls @ 50 mls/hr IV ONETIME ONE Stop: 04/07/17 13:59 Last Admin: 04/07/17 12:32 Dose: 50 mls/hr Dextrose/Water (Dextrose 10% In Water) 1,000 mls @ 42 mls/hr IV ASDIRECTED [facility] Cefazolin Sodium 1 gm/ Sodium (Chloride) 50 mls @ 100 mls/hr IV ONETIME ONE Stop: 04/09/17 09:59 Last Admin: 04/09/17 08:59 Dose: 100 mls/hr Potassium Chloride/Dextrose/Sod Cl (D5 1/2 Ns W/ 20 Meq/L Kcl) 1,000 mls @ 75 mls/hr IV Q8H [facility] Last Admin: 04/12/17 04:55 Dose: 75 mls/hr Potassium Chloride 20 meq/ (Premix) 100 mls @ 50 mls/hr IV ONETIME ONE Stop: 04/09/17 19:31 Last Admin: 04/09/17 17:59 Dose: 50 mls/hr Sodium Chloride (Normal Saline) 500 mls @ 500 mls/hr IV .BOLUS ONE Stop: 04/21/17 09:02 Last Admin: 04/21/17 08:51 Dose: 500 mls/hr Insulin Aspart (Novolog) 0 unit SUBCUT WITHMEALSANDBED [facility] PRN Reason: Protocol Last Admin: 03/25/17 18:57 Dose: Not Given Ketorolac Tromethamine (Toradol) 15 mg IVPUSH Q6H PRN PRN Reason: Pain (moderate 4-6) Last Admin: 04/11/17 21:54 Dose: 15 mg Ketorolac Tromethamine (Toradol) 15 mg IVPUSH .STK-MED ONE Stop: 04/09/17 09:31 Lidocaine HCl (Xylocaine 2% Jelly) 5 ml MUCMEM Q4H PRN PRN Reason: Pain Last Admin: 03/27/17 13:05 Dose: 5 ml Lidocaine HCl (Xylocaine 2% Jelly) 5 ml MUCMEM 07 [facility] Last Admin: 04/06/17 07:38 Dose: 5 ml Lidocaine HCl (Xylocaine 2% Viscous) 15 ml PO 07 [facility] Lidocaine HCl (Xylocaine 2% Viscous) Confirm Administered Dose 15 ml .ROUTE .STK -MED ONE Stop: 04/06/17 07:35 Last Admin: 04/06/17 07:55 Dose: Not Given Lidocaine HCl (Xylocaine 2% Viscous) 15 ml PO 0700 [facility] Stop: 04/06/17 07:01 Last Admin: 04/06/17 07:35 Dose: 15 ml Lidocaine HCl (Xylocaine 2% Jelly) 5 ml MUCMEM ONETIME ONE Stop: 04/09/17 07:58 Last Admin: 04/09/17 11:15 Dose: Not Given Lidocaine HCl (Xylocaine 2% Viscous) 15 ml PO ONETIME ONE Stop: 04/09/17 08:16 Last Admin: 04/09/17 11:15 Dose: Not Given Lidocaine HCl (Xylocaine 2%) 100 mg IVPUSH .STK-MED ONE Stop: 04/09/17 09:31 Lidocaine/Epinephrine (Xylocaine 1% With Epinephrine 1:100,000) 5 ml INJECT .STK-MED ONE Stop: 04/09/17 09:59 Last Admin: 04/09/17 09:58 Dose: 5 ml Metoclopramide HCl (Reglan) 5 mg IV Q6H [facility] Last Admin: 03/23/17 08:24 Dose: 5 mg Metoprolol Succinate (Toprol Xl) 50 mg PO DAILY [facility] Midazolam HCl (Versed 1 Mg/Ml) 1 mg IV .STK-MED ONE Stop: 03/25/17 10:01 Midazolam HCl (Versed 1 Mg/Ml) 0.5 mg IV .STK-MED ONE Stop: 04/09/17 09:31 Morphine Sulfate (Morphine) 2 mg IVPUSH Q2H PRN PRN Reason: Pain (severe 7-10) Last Admin: 04/09/17 13:31 Dose: 2 mg Morphine Sulfate (Morphine) 2 mg IVPUSH Q3M PRN PRN Reason: Abdominal Pain Ondansetron HCl (Zofran) 4 mg IV Q6H PRN PRN Reason: Nausea/Vomiting Last Admin: 04/06/17 02:17 Dose: 4 mg Ondansetron HCl (Zofran) 4 mg IVPUSH .STK-MED ONE Stop: 04/09/17 09:31 Pantoprazole Sodium (Protonix Iv) 40 mg IVPUSH DAILY [facility] Last Admin: 04/16/17 08:45 Dose: 40 mg Phenylephrine HCl (Deni-Synephrine) 0.4 mg IV .STK-MED ONE Stop: 04/09/17 09:31 Phytonadione (Aquamephyton) 10 mg IM Mo [facility] Last Admin: 04/06/17 07:57 Dose: Not Given Propofol (Diprivan 20 Ml) 100 mg IV .STK-MED ONE Stop: 03/25/17 10:01 Propofol (Diprivan 20 Ml) 180 mg IV .STK-MED ONE Stop: 04/09/17 09:31 Rocuronium [place] (Zemuron) 5 mg IV .STK-MED ONE Stop: 04/09/17 09:31 Saccharomyces Boulardii (Florastor) 250 mg GTUBE BID [facility] Last Admin: 04/15/17 09:04 Dose: 250 mg Saccharomyces Boulardii (Florastor) 250 mg JTUBE BID [facility] Last Admin: 04/16/17 20:32 Dose: 250 mg Saccharomyces Boulardii (Florastor) 250 mg JTUBE BID@0800,1800 [facility] Last Admin: 04/20/17 08:19 Dose: 250 mg Succinylcholine Chloride (Quelicin) 140 mg IV .STK-MED ONE Stop: 04/09/17 09:31 Sucralfate (Carafate) 1 gm PO Q6H [facility] Last Admin: 03/25/17 11:28 Dose: Not Given *Q Meaningful Use (DIS) - VTE *Q VTE Criteria *Q: - Stroke *Q Stroke Criteria *Q: - AMI *Q AMI Criteria *Q:
--- NOTE | 2017-04-24 12:17 | DISCH ---
DISCHARGE DATE: 04/24/2017 For admission history and physical, please see my other notes. COURSE: The patient was admitted from hospital to swing bed status on TPN on the . He was taken to the endoscopy suite 3 days later, where he was noted to still have some dilatation of the stomach and his duodenal ulcer appeared to be healed. Because we had several dye studies suggestive of that he did not have a gastric outlet obstruction, a gastric emptying study was obtained and this demonstrated severe gastroparesis with a marked retention of the radiographic material at 0400 hours. At this point due to the demonstrated gastroparesis, we elected to place a gastric decompression tube and feeding jejunostomy. Attempts to place this endoscopically were not successful, therefore, it was converted to open and had a separate gastric tube for drainage as well as a separate feeding jejunostomy placed. Tube feeds were then advanced, and he was soon switched over to night feeds with flushes during the day and appeared to tolerate that quite well. Also during his admission to swing bed, he noted some swelling in his left lower extremity. Duplex ultrasound revealed a small DVT in his posterior tibial vein, and he was started on Lovenox. This was continued. Our plan is to continue this for 3 months. Currently, he is receiving Jevity 1.2 at 75 mL to receive 1500 mL overnight. He is also continuing to flush his tube during the day with normal saline to deal with and prevent metabolic alkalosis, which was evident during his hospitalization. His blood pressure has been controlled with p.o. metoprolol, and he has demonstrated adequate ability to maintain and manage the tube feeds at night by himself. As a review, he has been under my care since August. He has had a bleeding duodenal ulcer and developed gastroparesis. Extended trials of gastric rest and decompression have demonstrated no improvement in his gastric function. He has not been able to tolerate a liquid diet or a pureed diet, and he has been on TPN trial over a month prior to admission to swing bed. Radiographic studies demonstrated no gastric outlet obstruction as well as a healing ulcer. 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 Trials of erythromycin were unsuccessful in maintaining gastric decompression and several trials of Reglan have been encountered as both an and an outpatient, which resulted in him not having any improvement in his GI function and to demonstrating some extrapyramidal symptoms when we tried at the last time prior to the G-tube placement. 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 He will follow up in my office next week. Please see the separate discharge summary and plan. /[id number] /MODL
== END 2017-04-24 13:15 | disposition home or self-care (01) | DRG 327 ==
LOC: FB.MS 09:36
PROVIDERS: ADMIT Surgery; ATTEND Surgery
PROC: 0DB68ZX Excision of Stomach, Via Natural or Artificial Opening Endoscopic, Diagnostic (ICD-10-PCS; principal; 2017-03-25)
PROC: 0D9680Z Drainage of Stomach with Drainage Device, Via Natural or Artificial Opening Endoscopic (ICD-10-PCS; 2017-03-25)
PROC: 0DH60UZ Insertion of Feeding Device into Stomach, Open Approach (ICD-10-PCS; 2017-04-09)
PROC: 0DHA0UZ Insertion of Feeding Device into Jejunum, Open Approach (ICD-10-PCS; 2017-04-09)
DX: K31.84 Gastroparesis (principal); I82.442 Acute embolism and thrombosis of left tibial vein; Z87.11 Personal history of peptic ulcer disease; I10 Essential (primary) hypertension; E78.5 Hyperlipidemia, unspecified; H40.9 Unspecified glaucoma; K21.9 Gastro-esophageal reflux disease without esophagitis; Z87.891 Personal history of nicotine dependence; E87.6 Hypokalemia; E83.42 Hypomagnesemia; Z53.31 Laparoscopic surgical procedure converted to open procedure; Z23 Encounter for immunization
CPT/HCPCS: 36415; 36590; 36591; 71020; 74000; 80048; 80053; 81001; 82040; 82962; 83735; 84132; 85025; 85610; 87040; 88305; 88342; 90686; 93971-LT; 94150; 97032-GP; 97161-GP; 97166-GO; A9270-GY; C9113; G0008; J0330; J0690; J1170; J1642; J1650; J1885; J2250; J2270; J2370; J2405; J2704; J2765; J3010; J3430; J3475; J3480; J3490; J7040; J7050; J7060; J7120

== ENCOUNTER 2017-05-21 15:42 | Observation (INO) | payer MEDICARE, OTHER, MEDICAID ==
[2017-05-21] MEDS ORDERED: Potassium Chloride 20 MEQ in Premix Bag 1 BAG IV ONE ×2 (17:41→19:40)
[2017-05-21] MEDS: Lactated Ringers 1,000 ML IV SCH ×2 (17:44→18:51)
[2017-05-21] MEDS ORDERED: hydrOXYzine HCl 25 MG Tab PO PRN (19:35)
[2017-05-21] MEDS ORDERED: ENOXAPARIN SUBCUT SCH (20:00)
[2017-05-22] MEDS: Lactated Ringers 1,000 ML IV SCH ×2 (03:07→11:57)
[2017-05-22] MEDS ORDERED: METOPROLOL SUCCINATE 50 MG PO SCH (09:00)
[2017-05-22] MEDS ORDERED: METOPROLOL SUCCINATE 25 MG PO SCH (09:00)
[2017-05-22 09:10] VITALS: BP 98/70
--- NOTE | 2017-05-22 09:55 | PCM.SURGPN ---
- General Info Date of Service: 05/22/17 POD#: 0 Functional Status: Reports: Ambulating, Urinating - Review of Systems Gastrointestinal: Reports: Abdominal Pain (better ), Nausea - Patient Data Vitals - Most Recent: Last Vital Signs Temp 36.3 C 05/22/17 03:09 Pulse 74 05/22/17 09:10 Resp 18 05/22/17 03:09 BP 98/70 05/22/17 09:10 Pulse Ox 96 05/22/17 03:09 Weight - Most Recent: 63.367 kg I&O - Last 24 Hours: Intake & Output 05/21/17 05/22/17 05/22/17 22:59 06:59 14:59 Intake Total 1560 1091 Output Total 175 Balance 1560 916 Lab Results Last 24 Hrs: Laboratory Results - last 24 hr 05/21/17 05/22/17 05/22/17 Range/Units 17:18 07:00 07:00 WBC 10.7 (4.5-12.0) X10-3/uL RBC 3.88 L (4.30-5.75) x10(6)uL Hgb 12.7 (11.5-15.5) g/dL Hct 36.4 (30.0-51.3) % MCV 93.8 (80-96) fL MCH 32.8 (27.7-33.6) pg MCHC 35.0 (32.2-35.4) g/dL RDW 15.1 (11.5-15.5) % Plt Count 219 (125-369) X10(3)uL MPV 8.5 (7.4-10.4) fL Neut % (Auto) 76.0 (46-82) % Lymph % (Auto) 12.8 L (13-37) % Pierce % (Auto) 7.6 (4-12) % Eos % (Auto) 0 L (1.0-5.0) % Baso % (Auto) 3 H (0-2) % Neut # (Auto) 8.1 (1.6-8.3) # Lymph # (Auto) 1.4 (0.6-5.0) # Pierce # (Auto) 0.8 (0.0-1.3) # Eos # (Auto) 0.0 (0.0-0.8) # Baso # (Auto) 0.4 H (0.0-0.2) # Sodium 143 144 (135-145) mmol/L Potassium 2.7 L* 4.4 D (3.5-5.3) mmol/L Chloride 90 L D 96 L D (100-110) mmol/L Carbon Dioxide 32 H 36 H (23-29) mmol/L BUN 90 H D 79 H D (8-23) mg/dL Creatinine 1.9 H 1.4 H (0.6-1.3) mg/dL Est Cr Clr Drug Dosing 23.62 32.06 mL/min Estimated GFR (MDRD) 34 L 48 L (>60) BUN/Creatinine Ratio 47.4 H 56.4 H (9-20) Glucose 142 H 121 H (80-116) mg/dL Calcium 10.2 D 9.5 (8.6-10.2) mg/dL Total Bilirubin 1.4 H (0.1-1.3) mg/dL AST 72 H D (5-27) IU/L ALT 104 H D (14-26) IU/L Alkaline Phosphatase 91 (56-112) IU/L Total Protein 8.5 H (6.0-8.0) g/dL Albumin 4.3 (2.9-4.5) g/dL Globulin 4.2 g/dL Albumin/Globulin Ratio 1.0 Med Orders - Current: Current Medications Enoxaparin Sodium (Lovenox) 100 mg SUBCUT Q24H [facility] Last Admin: 05/21/17 20:32 Dose: 100 mg Hydroxyzine HCl (Atarax) 25 mg PO BEDTIME PRN PRN Reason: Insomnia Last Admin: 05/21/17 21:20 Dose: 25 mg Lactated Ringer's (Ringers, Lactated) 1,000 mls @ 999 mls/hr IV .BOLUS [facility] Last Admin: 05/21/17 17:44 Dose: 999 mls/hr Lactated Ringer's (Ringers, Lactated) 1,000 mls @ 125 mls/hr IV ASDIRECTED [facility] Last Admin: 05/22/17 03:07 Dose: 125 mls/hr Metoprolol Succinate (Toprol Xl) 25 mg PO DAILY [facility] Last Admin: 05/22/17 09:10 Dose: 25 mg Discontinued Medications Potassium Chloride 20 meq/ (Premix) 100 mls @ 50 mls/hr IV ONETIME ONE Stop: 05/21/17 19:40 Last Admin: 05/21/17 18:06 Dose: 50 mls/hr Potassium Chloride 20 meq/ (Premix) 100 mls @ 50 mls/hr IV ONETIME ONE Stop: 05/21/17 21:39 Last Admin: 05/21/17 20:51 Dose: 50 mls/hr - Exam General: Alert, Oriented, Cooperative, No Acute Distress Lungs: Clear to Auscultation, Normal Respiratory Effort Cardiovascular: Regular Rate, Regular Rhythm GI/Abdominal Exam: Normal Bowel Sounds, Soft, Non-Tender - Problem List & Annotations (1) Gastroparesis SNOMED Code(s): 953789629 Code(s): K31.84 - GASTROPARESIS Status: Acute Current Visit: No (2) Hypokalemia SNOMED Code(s): 73234731 Code(s): E87.6 - HYPOKALEMIA Status: Acute Current Visit: No - Problem List Review Problem List Initiated/Reviewed/Updated: Yes - My Orders Last 24 Hours: Active Orders 24 hr Category Date Time Status Patient Status [ADT] Routine ADT 05/21/17 16:11 Active Communication Order [RC] 03,09,15,21 Care 05/21/17 17:47 Active Height and Weight [RC] UPON Care 05/21/17 16:11 Active Oxygen Therapy [RC] PRN Care 05/21/17 16:11 Active Up With Assistance [RC] ASDIRECTED Care 05/21/17 16:11 Active VTE/DVT Education [RC] Per Unit Routine Care 05/21/17 16:11 Active Vital Signs [RC] Q4HWA Care 05/21/17 16:11 Active Nothing per Oral Now Diet [DIET] Diet 05/21/17 Dinner Active KUB [Abdomen 1V Flat] [CR] Routine Exams 05/22/17 07:54 Taken Enoxaparin [Lovenox] Med 05/21/17 20:00 Active 100 mg SUBCUT Q24H Lactated Ringers [Ringers, Lactated] 1,000 ml Med 05/21/17 16:15 Active IV .BOLUS Lactated Ringers [Ringers, Lactated] 1,000 ml Med 05/21/17 16:15 Active IV ASDIRECTED Metoprolol Succinate [Toprol XL] Med 05/22/17 09:00 Active 25 mg PO DAILY hydrOXYzine HCl [Atarax] Med 05/21/17 19:35 Active 25 mg PO BEDTIME PRN Resuscitation Status Routine Resus Stat 05/21/17 16:11 Ordered Medication Orders Enoxaparin Sodium (Lovenox) 100 mg SUBCUT Q24H [facility] Last Admin: 05/21/17 20:32 Dose: 100 mg Hydroxyzine HCl (Atarax) 25 mg PO BEDTIME PRN PRN Reason: Insomnia Last Admin: 05/21/17 21:20 Dose: 25 mg Lactated Ringer's (Ringers, Lactated) 1,000 mls @ 999 mls/hr IV .BOLUS [facility] Last Admin: 05/21/17 17:44 Dose: 999 mls/hr Lactated Ringer's (Ringers, Lactated) 1,000 mls @ 125 mls/hr IV ASDIRECTED [facility] Last Admin: 05/22/17 03:07 Dose: 125 mls/hr Infusion: 05/22/17 02:51 Dose: 125 mls/hr Admin: 05/21/17 18:51 Dose: 125 mls/hr Metoprolol Succinate (Toprol Xl) 25 mg PO DAILY [facility] Last Admin: 05/22/17 09:10 Dose: 25 mg - Assessment Assessment (Free Text/Narrative):: over all appears to be better. - Plan Plan (Free Text/Narrative):: await results of discussion to see if he wants to be on hospice. continue current rx for now.
--- NOTE | 2017-05-22 11:56 | CR ---
INDICATION: Feeding tube placement. ABDOMEN: Two supine views of the abdomen were obtained and revealed a feeding tube with its tip in the area of the gastric antrum or possibly duodenum. This tube has a metallic tip and appears to enter the abdomen in the epigastrium. There appears to be a second tube with a balloon tip in the area of the proximal gastric body. These tubes are new compared with 03/28/2017 examination. Evidence of cholecystectomy is again noted. Left inguinal herniorrhaphy change is seen. The pattern of gas and feces appears fairly nonspecific. 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 Degenerative changes are noted at the right sacroiliac joint. IMPRESSION: Feeding tubes in place, as noted above. Without contrast injection, however, the exact location is difficult to determine. MTDD
--- NOTE | 2017-05-22 16:42 | PCM.SN ---
- Free Text/Narrative Note: Pt is going to be discharged. Had discussion with home health today and wants to go into hospice. Family was present.
[2017-05-22] MEDS ORDERED: Sodium Chloride 0.9% 10 ML Syringe FLUSH PRN (17:12)
== END 2017-05-22 17:27 | disposition hospice, home (50) ==
LOC: FB.MS 16:26
PROVIDERS: ADMIT Surgery; ATTEND Surgery
DX: K31.84 Gastroparesis (principal); E87.6 Hypokalemia; E86.0 Dehydration; R63.4 Abnormal weight loss; I25.10 Atherosclerotic heart disease of native coronary artery without angina pectoris; N40.1 Benign prostatic hyperplasia with lower urinary tract symptoms; I10 Essential (primary) hypertension; K21.9 Gastro-esophageal reflux disease without esophagitis; E78.5 Hyperlipidemia, unspecified; Z79.899 Other long term (current) drug therapy; Z87.891 Personal history of nicotine dependence
CPT/HCPCS: 36415; 74000; 80048; 80053; 85025; 96360; 96361; 96372; A9270; G0378; G0379; J1642; J1650; J3480; J7050; J7120